=== PATIENT | female | born 1990 | race Caucasian/White ===

== ENCOUNTER 2018-08-05 06:54 | Emergency (ER) | payer OTHER, SELFPAY ==
[2018-08-05 06:54] VITALS: BP 126/95; PULSE 85; RESP 16; TEMP 36.8; O2SAT 100; BMI 25.7
--- NOTE | 2018-08-05 07:12 | ED.VISSUMM ---
- ER Visit Summary Date of Service: 08/05/18 Chief Complaint: [] History of Present Illness: The patient is a 28 F [] Physical Examination: [] Test Results: [] Emergency Department Course and Treatment: [] Treatment Plan: [] Disposition: [] Impression: [] This note was generated with [employer] dictation software. It may contain incorrect words, spelling, and punctuation that were not noted in review of the chart prior to signing ED Disposition - Plan for ED Patient: Disposition: Home or Assisted Living Chief Complaint: Other, Pain/Inj Instructions: ED Carpal Tunnel Referrals: Edgar Reis III, MD [Primary Care Provider] - (call today to schedule follow up)
--- NOTE | 2018-08-05 07:32 | ED.DCSUM_ITS ---
- ER Visit Summary Date of Service: 08/05/18 Chief Complaint: Bilateral hand tingling History of Present Illness: The patient is a 28 F who states that on 07/26 she had control implant removed from the left arm. She states that since that time both of her hands have been tingling in the palmar aspect of the thumb index. No fevers. No weakness. She was seen in outside hospital and had blood work done which she states was normal. 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 No neck pain. No known trauma. Physical Examination: Gen: Well-nourished well-developed Head: Normocephalic atraumatic Eyes: Perrl EOMI ENT: TMs clear no rhinorrhea moist mucous membranes Neck: Supple no lymphadenopathy no JVD nontender CVS: Regular rate rhythm no murmurs normal S1-S2 Respiratory: No distress clear to auscultation bilaterally chest nontender Abdomen: Soft nontender nondistended normal bowel sounds no masses Back: Nontender Extremity: Nontender no edema there is a small area of ecchymosis over the left proximal forearm/antecubital fossa distribution. Negative Phalen's. Negative Tinel's. There is no thenar or hyperthenar wasting. Normal opposition. Negative Ed's test. Less than 2-second capillary refill of all 10 fingers. Skin: Normal color no rash Neuro: alert orientated ?3 CN II-XII intact normal strength sensation reflexes gait cerebellar Psych: Normal affect normal mood Emergency Department Course and Treatment: Patient appears to have a median nerve paresthesia of both hands. Her mom has carpal tunnel splints which she is going to wear. She will follow-up with primary care. Impression: 1. Bilateral median nerve paresthesia This note was generated with [email or web address] dictation software. It may contain incorrect words, spelling, and punctuation that were not noted in review of the chart prior to signing ED Disposition - Plan for ED Patient: Disposition: Home or Assisted Living Chief Complaint: Other, Pain/Inj Instructions: ED Carpal Tunnel Referrals: Edgar Reis III, MD [Primary Care Provider] - (call today to schedule follow up)
--- NOTE | 2018-08-05 07:44 | ED.DCSUM_ITS ---
- ER Visit Summary Date of Service: 08/05/18 Chief Complaint: [] History of Present Illness: The patient is a 28 F [] Physical Examination: [] Test Results: [] Emergency Department Course and Treatment: [] Treatment Plan: [] Disposition: [] Impression: [] This note was generated with [employer] dictation software. It may contain incorrect words, spelling, and punctuation that were not noted in review of the chart prior to signing ED Disposition - Plan for ED Patient: Disposition: Home or Assisted Living Chief Complaint: Other, Pain/Inj Instructions: ED Carpal Tunnel Referrals: Edgar Reis III, MD [Primary Care Provider] - (call today to schedule follow up)
== END 2018-08-05 07:46 | disposition home or self-care (01) ==
LOC: ED 07:21
PROVIDERS: Emergency Provider Emergency Medicine; Family Provider Family Medicine; PCP Family Medicine
DX: G56.03 Carpal tunnel syndrome, bilateral upper limbs (principal)
CPT/HCPCS: 99282

== ENCOUNTER 2018-08-15 05:08 | Day surgery (SDC) | payer OTHER, SELFPAY ==
[2018-08-08 16:39] LABS: Hematocrit 41.1 % (37-47); Hemoglobin 13.7 g/dl (12.0-15.0); Mean Corp Hgb Conc 33.3 g/gl (32-36); Mean Corpuscular Hgb 30.6 pg (27.0-32.0); Mean Corpuscular Volume 91.9 fL (81-99); Mean Platelet Vol. 9.7 fl (6.2-12.0); Platelet Count 289 K/mm3 (150-450); Prothrombin Time (Protime)PT. 12.9 SECONDS (11.7-14.9); RBC Distribution Width CV 13.2 % (11.6-14.6); Red Blood Count 4.47 M/mm3 (4.2-5.4); White Blood Count 7.3 K/mm3 (4.4-11.0)
[2018-08-08 16:40] LABS: Partial Thromboplast Time 26.2 Seconds (24.1-36.2)
[2018-08-08 16:46] LABS: Scan Indicated on CBC? Y/N NO
[2018-08-08 16:55] LABS: Pregnancy, Serum, hCG Quali. NEGATIVE Negative (0-9 Nonpreg)
--- NOTE | 2018-08-15 | FALS_PTH ---
PATIENT: ANASTASIA LIVINGSTON LOC: [facility] [place] U#:[id number] AGE/SX: 28/F ROOM: RE08/15/[address]: Dr. Jeremie Gauthier MD : 1990 BED: DIS: 08/15/2018 SPEC #: [id number] RECD: 08/15/18 11:52 STATUS: COLT JOAN #: [id number] MERLYN: 08/15/18 00:[address]: Jeremie Gauthier DEPT: SURGICAL PATHOLOGY RECD BY: Eugene Woodard ENTERED: 08/15/18 11:52 SP TYPE: FALL TUBES OTHR DR: Dr. Edgar Reis III, MD Tissues: Fallopian tube Procedures: Surgery Specimen Level IV HEADER OPERATION: Lap BTO with Filshie clips, bilateral partial salpingectomy PRE-OP DIAGNOSIS: Desires permanent sterilization TISSUE SUBMITTED: Bilateral portion of fallopian tubes MICROSCOPIC DIAGNOSIS Right and left fallopian tubes, salpingectomies: Complete cross-sections of fallopian tubes. Benign paratubal cysts. AM:angie 08/16/18 MICROSCOPIC DESCRIPTION Slides are reviewed. GROSS DESCRIPTION Received is one container labeled with the patient's name and designated bilateral portion of fallopian tubes. The specimen consists of bilateral fallopian tubes including fimbrial ends. One of the fallopian tubes measures 6 cm in length and up to 0.5 cm in diameter. Sections reveal unremarkable cut surfaces. The second fallopian tube is received in two pieces. The distal end with fimbrial end measures 2 cm in length and 0.5 cm in diameter. A paratubal cyst is also noted measuring 1 cm in greatest dimension. The proximal portion measures 2.5 cm in length and 0.5 cm in diameter. Sections reveal unremarkable cut surfaces. Instructor Technical Training sections are submitted in two cassettes as follows: 1 - intact fallopian tube, 2 - second fallopian tube received in two pieces and paratubal cyst. / SJ:angie 08/15/18 TC:5 CPT: 41216 x2
[2018-08-15 05:34] LABS: Internal QC Validated? YES +Cl - CLEAR BKGD; Pregnancy, Urine Negative Negative
[2018-08-15 05:42] VITALS: BP 110/85; PULSE 72; RESP 16; TEMP 37.1; O2SAT 100; BMI 25.2
--- NOTE | 2018-08-15 07:41 | OP.PCM_ITS ---
Operative Report Date of Procedure: 08/15/18 Surgeon: Jeremie Gauthier MD, FACOG Anesthesia: David Kate CRNA Type of Anesthesia: General Endotracheal Pre-Op Diagnosis: Desires Permanent Sterilization Postoperative Diagnosis: Desires Permanent sterilization Procedure: Bilateral Tubal Occlusion With Filshie Clips and Partial Distal Salp ingectomy; Lysis of Adhesions Findings: 8 cm uterus with normal appearing fallopian tubes and ovaries; adhesions of the omentum to the left pelvic sidewall Indications: This is a 28 year old patient who has the above diagnosis. She has considered sterilization for quite some time. She is aware of the permanent nature of the procedure, the failure rate of 1-2%, and the availability of other nonpermanent control options. All questions were answered and we consider the patient well-informed. Procedure: The patient was taken to the operating room where after induction of general anesthesia, she was placed in the dorsolithotomy position and prepped and draped in the usual sterile fashion. The bladder was drained of approximately 50 cc of clear yellow urine with a catheter. Attention was turned toward the laparoscopic portion of the procedure. Approximately 16 cc of half percent ropivacaine was injected subumbilically, suprapubically and midway between. A 5 mm bladeless trocar was placed subumbilically and intraperitoneal placement confirmed. After CO2 insufflation was complete, a 7/8 mm bladeless trocar was introduced suprapubically. The above findings were noted. A 5 mm blade less port was then placed midway between these 2 ports for tubal manipulation. Adhesions of the omentum to the left pelvic sidewall were taken down using the Enseal device. Each fallopian tube was identified to its fimbriated end and an Enseal device was used to divide the mesosalpinx leaving approximately 1 cm stump of fallopian tube on each side. Filshie clips were placed on the stump of each fallopian tube. The peritoneal cavity and upper abdomen were examined and noted to be normal except for some adhesions in the right mid abdomen to the bowel and omentum. Photographs were taken. Laparoscopic instruments with as much CO2 gas as possible were removed and incisions were closed with interrupted 4-0 Monocryl suture. Steri-Strips were placed across the incision. Patient tolerated procedure well was taken to recovery room in satisfactory condition sponge instrument and needle counts were all reportedly correct. Estimated blood loss for the case was minimal. Cefotan 2 g IV was given prior to beginning the operative procedure. There were no apparent complications of the surgery. Specimens to pathology was bilateral distal tubes
--- NOTE | 2018-08-15 07:42 | DCINST_ITS ---
Discharge Diet: No Restrictions Discharge Activity: Return to Normal Activity, May not drive while taking narcotic pain medications., May Shower, May Take a Tub Bath Additional Activity Instructions:: Ambulate often the next week after surgery. Nothing in the vagina for 5 days. Call your doctor if your incision/area has: Continuous Slow Oozing, Sudden Increased Bleeding, Increased Pain/ Swelling, Increased Redness, Foul Smelling Discharge Call your doctor if you observe: Fever of 101 or Higher, Inability to urinate, Inability to have a bowel movement, Using more than one pad per hour Allergies/Adverse Reactions: Allergies latex Allergy (Verified 08/05/18 06:57) Rash nitrofurantoin [From Macrobid] Allergy (Verified 08/13/18 14:33) Rash phenazopyridine [From Pyridium] Allergy (Verified 08/13/18 14:33) Rash Medications to take at Discharge Diclofenac [Voltaren] 75 mg PO BIDCM 08/05/18 Omeprazole [Prilosec] 20 mg PO BID 08/05/18 Montelukast [Singulair] 10 mg PO QHS 08/13/18 Hydrocodone/Acetaminophen [Rainelle 5-325 Tablet] 1 ea PO Q6H PRN PRN 7 Days #10 tab 08/15/18 The following prescriptions were given: Hydrocodone/Acetaminophen [Rainelle 5-325 Tablet] 1 ea PO Q6H PRN PRN 7 Days #10 tab PRN Reason: Severe Pain (-07/17) Primary Care Physician: Edgar Reis III, MD [Primary Care Provider] - Test Results: Test results from this visit will be discussed in further detail at your follow- up appointment, if applicable. Please Follow Up With: Jeremie Gauthier MD - [phone] When: 2-3 weeks
[2018-08-15] MEDS: Ropivacaine 0.5% 30 ML Vial (08:15)
[2018-08-15 08:47] VITALS: BP 110/85; BP 117/77; PULSE 97; RESP 16; TEMP 36.3; O2SAT 100
[2018-08-15 09:00] VITALS: BP 110/85; BP 98/64; PULSE 72; RESP 16; O2SAT 100
[2018-08-15 09:15] VITALS: BP 110/85; BP 114/79; PULSE 82; RESP 16; O2SAT 100
[2018-08-15 09:31] VITALS: BP 110/85; BP 118/83; PULSE 69; RESP 16; TEMP 36.1; O2SAT 100
[2018-08-15] MEDS: HYDROcodone Bitartrate/Apap 5/325 Tablet PO (10:05)
[2018-08-15 10:36] VITALS: BP 110/85; BP 116/80; PULSE 74; RESP 16; TEMP 36.2; O2SAT 100
== END 2018-08-15 10:42 | disposition home or self-care (01) ==
LOC: SDC 05:09 → AC 05:10
PROVIDERS: Anesthesiology; Family Provider Family Medicine; PCP Family Medicine; Referring Provider Obstetrics & Gynecology; Visit Provider Obstetrics & Gynecology
PROC: (CPT 58671; principal; 2018-08-15 07:15)
DX: Z30.2 Encounter for sterilization (principal); N83.8 Other noninflammatory disorders of ovary, fallopian tube and broad ligament; N73.6 Female pelvic peritoneal adhesions (postinfective); K21.9 Gastro-esophageal reflux disease without esophagitis; J30.2 Other seasonal allergic rhinitis; Z79.899 Other long term (current) drug therapy
CPT/HCPCS: 58661; 58671; 36415; 81025; 84703; 85027; 85610; 85730; 86850; 86900; 88302; 88305; J7120; C1760; J2405

== ENCOUNTER 2018-09-27 19:56 | Emergency (ER) | payer OTHER, SELFPAY ==
[2018-09-27 19:56] VITALS: PULSE 89; RESP 16; TEMP 36.7; O2SAT 99; BMI 24.4
[2018-09-27 20:26] VITALS: BP 126/86
--- NOTE | 2018-09-27 20:43 | ED.DCSUM_ITS ---
- ER Visit Summary Date of Service: 09/27/18 Chief Complaint: Bilateral hand pain History of Present Illness: The patient is a 28 F who had a bilateral carpal tunnel release done today by Dr. Gallegos at [place]. This was done as an outpatient using local anesthetic. He states that since he has been home her pain is increasing. [place] was not helping. She sees some redness at the base of her dressings bilaterally. She has had no issues with any anesthesia locally before. Physical Examination: Vital signs reviewed. Patient afebrile. Bilateral hand exam reveals that the wounds are clean dry and intact. There is no erythema around the wounds. Around the wrists bilaterally on the palm side there is erythema consistent with what looks like an allergic reaction. There is no warmth or drainage. These areas are tender to palpation as is around the wounds. Test Results: None performed Emergency Department Course and Treatment: Patient will be given morphine for pain. She appears to have some sort of allergic reaction. Whether this is from the local anesthetic or the cleanser used for the surgery is unknown. I will give her Benadryl for this. She will continue Benadryl home. She will continue [place] for pain. Will follow up with her hand surgeon Treatment Plan: [] Disposition: Discharge Impression: Postoperative pain, allergic reaction This note was generated with [employer] dictation software. It may contain incorrect words, spelling, and punctuation that were not noted in review of the chart prior to signing ED Disposition - Plan for ED Patient: Chief Complaint: Other, Pain/Inj Referrals: Edgar Reis III, MD [Primary Care Provider] -
--- NOTE | 2018-09-27 20:43 | ED.DEP ---
ED Disposition - Plan for ED Patient: Disposition: Home or Assisted Living Chief Complaint: Other, Pain/Inj Instructions: ED Post Op Pain Referrals: Edgar Reis III, MD [Primary Care Provider] -
[2018-09-27] MEDS: Morphine 4 MG/ML Syringe IM (20:51)
[2018-09-27] MEDS: DiphenhydrAMINE 25 MG Capsule PO (20:51)
[2018-09-27 20:54] VITALS: PULSE 88; RESP 16; O2SAT 100
== END 2018-09-27 21:04 | disposition home or self-care (01) ==
PROVIDERS: Emergency Provider Emergency Medicine; Family Provider Family Medicine; PCP Family Medicine
DX: M79.642 Pain in left hand (principal); M79.641 Pain in right hand; G89.18 Other acute postprocedural pain; T78.40XA Allergy, unspecified, initial encounter; X58.XXXA Exposure to other specified factors, initial encounter; K21.9 Gastro-esophageal reflux disease without esophagitis
CPT/HCPCS: 96372; 99283

== ENCOUNTER 2018-12-16 20:00 | Emergency (ER) | payer OTHER, SELFPAY ==
[2018-12-16 20:02] VITALS: BP 131/81; PULSE 95; RESP 18; TEMP 36.6; O2SAT 99; BMI 23.8
[2018-12-16 20:21] LABS: Mucous, Urine 0 SEEN /hpf (<or=2+); Red Blood Cells-Urine 0 SEEN /hpf (0-5)
[2018-12-16 20:27] LABS: Color, Urine Yellow (Yellow); Glucose, Dipstick Normal (Normal); Ketone-Dipstick Negative (Negative); Leukocyte Esterase-Dipstick 500 /ul (Negative); Nitrite-Dipstick Positive (Negative); Occult Blood-Urine 50 /ul (Negative); Protein-Dipstick 30 mg/dl (Negative); Urine Bilirubin Dipstick Negative (Negative); Urine Clarity Cloudy (Clear); Urine Urobilinogen Normal (Normal)
[2018-12-16 20:35] LABS: White Blood Cells 25-50 SEEN /hpf (0-5)
[2018-12-16 20:36] LABS: Bacteria RARE /hpf (None Seen); Squamous Epithelial Cells - UA 0-5 SEEN /hpf (5-10)
[2018-12-16 21:31] LABS: Absolute Lymphocyte Count 2.27 X10^3/ul (0.83-4.51); Absolute Neutrophil Count 4.9 X10^3/uL (2.0-7.7); Basophil# 0.05 X10^3/uL; Basophil% 0.6 % (0-1); Eosinophil# 0.58 X10^3/uL; Eosinophils% 6.8 % (0-5); Lymphocyte # 2.27 X10^3/ul (4.0); Lymphocyte % 26.6 % (19-41); Mean Corp Hgb Conc 33.3 g/gl (32-36); Mean Corpuscular Hgb 30.3 pg (27.0-32.0); Mean Corpuscular Volume 90.9 fL (81-99); Mean Platelet Vol. 9.5 fl (6.2-12.0); Monocyte# 0.73 X10^3/uL; Monocyte% 8.6 % (0-10); Neutrophil # 4.86 X10^3/uL (2.7-7.7); POSITIVE COUNT NO; POSITIVE DIFFERENTIAL NO; POSITIVE MORPHOLOGY NO; Platelet Count 345 K/mm3 (150-450); RBC Distribution Width CV 13.8 % (11.6-14.6); RBC Distribution Width SD 44.8 fl (35.1-43.9); Red Blood Count 4.29 M/mm3 (4.2-5.4); White Blood Count 8.5 K/mm3 (4.4-11.0)
--- NOTE | 2018-12-17 00:44 | CT_ITS ---
STUDY: CT ABDOMEN AND PELVIS WITHOUT CONTRAST REASON FOR EXAM: Female, 28 years old. Flank pain RADIATION DOSAGE (If Supplied By Facility): CTDIvol = ( 6.08 ) mGy, DLP = ( 297.55 ) mGycm TECHNIQUE: Transaxial images were obtained from the dome of the diaphragm to the symphysis pubis without oral contrast, and without intravenous contrast. Sagittal and coronal images were reconstructed. Individualized dose optimization techniques were used for this CT. COMPARISON: None. FINDINGS: The visualized lung bases are unremarkable. The visualized portions of the heart are within normal limits. Normal liver. Normal gallbladder and extrahepatic biliary system. Normal spleen. Normal pancreas. Normal bilateral adrenal glands. Normal right kidney. There is stones in the lower pole of the LEFT kidney. There are NO ureteral stones. There is NO hydronephrosis. Normal visualized stomach. Normal small intestine. Normal colon. The appendix is visualized and appears normal. Normal abdominal aorta. Normal inferior vena cava. Normal retroperitoneum. Normal urinary bladder. Uterus is retroverted. There are bilateral tubal ligation clips. There is NO ascites or free air, abscess or adenopathy. Normal abdominal wall. Normal osseous structures. CT/Abdomen/Pelvis without Cont IMPRESSION: There is stones in the lower pole of the LEFT kidney. There are NO ureteral stones. There is NO hydronephrosis. Normal visualized stomach. Normal small intestine. Normal colon. The appendix is visualized and appears normal. Uterus is retroverted. There are bilateral tubal ligation clips. There is NO ascites or free air, abscess or adenopathy. Electronically Signed: Berto Ruvalcaba MD at 2:30 EDT , Service support ,
[2018-12-17 00:46] LABS: Anion Gap 9 (5-15); BUN 6 mg/dL (7-18); BUN/Creat Ratio 9.9 RATIO (10-20); Calcium,Total 8.6 mg/dL (8.5-10.1); Chloride 110 mmol/L (98-107); Creatinine, Serum 0.61 mg/dL (0.55-1.02); EST Glomerular Filtration Rate 124 mL/min (>60); Est Glom Filt Rate - Afr Amer 150 mL/min (>60); Estimated Creatinine Clearance 113.58 ml/min; Glucose 121 mg/dL (74-106); Potassium 3.3 mmol/L (3.5-5.1); Sodium Level 141 mmol/L (136-145)
[2018-12-17 00:49] LABS: Color, Urine Yellow (Yellow); Glucose, Dipstick Normal (Normal); Ketone-Dipstick Negative (Negative); Leukocyte Esterase-Dipstick 500 /ul (Negative); Mucous, Urine 0 SEEN /hpf (<or=2+); Nitrite-Dipstick Positive (Negative); Occult Blood-Urine 50 /ul (Negative); Protein-Dipstick 30 mg/dl (Negative); Red Blood Cells-Urine 0 SEEN /hpf (0-5); Urine Bilirubin Dipstick Negative (Negative); Urine Clarity Sl. Cloudy (Clear); Urine Urobilinogen Normal (Normal)
[2018-12-17] MEDS: Ceftriaxone 1 GM/50 ML BAG IV (00:54)
[2018-12-17] MEDS: 0.9% Normal Saline 1,000 ML 1000 ML IV (00:54)
[2018-12-17] MEDS: Ondansetron 4 MG/2 ML Vial IV (00:54)
[2018-12-17] MEDS: Ketorolac 30 MG/ML Syringe IV (00:54)
[2018-12-17 00:55] VITALS: BP 103/73; PULSE 78; RESP 14; TEMP 36.7; O2SAT 98
[2018-12-17 01:21] LABS: Pregnancy, Serum, hCG Quali. NEGATIVE Negative (0-9 Nonpreg)
[2018-12-17 01:21] LABS: Amorphous Sediment 1+ URATE; Bacteria RARE /hpf (None Seen); Calcium Oxalate Crystals Ur RARE /hpf (<or=2+); Squamous Epithelial Cells - UA 0-5 SEEN /hpf (5-10); White Blood Cells 25-50 SEEN /hpf (0-5)
--- NOTE | 2018-12-17 03:04 | ED.DCSUM_ITS ---
- ER Visit Summary Date of Service: 12/17/18 Chief Complaint: Right flank pain, frequency History of Present Illness: The patient is a 28 F reports urinary frequency and burning at the end of her stream. She had hematuria a couple days last week. She reports having pain up the middle of her back. She has not noted fever or chills. Physical Examination: Vital signs are unremarkable. Patient sitting upright in bed no acute distress. Head neck examination normal. Heart is regular rate and rhythm. Lung sounds are clear. Abdomen is soft with mild superpubic tenderness. No guarding or rebound. Back examination reveals mild right CVA tenderness. Test Results: CBC is normal. Chemistry studies significant for potassium 3.3. Renal function is normal. Urinalysis is positive for nitrites with 25-50 white cells and rare bacteria. Urine culture was sent. CT flank shows stones in the lower pole of the kidney. No ureteral stones. No hydronephrosis. Normal appendix noted. Emergency Department Course and Treatment: Patient received Toradol, Rocephin, Zofran, and IV fluids. On repeat evaluation she is sleeping comfortably. Test results are discussed with her and at bedside. She will be treated with a course of Bactrim. Treatment Plan: [] Disposition: Discharge Impression: Cystitis This note was generated with [employer] dictation software. It may contain incorrect words, spelling, and punctuation that were not noted in review of the chart prior to signing ED Disposition - Plan for ED Patient: Disposition: Home or Assisted Living Instructions: ED UTI Cystitis Female Prescriptions: Smz/Tmp Ds [Bactrim Ds] 1 tablet PO BID #6 tablet Referrals: Edgar Reis III, MD [Primary Care Provider] - 1 Week if not improving
[2018-12-17 03:11] VITALS: RESP 14
== END 2018-12-17 03:12 | disposition home or self-care (01) ==
PROVIDERS: Emergency Provider Emergency Medicine; Family Provider Family Medicine; PCP Family Medicine
DX: N30.90 Cystitis, unspecified without hematuria (principal)
CPT/HCPCS: 74176; 80048; 81001; 84703; 85025; 87077; 87086; 87088; 87186; 96365; 96375; 99282; J7030; J2405

== ENCOUNTER 2019-01-23 10:33 | Emergency (ER) | payer OTHER, SELFPAY ==
[2019-01-23 10:34] VITALS: BP 142/83; PULSE 88; RESP 17; TEMP 36.5; O2SAT 100; BMI 23.6
--- NOTE | 2019-01-23 11:18 | ED.DCSUM_ITS ---
- ER Visit Summary Date of Service: 01/23/19 Chief Complaint: Fever and myalgias History of Present Illness: The patient is a 28 F who presents with fever and myalgias that began today. Patient states her was seen here yesterday and diagnosed with influenza. Patient states she has not taken her temperature at home she just has subjective fevers and chills. Patient admits to a cough and some diarrhea. Patient also admits to some nasal congestion and an intermittent headache. Patient denies any sputum production. Physical Examination: Vital signs are stable. Patient is afebrile here. Patient is in no acute distress. Oral mucosa is pink and moist. Neck is supple. Trachea is midline. There is no JVD or lymphadenopathy noted. Oropharynx is clear. Heart was regular rate and rhythm. Lungs are clear and equal bilateral. Abdomen is soft. Bowel sounds are normal. There is no tenderness. Cranial nerves II through XII are intact. There are no focal motor or sensory deficits noted. Test Results: Rapid flu was obtained and was negative. Emergency Department Course and Treatment: Patient was advised that this is most likely a viral upper respiratory infection. Patient was instructed to take Tylenol as needed for any aches or fevers. Patient was instructed to drink plenty of fluids. Patient was instructed to follow-up with her primary care physician in 5-7 days. Patient understood and was agreeable with the plan. All questions were answered. Disposition: Discharge home Impression: Viral upper respiratory infection This note was generated with [employer] dictation software. It may contain incorrect words, spelling, and punctuation that were not noted in review of the chart prior to signing ED Disposition - Plan for ED Patient: Disposition: Home or Assisted Living Diagnosis: Viral upper respiratory infection Instructions: ED Upper Resp Infec No Abx Tx Referrals: Edgar Reis III, MD [Primary Care Provider] - 5-7 Days
== END 2019-01-23 13:33 | disposition home or self-care (01) ==
PROVIDERS: Emergency Provider Emergency Medicine; Family Provider Family Medicine; PCP Family Medicine
DX: J06.9 Acute upper respiratory infection, unspecified (principal); K21.9 Gastro-esophageal reflux disease without esophagitis
CPT/HCPCS: 87804; 99282

== ENCOUNTER 2019-02-10 14:03 | Emergency (ER) | payer OTHER, SELFPAY ==
[2019-02-10 14:04] VITALS: BP 115/61; PULSE 20; TEMP 36.7; O2SAT 97; BMI 26.2
--- NOTE | 2019-02-10 15:33 | ED.DCSUM_ITS ---
History of Present Illness Chief Complaint: Cold Sx Informant: Patient Onset: Weeks - 1 Context: Gradual Onset Timing: Continuous Quality: prod cough Location: chest Current Severity: Moderate Maximum Severity: Moderate Worsened by: at night -- trouble sleeping due to coughing Relieved by: not by dayquil, nyquil Associated Symptoms: ST, fever, earache bilat Narrative: Patient has had a productive cough for a week, making it hard for her to sleep. She saw her registered radiologic technologist just before the weekend, 3 days ago, was prescribed Levaquin after discussing this. She has been on that for 3 days. In the last 1 to 2 days she has had sore throat, bilateral earache and developed a fever. Denies any dyspnea. - Past Medical History (1) Seasonal allergies Status: Chronic (2) Carpal tunnel syndrome Status: Chronic Past Medical History - Allergies and Home Meds Allergies/Adverse Reactions: Allergies latex Allergy (Verified 01/23/19 10:34) Rash nitrofurantoin [From Macrobid] Allergy (Verified 01/23/19 10:34) Rash phenazopyridine [From Pyridium] Allergy (Verified 01/23/19 10:34) Rash epinephrine Adverse Reaction (Verified 01/23/19 10:34) Other lidocaine Adverse Reaction (Verified 01/23/19 10:34) Other Primary Care Physician: Edgar Reis III, MD [Primary Care Provider] - Smoking Status: Never smoker Review of Systems General: Reports: Fever, Malaise Eyes: Denies: Visual changes - bilaterally, Diplopia ENT: Reports: Bilateral ear pain, Rhinorrhea, Sore throat Cardiovascular: Denies: Chest pain Respiratory: Reports: Cough, Sputum. Denies: Dyspnea Gastrointestinal: Denies: Nausea, Vomiting, Diarrhea Skin: Denies: Rash, Abscess Physical Exam Vital Signs/Narrative: Vital Signs Temp Pulse BP Pulse Ox 02/10/19 14:04 98.1 F 20 L 115/61 97 Inital Vital Signs reviewed: Yes General: Well nourished, Well developed, No Acute Distress Head: Normocephalic, Atraumatic Eyes: Perrl, EOMI ENT: Moist mucous membranes, No rhinorrhea, TM's clear, Nasal congestion. Negative for: Sinus tenderness Neck: Supple, Nontender, No lymphadenopathy Cardiovascular: Regular rate, Regular rhythm, No murmurs Respiratory: No distress, CTA bilaterally, Chest nontender Skin: Normal color, No rash Neurological: Alert, Oriented x3, Cranial nerves II-XII grossly intact, Normal Strength, Normal Sensation, Normal Gait Psychological: Normal affect, Normal Mood Diagnostic/Tx/Re-eval - Medical Decision Making Her vital signs are unremarkable, her lungs are clear, her exam is normal. This is all consistent with a viral syndrome which is probably why the antibiotic is not helping. Since she has already taken half of it I recommend that she finish it and she was given a prescription for Robitussin-AC to help with her cough at night. ED Disposition - Plan for ED Patient: Disposition: Home or Assisted Living Diagnosis: Viral URI Instructions: ED Upper Resp Infec No Abx Tx Prescriptions: Guaifenesin/Codeine [Robitussin AC] 10 ml PO Q6H PRN PRN 3 Days #120 oz PRN Reason: Cough Referrals: Edgar Reis III, MD [Primary Care Provider] - 10-14 Days if not better
== END 2019-02-10 16:21 | disposition home or self-care (01) ==
PROVIDERS: Emergency Provider Emergency Medicine; Family Provider Family Medicine; PCP Family Medicine
DX: J06.9 Acute upper respiratory infection, unspecified (principal)
CPT/HCPCS: 99283

== ENCOUNTER 2019-02-17 18:34 | Emergency (ER) | payer OTHER, SELFPAY ==
[2019-02-17 18:35] VITALS: BP 118/83; PULSE 76; RESP 18; TEMP 36.6; O2SAT 99; BMI 25.1
--- NOTE | 2019-02-17 18:50 | RAD_ITS ---
STUDY: X-RAY CHEST REASON FOR EXAM: Female, 28 years old. Cough. TECHNIQUE: Single AP portable view of the chest. COMPARISON: None. FINDINGS: The lungs are clear and expanded. There is no demonstrated pleural abnormality. Normal size heart. Normal mediastinum and milena. Normal visualized pulmonary arteries. Normal visualized aortic arch and descending thoracic aorta. Normal visualized thoracic spine. Normal visualized ribs, clavicles, and shoulders. There is no demonstrated abnormality of the visualized soft tissue structures of the upper abdomen. RAD/Chest 1 View (Portable) IMPRESSION: Normal x-ray examination of the chest. Electronically Signed: Hernan Walker DO at 19:07 EDT Tel [phone], Service support ,
--- NOTE | 2019-02-17 19:39 | ED.VISSUMM ---
- ER Visit Summary Date of Service: 02/17/19 Chief Complaint: Cough History of Present Illness: The patient is a 28 F presenting with cough x2 weeks. Patient states she has had subjective fever, rhinorrhea, cough. She has multiple sick contacts at home with her children. She denies other complaints. She has tried NyQuil and DayQuil at home. Physical Examination: Vitals are stable. Patient is afebrile. Alert no acute distress. HEENT exam pharynx is normal Neck is supple. Lungs are clear and equal bilaterally. Heart is regular rate and rhythm. Abdomen is soft nontender nondistended. Extremities are unremarkable. Skin is warm and dry. Remainder of exam is unremarkable. Emergency Department Course and Treatment: Chest x-ray shows no acute process. She is given a prescription for Tessalon Perles. Advised to follow-up with her primary care physician. Advised return to ED for worsening complaints. Disposition: Discharge home Impression: URI This note was generated with [employer] dictation software. It may contain incorrect words, spelling, and punctuation that were not noted in review of the chart prior to signing ED Disposition - Plan for ED Patient: Instructions: ED Upper Resp Infec No Abx Tx Prescriptions: Benzonatate [Tessalon Perle] 200 mg PO TID PRN PRN #20 capsule PRN Reason: Cough Referrals: Edgar Reis III, MD [Primary Care Provider] -
[2019-02-17 19:57] VITALS: RESP 18
== END 2019-02-17 19:58 | disposition home or self-care (01) ==
LOC: ED 19:47
PROVIDERS: Emergency Provider Emergency Medicine; Family Provider Family Medicine; PCP Family Medicine
DX: J06.9 Acute upper respiratory infection, unspecified (principal); K21.9 Gastro-esophageal reflux disease without esophagitis; J30.2 Other seasonal allergic rhinitis
CPT/HCPCS: 71045; 99282

== ENCOUNTER 2019-06-13 23:47 | Emergency (ER) | payer SELFPAY ==
[2019-06-13 23:49] VITALS: BP 136/85; PULSE 81; RESP 16; TEMP 36.7; O2SAT 100; BMI 26.5
--- NOTE | 2019-06-14 01:38 | ED.RN ---
WENT IN TO APOLOGIZE TO PT FOR DELAY IN CARE, PT AND SPOUSE/SO LAYING IN BED SLEEPING.
--- NOTE | 2019-06-14 01:52 | ED.VIS.GEN ---
History of Present Illness Chief Complaint: Rash Narrative: Patient is a 29-year-old female who presents with a rash. This began about 4 5 days ago. She also complains of sore throat. No cough. She has had some congestion and runny nose. She complains of a fever of 100. No chest pain shortness of breath nausea vomiting. She has a red raised pruritic rash on the trunk and extremities. Past Medical History - Allergies and Home Meds Allergies/Adverse Reactions: Allergies latex Allergy (Verified 06/13/19 23:51) Rash nitrofurantoin [From Macrobid] Allergy (Verified 06/13/19 23:51) Rash phenazopyridine [From Pyridium] Allergy (Verified 06/13/19 23:51) Rash epinephrine Adverse Reaction (Verified 06/13/19 23:51) Other RASH lidocaine Adverse Reaction (Verified 06/13/19 23:51) Other RASH Primary Care Physician: Edgar Reis III, MD [Primary Care Provider] - Prior records reviewed: Yes Smoking Status: Never smoker Review of Systems All systems negative except as indicated General: Reports: Fever ENT: Reports: Sore throat Cardiovascular: Denies: Chest pain Respiratory: Denies: Dyspnea, Cough Gastrointestinal: Denies: Nausea, Vomiting Skin: Reports: Rash Physical Exam Vital Signs/Narrative: Vital Signs Temp Pulse Resp BP Pulse Ox 06/13/19 23:49 98.1 F 81 16 136/85 H 100 Inital Vital Signs reviewed: Yes General: Well nourished Head: Normocephalic Eyes: EOMI ENT: Moist mucous membranes, - - Posterior oropharyngeal erythema no exudate uvula midline clear speech no trismus no sublingual edema Neck: Supple Cardiovascular: Regular rate Respiratory: No distress Skin: - - Scarlatiniform rash over the trunk and arms. Diagnostic/Tx/Re-eval - Medical Decision Making Rapid strep is negative. This will reflex to culture. Given negative rapid strep this is likely a viral exanthem. She was advised on supportive care. Patient was discharged. ED Disposition - Plan for ED Patient: Disposition: Home or Assisted Living Diagnosis: Pharyngitis, Rash Instructions: PHARYNGITIS, Viral Referrals: Edgar Reis III, MD [Primary Care Provider] -
[2019-06-14 03:26] VITALS: RESP 16
== END 2019-06-14 03:27 | disposition home or self-care (01) ==
PROVIDERS: Emergency Provider Emergency Medicine; Family Provider Family Medicine; PCP Family Medicine
DX: R21 Rash and other nonspecific skin eruption (principal); J02.9 Acute pharyngitis, unspecified
CPT/HCPCS: 87077; 87880; 99282

== ENCOUNTER 2019-07-15 08:51 | Emergency (ER) | payer SELFPAY ==
[2019-07-15 08:51] VITALS: BP 130/81; PULSE 97; RESP 18; TEMP 36.2; O2SAT 100; BMI 26.5
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
[2019-07-15 09:43] VITALS: PULSE 110; RESP 16; O2SAT 98
[2019-07-15 10:06] VITALS: BP 127/75; PULSE 97; RESP 16; O2SAT 97
== END 2019-07-15 10:07 | disposition home or self-care (01) ==
PROVIDERS: Emergency Provider Emergency Medicine; Family Provider Family Medicine; PCP Family Medicine
DX: Z04.1 Encounter for examination and observation following transport accident (principal); S40.211A Abrasion of right shoulder, initial encounter; S50.811A Abrasion of right forearm, initial encounter; V43.62XA Car passenger injured in collision with other type car in traffic accident, initial encounter; Y93.I9 Activity, other involving external motion; Y92.410 Unspecified street and highway as the place of occurrence of the external cause; Y99.8 Other external cause status
CPT/HCPCS: 73060; 73090; 73590; 99282

== ENCOUNTER → 2020-05-27 | Outpatient (CLI) | payer BC, SELFPAY ==
[2020-06-01 13:35] LABS: HPV Reflexed? NOT INDICATED
== END | disposition home or self-care (01) ==
PROVIDERS: PCP Family Medicine; Visit Provider Obstetrics & Gynecology
DX: Z12.4 Encounter for screening for malignant neoplasm of cervix (principal)
CPT/HCPCS: 88175; G0145

== ENCOUNTER → 2020-12-16 16:20 | Outpatient (CLI) | payer BC, SELFPAY ==
--- NOTE | 2020-12-16 16:10 | EMB_PTH ---
PATIENT: ANASTASIA LIVINGSTON LOC: [facility] U#:[id number] AGE/SX: 35/F ROOM: RE12/16/[address]: Dr. Jeremie Gauthier MD : 1990 BED: DIS: SPEC #: [id number] RECD: 12/17/20 08:17 STATUS: COLT REGopal #: [id number] MERLYN: 12/16/20 16:[address]: Jeremie Gauthier DEPT: SURGICAL PATHOLOGY RECD BY: Sarah Cason ENTERED: 12/17/20 08:18 SP TYPE: ENDOM BX/C NATALIIA DR: Dr. Edgar Reis III, MD Tissues: Endometrium, NOS Procedures: Surgery Specimen Level IV HEADER OPERATION: Endometrial biopsy PRE-OP DIAGNOSIS: Menorrhagia TISSUE SUBMITTED: Endometrial biopsy MICROSCOPIC DIAGNOSIS Endometrium, biopsy: Secretory endometrium. AM:angie 12/20/2020 MICROSCOPIC DESCRIPTION Slides are reviewed. GROSS DESCRIPTION Received in fixative is one container labeled with the patient's name and designated EM biopsy. The specimen consists of multiple irregular fragments of hudson soft tissue that in aggregate measure 2.5 x 1.5 x 0.2 cm. The specimen is totally submitted in one cassette. / SJ:angie 12/17/20 TC:5 CPT: 14760
== END ==
LOC: WOBLAB 16:21
PROVIDERS: PCP Family Medicine; Visit Provider Obstetrics & Gynecology
DX: N92.0 Excessive and frequent menstruation with regular cycle (principal)
CPT/HCPCS: 88305

== ENCOUNTER 2021-01-10 08:24 | Day surgery (SDC) | payer BC, SELFPAY ==
[2021-01-07 15:48] LABS: Hematocrit 38.2 % (37-47); Hemoglobin 12.2 g/dL (12.0-15.0); Mean Corp Hgb Conc 31.9 g/dL (32-36); Mean Corpuscular Hgb 27.1 pg (27.0-32.0); Mean Corpuscular Volume 84.9 fL (81-99); Mean Platelet Vol. 9.8 fl (6.2-12.0); Platelet Count 332 K/mm3 (150-450); RBC Distribution Width CV 13.6 % (11.6-14.6); RBC Distribution Width SD 42.4 fl (35.1-43.9); White Blood Count 8.1 K/mm3 (4.4-11.0)
[2021-01-07 15:53] LABS: International Normalized Ratio 0.9; Prothrombin Time (Protime)PT. 11.9 SECONDS (11.7-14.9)
[2021-01-07 15:55] LABS: Partial Thromboplast Time 27.1 Seconds (24.1-36.2)
[2021-01-07 16:19] LABS: Thyroid Stim Hormone (TSH) 0.75 uIU/mL (0.358-3.74)
--- NOTE | 2021-01-09 10:52 | PCM.HP.BLA ---
History and Physical Date of Admission: 01/10/21 Surgical History and Physical Hortencia Perez, a 30 year old female 2 0 1 0 2, presents for HTA, Hysteroscopy and D and C on January 10, 2021 at 10:30. -- Menorrhagia and Dysmenorrhea -- heavy menses which began 1 year. Hortencia claims it started gradually and has been present worsened in last several months. It occurs with menses. It is located in the vagina.; It is located in the lower abdomen. Hortencia characterizes it to be to the back. Hortencia characterizes the quality cramping.; Hortencia characterizes the quality stabbing.; Hortencia characterizes the quality heavy. Severity is moderate and not improving. Additional comments are: EMBx benign and u/s ok. MEDICATIONS HISTORY: Patient is also takin. Supplement (s) [No Strength], Allergy Injections once weekly 2. Singulair 10 mg tablet, One pill by mouth once a day 3. Carafate 1 gram tablet, One pill by mouth four times a day 4. Flonase Allergy Relief 50 mcg/actuation nasal spray,suspension, As Directed ALLERGIES: Latex, Hives and/or rash, Macrobid, Paresthesia-facial (sensation of tickling, tingling, burning, pricking, or numbness), Pyridium, Hives and/or rash, Lidocaine and Hives and/or rash Illnesses - Seasonal Allergies, Acid Reflux Accidents - None Hospitalizations - see surgery Review of Systems: GENERAL - Denies fever, or chills SKIN - Denies skin changes EYES - Denies visual changes EARS - Denies difficulty hearing NOSE - Denies nasal congestion or bleeding MOUTH - Denies sore throat or difficulty swallowing NECK - Denies pain or swelling RESPIRATORY - Denies shortness of breath or wheezing CARDIOVASCULAR - Denies palpitations or chest pain GASTROINTESTINAL - Denies nausea, vomiting, diarrhea, constipation GENITOURINARY - Denies dysuria, frequency of urination, incontinence of urine MUSCULOSKELETAL - Denies joint or muscle pain NEUROLOGICAL - Denies localized numbness or weakness PSYCHIATRIC - Denies depression or anxiety ENDOCRINE - Denies heat or cold intolerance, weight loss or gain HEMATO-IMMUNOLOGIC - Denies excesive bleeding with cuts SOCIAL HISTORY: Alcohol Use - drinks occasionally Smoking - Never Diet - no special diet Lifestyle - moderate stress lifestyle and Exercise - active work Seat Belt Use - always Employer - [employer] Illicit Drug Use - None Sexual Activity - Spouse-Sig Other Name - Chevy Perez Spouse-Sig 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 09/27/2018 Bilateral Carpel Tunnel ; - 2. 04/27/2008 ; Dr. Montgomery & Dr. Enriquez - 3. 07/25/2011 ; Dr. Montgomery & Dr. Medina - 4. 09/2016 Nasoplasty ; - 5. 08/15/2018 Lap BTO with filyaneli and BPS ; Jeremie Gauthier M.D. - PHYSICAL EXAM BP- 136/86 Sitting, Right arm, regular cuff Weight- 184.49502 lbs Height- 63 inch BMI:32.66 CONSTITUTIONAL - NAD, well nourished, and well developed SKIN - No rash, lesions, or ulcers HEENT - Normocephalic, PERRLA, EOMI NECK - No nodes, no nuchal rigidity and thyroid normal size and texture LYMPH NODES - Palpation of lymph nodes in neck and groins within normal limits LUNGS - CTA x2 without wheezes, crackles or rales CARDIAC - Regular rate and rhythm without rubs, murmurs, or gallops BREAST - No dominant masses, no tenderness, no axillary adenopathy, no nipple discharge, no skin changes ABDOMEN - Without hepatosplenomegaly, distention, masses, rebound, or guarding; normal bowel sounds; no hernias EXTREMITIES - No edema or calf tenderness NEUROLOGICAL - Cranial nerves II-XII grossly intact PSYCHIATRIC - A and O to time, place, person, mood and affect External Genitial Vagina - non-tender without lesions and erythematous Urethra/Urethral Meatus - non-tender Bladder - non-tender Vagina - vaginal hernandez are pink and moist without loss of rugae and no evidence of atropy Cervix - without cervical motion tenderness and has normal size and features without evident lesions Uterus - multiparous size 6 cm & wt 75-125 g Adnexa - clear without massess or tenderness ASSESSMENT/PLAN: 1. Dysmenorrhea and Premenopausal Menorrhagia EMBx and U/S OK. Tried OCPs but did not help. Discussed options and suggested ablation. Plan to proceed with Dx H/S, D and C, and HTA. Discussed RBAs and all quesitons answered.
--- NOTE | 2021-01-10 | EMB_PTH ---
PATIENT: ANASTASIA LIVINGSTON LOC: [facility] [place] U[place][id number] AGE/SX: 30/F ROOM: RE01/10/[address]: Dr. Jeremie Gauthier MD : 1990 BED: DIS: 01/10/2021 SPEC #: [id number] RECD: 01/10/21 12:47 STATUS: COLT REGopal #: [id number] MERLYN: 01/10/21 00:[address]: Jeremie Gauthier DEPT: SURGICAL PATHOLOGY RECD BY: Eugene Woodard ENTERED: 01/11/21 07:44 SP TYPE: ENDOM BX/C NATALIIA DR: Dr. Edgar Reis III, MD Tissues: Endometrium, NOS Procedures: Surgery Specimen Level IV HEADER OPERATION: Hysteroscopy, D & C hydroablation PRE-OP DIAGNOSIS: Menorrhagia and dysmenorrhea TISSUE SUBMITTED: Endometrial curettings MICROSCOPIC DIAGNOSIS Endometrial curettings: Mildly disordered proliferative endometrium. SJ:angie 01/12/2021 MICROSCOPIC DESCRIPTION Slides are reviewed. GROSS DESCRIPTION Received in fixative is one container labeled with the patient's name and designated endometrial curettings. The specimen consists of multiple fragments of hemorrhagic soft tissue that in aggregate measure 5 x 3 x 0.3 cm. The entire specimen is submitted in two cassettes. / CIRA:angie 01/11/21 TC:5 CPT: 93876
[2021-01-10 08:52] VITALS: BP 119/85; PULSE 70; RESP 16; TEMP 36.9; O2SAT 99; BMI 33.1
[2021-01-10] MEDS: Lactated Ringers 1,000 ML 100 ML IV ×2 (09:13→11:34)
--- NOTE | 2021-01-10 10:34 | OP.PCM_ITS ---
Report of Operation Date of Procedure: 01/10/21 Pre-Operative Diagnosis: Menorrhagia Post-Operative Diagnosis: Menorrhagia Surgery/Procedure Performed:: Diagnostic Hysteroscopy, Dilation and Curettage, Hydrothermal Ablation Description of Surgical Findings:: 8 cm endometrial cavity without polyps or fibroids. Cervix which protrudes to within about 3 cm the introitus which would make laparoscopic-assisted vaginal hysterectomy difficult but robotic assisted vaginal hysterectomy feasible if this were ever needed. Type of Anesthesia:: General - LMA Anesthesiologist: Lowell Lang Estimated Blood Loss (mL): Minimal Fluids Replaced: Crystalloid Description of Procedure: Surgeon: Jeremie Gauthier MD, FACOG Indication: This is a 30 year old patient who has been having problems with extremely heavy menses. Conservative measures have not been helpful. Endometrial sampling was benign and pelvic ultrasound showed that ablation may be helpful. Pt has been counseled regarding the risks, benefits and alternatives of this procedure and all questions answered. She understands that only about half of patients will have amenorrhea after this procedure. Procedure: Patient taken to the operating room where after induction of general anesthesia the patient was prepped and draped in the usual sterile fashion. Mario Alberto dder was drained of urine with a catheter. Anterior cervix grasped and cervix was dilated to about 17 Mosotho size. Hysteroscopic hydrothermal ablation (HTA) unit was place in the cervix and the above findings were noted. HTA unit was removed and the uterus was gently curretted removing all contents. An HTA ablation cycle was then carried out at about 90 degrees Centigrade for 10 minutes with virtually no fluid loss during the procedure. After an appropriate cool down the HTA unit was removed with minimal bleeding noted. The patient tolerated the procedure well and was taken to the recovery room in satisfactory condition. Sponge, instruments and needle counts were all correct. There were no apparent complications of the surgery. Cefotan 2 gms IV was given prior to the procedure. Estimated Blood Loss: Minimal Specimen to Pathology: Endometrial Curettings Grafts/Implants Used: None - Complications None - Admit VTE Documentation VTE Present on Admission: Yes VTE Mechan Device Prophylaxis: SCD's
--- NOTE | 2021-01-10 10:37 | DCINST_ITS ---
Discharge Diet: No Restrictions Discharge Activity: Return to Normal Activity, May Shower, May Take a Tub Bath May resume sexual activity in: 4 weeks Call your doctor if you observe: Fever of 101 or Higher, Inability to urinate, Inability to have a bowel movement, Using more than one pad per hour Allergies/Adverse Reactions: Allergies latex Allergy (Verified 01/10/21 08:51) Rash nitrofurantoin [From Macrobid] Allergy (Verified 01/10/21 08:51) Rash phenazopyridine [From Pyridium] Allergy (Verified 01/10/21 08:51) Rash epinephrine Adverse Reaction (Verified 01/10/21 08:51) Other RASH lidocaine Adverse Reaction (Verified 01/10/21 08:51) Other RASH Medications to take at Discharge Montelukast [Singulair] 10 mg PO QHS 02/10/19 Sucralfate [Carafate] 1 gm PO 4X/DAY 02/10/19 Fluticasone 0.05% [Flonase Nasal [place]] 1 spray NASAL DAILY 01/03/21 Oxycodone [Oxyir] 5 mg PO Q6H PRN PRN 7 Days #5 tab 01/10/21 The following prescriptions were given: Oxycodone [Oxyir] 5 mg PO Q6H PRN PRN 7 Days #5 tab PRN Reason: Pain Score 6-10 Primary Care Physician: Edgar Reis III, MD [Primary Care Provider] - Test Results: Test results from this visit will be discussed in further detail at your follow- up appointment, if applicable. Please Follow Up With: Jeremie Gauthier MD When: 2 to 3 weeks
[2021-01-10] MEDS: Cefotetan 2 GM in 0.9% NS 100 ML IV (10:49)
[2021-01-10 11:25] VITALS: BP 119/85; BP 95/75; PULSE 100; RESP 16; TEMP 37.2; O2SAT 100
[2021-01-10 11:30] VITALS: BP 104/76; BP 119/85; PULSE 89; RESP 16; O2SAT 100
[2021-01-10 11:45] VITALS: BP 109/77; BP 119/85; PULSE 86; RESP 16; O2SAT 97
[2021-01-10 11:50] VITALS: BP 111/73; BP 119/85; PULSE 76; RESP 16; TEMP 36.5; O2SAT 100
[2021-01-10] MEDS: oxyCODONE 5 MG Tablet PO (12:13)
[2021-01-10] MEDS: Acetaminophen 500 MG Tablet 1000 MG PO (12:13)
[2021-01-10 13:00] VITALS: BP 116/85; BP 119/85; PULSE 73; RESP 16; TEMP 36.6; O2SAT 100
== END 2021-01-10 13:05 | disposition home or self-care (01) ==
LOC: SDC 08:24 → AC 08:27
PROVIDERS: PCP Family Medicine; Referring Provider Obstetrics & Gynecology; Visit Provider Obstetrics & Gynecology
PROC: 0U5B8ZZ Destruction of Endometrium, Via Natural or Artificial Opening Endoscopic (ICD-10-PCS; CPT 58563; principal; 2021-01-10 10:05)
DX: N92.0 Excessive and frequent menstruation with regular cycle (principal); K21.9 Gastro-esophageal reflux disease without esophagitis; Z20.822 Contact with and (suspected) exposure to COVID-19
CPT/HCPCS: 00952; 58563; 36415; 84443; 85027; 85610; 85730; 86850; 86900; 86901; 87426; 88305; C9803; J7120; J2405

== ENCOUNTER 2021-01-20 11:37 | Emergency (ER) | payer BC, SELFPAY ==
[2021-01-20 11:38] VITALS: BP 136/82; PULSE 115; RESP 18; TEMP 37.7; O2SAT 98; BMI 32.9
--- NOTE | 2021-01-20 11:44 | RAD_ITS ---
STUDY: X-RAY CHEST REASON FOR EXAM: Female, 30 years old. SOB . Fever, cough and headaches. TECHNIQUE: Single AP portable view of the chest. COMPARISON: Comparison is made with prior study 02/17/2019. FINDINGS: The lungs are clear and expanded. There is no demonstrated pleural abnormality. Normal size heart. Normal mediastinum and milena. Normal visualized pulmonary arteries. Normal visualized aortic arch and descending thoracic aorta. Normal visualized thoracic spine. Normal visualized ribs, clavicles, and shoulders. There is no demonstrated abnormality of the visualized soft tissue structures of the upper abdomen. RAD/Chest 1 View (Portable) IMPRESSION: Normal x-ray examination of the chest. Electronically Signed: Wilfredo Sanchez MD at 12:23 EDT , Service support ,
--- NOTE | 2021-01-20 11:51 | ED.DCSUM_ITS ---
History of Present Illness Chief Complaint: Fever Narrative: This patient is a 30-year-old female who presents with possible Covid symptoms. She has been exposed to multiple family members who have tested positive for Covid. She complains of fever, headache, body aches, congestion. She has a mild cough. She is not short of breath. No vomiting or diarrhea. She has not taken any medications for headache or body pain. She is not immunosuppressed no history of lung disease. Past Medical History - Allergies and Home Meds Allergies/Adverse Reactions: Allergies latex Allergy (Verified 01/20/21 11:41) Rash nitrofurantoin [From Macrobid] Allergy (Verified 01/20/21 11:41) Rash phenazopyridine [From Pyridium] Allergy (Verified 01/20/21 11:41) Rash epinephrine Adverse Reaction (Verified 01/20/21 11:41) Other RASH lidocaine Adverse Reaction (Verified 01/20/21 11:41) Other RASH Primary Care Physician: Edgar Reis III, MD [Primary Care Provider] - Past Medical History: - - GERD Smoking Status: Never smoker Review of Systems All systems negative except as indicated General: Reports: Fever Eyes: Denies: Visual changes - bilaterally ENT: Denies: Bilateral ear pain Cardiovascular: Denies: Chest pain Respiratory: Reports: Cough. Denies: Dyspnea Gastrointestinal: Denies: Nausea, Vomiting, Diarrhea Musculoskeletal: Reports: Myalgias, Arthralgias Skin: Denies: Rash Neurological: Reports: Headache Hematologic: Denies: Easy bruising Allergy: Denies: Uticaria Physical Exam Vital Signs/Narrative: Vital Signs Temp Pulse Resp BP Pulse Ox 01/20/21 11:38 99.9 F H 115 H 18 136/82 H 98 Inital Vital Signs reviewed: Yes General: Well nourished, Well developed Head: Normocephalic Eyes: EOMI ENT: Moist mucous membranes Neck: Supple Cardiovascular: Regular rhythm, Tachycardia Respiratory: No distress, CTA bilaterally. Negative for: Rales, Rhonchi, Wheezing Abdomen: Soft, Nontender Skin: Normal color Neurological: Alert Psychological: Normal affect Diagnostic/Tx/Re-eval - Medical Decision Making Patient was given ibuprofen for symptoms. One-view portable chest x-ray obtained. On my interpretation the shows no acute process. This was also read by radiology as normal. Rapid Covid antigen is positive. Patient advised on s upportive care and quarantine precautions. Patient was discharged. ED Disposition - Plan for ED Patient: Disposition: Home or Assisted Living Diagnosis: COVID-19 Instructions: Coronavirus Disease 2019 (COVID-19): Caring for Yourself or Others Referrals: Edgar Reis III, MD [Primary Care Provider] -
[2021-01-20 11:53] VITALS: BP 136/82; PULSE 115; RESP 18; TEMP 37.7; O2SAT 98
[2021-01-20] MEDS: Ibuprofen 200 MG Tablet 400 MG PO (12:01)
== END 2021-01-20 12:43 | disposition home or self-care (01) ==
PROVIDERS: Emergency Provider Emergency Medicine; PCP Family Medicine
DX: U07.1 COVID-19 (principal); K21.9 Gastro-esophageal reflux disease without esophagitis
CPT/HCPCS: 71045; 87426; 99283

== ENCOUNTER 2021-04-15 07:49 | Emergency (ER) | payer BC, SELFPAY ==
[2021-04-15 07:50] VITALS: BP 142/89; PULSE 70; RESP 16; TEMP 36.3; O2SAT 100; BMI 31.9
--- NOTE | 2021-04-15 07:56 | EDS_ITS ---
HPI HPI - Female History of Present Illness Chief Complaint: Flank Pain Narrative Narrative: Patient presenting with left flank pain. She states it woke her up from sleep this morning. She has nausea as an associated symptom. She has not had any vomiting. Patient states that she is having dysuria and difficulty urinating now. She is not had a fever, chills. Patient is status post tubal ligation. She also expresses no concern for . Patient has had one kidney stone in the past and she states this feels similar. She does not have a urologist. [facility] Medical History (Updated 04/15/21 @ 09:[address] Valente Unger, DO) History of kidney stones Home Medications montelukast 10 mg PO QHS 02/10/19 [History Last Taken Unknown] sucralfate 1 g PO 4X/DAY 02/10/19 [History Last Taken Unknown] fluticasone propionate 1 spray NASAL DAILY 01/03/21 [History Last Taken Unknown] ondansetron HCl [Zofran] 4 mg PO Q8H PRN #14 tab 04/15/21 [Rx Last Taken Unknown] oxycodone-acetaminophen [Percocet] 1 tab PO Q6H PRN 3 Days #12 tab 04/15/21 [Rx Last Taken Unknown] Allergy/AdvReac Type Severity Reaction Status Date / Time latex Allergy Rash Verified 04/15/21 07:50 nitrofurantoin Allergy Rash Verified 04/15/21 07:50 [From Macrobid] phenazopyridine Allergy Rash Verified 04/15/21 07:50 [From Pyridium] epinephrine AdvReac Other Verified 04/15/21 07:50 lidocaine AdvReac Other Verified 04/15/21 07:50 Surgical History History of carpal tunnel repair Social History Smoking Status: Never smoker ROS ROS ED Constitutional Constitutional ED: Denies chills, fever(s) or sweats Eyes Eyes: Denies blurry vision or diplopia ENT ENT ED: Denies rhinorrhea or sore throat Cardiovascular Cardiovascular: Denies chest pain or palpitations Respiratory/Chest Respiratory/Chest: Denies cough or dyspnea Gastrointestinal Gastrointestinal: Reports abdominal pain and nausea; Denies constipation, diarrhea or vomiting Genitourinary Genitourinary ED: Reports dysuria and urinary frequency Musculoskeletal Musculoskeletal: Reports other Details: Left flank pain ; Denies arthralgias or myalgias Integumentary Denies abscess or rash Neurologic Neurologic: Denies headache(s) or paresthesias EXAM Physical Exam Const Vital Signs: 04/15/21 07:50 Temperature 97.3 F L Temperature Source Temporal Pulse Rate 70 Respiratory Rate 16 Blood Pressure 142/89 H Blood Pressure Mean 106 Pulse Ox 100 Oxygen Delivery Method Room Air Positive well nourished General Appearance ED: NAD HEENT Reports moist mucous membranes Negative for trauma Eyes PERRL and EOMs intact bilaterally Resp normal respiratory effort and clear to auscultation bilaterally Cardio regular rate and regular rhythm GI GI Narrative: Mild tenderness to palpation left lower quadrant Back/Spine General Back: CVA tenderness left Extremity normal to inspection General Extremety ED: Negative for edema General Extremity: Negative for edema Neuro oriented x3 Sensorium / Orientation: alert Psych mental status grossly normal Skin no rashes or lesions noted and no wounds MDM MDM MDM Narrative Medical decision making narrative: Patient presenting with left flank pain and concern for kidney stone. She is also having dysuria and frequency. Patient given morphine, Zofran, Toradol because she states she has no concern for . We will do lab work and obtain CT imaging. Blood work shows no leukocytosis, hemoglobin hematocrit are stable, platelets are normal. Renal function electrolytes are normal with exception of potassium of 3.4 which she can replace in her diet. Urinalysis is negative for infection but there is blood. Patient had CT of the abdomen pelvis without contrast which shows a 3 mm left UVJ stone. Patient was given a prescription for Percocet, Zofran for home. She is given follow-up with Dr. Monroe. Patient given return precautions. Impression: 1. 3 mm left UVJ stone 2. Hematuria Lab Data Labs: Laboratory Results - last 24 hr 04/15/21 04/15/21 04/15/21 07:58 08:35 08:35 WBC 10.2 RBC 4.33 Hgb 12.5 Hct 38.6 MCV 89.1 MCH 28.9 MCHC 32.4 RDW Std Deviation 45.5 H RDW Coeff of Julianne 13.9 Plt Count 316 MPV 9.4 Immature Gran % (Auto) 0.600 Neut % (Auto) 69.9 Lymph % (Auto) 21.7 [place] % (Auto) 5.9 Eos % (Auto) 1.6 Baso % (Auto) 0.3 Absolute Neuts (auto) 7.2 Absolute Lymphs (auto) 2.22 Nucleated RBC % 0 Sodium 139 Potassium 3.4 L Chloride 107 Carbon Dioxide 28.0 Anion Gap 4 L BUN 16 Creatinine 0.80 Estim Creat Clear Calc 85.06 Est GFR (MDRD) Af Amer 107 Est GFR (MDRD) Non-Af 89 BUN/Creatinine Ratio 19.9 Glucose 91 Calcium 9.1 Urine Color Yellow Urine Clarity Clear Urine pH 6.5 Ur Specific [place] 1.010 Urine Protein Negative Urine Glucose (UA) Normal Urine Ketones Negative Urine Occult Blood 10 H Urine Nitrite Negative Urine Bilirubin Negative Urine Urobilinogen Normal Ur Leukocyte Esterase Negative Urine RBC 0 SEEN Urine WBC 0 SEEN Ur Squamous Epith Cells 0-5 SEEN Urine Bacteria 0 SEEN Urine Mucus 0 SEEN Radiography Diagnostic Testing: Radiology Impression Abdomen/Pelvis CT 04/15/21 08:00 IMPRESSION: 3 mm calculus at the left ureterovesical junction causing a mild degree of left hydronephrosis and hydroureter. There is a 3.2 mm calculus in the lower pole calyx of the left kidney. Electronically Signed: Wilfredo Sanchez MD at 9:10 EDT , Service support , Discharge Plan Triage Chief Complaint: Flank Pain ED Provider: Valente Unger Dx/Rx/DC Orders Instructions: ED Kidney Stone w/ Colic Prescriptions: New oxycodone-acetaminophen [Percocet] 5-325 mg tablet 1 tab PO Q6H PRN (Reason: pain) 3 Days Qty: 12 RF: 0 ondansetron HCl [Zofran] 4 mg tablet 4 mg PO Q8H PRN (Reason: nausea and vomiting) Qty: 14 RF: 0 No Action sucralfate 1 GM tablet 1 g PO 4X/DAY RF: 0 montelukast 10 MG tablet 10 mg PO QHS RF: 0 fluticasone propionate 1 SPRAY spray,suspension 1 spray NASAL DAILY RF: 0 Primary Care Provider: Bright Taylor Referrals: Bright Taylor MD [Primary Care Provider] - Domingo Monroe MD [STAFF PHYSICIAN] - As soon as possible Disposition Disposition: Home, Self Care
--- NOTE | 2021-04-15 08:00 | CT_ITS ---
STUDY: CT ABDOMEN AND PELVIS WITHOUT CONTRAST REASON FOR EXAM: Female, 30 years old. Left flank pain. Difficulty with urination. History of kidney stones. RADIATION DOSAGE (If Supplied By Facility): CTDIvol = ( 10.34 ) mGy, DLP = ( 506.51 ) mGycm TECHNIQUE: Transaxial images were obtained from the dome of the diaphragm to the symphysis pubis without oral contrast, and without intravenous contrast. Sagittal and coronal images were reconstructed. Individualized dose optimization techniques were used for this CT. COMPARISON: Comparison is made with prior examination dated 12/17/2018. FINDINGS: The visualized lung bases are unremarkable. The visualized portions of the heart are within normal limits. Normal liver. Normal gallbladder and extrahepatic biliary system. Normal spleen. Normal pancreas. Normal bilateral adrenal glands. Normal right kidney. There is engorgement of the left kidney. There is a 3.2 mm calculus in the lower pole calyx of the left kidney. Mild degree of left hydronephrosis due to a 3 mm calculus at the left ureterovesical junction. Normal visualized stomach. Normal small intestine. Normal colon. The appendix is visualized and appears normal. Normal abdominal aorta. Normal inferior vena cava. Normal retroperitoneum. Normal urinary bladder. There is evidence of a bilateral tubal ligation clips. The clip from the left tubal ligation is seen in the lower left midabdomen. Follicles are seen in both ovaries. There is a small umbilical hernia containing fat. Normal osseous structures. CT/Abdomen/Pelvis without Cont IMPRESSION: 3 mm calculus at the left ureterovesical junction causing a mild degree of left hydronephrosis and hydroureter. There is a 3.2 mm calculus in the lower pole calyx of the left kidney. Electronically Signed: Wilfredo Sanchez MD at 9:10 EDT , Service support ,
[2021-04-15 08:10] LABS: Bacteria 0 SEEN /hpf (None Seen); Mucous, Urine 0 SEEN /hpf (<or=2+); Red Blood Cells-Urine 0 SEEN /hpf (0-5); White Blood Cells 0 SEEN /hpf (0-5)
[2021-04-15] MEDS: Ondansetron 4 MG/2 ML Vial IV (08:13)
[2021-04-15] MEDS: Ketorolac 15 MG/ML Vial IV (08:13)
[2021-04-15] MEDS: Morphine 4 MG/ML Syringe IV (08:14)
[2021-04-15 08:26] LABS: Color, Urine Yellow (Yellow); Glucose, Dipstick Normal (Normal); Ketone-Dipstick Negative (Negative); Leukocyte Esterase-Dipstick Negative /ul (Negative); Nitrite-Dipstick Negative (Negative); Occult Blood-Urine 10 /ul (Negative); Protein-Dipstick Negative (Negative); Urine Bilirubin Dipstick Negative (Negative); Urine Clarity Clear (Clear); Urine Urobilinogen Normal (Normal); Urine pH 6.5 (5.0 - 8.0)
[2021-04-15 08:38] LABS: Squamous Epithelial Cells - UA 0-5 SEEN /hpf (5-10)
[2021-04-15 08:57] LABS: Absolute Lymphocyte Count 2.22 X10^3/uL (0.83-4.51); Absolute Neutrophil Count 7.2 X10^3/uL (2.0-7.7); Basophil# 0.03 X10^3/uL; Basophil% 0.3 % (0-1); Eosinophil# 0.16 X10^3/uL; Eosinophils% 1.6 % (0-5); Hematocrit 38.6 % (37-47); Hemoglobin 12.5 g/dL (12.0-15.0); Lymphocyte # 2.22 X10^3/ul (0.83-4.51); Lymphocyte % 21.7 % (19-41); Mean Corp Hgb Conc 32.4 g/dL (32-36); Mean Corpuscular Hgb 28.9 pg (27.0-32.0); Mean Corpuscular Volume 89.1 fL (81-99); Mean Platelet Vol. 9.4 fl (6.2-12.0); Monocyte% 5.9 % (0-10); NRBC Flagged by Analyzer 0 % (0-5); Neutrophil # 7.16 X10^3/uL (2.7-7.7); Neutrophil % 69.9 % (47-70); Platelet Count 316 K/mm3 (150-450); RBC Distribution Width CV 13.9 % (11.6-14.6); RBC Distribution Width SD 45.5 fl (35.1-43.9); Red Blood Count 4.33 M/mm3 (4.2-5.4); White Blood Count 10.2 K/mm3 (4.4-11.0)
[2021-04-15 09:03] LABS: Anion Gap 4 (5-15); BUN 16 mg/dL (7-18); BUN/Creat Ratio 19.9 RATIO (10-20); Calcium,Total 9.1 mg/dL (8.5-10.1); Chloride 107 mmol/L (98-107); EST Glomerular Filtration Rate 89 mL/min (>60); Est Glom Filt Rate - Afr Amer 107 mL/min (>60); Estimated Creatinine Clearance 85.06 ml/min; Glucose 91 mg/dL (74-106); Potassium 3.4 mmol/L (3.5-5.1); Sodium Level 139 mmol/L (136-145)
== END 2021-04-15 09:35 | disposition home or self-care (01) ==
PROVIDERS: Emergency Provider Student in an Organized Health Care Education/Training Program; PCP Family Medicine
DX: N13.2 Hydronephrosis with renal and ureteral calculous obstruction (principal); Z87.442 Personal history of urinary calculi
CPT/HCPCS: 36415; 74176; 80048; 81001; 85025; 96374; 96375; 99283; J7030; J2405

== ENCOUNTER → 2021-05-26 11:59 | Outpatient (CLI) | payer BC, SELFPAY ==
--- NOTE | 2021-05-26 12:05 | RAD_ITS ---
STUDY: X-RAY - ABDOMEN/PELVIS REASON FOR EXAM: Female, 30 years old. ABD PAIN -- . History of left distal ureteral calculus. TECHNIQUE: Single AP view of the abdomen / pelvis. COMPARISON: None. FINDINGS: Normal visualized lung bases. There is a moderate amount of colonic fecal material. The visualized liver, spleen and kidneys are grossly normal in size and morphology. Left-sided tubal ligation clips are seen. Normal visualized osseous structures. RAD/Abdomen Single View IMPRESSION: Normal x-ray examination of the abdomen and pelvis. Electronically Signed: Wilfredo Sanchez MD at 15:38 EDT , Service support ,
== END ==
LOC: RAD 12:00
PROVIDERS: PCP Family Medicine; Referring Provider Nurse Practitioner Adult Health; Visit Provider Nurse Practitioner Adult Health
DX: N20.1 Calculus of ureter (principal); R10.9 Unspecified abdominal pain
CPT/HCPCS: 74018

== ENCOUNTER → 2021-05-31 | Outpatient (CLI) | payer BC, SELFPAY | END | disposition home or self-care (01) | LOC: LABSPEC 15:54 | PROVIDERS: PCP Family Medicine; Visit Provider Nurse Practitioner Adult Health | DX: N20.1 Calculus of ureter (principal) | CPT/HCPCS: 87086; 87088 ==

== ENCOUNTER 2021-08-01 16:54 | Emergency (ER) | payer BC, SELFPAY ==
[2021-08-01 16:55] VITALS: BP 143/95; PULSE 80; RESP 16; TEMP 36.3; O2SAT 100; BMI 29.0
--- NOTE | 2021-08-01 17:20 | RAD_ITS ---
STUDY: X-RAY - LEFT FOOT CLINICAL: Female, 31 years old. Trauma TECHNIQUE: 3 view(s) of the foot. COMPARISON: None. FINDINGS: Normal talus, calcaneus, and tarsal bones. Normal visualized subtalar, talonavicular, calcaneocuboid, tarsal and tarsometatarsal articulations. Normal metatarsi. Normal metatarsophalangeal joint of the great toe. Normal tibial and fibular sesamoid bones. Normal interphalangeal joint of the great toe. Normal phalanges of the great toe. Normal second through fifth metatarsophalangeal joints. Normal interphalangeal joints and phalanges of the lesser toes. The soft tissue structures are unremarkable. RAD/Foot min 3 Views IMPRESSION: Normal x-ray examination of the foot. Electronically Signed: Felix Hobbs DO at 19:25 EDT Tel [phone], Service support ,
--- NOTE | 2021-08-01 17:38 | ED.VIS.LOWEX ---
HPI History of Present Illness Chief Complaint: Lower Extremity Injury Informant: patient Narrative Narrative: 2 days ago patient accidentally kicked a box that was on the floor. She hurt the lateral aspect of her left foot including the third fourth and fifth toe area. No other injury. She is able to bear weight but it makes it worse. Ice elevation and rest makes it better. [facility] Medical History History of kidney stones Home Medications montelukast 10 mg PO QHS 02/10/19 [History Last Taken Unknown] sucralfate 1 g PO 4X/DAY 02/10/19 [History Last Taken Unknown] fluticasone propionate 1 spray NASAL DAILY 01/03/21 [History Last Taken Unknown] ondansetron HCl [Zofran] 4 mg PO Q8H PRN #14 tab 04/15/21 [Rx Last Taken Unknown] oxycodone-acetaminophen [Percocet] 1 tab PO Q6H PRN 3 Days #12 tab 04/15/21 [Rx Last Taken Unknown] naproxen 500 mg PO BID #14 tab 08/01/21 [Rx Last Taken Unknown] Allergy/AdvReac Type Severity Reaction Status Date / Time latex Allergy Rash Verified 08/01/21 16:56 nitrofurantoin Allergy Rash Verified 08/01/21 16:56 [From Macrobid] phenazopyridine Allergy Rash Verified 08/01/21 16:56 [From Pyridium] epinephrine AdvReac Other Verified 08/01/21 16:56 lidocaine AdvReac Other Verified 08/01/21 16:56 Surgical History History of carpal tunnel repair Social History Smoking Status: Never smoker ROS ROS ED Constitutional Constitutional ED: Denies chills or fever(s) Musculoskeletal Musculoskeletal: Reports other Details: History of present illness. ; Denies back pain Integumentary Reports other Details: Contusion to foot. ; Denies abscess or rash Neurologic Neurologic: Denies paresthesias Hematologic/Lymphatic Hematologic/Lymphatic: Denies easy bleeding or easy bruising EXAM Physical Exam Const Vital Signs: 08/01/21 16:55 Temperature 97.4 F L Temperature Source Temporal Pulse Rate 80 Respiratory Rate 16 Blood Pressure 143/95 H Blood Pressure Mean 111 Pulse Ox 100 Positive well nourished and well developed General Appearance ED: well developed and NAD HEENT normocephalic and atraumatic Resp normal respiratory effort Extremity Extremity Narrative: Patient has contusion to the distal lateral aspect of her left foot. No deformity is noted. There is some tenderness over the distal third fourth and fifth metatarsal. No tenderness the proximal fifth metatarsal. No tenderness at the calcaneus. No ankle tenderness. Achilles is intact to palpation and Bennett test. Sensation is intact. Neuro oriented x3 Sensorium / Orientation: alert Skin Skin Narrative: Contusions to foot as above. Rashes: no rashes MDM MDM MDM Narrative Medical decision making narrative: Three-view x-ray of patient's left foot looked at by me shows no sign of acute fracture or dislocation. Patient will use ice rest nonsteroidals for pain. If she still having symptoms in 1 to 2 weeks she can have a repeat x-ray. Radiography Diagnostic Testing: Clinical Impression(s) from Imaging Studies Foot X-Ray 08/01/21 17:20 IMPRESSION: Normal x-ray examination of the foot. Electronically Signed: Felix Hobbs DO at 19:25 EDT Tel [phone], Service support , Discharge Plan Triage Chief Complaint: Lower Extremity Injury ED Provider: Oc Reed Dx/Rx/DC Orders Clinical Impression: Contusion of foot Instructions: ED Foot Contusion Prescriptions: New naproxen 500 MG tablet 500 mg PO BID Qty: 14 RF: 0 No Action sucralfate 1 GM tablet 1 g PO 4X/DAY RF: 0 montelukast 10 MG tablet 10 mg PO QHS RF: 0 fluticasone propionate 1 SPRAY spray,suspension 1 spray NASAL DAILY RF: 0 oxycodone-acetaminophen [Percocet] 5-325 mg tablet 1 tab PO Q6H PRN (Reason: pain) 3 Days Qty: 12 RF: 0 ondansetron HCl [Zofran] 4 mg tablet 4 mg PO Q8H PRN (Reason: nausea and vomiting) Qty: 14 RF: 0 Primary Care Provider: Bright Taylor Referrals: Bright Taylor MD [Primary Care Provider] - 1 Week if not improving Disposition Disposition: Home, Self Care Discharge Date/Time: 08/01/21 18:49
== END 2021-08-01 18:49 | disposition home or self-care (01) ==
PROVIDERS: Emergency Provider Emergency Medicine; PCP Family Medicine
DX: S90.32XA Contusion of left foot, initial encounter (principal); W22.09XA Striking against other stationary object, initial encounter; Y93.01 Activity, walking, marching and hiking; Y92.009 Unspecified place in unspecified non-institutional (private) residence as the place of occurrence of the external cause; Y99.8 Other external cause status
CPT/HCPCS: 73630; 99282

== ENCOUNTER 2022-12-06 18:50 | Emergency (ER) | payer OTHER, SELFPAY ==
[2022-12-06 18:50] VITALS: BP 113/83; PULSE 81; RESP 16; TEMP 36.6; O2SAT 99; BMI 30.2
--- NOTE | 2022-12-06 20:44 | EDS_ITS ---
HPI HPI - Fall History of Present Illness Chief Complaint: Fall Narrative Narrative: 32-year-old female who denies significant past medical history states that earlier this morning, approximately 12 hours ago or more, she was walking down her stairs at home, and slipped and fell down half of him. She fell onto her right side. She denies hitting her head or loss of consciousness, no neck pain. She has pain on her right hip and all the way down her right leg. She has to stand at work, so she left work early. Her pain is worse with standing and movement of her leg. She denies other injury. She took Aleve earlier today which did not help with her pain. She complains mainly of pain mainly in her right lateral thigh and her right proximal fibula. She denies any joint pain. No knee or ankle pain. [facility] Medical History History of kidney stones Home Medications montelukast 10 mg tablet 10 mg PO QHS 02/10/19 [History Last Taken Unknown] sucralfate 1 gram tablet 1 g PO 4X/DAY 02/10/19 [History Last Taken Unknown] fluticasone propionate 50 mcg/actuation nasal spray,suspension 1 spray NASAL DAILY 01/03/21 [History Last Taken Unknown] ondansetron HCl 4 mg tablet (Zofran) 4 mg PO Q8H PRN nausea and vomiting #14 tabs 04/15/21 [Rx Last Taken Unknown] oxycodone-acetaminophen 5 mg-325 mg tablet (Percocet) 1 tab PO Q6H PRN pain 3 days #12 tabs 04/15/21 [Rx Last Taken Unknown] naproxen 500 mg tablet 500 mg PO BID #14 tabs 08/01/21 [Rx Last Taken Unknown] Allergy/AdvReac Type Severity Reaction Status Date / Time latex Allergy Rash Verified 12/06/22 18:54 nitrofurantoin Allergy Rash Verified 12/06/22 18:54 [From Macrobid] phenazopyridine Allergy Rash Verified 12/06/22 18:54 [From Pyridium] epinephrine AdvReac Other Verified 12/06/22 18:54 lidocaine AdvReac Other Verified 12/06/22 18:54 Surgical History History of carpal tunnel repair Social History Smoking Status: Never smoker ROS ROS ED ROS Narrative Constitutional: No fever, no chills. HEENT: No sore throat. No neck pain. No loss of vision. No rhinorrhea. Cardiovascular: No chest pain. No palpitations. No pedal edema. Respiratory: No cough, no shortness of breath. Abdominal: No abdominal pain. No nausea. No vomiting. Genitourinary: No dysuria. No hematuria. Musculoskeletal: Right lateral thigh and right lateral/fibular pain approxi mately, no arthralgias. Neurologic: No headaches. No dizziness. No lightheadedness. Skin: No rash. No change in color. Psychiatric: No depression. No anxiety. EXAM Physical Exam Narrative Exam Narrative: Afebrile. Vital signs noted. ECS 15. ABCs intact. HEENT: Normocephalic. Atraumatic. PERRL, EOMI. Neck soft and supple. No point tenderness or step off. Cardiovascular: Regular rate and rhythm. No murmurs, rubs, or gallops appreciated. Respiratory: No tachypnea. Lungs clear to auscultation bilaterally. Gastrointestinal: Abdomen soft, nontender, with normoactive bowel sounds. No rebound or guarding. Neurological: Awake. Alert. Nonfocal, nonlateralizing. Skin: No rash. Normal color. No pallor. Musculoskeletal: No pedal edema. Full range of motion extremities. Pelvis stable. No pain with logrolling of femur. Mild tenderness to palpation right lateral thigh. Extension and flexion mechanisms of hip and knee intact. Palpable dorsalis pedis pulse. Mild tenderness proximal fibular area. No crepitance. Const Vital Signs: 12/06/22 18:50 12/06/22 21:31 Temperature 97.8 F Temperature Source Temporal Pulse Rate 81 Respiratory Rate 16 Respiratory Effort Normal Non-Labored Respiratory Depth Normal Respiratory Pattern Normal Blood Pressure 113/83 H Blood Pressure Mean 93 Pulse Ox 99 Oxygen Delivery Method Room Air Room Air MDM MDM MDM Narrative Medical decision making narrative: Patient was administered ibuprofen 800 mg for analgesia. Her injury is remote. X-rays were obtained of the hip on the right along with pelvis, right femur, and right tibia and fibula. X-rays were interpreted by myself. My interpretation of her right femur x-ray shows no evidence of acute fracture, my interpretation of her pelvis x-ray shows no evidence of a hip or pelvic fracture. And additionally, my interpretation of her tibia and fibula x-ray in 2 views shows no evidence of an acute fracture. I reviewed the radiology reports for all of these x-rays which confirm my interpretations. At this point in time, I feel she can be discharged safely home to apply ice to the affected areas and take [id number] analgesics. She was given a note to be off work today as she was seen in the emergency department. Return instructions to the emergency department were reviewed. Disposition is discharged home, in stable condition. Radiography Diagnostic Testing: Clinical Impression(s) from Imaging Studies Femur X-Ray 12/06/22 21:25 IMPRESSION: 1. No evidence fracture malalignment or focal bony or joint space abnormality involving the RIGHT femur. Electronically Signed: Souleymane Ng MD at 22:14 EST , Pelvis X-Ray 12/06/22 21:25 IMPRESSION: No evidence of displaced pelvic or hip fracture. Electronically Signed: Souleymane Ng MD at 22:15 EST , Tibia/Fibula X-Ray 12/06/22 21:25 IMPRESSION: 1. No evidence of fracture malalignment focal bony or joint space abnormality involving the RIGHT tibia and fibula. Electronically Signed: Souleymane Ng MD at 22:14 EST , Discharge Plan Triage Chief Complaint: Fall ED Provider: Cesar Calderon Dx/Rx/DC Orders Clinical Impression: Fall down stairs, Contusion of right thigh, Contusion of lower leg, right Instructions: ED Contusion, Lower Extremity, ED Mechanical Fall Prescriptions: No Action sucralfate 1 GM tablet 1 g PO 4X/DAY montelukast 10 MG tablet 10 mg PO QHS fluticasone propionate 1 SPRAY spray,suspension 1 spray NASAL DAILY oxycodone-acetaminophen [Percocet] 5-325 mg tablet 1 tab PO Q6H PRN (Reason: pain) 3 Days Qty: 12 0RF ondansetron HCl [Zofran] 4 mg tablet 4 mg PO Q8H PRN (Reason: nausea and vomiting) Qty: 14 0RF naproxen 500 MG tablet 500 mg PO BID Qty: 14 0RF Stand Alone Forms: ED Work / School Excuse Primary Care Provider: Bright Taylor Referrals: Bright Taylor MD [Primary Care Provider] - 1 Week if not improving Disposition Disposition: Home, Self Care
--- NOTE | 2022-12-06 21:25 | RAD_ITS ---
INDICATION: pain EXAMINATION/TECHNIQUE: X-RAY - RIGHT XR Femur Min 2 Views 4 VIEWS COMPARISON: None. FINDINGS: SOFT TISSUES: No soft tissue swelling or gas. No radiopaque foreign body. BONES/JOINTS: No acute fracture or subluxation.. Normal alignment. Preservation of the joint space.. No sclerotic or destructive changes observed. RAD/Femur Min 2 Views IMPRESSION: 1. No evidence fracture malalignment or focal bony or joint space abnormality involving the RIGHT femur. Electronically Signed: Souleymane Ng MD at 22:14 EST ,
--- NOTE | 2022-12-06 21:25 | RAD_ITS ---
INDICATION: pain EXAMINATION/TECHNIQUE: X-RAY - RIGHT XR Tibia/Fibula 2 Views 2 VIEWS COMPARISON: None. FINDINGS: SOFT TISSUES: No soft tissue swelling or gas. No radiopaque foreign body. BONES/JOINTS: No acute fracture or subluxation.. Normal alignment. Preservation of the joint space.. No sclerotic or destructive changes observed. RAD/Tibia & Fibula 2 Views IMPRESSION: 1. No evidence of fracture malalignment focal bony or joint space abnormality involving the RIGHT tibia and fibula. Electronically Signed: Souleymane Ng MD at 22:14 EST ,
--- NOTE | 2022-12-06 21:25 | RAD_ITS ---
INDICATION: pain EXAMINATION/TECHNIQUE: X-RAY - XR Pelvis 1 or 2 Views COMPARISON: None. FINDINGS: PELVIC BONES: No displaced fracture, destructive or sclerotic lesions. Note that overlapping bowel shadows may however obscure fine detail. Sacroiliac joints are unremarkable. No widening of the pubic symphysis. HIPS: The articular structures are unremarkable. No displaced fracture seen in this frontal view. SOFT TISSUES: No soft tissue swelling or gas. Surgical clips are present in the left-sided pelvis. RAD/Pelvis 1 or 2 Views IMPRESSION: No evidence of displaced pelvic or hip fracture. Electronically Signed: Souleymane Ng MD at 22:15 EST ,
[2022-12-06] MEDS: Ibuprofen 400 MG Tablet 800 MG PO (21:32)
== END 2022-12-06 22:50 | disposition home or self-care (01) ==
PROVIDERS: Emergency Provider Emergency Medicine; PCP Family Medicine; Visit Provider Emergency Medicine
DX: S70.11XA Contusion of right thigh, initial encounter (principal); M25.551 Pain in right hip; S80.11XA Contusion of right lower leg, initial encounter; W10.9XXA Fall (on) (from) unspecified stairs and steps, initial encounter
CPT/HCPCS: 72170; 73552; 73590; 99282

== ENCOUNTER → 2023-03-15 | Outpatient (CLI) | payer OTHER, SELFPAY ==
[2023-03-20 10:08] LABS: HPV APTIMA, High Risk Negative (Negative)
== END | disposition home or self-care (01) ==
PROVIDERS: PCP Family Medicine; Visit Provider Obstetrics & Gynecology
DX: Z12.4 Encounter for screening for malignant neoplasm of cervix (principal)
CPT/HCPCS: 87624; 88175; G0145

== ENCOUNTER → 2023-05-30 | Outpatient (CLI) | payer OTHER, SELFPAY ==
--- NOTE | 2023-05-30 16:38 | US_ITS ---
STUDY: ULTRASOUND TRANSVAGINAL CLINICAL: Female, 32 years old. abnormal uterine bleeding TECHNIQUE: Transvaginal COMPARISON: CT scan 04/15/2021. FINDINGS: Normal uterine size measuring 6.5 x 4.6 x 2.7 cm in maximal craniocaudal dimension. The uterus is retroverted. The uterus is diffusely heterogeneous without focal abnormalities. Findings suggest diffuse leiomyomatous infiltration without focal fibroids. Normal endometrial thickness measuring 4 mm. There are no endometrial masses, and there is no fluid in the endometrial cavity. Nabothian cyst of the uterine cervix. Normal right ovary, measuring 3.2 x 2.2 x 1.7 cm. There are multiple follicles without a dominant cyst. Normal left ovary, measuring 3.5 x 1.3 x 1.6 cm. There are multiple follicles without a dominant cyst. There is no free fluid in the pelvis. US/Transvaginal Non- IMPRESSION: Diffusely heterogeneous uterus suggestive of leiomyomatous changes without focal fibroid. Otherwise negative. Electronically Signed: Dane Guaman MD at 23:01 EDT ,
== END | disposition home or self-care (01) ==
LOC: US 16:37
PROVIDERS: PCP Family Medicine; Referring Provider Obstetrics & Gynecology; Visit Provider Obstetrics & Gynecology
DX: N93.9 Abnormal uterine and vaginal bleeding, unspecified (principal)
CPT/HCPCS: 76830

== ENCOUNTER 2023-06-28 12:30 | Outpatient (RCR) | payer OTHER, SELFPAY ==
--- NOTE | 2023-06-07 14:21 | HP.PTEVAL_ITS ---
Patient's Visit Information Visit Information Visit Information: ANASTASIA SIGALA is a 32 year old F referred to Physical Therapy by Dr. Khushi Novoa MD with a diagnosis of URGE INCONTINENCE. Date of Evaluation: 06/07/23 Physical Therapist: Tierney Puentes, PT, Cert MDT Visit Plan Frequency: 1x/Week Duration: 2-4 Months Plan: PF THERAPY FOR STRENGTHENING, LENGTHENING/RELAXATION AND ENDURANCE TRAINING. URINARY URGE AND FREQUENCY EDUCATION. HEALTHY BLADDER HABIT EDUCATION. TRAINING IN COORDINATION OF PELVIC FLOOR MUSCULATURE WITH HIP AND CORE (TRANSVERSE ABDOMINUS) MUSCULATURE. CORE STRENGTHENING. IRINA LE ROM, STRETCHING AND STRENGTHENING. TRAINING IN ABDOMINAL CAVITY PRESSURE MGMT WITH ADL'S. WILL HOLD PT AFTER PARTIAL HYSTERECTOMY AND RESUME PT WHEN OK'D BY PHYSICIAN NEEDED. 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 Disability: NO Present symptoms: PATIENT REPORTS SHE IS HERE FOR URINARY LEAKING WHEN SHE LAUGHS, COUGH, SNEEZING, AND LIFT THINGS. I CAN'T RIDE IN A CARE VERY LONG BECAUSE I HAVE TO PEE ALL THE TIME. Present since: ABOUT 2 YEARS Pain Scale: NO Is it getting better, worse or staying the same: GETTING WORSE Commenced as a result of: GOING BACK TO WORK Symptoms at onset: LEAKING WITH LIFTING Disturbed sleep: YES - GETTING UP TO URINATE 4 OR MORE TIMES A NIGHT. Previous history/Previous treatment: UNREMARKABLE Treatment this episode: PT CONSULT Coughing/sneezing/straining: POSITIVE FOR URINARY LEAKING. How long can you delay the need to urinate: MAYBE 1-2 MIN. Prolapse (Falling out feeling): NO Frequency of Urination: EVERY HOUR Ability to stop urine flow: PARTIALLY AND SOMETIMES Ability to initiate urine stream: YES Dyspareunia: NO Gait: NORMAL Bowel Incontinence: NO Accidents: NO Unexplained weight loss: NO PMH/Recent major surgery: [facility] CTR. PARTIAL HYSTERECTOMY PENDING JUL 03 2023. OTHER: PATIENT REPORTS DR. NOVOA DISCUSSED THE POSSIBLE BENEFITS OF AN IMPLANT BENEFITS WITH HER BUT RECOMMENDED TRYING PHYSICAL THERPAY FIRST. Objective Objective: Sitting/Standing Posture: POOR. FH. RSH'S. NO RELEVANT LATERAL LUMBAR SHIFT. Active Correction of posture: NE - ABLE TO FULLY CORRECT. Other Observations: INDEP GAIT AND TRANSFERS. Sensory deficit: IRINA LE LIGHT TOUCH SENSATION GROSSLY INTACT AND SYMMETRICAL. ROM deficit: TIGHT IRINA LE HIP ADDUCTORS, HIP ER'S, HS'S AND IRINA GASTROC-SOLEUS COMPLEX'S. Motor deficit: IRINA LE'S GROSSLY 5/5 WITH MMT'ING EXCEPT HIPS 4/5 Dural Signs: NEGATIVE IRINA LE'S Lumbar mvmt loss: flex - NIL ext - MIN R SG - NIL L SG - NIL PATIENT DENIES PAIN WITH LUMBAR ROM TESTING ALL PLANES. Core strength: FAIR Palpation: MANUAL VAGINAL PELVIC FLOOR STRENGTH TESTING REVEALS 3/5 STRENGTH WITH 4 SEC ENDURANCE X 3 WITH NO TENDERNESS REPORTED. FUNCTIONAL SCREEN: Incontinence Impact Questionnaire Score: 20 Urogenital Distress Inventory Score: 15 TREATMENT: THER ACT - EDUCATION IN FUNCTION OF PELVIC FLOOR AND STRATEGIES TO DECREASE URGE INCONTINENCE. ALSO INITIATED HEP WITH QUICK FLICK KEGELS. PATIENT COMMUNICATED A GOOD UNDERSTANDING OF ALL INSTRUCTIONS AFTER GIVEN. Goals Goal 1:: DECREASE URINARY LEAKAGE EPISODES TO ONE OR LESS PER DAY Goal Time Frame: 8-12 Weeks Goal 2:: PATIENT WILL SUCCESSFULLY DELAY VOIDING LONG NEEDED WHEN URGENCY OCCURS TO SUCCESSFULLY MAKE IT TO THE BATHROOM. Goal Time Frame: 6-8 Weeks Goal 3:: PATIENT WILL DEMONSTRATE/COMMUNICATE 10 CONSISTENT AND CONSECUTIVE 10 SECOND PELVIC FLOOR MUSCLE CONTRACTIONS TO DEMONSTRATE IMPROVED PELVIC FLOOR ENDURANCE. Goal Time Frame: 8-12 Weeks Goal 4:: DEVELOP HEALTHY FLUID INTAKE HABITS WITH FLUID INTAKE OF ? BODY WEIGHT IN OUNCES PER DAY AND 2/3 BEING WATER. Goal Time Frame: 4-6 Weeks Goal 5:: NORMALIZE VOIDING FREQUENCEY TO EVERY 3-4 HOURS. Goal Time Frame: 8-12 Weeks Goal 6:: PATIENT WILL BE INDEP WITH A HEP/HOME INSTRUCTIONS FOR CONTINUED IMPROVEMENT ONCE FORMAL PHYSICAL THERAPY CONCLUDES. Goal Time Frame: 8-12 Weeks Anticipated Interventions Patient/Client Instruction: Educate patient on: Condition, Plan of Care and Risk Factors For the Purpose of:: To improve self management Therapeutic Exercise to Include: Strength training, Endurance training, Flexibilty training and Neuromotor development For the Purpose of:: To improve muscle performance and motor function, To improve performance and independence with ADL's and To improve ability of physical actions for home/community/work/leisure Text: Thank you for the opportunity to evaluate your patient. For Medicare and Medicare HMO plans, please review the plan of care and approve it. It will need to be FAXED BACK to us at [phone] for Medicare purposes. For Medicare only, by signing this I certify the plan of care. Please let me know if there are questions or concerns regarding this plan of care. Physician Signature: Date:
--- NOTE | 2023-06-28 13:03 | HP.PTDCSUM ---
Discharge Summary D/C summary: It has been my pleasure to treat ANASTASIA SIGALA referred by Dr. Khushi Marcial MD, with the diagnosis of URGE INCONTINENCE for a total of 4 visit(s). Discharge Date: 06/28/23 Please see the following information for a summary of their discharge status. Subjective Subjective: PATIENT REPORTS SHE IS DOING A LOT BETTER. I SLEPT ALL NIGHT MOST NIGHTS WITHOUT HAVING TO GET UP TO PEE. STATES SHE IS ABLE TO BETTER ABLE TO CONTROL HER URGE INCONTINENCE AND IS NOW VOIDING ABOUT EVERY 3 HOURS INSTEAD OF EVERY 1 TO 1.5 HRS. SHE REPORTS COMPLIANCE WITH THE HOME EX'S FOR THE MOST PART. SHE STATES SHE HASN'T NOTICED ANY LEAKING WITH LIFTING OVER THE LAST WEEK BUT STILL SOME UI WITH SNEEZING. Overall Improvement % Improvement: 90 Objective Objective/Function: PATIENT HAS DONE REALLY WELL WITH PT AND IS INDEP WITH A HEP. FUNCTIONAL SCREEN: Incontinence Impact Questionnaire Score: 3 Urogenital Distress Inventory Score: 1 Goals Goal 1:: DECREASE URINARY LEAKAGE EPISODES TO ONE OR LESS PER DAY Goal Progress: Goal Met Goal 2:: PATIENT WILL SUCCESSFULLY DELAY VOIDING LONG NEEDED WHEN URGENCY OCCURS TO SUCCESSFULLY MAKE IT TO THE BATHROOM. Goal Progress: Goal Met Goal 3:: PATIENT WILL DEMONSTRATE/COMMUNICATE 10 CONSISTENT AND CONSECUTIVE 10 SECOND PELVIC FLOOR MUSCLE CONTRACTIONS TO DEMONSTRATE IMPROVED PELVIC FLOOR ENDURANCE. Goal Progress: Goal Met Goal 4:: DEVELOP HEALTHY FLUID INTAKE HABITS WITH FLUID INTAKE OF ? BODY WEIGHT IN OUNCES PER DAY AND 2/3 BEING WATER. Goal Progress: Goal Met Goal 5:: NORMALIZE VOIDING FREQUENCEY TO EVERY 3-4 HOURS. Goal Progress: Goal Met Goal 6:: PATIENT WILL BE INDEP WITH A HEP/HOME INSTRUCTIONS FOR CONTINUED IMPROVEMENT ONCE FORMAL PHYSICAL THERAPY CONCLUDES. Goal Progress: Goal Met Plan Plan: D/C DUE TO HYSTERECTOMY PENDING NEXT WK. INSTRUCTED PATIENT TO GET OK FROM OBGYN PRIOR TO RESUMING EX'S AFTER SURGERY. D/C Information d/c sentence: If there are questions or concerns regarding this patient's physical therapy, please feel free to call me at [phone]. Thank you for the referral of this patient. Sincerely, Tierney Puentes, PT, Cert MDT Balance/Gait/Functional tests Improvement % Improvement: 90
== END 2023-06-28 14:07 | disposition home or self-care (01) ==
LOC: PT 12:30
PROVIDERS: PCP Family Medicine; Referring Provider Urology; Visit Provider Urology
DX: N39.41 Urge incontinence (principal)
CPT/HCPCS: 97162; 97164; 97530

== ENCOUNTER 2023-07-03 06:45 | Day surgery (SDC) | payer OTHER, SELFPAY ==
[2023-07-02 11:20] LABS: Hematocrit 41.3 % (37-47); Mean Corp Hgb Conc 33.9 g/dL (32-36); Mean Corpuscular Hgb 31.2 pg (27.0-32.0); Mean Platelet Vol. 9.3 fl (6.2-12.0); Platelet Count 287 K/mm3 (150-450); RBC Distribution Width CV 12.7 % (11.6-14.6); RBC Distribution Width SD 42.6 fl (35.1-43.9); Red Blood Count 4.49 M/mm3 (4.2-5.4); White Blood Count 5.2 K/mm3 (4.4-11.0)
[2023-07-02 11:36] LABS: Partial Thromboplast Time 24.1 Seconds (24.1-36.2)
[2023-07-02 11:50] LABS: AST(SGOT) 11 U/L (15-37); Alanine Aminotransfer ALT/SGPT 20 U/L (13-56); Albumin, Serum 4.1 g/dL (3.2-5.0); Alkaline Phosphatase 68 U/L (45-117); Globulin 3.3 g/dL (2.2-4.2); Magnesium 2.4 mg/dL (1.6-2.6); Protein, Total 7.4 g/dL (6.4-8.2)
[2023-07-03] VITALS (8 sets, daily range): BP systolic 114–144; BP diastolic 72–95; PULSE 64–85; RESP 14–18; TEMP 36.1–36.6; O2SAT 99–100; BMI 30.8
[2023-07-03] MEDS: dexAMETHasone 4 MG/ML Vial 8 MG IV (07:15)
[2023-07-03 07:23] LABS: Internal QC Validated? YES +Cl - CLEAR BKGD; Pregnancy, Urine Negative Negative
[2023-07-03] MEDS: Magnesium 1 GM over 15 mins IV (07:48)
[2023-07-03] MEDS: Lactated Ringers 1,000 ML 40 ML IV (07:48)
[2023-07-03] MEDS: Celecoxib 200 MG Capsule 400 MG PO (07:58)
[2023-07-03] MEDS: Acetaminophen 500 MG Tablet 1000 MG PO (07:58)
[2023-07-03] MEDS: Gabapentin 600 MG Tablet PO (07:58)
--- NOTE | 2023-07-03 08:27 | PCM.HP.BLA ---
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 Is patient in pain?: No Allergies latex Allergy (Verified 06/28/23 11:49) Rashnitrofurantoin [From Macrobid] Allergy (Verified 06/28/23 11:49) Rashphenazopyridine [From Pyridium] Allergy (Verified 06/28/23 11:49) Rashepinephrine Adverse Reaction (Verified 06/28/23 11:49) Otherlidocaine Adverse Reaction (Verified 06/28/23 11:49) Other Medications NK 03/15/23 [History Confirmed 06/28/23] Post menopausal: No Patient : No : No PFSH Medical History Abnormal Pap smear of cervix History of kidney stones Surgical History History of carpal tunnel repair S/P S/P endometrial ablation S/P tubal ligation Family History Grandmother Diabetes Colon cancerGrandfather Myocardial infarction Colon cancer Social History Smoking Status: Never smoker alcohol intake: never substance use type: former substance user and marijuana caffeine: Yes what type of physical activity do you participate in: none seatbelt use: always do you feel safe at home: Yes additional social history: -[employer] [facility] TRH,Cysto Details: ANASTASIA SIGALA is a 33 year old who presents for discussion about hysterectomy. She is status post ablation, tubal ligation, and section x 2. her menses are unpredictable, heavy and painful. She also has stress urinary incontinence and was requesting a procedure to help when she coughs, laughs and sneezes to prevent leaking urine, however she started going to a physical therapy and this is improving. She is going to hold off on the procedure with Dr. Marcial. prior to her ablation procedure her endometrial biopsy was benign. Her Pap in March was negative. Normal uterine size measuring 6.5 x 4.6 x 2.7 cm in maximal craniocaudal dimension. The uterus is retroverted. The uterus is diffusely heterogeneous without focal abnormalities. Findings suggest diffuse leiomyomatous infiltration without focal fibroids. Normal endometrial thickness measuring 4 mm. There are no endometrial masses, and there is no fluid in the endometrial cavity. Nabothian cyst of the uterine cervix. Normal right ovary, measuring 3.2 x 2.2 x 1.7 cm. There are multiple follicles without a dominant cyst. Normal left ovary, measuring 3.5 x 1.3 x 1.6 cm. There are multiple follicles without a dominant cyst. There is no free fluid in the pelvis. US/Transvaginal Non- IMPRESSION: Diffusely heterogeneous uterus suggestive of leiomyomatous changes without focal fibroid. Otherwise negative. History 3 Elective abortions Hx Para 2 Spontaneous abortions Hx # Term Pregnancies Ectopic pregnancies Hx # Pregnancies Multiple births # of living children Past Pregnancies Del. Date Name GA/Weeks Outcome Route Bth Weight [facility] Unknown Erica Unknown Nataliia ROS Const ROS Unobtainable: All systems reviewed & are unremarkable except as noted in H Resp Resp: Reports system reviewed and no additional complaints, except as documented; Denies cough GI GI: Reports as per HPI Psych Psych: Reports system reviewed and no additional complaints, except as documented Exam Const General: cooperative, healthy appearing, comfortable and no acute distress Resp Effort & Inspection: normal respiratory effort Skin General: no rashes or lesions noted Psych Appearance: grossly normal Speech and Movement: speech and movement normal Coding Level of Care Code Off vis,est,level 4 Diagnoses Abnormal uterine bleeding N93.9 Assessment and Plan Assessment and Plan (1) Abnormal uterine bleeding: Status: Acute Plan: After discussing the patient's diagnosis and treatment plan options, patient wishes to proceed with surgical management. I have discussed with the patient the risks, benefits, and alternatives of the procedure which include but are not limited to risks of anesthesia, bleeding, infection, possible damage to bowel, bladder, or surrounding vasculature which could lead to additional surgery to evaluate any complications. Patient agrees to procedure and wishes to proceed. ACOG/uptodate references given for additional information regarding procedure. plan for total robotic hysterectomy, bilateral salpingecotmy, cystoscopy.
--- NOTE | 2023-07-03 08:30 | DCINST_ITS ---
Discharge Instructions Diet Discharge Diet: No restrictions Activity May resume sexual activity in: 6 weeks Weight Bearing Status: Full weight bearing Dressing / Incision Call your doctor if your incision/area has: Continuous Slow Oozing, Sudden Increased Bleeding, Increased Pain/ Swelling, Increased Redness and Foul Smelling Discharge Call your doctor if you observe: Fever of 101 or Higher, Using more than 1 pad per hour, Shortness of breath, Chest pain and Uncontrolled pain Suture Line Care: Avoid Pulling/Pushing and Avoid Pinching/Bending Remove Dressing in: 1 week (if present) Cleanse incision/area with: Soap & Water and Keep Dressing Clean & Dry Follow Up Care Please Follow Up With: Anay Leach DO When: Call to make an appointment with your doctor for a postop visit in 2 and 6 weeks Test Results: Test results from this visit will be discussed in further detail at your follow- up appointment, if applicable. Discharge Plan Admission Primary Reason for Your Visit: hysterectomy Attending Provider: Anay Leach Primary Care Provider: Bright Taylor Discharge Orders/Prescriptions Prescriptions: New ibuprofen 800 mg tablet 800 mg PO Q8H PRN (Reason: pain) Qty: 30 0RF oxycodone-acetaminophen [Percocet] 5-325 mg tablet 1 tab PO Q4H PRN (Reason: pain) 7 Days Qty: 30 0RF Rx Instructions: 1-2 tabs q 4 hrs as needed for pain Referrals / Follow Up: Bright Taylor MD [Primary Care Provider] - Disposition Disposition (needs filled in before D/C Order can be placed): Home, Self Care
[2023-07-03 08:36] LABS: Bedside Glucose 112 mg/dL (74-106)
--- NOTE | 2023-07-03 08:45 | HYST_PTH ---
PATIENT: ANASTASIA LIVINGSTON LOC: [facility] U#:[id number] AGE/SX: 33/F ROOM: RE07/03/[address]: Dr. Anay Leach DO : 1990 BED: DIS: 07/03/2023 SPEC #: [id number] RECD: 07/03/23 12:07 STATUS: COLT JOAN #: [id number] MERLYN: 07/03/23 08:[address]: Anay Leach DEPT: SURGICAL PATHOLOGY RECD BY: Sarah Cason ENTERED: 07/03/23 12:45 SP TYPE: HYSTERECT OTHR DR: Dr. Bright Taylor MD Tissues: Uterus, NOS Procedures: Surgery Specimen Level V HEADER OPERATION: ERAS, lap robotic hysterectomy, cysto PRE-OP DIAGNOSIS: Abnormal uterine bleeding TISSUE SUBMITTED: Uterus and cervix MICROSCOPIC DIAGNOSIS Uterus and cervix, hysterectomy: Cervix - mild chronic inflammation and squamous metaplasia. Endometrium - proliferative endometrium. - focal previous biopsy-related changes. Myometrium - focal adenomyosis including focal area of subserosal adenomyosis. CIRA:angie 07/04/2023 MICROSCOPIC DESCRIPTION Slides are reviewed. GROSS DESCRIPTION Received in fixative is one container labeled with the patient's name and designated uterus and cervix. The specimen consists of a hysterectomy specimen consisting of uterus with cervix weighing 75 gm and measuring 8.0 x 5.5 x 4.0 cm. The serosal surface is focally ragged. The ectocervical mucosa is unremarkable. The external os is oval in contour. The endocervical canal measures 3.0 cm in length and the endocervical mucosa is unremarkable. The endometrial cavity is elongated and narrow and measures 3.5 cm in length and up to 1.0 cm in width. The most proximal portion of the endometrial cavity is almost completely obliterated. The endometrium measures 0.1 cm in thickness. Sections of the uterine wall do not reveal any mass lesion. Anterior uterine wall measures 1.5 cm in thickness and posterior uterine wall measures 2.5 cm in thickness. Fruit Stuffer sections are submitted in seven cassettes as follows: 1 - anterior cervix, 2 - posterior cervix, 3 & 4 - anterior uterine wall, 5-7 - posterior uterine wall. / CIRA:angie 07/03/2023 TC:5 [facility]: [id number]
[2023-07-03] MEDS: Cefazolin 2 GM in 0.9% Normal Saline (100mL Bag) 100 ML IV (08:51)
[2023-07-03] MEDS: Ondansetron 4 MG/2 ML Vial IV (10:21)
[2023-07-03] MEDS: Bupivacaine 0.25% 30 ML Vial (10:33)
--- NOTE | 2023-07-03 10:56 | PCM.OPRPT ---
Problems Associated Problem List Diagnoses (1) Abnormal uterine bleeding: (2) S/P : Report of Operation Date of Procedure: 07/03/23 Pre-Operative Diagnosis: 33 y/0 , menorrhagia, failed endometrial ablation, obesity Post-Operative Diagnosis: 33 y/0 , menorrhagia, failed endometrial ablation, obesity, cervical stenosis, endometriosis Surgery/Procedure Performed:: Total robotic hysterectomy, cystoscopy, fulguration of endometriosis Description of Surgical Findings:: cul-de-sac powder burn porras. stenotic cervix, surgical absence of the fallopian tubes Surgeon: Anay Leach stave cutting supervisor: Yamini Cai Type of Anesthesia: General Estimated Blood Loss (mL): 200cc Description of Procedure: Findings: 8 cm size uterus, normal appearing ovaries and surgically absent tubes. On exploration of the abdominal cavity the uterus, adnexa, bowel, and liver were found to be normal. Cystoscopy showed no evidence of leaking at approximately 250 cc of normal saline, positive ureteral orifices and jet flow are seen and no suture material was appreciated in the bladder. Specimens removed: Uterus and cervix Reason for surgery: This is a 33-year-old G2, P2 who presented to my office with history of pain with intercourse, heavy periods and failed endometrial ablation. She is obese and has a history of 2 prior sections. Because of this, the planned procedure is for a robotic hysterectomy the risks benefits and alternatives were discussed with the patient the patient had a clear understanding of the procedure and a consent form was signed. Procedure: The patient was placed in the dorsal low lithotomy position and prepped and draped in the normal sterile fashion both abdominally and in the perineum. Her legs were placed in stirrups a Wilburn catheter was inserted into the urethra without difficulty. A weighted speculum was placed in the vagina and a single-tooth tenaculum was used to grasp the anterior lip of the cervix. An advincula uterine manipulator was inserted through the cervix, however there was noted to be significant scaring of the lower uterine segment and the device was unable to be advance the full length of the uterus. It was then tied into place at the 2 and 10:00 locations on the cervix. Gloves were changed and attention was turned towards the abdomen. Approximately 23 cm above the pubic symphysis in the midline, and after Marcaine injection, a 8 mm incision was made. An 8 mm trocar was inserted through the laparoscope, then inserted into the abdomen under direct visualization using the laparoscope. Good abdominal placement was noted and no complications were appreciated. An air seal device was utilized to create pneumoperitoneum. At 12 cm lateral to the midline on the left and right sides 8 mm accessory ports were placed. Next a left upper quadrant 8 mm child and youth program assistant port site was placed. The patient was placed in steep Trendelenburg position. The robot was docked. The hysterectomy was initiated first by taking down the round ligament on each side using the vessel sealer device. The broad ligament was then and taken down using the vessel sealer device. Next the bladder flap was taken down without complication. This was done using monopolar cautery to the level of the cervical vaginal junction. After the bladder flap was created, uterine vessels were then isolated and cauterized using the vessel sealer device and EndoShears. At this point the uterine vessels were taken down further starting from the ascending branch, dissecting along the edges of the cervix to the level of the cervical vaginal junction with hemostasis appreciated. The cervical vaginal junction was then using monopolar cautery in a circumferential pattern across the superior aspect of the cervix. The specimen was delivered through the vagina and sent to pathology. The remaining vaginal cuff was then closed using a V lock suture. This was performed in a running technique. Excellent hemostasis was obtained and good closure was noted. Irrigation was then performed. All operative sites were noted to be hemostatic. A cystoscopy was performed with a 70 degree cystoscope through the urethra into the bladder without complication. The bladder was instilled with approximately 250 cc of normal saline. Intraoperative images were made. Ureteral orifices and jets were identified. No suture material was appreciated in the bladder. The bladder was then drained and cystoscope was removed. The abdominal cavity was again examined using the laparoscope after the robot was undocked. All operative sites were noted to be hemostatic. The trochars were removed under direct visualization without complication and pneumoperitoneum was reduced. At this point the skin was then closed using 4-0 Monocryl subcuticular stitch and sealed with surgical glue. The patient tolerated the procedure well sponge lap and needle counts were correct x2 the patient was taken to the recovery room in stable condition. Admit VTE Documentation VTE Present on Admission: No VTE Mechan Device Prophylaxis: SCD's VTE Pharm Prophylaxis ordered?: No Multi Select Codes Urinary/Genital Urinary/Genital CPT Codes: 14630 Cystoscopy and 15061 TLH <250gr uterus
[2023-07-03] MEDS: Lactated Ringers @ 70 MLS/HR 70 ML IV (11:02)
[2023-07-03] MEDS: Oxycodone/Apap 5/325 Tablet PO (12:32)
== END 2023-07-03 13:19 | disposition home or self-care (01) ==
LOC: SDC 06:46 → AC 06:49
PROVIDERS: Anesthesiology; PCP Family Medicine; Referring Provider Obstetrics & Gynecology; Visit Provider Obstetrics & Gynecology
PROC: 0UT90ZZ Resection of Uterus, Open Approach (ICD-10-PCS; CPT 58570; principal; 2023-07-03 08:25)
DX: N80.03 Adenomyosis of the uterus (principal); N87.0 Mild cervical dysplasia; N39.3 Stress incontinence (female) (male); K21.9 Gastro-esophageal reflux disease without esophagitis; E66.9 Obesity, unspecified; Z68.30 Body mass index [BMI] 30.0-30.9, adult
CPT/HCPCS: 58570; S2900; 00840; 36415; 80076; 81025; 82962; 83735; 85027; 85610; 85730; 86850; 86900; 86901; 88307; J7120; J2405; J3475

== ENCOUNTER → 2023-08-14 | Outpatient (CLI) | payer OTHER, SELFPAY | END | disposition home or self-care (01) | LOC: LABSPEC 16:28 | PROVIDERS: PCP Family Medicine; Referring Provider Obstetrics & Gynecology; Visit Provider Obstetrics & Gynecology | DX: N76.0 Acute vaginitis (principal) | CPT/HCPCS: 87070; 87205 ==

== ENCOUNTER → 2023-10-03 | Outpatient (CLI) | payer OTHER, SELFPAY ==
[2023-10-05 06:08] LABS: Chlamydia By Nucleic Acid AMP Negative (Negative); Gonococcus By Nucleic Acid AMP Negative (Negative)
== END | disposition home or self-care (01) ==
LOC: LABSPEC 10:29
PROVIDERS: PCP Family Medicine; Referring Provider Nurse Practitioner Women's Health; Visit Provider Nurse Practitioner Women's Health
DX: Z20.2 Contact with and (suspected) exposure to infections with a predominantly sexual mode of transmission (principal); B37.31 Acute candidiasis of vulva and vagina
CPT/HCPCS: 87070; 87077; 87186; 87205; 87491; 87591

== ENCOUNTER 2024-01-31 06:08 | Emergency (ER) | payer OTHER, SELFPAY ==
[2024-01-31 06:09] VITALS: BP 121/95; PULSE 85; RESP 16; TEMP 35.7; O2SAT 95; BMI 31.6
--- NOTE | 2024-01-31 06:39 | CT_ITS ---
STUDY: CT ABDOMEN AND PELVIS WITHOUT CONTRAST REASON FOR EXAM: Female, 33 years old. Left flank pain. History of kidney stones. RADIATION DOSAGE (If Supplied By Facility): CTDIvol = ( 10.05 ) mGy, DLP = ( 489.59 ) mGycm TECHNIQUE: Transaxial images were obtained from the dome of the diaphragm to the symphysis pubis without oral contrast, and without intravenous contrast. Sagittal and coronal images were reconstructed. Individualized dose optimization techniques were used for this CT. COMPARISON: Comparison is made with prior study dated April 15, 2021. FINDINGS: The visualized lung bases are unremarkable. The visualized portions of the heart are within normal limits. Normal liver. Normal gallbladder and extrahepatic biliary system. Normal spleen. Normal pancreas. Normal bilateral adrenal glands. Normal right kidney. Mild degree of left hydronephrosis and left hydroureter due to a 6 mm calculus at the left ureterovesical junction. Normal visualized stomach. Normal small intestine. Normal colon. The appendix is visualized and appears normal. Normal abdominal aorta. Normal inferior vena cava. Normal retroperitoneum. Normal urinary bladder. There is absence of the uterus consistent with a prior hysterectomy. Normal abdominal wall. Normal osseous structures. CT/Abdomen/Pelvis without Cont IMPRESSION: 6 mm calculus at the left ureterovesical junction causing a mild degree of left hydronephrosis and left hydroureter. Electronically Signed: Wilfredo Sanchez MD at 8:30 EDT ,
[2024-01-31] MEDS: 0.9% Normal Saline (1000mL) 1,000 ML 999 ML IV (06:44)
[2024-01-31] MEDS: Ondansetron 4 MG/2 ML Vial IV (06:44)
[2024-01-31] MEDS: Ketorolac 30 MG/ML Syringe IV (06:45)
[2024-01-31 06:46] LABS: Bacteria 0 SEEN /hpf (None Seen)
[2024-01-31 06:54] LABS: Absolute Lymphocyte Count 1.25 X10^3/uL (0.83-4.51); Absolute Neutrophil Count 5.6 X10^3/uL (2.0-7.7); Basophil# 0.04 X10^3/uL; Basophil% 0.5 % (0-1); Eosinophil# 0.21 X10^3/uL; Eosinophils% 2.8 % (0-5); Hematocrit 39.8 % (37-47); Hemoglobin 13.4 g/dL (12.0-15.0); Lymphocyte # 1.25 X10^3/ul (0.83-4.51); Lymphocyte % 16.5 % (19-41); Mean Corp Hgb Conc 33.7 g/dL (32-36); Mean Corpuscular Volume 89.2 fL (81-99); Mean Platelet Vol. 9.2 fl (6.2-12.0); Monocyte# 0.44 X10^3/uL; Monocyte% 5.8 % (0-10); NRBC Flagged by Analyzer 0 % (0-5); Neutrophil # 5.59 X10^3/uL (2.7-7.7); Platelet Count 335 K/mm3 (150-450); RBC Distribution Width CV 12.7 % (11.6-14.6); RBC Distribution Width SD 41.7 fl (35.1-43.9); Red Blood Count 4.46 M/mm3 (4.2-5.4); White Blood Count 7.6 K/mm3 (4.4-11.0)
[2024-01-31 07:06] LABS: Anion Gap 9 (5-15); BUN 11 mg/dL (7-18); BUN/Creat Ratio 11.5 RATIO (10-20); Calcium,Total 9.6 mg/dL (8.5-10.1); Chloride 107 mmol/L (98-107); Creatinine, Serum 0.95 mg/dL (0.55-1.02); EST Glomerular Filtration Rate 72 mL/min (>60); Est Glom Filt Rate - Afr Amer 87 mL/min (>60); Estimated Creatinine Clearance 84.94 ml/min; Glucose 108 mg/dL (74-106); Potassium 3.7 mmol/L (3.5-5.1); Sodium Level 143 mmol/L (136-145)
[2024-01-31 07:15] LABS: Color, Urine Yellow (Yellow); Glucose, Dipstick Normal (Normal); Ketone-Dipstick Negative (Negative); Leukocyte Esterase-Dipstick 25 /ul (Negative); Nitrite-Dipstick Negative (Negative); Occult Blood-Urine 50 /ul (Negative); Protein-Dipstick 15 mg/dl (Negative); Urine Bilirubin Dipstick Negative (Negative); Urine Clarity Clear (Clear); Urine Urobilinogen Normal (Normal)
--- NOTE | 2024-01-31 07:20 | EX.ED.DYSGE1 ---
HPI History of Present Illness Chief Complaint: Flank Pain Informant: patient Narrative Narrative: Patient is a 33-year-old female with a remote history of kidney stone. She states that she went to bed normally and then awoke around 2:30 in the morning with sharp stabbing pain in the left flank/abdomen. She states it caused nausea without vomiting. She denies any recent trauma or excessive activity. She denies any dysuria or vaginal discharge or concern for STD. She states that since onset the pain has been persistent and with concern for potential infection or stone causing her symptoms she comes in for evaluation [facility] Medical History Abnormal Pap smear of cervix Easy bruising Gastric reflux History of kidney stones Low iron Non-smoker Wears contact lenses Wears glasses Home Medications ibuprofen 800 mg tablet 800 mg PO Q8H PRN pain #30 tabs 07/03/23 [Rx Last Taken Unknown] ketorolac 10 mg tablet 10 mg PO 4X/DAY PRN pain 5 days #20 tabs 01/31/24 [Rx Last Taken Unknown] ondansetron 4 mg disintegrating tablet 4 mg PO TID PRN nausea and vomiting #21 tabs 01/31/24 [Rx Last Taken Unknown] oxycodone-acetaminophen 5 mg-325 mg tablet (Percocet) 1 tab PO Q6H PRN pain 3 days #12 tabs 01/31/24 [Rx Last Taken Unknown] tamsulosin 0.4 mg capsule (Flomax) 0.4 mg PO DAILY #14 caps 01/31/24 [Rx Last Taken Unknown] Allergy/AdvReac Type Severity Reaction Status Date / Time latex Allergy Rash Verified 01/31/24 06:38 nitrofurantoin Allergy Rash Verified 01/31/24 06:38 [From Macrobid] phenazopyridine Allergy Rash Verified 01/31/24 06:38 [From Pyridium] epinephrine AdvReac Other Verified 01/31/24 06:38 lidocaine AdvReac Other Verified 01/31/24 06:38 Family History Grandmother Diabetes Colon cancer Grandfather Myocardial infarction Colon cancer Surgical History History of carpal tunnel repair S/P S/P endometrial ablation S/P tubal ligation Status post hysterectomy (~07/03/23) Social History Smoking Status: Never smoker alcohol intake: never substance use type: former substance user and marijuana caffeine: Yes what type of physical activity do you participate in: none seatbelt use: always do you feel safe at home: Yes additional social history: -Chevy PINZON ROS ED Constitutional Constitutional ED: Denies chills or fever(s) ENT ENT ED: Denies sore throat Cardiovascular Cardiovascular: Denies chest pain Respiratory/Chest Respiratory/Chest: Denies cough or dyspnea Gastrointestinal Gastrointestinal: Reports abdominal pain and nausea; Denies diarrhea or vomiting Genitourinary Genitourinary ED: Reports urinary frequency; Denies dysuria Musculoskeletal Musculoskeletal: Reports back pain; Denies myalgias Integumentary Denies rash Neurologic Neurologic: Denies headache(s) Hematologic/Lymphatic Hematologic/Lymphatic: Denies easy bleeding or easy bruising EXAM Physical Exam Const Vital Signs: 01/31/24 06:09 01/31/24 08:09 Temperature 96.3 F L Temperature Source Temporal Pulse Rate 85 84 Respiratory Rate 16 16 Blood Pressure 121/95 H 125/86 H Blood Pressure Mean 103 99 Pulse Ox 95 98 Oxygen Delivery Method Room Air Positive well nourished, well developed and obese General Appearance ED: well developed; Negative for pallor Nutritional Appearance: obese HEENT HEENT Narrative: Normocephalic atraumatic Eyes PERRL and EOMs intact bilaterally General Eye ED: Negative for scleral icterus Neck supple Neck Narrative: No nuchal rigidity or meningeal signs noted Resp normal respiratory effort and clear to auscultation bilaterally Cardio regular rate and regular rhythm Rate: other Other Details: Heart is regular rate and rhythm without murmurs rubs or gallops Radial and carotid pulses are equal and symmetric GI non-distended and no masses GI Narrative: Abdomen is soft and nondistended with normal active bowel sounds. Patient has pain on palpation along the left mid abdomen without voluntary guarding or rigidity. No pulsatile mass or fluid wave Auscultation: normoactive bowel sounds Palpation: soft Back/Spine Back/Spine Narrative: Positive left CVA pain noted Extremity normal to inspection Neuro oriented x3, CN's II-XII intact bilaterally and no sensory deficits noted Sensorium / Orientation: alert Motor Exam: strength 5/5 throughout Psych mental status grossly normal Skin no rashes or lesions noted and no wounds Skin Narrative: No overlying soft tissue changes to suggest trauma or infection General Skin Exam: Negative for jaundice or pallor MDM MDM MDM Narrative Medical decision making narrative: Patient arrived to the ER with stable vitals but reported sudden onset left-sided flank/abdominal pain in the middle of the night that woke her from sleep. Differential diagnosis is for kidney stone versus UTI/pyelonephritis versus potential intestinal disease such as diverticulitis or ovarian pathology such as a cyst. As her exam is most consistent with kidney stone and she does have a remote history of these I like to perform basic laboratory studies and noncontrast CT scan. Labs showed no findings of acute kidney injury or urosepsis. There is no significant electrolyte derangement either. CT scan did show a stone consistent with her exam but at this time as she does not have HUONG or urosepsis and her pain has been well-controlled there is no need for inpatient treatment and she can follow-up on an outpatient basis. History & Record Review Discussion w/independent historian: Patient Lab Data Attestation: I reviewed the patient's lab results. Labs: Laboratory Results - last 24 hr 01/31/24 06:26 WBC 7.6 RBC 4.46 Hgb 13.4 Hct 39.8 MCV 89.2 MCH 30.0 MCHC 33.7 RDW Std Deviation 41.7 RDW Coeff of Julianne 12.7 Plt Count 335 MPV 9.2 Immature Gran % (Auto) 0.400 Neut % (Auto) 74.0 H Lymph % (Auto) 16.5 L [place] % (Auto) 5.8 Eos % (Auto) 2.8 Baso % (Auto) 0.5 Absolute Neuts (auto) 5.6 Absolute Lymphs (auto) 1.25 Nucleated RBC % 0 Sodium 143 Potassium 3.7 Chloride 107 Carbon Dioxide 27.0 Anion Gap 9 BUN 11 Creatinine 0.95 Estim Creat Clear Calc 84.94 Est GFR (MDRD) Af Amer 87 Est GFR (MDRD) Non-Af 72 BUN/Creatinine Ratio 11.5 Glucose 108 H Calcium 9.6 Urine Color Yellow Urine Clarity Clear Urine pH 5.0 Ur Specific [place] 1.020 Urine Protein 15 H Urine Glucose (UA) Normal Urine Ketones Negative Urine Occult Blood 50 H Urine Nitrite Negative Urine Bilirubin Negative Urine Urobilinogen Normal Ur Leukocyte Esterase 25 H Urine RBC 5-10 SEEN Urine WBC 10-25 SEEN Ur Squamous Epith Cells 10-25 SEEN Urine Bacteria 0 SEEN Hyaline Casts 0-5 SEEN Urine Mucus RARE Radiography Diagnostic Testing: Clinical Impression(s) from Imaging Studies Abdomen/Pelvis CT 01/31/24 06:39 IMPRESSION: 6 mm calculus at the left ureterovesical junction causing a mild degree of left hydronephrosis and left hydroureter. Electronically Signed: Wilfredo Sanchez MD at 8:30 EDT , Discharge Plan Triage Chief Complaint: Flank Pain ED Provider: Jon Jaimes Dx/Rx/DC Orders Clinical Impression: Renal colic, Kidney stone Instructions: ED Kidney Stone with Pain Prescriptions: New tamsulosin [Flomax] 0.4 mg capsule 0.4 mg PO DAILY Qty: 14 0RF ondansetron 4 mg tablet,disintegrating 4 mg PO TID PRN (Reason: nausea and vomiting) Qty: 21 0RF ketorolac 10 mg tablet 10 mg PO 4X/DAY PRN (Reason: pain) 5 Days Qty: 20 0RF oxycodone-acetaminophen [Percocet] 5-325 mg tablet 1 tab PO Q6H PRN (Reason: pain) 3 Days Qty: 12 0RF No Action ibuprofen 800 mg tablet 800 mg PO Q8H PRN (Reason: pain) Qty: 30 0RF Stand Alone Forms: ED Work / School Excuse Primary Care Provider: Bright Taylor Referrals: Bright Taylor MD [Primary Care Provider] - Domingo Monroe MD [Med Staff - Active Staff] - Activity Restrictions/Additional Instructions: Please return to the ER for repeat evaluation if your pain is not controlled with the prescribed medication or he develop a fever over 100.4. Otherwise follow-up with urology as directed
[2024-01-31 07:25] LABS: Hyaline Cast 0-5 SEEN /lpf (0-5); Mucous, Urine RARE /hpf (<or=2+); Red Blood Cells-Urine 5-10 SEEN /hpf (0-5); Squamous Epithelial Cells - UA 10-25 SEEN /hpf (5-10); White Blood Cells 10-25 SEEN /hpf (0-5)
[2024-01-31 08:09] VITALS: BP 125/86; PULSE 84; RESP 16; O2SAT 98
[2024-01-31 08:39] VITALS: BP 124/63; PULSE 81; RESP 16; TEMP 36.3; O2SAT 99
== END 2024-01-31 08:42 | disposition home or self-care (01) ==
PROVIDERS: Emergency Provider Emergency Medicine; PCP Family Medicine; Visit Provider Emergency Medicine
DX: N13.2 Hydronephrosis with renal and ureteral calculous obstruction (principal); N23 Unspecified renal colic; K21.9 Gastro-esophageal reflux disease without esophagitis; R35.0 Frequency of micturition; E66.9 Obesity, unspecified
CPT/HCPCS: 74176; 80048; 81001; 85025; 96361; 96374; 96375; 99282; J7030; A4216; J2405

== ENCOUNTER → 2024-05-16 | Outpatient (CLI) | payer BC, SELFPAY ==
[2024-05-16 17:24] LABS: Absolute Lymphocyte Count 2.27 X10^3/uL (0.83-4.51); Absolute Neutrophil Count 5.8 X10^3/uL (2.0-7.7); Basophil# 0.06 X10^3/uL; Basophil% 0.7 % (0-1); Eosinophil# 0.35 X10^3/uL; Eosinophils% 3.9 % (0-5); Hematocrit 40.1 % (37-47); Hemoglobin 13.3 g/dL (12.0-15.0); Lymphocyte # 2.27 X10^3/ul (0.83-4.51); Lymphocyte % 25.1 % (19-41); Mean Corp Hgb Conc 33.2 g/dL (32-36); Mean Corpuscular Hgb 29.4 pg (27.0-32.0); Mean Corpuscular Volume 88.7 fL (81-99); Mean Platelet Vol. 9.4 fl (6.2-12.0); Monocyte# 0.51 X10^3/uL; Monocyte% 5.6 % (0-10); NRBC Flagged by Analyzer 0 % (0-5); Neutrophil % 64.3 % (47-70); Platelet Count 295 K/mm3 (150-450); RBC Distribution Width CV 12.9 % (11.6-14.6); RBC Distribution Width SD 41.8 fl (35.1-43.9); Red Blood Count 4.52 M/mm3 (4.2-5.4)
[2024-05-16 18:00] LABS: T3 Total - Triiodothyronine 1.32 ng/mL (0.6-1.81)
[2024-05-16 18:18] LABS: ALB/GLOB Ratio 1.2 RATIO (0.9-2.4); AST(SGOT) 13 U/L (15-37); Alanine Aminotransfer ALT/SGPT 22 U/L (13-56); Albumin, Serum 4.1 g/dL (3.2-5.0); Alkaline Phosphatase 68 U/L (45-117); Anion Gap 7 (5-15); BUN 9 mg/dL (7-18); BUN/Creat Ratio 12.3 RATIO (10-20); Calcium,Total 9.3 mg/dL (8.5-10.1); Chloride 108 mmol/L (98-107); Creatinine, Serum 0.73 mg/dL (0.55-1.02); EST Glomerular Filtration Rate 97 mL/min (>60); Est Glom Filt Rate - Afr Amer 117 mL/min (>60); Globulin 3.4 g/dL (2.2-4.2); Glucose 89 mg/dL (74-106); Potassium 3.8 mmol/L (3.5-5.1); Protein, Total 7.5 g/dL (6.4-8.2); Sodium Level 140 mmol/L (136-145); T4 Free Direct 1.04 ng/dL (0.76-1.46); T4 Total, Thyroxin 9.9 ug/dL (4.8-13.9); Thyroid Stim Hormone (TSH) 0.68 uIU/mL (0.358-3.74)
[2024-05-20 11:59] LABS: Thyroid Peroxidase AB < 9 IU/mL (0-34)
== END | disposition home or self-care (01) ==
LOC: MTLAB 16:45
PROVIDERS: PCP Family Medicine; Referring Provider Dermatology Pediatric Dermatology; Visit Provider Dermatology Pediatric Dermatology
DX: L20.89 Other atopic dermatitis (principal); L80 Vitiligo; Z79.899 Other long term (current) drug therapy
CPT/HCPCS: 36415; 80053; 84436; 84439; 84443; 84480; 85025; 86376

== ENCOUNTER 2024-06-27 09:32 | Emergency (ER) | payer BC, SELFPAY ==
[2024-06-27 09:33] VITALS: BP 118/103; PULSE 65; RESP 16; TEMP 36.7; O2SAT 100; BMI 31.3
--- NOTE | 2024-06-27 10:20 | CT_ITS ---
STUDY: CT ABDOMEN AND PELVIS WITHOUT CONTRAST REASON FOR EXAM: Female, 34 years old. Left flank pain. RADIATION DOSAGE (If Supplied By Facility): CTDIvol = ( 9.03 ) mGy, DLP = ( 455.73 ) mGycm TECHNIQUE: Transaxial images were obtained from the dome of the diaphragm to the symphysis pubis without oral contrast, and without intravenous contrast. Sagittal and coronal images were reconstructed. Individualized dose optimization techniques were used for this CT. COMPARISON: Comparison is made with prior study dated January 31, 2024. FINDINGS: Minimal degree of right linear atelectasis. The visualized portions of the heart are within normal limits. Normal liver. Normal gallbladder and extrahepatic biliary system. Normal spleen. Normal pancreas. Normal bilateral adrenal glands. Normal right kidney. Normal left kidney. Normal visualized stomach. Normal small intestine. There are scattered colonic diverticula consistent with diverticulosis. The appendix is visualized and appears normal. Normal abdominal aorta. Normal inferior vena cava. Normal retroperitoneum. Normal urinary bladder. A tubal ligation clip is seen in the lower mid pelvis. The patient is status post hysterectomy. Normal abdominal wall. Normal osseous structures. CT/Abdomen/Pelvis without Cont IMPRESSION: No obstructive uropathy is seen at this time. The patient is status post hysterectomy. A tubal ligation clip is seen in the mid pelvis. Electronically Signed: Wilfredo Sanchez MD at 11:02 EDT ,
--- NOTE | 2024-06-27 10:21 | ED.VIS.GI ---
HPI HPI - GI History of Present Illness Chief Complaint: Flank Pain Informant: patient Narrative Narrative: Patient a 34-year-old female with history of kidney stones, bladder issues and prior hysterectomy presenting with 1 week of worsening left flank pain. Patient is worried she is passing of the kidney stone. She states the pain was milder about a week ago when it first started and she thought maybe it was back pain. The pain has worsened and become constant. It is now in her lower back wrapping around her left hip. She states worse with standing just to stand for work. She has some nausea but attributes that secondary to the pain. Denies any vomiting or change in her bowel movements. Denies any fever or chills. Has had some urinary urgency but denies any hematuria or dysuria. Is tried ibuprofen and Tylenol with no relief of her symptoms. Last dose was yesterday. Has previously seen Dr. Marcial for some bladder issues. Has never required any intervention to pass a kidney stone. No other complaints or concerns reported at this time. [facility] Medical History Wears glasses Wears contact lenses Low iron Easy bruising Gastric reflux Non-smoker Abnormal Pap smear of cervix History of kidney stones Home Medications ?Medication ?Instructions ?Recorded ?Last Taken ?Type ibuprofen 800 mg tablet 800 mg PO Q8H PRN pain #30 tabs 07/03/23 Unknown Rx ketorolac 10 mg tablet 10 mg PO 4X/DAY PRN pain 5 days 01/31/24 Unknown Rx #20 tabs ondansetron 4 mg disintegrating 4 mg PO TID PRN nausea and 01/31/24 Unknown Rx tablet vomiting #21 tabs oxycodone-acetaminophen 5 mg-325 1 tab PO Q6H PRN pain 3 days #12 01/31/24 Unknown Rx mg tablet (Percocet) tabs tamsulosin 0.4 mg capsule (Flomax) 0.4 mg PO DAILY #14 caps 01/31/24 Unknown Rx back brace (Back Support S/M) #1 ea 06/27/24 Unknown Rx ibuprofen 600 mg tablet 600 mg PO Q6H PRN pain #20 tabs 06/27/24 Unknown Rx Allergy/AdvReac Type Severity Reaction Status Date / Time latex Allergy Rash Verified 06/27/24 09:33 nitrofurantoin (From Allergy Rash Verified 06/27/24 09:33 Macrobid) phenazopyridine (From Allergy Rash Verified 06/27/24 09:33 Pyridium) epinephrine AdvReac Other Verified 06/27/24 09:33 lidocaine AdvReac Other Verified 06/27/24 09:33 Family History Grandmother Diabetes Colon cancer Grandfather Myocardial infarction Colon cancer Surgical History Status post hysterectomy (~07/03/23) S/P tubal ligation S/P S/P endometrial ablation History of carpal tunnel repair Social History Smoking Status: Never smoker alcohol intake: never substance use type: former substance user and marijuana caffeine: Yes what type of physical activity do you participate in: none seatbelt use: always do you feel safe at home: Yes additional social history: -Chevy PINZON ED Constitutional Constitutional ED: Denies chills or fever(s) Gastrointestinal Gastrointestinal: Reports nausea; Denies abdominal pain or vomiting Genitourinary Genitourinary ED: Reports urinary frequency; Denies dysuria or hematuria Musculoskeletal Musculoskeletal: Reports back pain; Denies arthralgias Integumentary Denies rash Hematologic/Lymphatic Hematologic/Lymphatic: Denies easy bleeding or easy bruising EXAM Physical Exam Const Vital Signs: 06/27/24 09:33 06/27/24 11:26 Temperature 98.0 F 98 F Temperature Source Oral Pulse Rate 65 81 Respiratory Rate 16 19 H Blood Pressure 118/103 H 112/82 H Blood Pressure Mean 108 92 Pulse Ox 100 97 Oxygen Delivery Method Room Air Positive well nourished and well developed General Appearance ED: well developed HEENT Reports moist mucous membranes Neck supple Resp normal respiratory effort and clear to auscultation bilaterally Cardio regular rate and regular rhythm GI non-tender and non-distended Auscultation: normoactive bowel sounds Palpation: soft; Negative for tender or guarding Back/Spine no CVA tenderness Back/Spine Narrative: Patient points to her left SI joint and lower paraspinal area as her area of pain but is not significant reproducible with direct palpation. No overlying skin changes. Thoracic Spine / Upper Back: Negative for thoracic spinal tenderness Lumbar Spine / Lower Back: Negative for lumbar spinal tenderness Extremity full ROM General Extremety ED: Negative for edema General Extremity: Negative for edema Neuro moves all extremities Sensorium / Orientation: alert, oriented to person, oriented to place and oriented to time Motor Exam: Negative for general weakness Psych mental status grossly normal and thought process normal Skin no wounds Rashes: no rashes MDM MDM MDM Narrative Medical decision making narrative: Patient is evaluated for worsening left lower back pain. Is no history of kidney stone is concerned she is passing a kidney stone. Patient overall is well-appearing. Vital signs are normal. Differential includes but is not limited to urinary tract infection, renal colic, pyelonephritis and muscle skeletal pain. Patient drove here and does not want anything sedating at this time. Will be given IV fluids, Toradol and Zofran. Will obtain CT as well as basic labs and urinalysis. Patient reevaluated. She is feeling better. Tiffani hemodynamically stable. Workup is largely normal. She has a normal CBC, BMP and urinalysis. CT of the abdomen pelvis does not see any obstructive kidney stones at this time or hydronephrosis. Discussed with patient her results and that I suspect this might be more muscle skeletal. She states that she does stand at work all day. Discussed getting a back brace to help with this. Will give the patient a work note for today. She is now off for the next 2 days is 1 week and 1/2-day the third day. I discussed outpatient follow-up with a primary care doctor. Given return precautions. I discussed NSAID therapy as well as using heat. Will give a prescription for Motrin 600 mg. Discharged home in stable condition. Lab Data Attestation: I reviewed the patient's lab results. Labs: Laboratory Results - last 24 hr 06/27/24 06/27/24 10:30 10:35 WBC 6.6 RBC 4.63 Hgb 13.8 Hct 41.2 MCV 89.0 MCH 29.8 MCHC 33.5 RDW Std Deviation 42.8 RDW Coeff of Julianne 13.1 Plt Count 306 MPV 9.3 Immature Gran % (Auto) 0.300 Neut % (Auto) 55.7 Lymph % (Auto) 34.0 [place] % (Auto) 6.3 Eos % (Auto) 2.9 Baso % (Auto) 0.8 Absolute Neuts (auto) 3.7 Absolute Lymphs (auto) 2.23 Nucleated RBC % 0 Sodium 140 Potassium 3.7 Chloride 110 H Carbon Dioxide 22.0 Anion Gap 8 BUN 8 Creatinine 0.73 Estim Creat Clear Calc 108.95 Est GFR (MDRD) Af Amer 117 Est GFR (MDRD) Non-Af 97 BUN/Creatinine Ratio 10.9 Glucose 94 Calcium 9.2 Urine Color Straw Urine Clarity Clear Urine pH 6.5 Ur Specific [place] 1.010 Urine Protein Negative Urine Glucose (UA) Normal Urine Ketones Negative Urine Occult Blood Negative Urine Nitrite Negative Urine Bilirubin Negative Urine Urobilinogen Normal Ur Leukocyte Esterase Negative Urine RBC 0 SEEN Urine WBC 0 SEEN Ur Squamous Epith Cells 0 SEEN Urine Bacteria 0 SEEN Urine Mucus 0 SEEN Radiography Diagnostic Testing: Clinical Impression(s) from Imaging Studies Abdomen/Pelvis CT 06/27/24 10:20 IMPRESSION: No obstructive uropathy is seen at this time. The patient is status post hysterectomy. A tubal ligation clip is seen in the mid pelvis. Electronically Signed: Wilfredo Sanchez MD at 11:02 EDT , Discharge Plan Triage Chief Complaint: Flank Pain ED Provider: Zoya Haile Dx/Rx/DC Orders Clinical Impression: Pain in left lumbar region of back Instructions: ED Back Pain (Acute or Chronic), ED Flank Pain, Uncertain Cause Prescriptions: New ibuprofen 600 mg tablet 600 mg PO Q6H PRN (Reason: pain) Qty: 20 0RF (DME) back brace [Back Support S/M] Misc See Rx Instructions .Route Qty: 1 0RF Rx Instructions: As directed No Action ibuprofen 800 mg tablet 800 mg PO Q8H PRN (Reason: pain) Qty: 30 0RF tamsulosin [Flomax] 0.4 mg capsule 0.4 mg PO DAILY Qty: 14 0RF ondansetron 4 mg tablet,disintegrating 4 mg PO TID PRN (Reason: nausea and vomiting) Qty: 21 0RF ketorolac 10 mg tablet 10 mg PO 4X/DAY PRN (Reason: pain) 5 Days Qty: 20 0RF oxycodone-acetaminophen [Percocet] 5-325 mg tablet 1 tab PO Q6H PRN (Reason: pain) 3 Days Qty: 12 0RF Stand Alone Forms: ED Work / School Excuse Primary Care Provider: Bright Taylor Referrals: Bright Taylor MD [Primary Care Provider] - Activity Restrictions/Additional Instructions: You do not have kidney stone or any acute abnormality in your workup today. I suspect her pain is more muscle skeletal. I recommend trying to wear a back brace at work and using heat. Please follow-up with your primary care doctor. Try to perform gentle stretching. Print Language: Gren[place] Disposition Disposition: Home, Self Care
[2024-06-27] MEDS: Ketorolac 15 MG/ML Vial IV (10:26)
[2024-06-27] MEDS: 0.9% Normal Saline (1000mL) 1,000 ML 250 ML IV (10:26)
[2024-06-27] MEDS: Ondansetron 4 MG/2 ML Vial IV (10:26)
[2024-06-27 10:37] LABS: Absolute Lymphocyte Count 2.23 X10^3/uL (0.83-4.51); Absolute Neutrophil Count 3.7 X10^3/uL (2.0-7.7); Basophil# 0.05 X10^3/uL; Basophil% 0.8 % (0-1); Eosinophil# 0.19 X10^3/uL; Eosinophils% 2.9 % (0-5); Hematocrit 41.2 % (37-47); Hemoglobin 13.8 g/dL (12.0-15.0); Lymphocyte # 2.23 X10^3/ul (0.83-4.51); Mean Corp Hgb Conc 33.5 g/dL (32-36); Mean Corpuscular Hgb 29.8 pg (27.0-32.0); Mean Platelet Vol. 9.3 fl (6.2-12.0); Monocyte# 0.41 X10^3/uL; Monocyte% 6.3 % (0-10); NRBC Flagged by Analyzer 0 % (0-5); Neutrophil # 3.66 X10^3/uL (2.7-7.7); Neutrophil % 55.7 % (47-70); Platelet Count 306 K/mm3 (150-450); RBC Distribution Width CV 13.1 % (11.6-14.6); RBC Distribution Width SD 42.8 fl (35.1-43.9); Red Blood Count 4.63 M/mm3 (4.2-5.4); White Blood Count 6.6 K/mm3 (4.4-11.0)
[2024-06-27 10:38] LABS: Bacteria 0 SEEN /hpf (None Seen); Mucous, Urine 0 SEEN /hpf (<or=2+); Red Blood Cells-Urine 0 SEEN /hpf (0-5); Squamous Epithelial Cells - UA 0 SEEN /hpf (5-10); White Blood Cells 0 SEEN /hpf (0-5)
[2024-06-27 10:40] LABS: Color, Urine Straw (Yellow); Glucose, Dipstick Normal (Normal); Ketone-Dipstick Negative (Negative); Leukocyte Esterase-Dipstick Negative /ul (Negative); Nitrite-Dipstick Negative (Negative); Occult Blood-Urine Negative /ul (Negative); Protein-Dipstick Negative (Negative); Urine Bilirubin Dipstick Negative (Negative); Urine Clarity Clear (Clear); Urine Urobilinogen Normal (Normal); Urine pH 6.5 (5.0 - 8.0)
[2024-06-27 10:49] LABS: Anion Gap 8 (5-15); BUN 8 mg/dL (7-18); BUN/Creat Ratio 10.9 RATIO (10-20); Calcium,Total 9.2 mg/dL (8.5-10.1); Chloride 110 mmol/L (98-107); Creatinine, Serum 0.73 mg/dL (0.55-1.02); EST Glomerular Filtration Rate 97 mL/min (>60); Est Glom Filt Rate - Afr Amer 117 mL/min (>60); Estimated Creatinine Clearance 108.95 ml/min; Glucose 94 mg/dL (74-106); Potassium 3.7 mmol/L (3.5-5.1); Sodium Level 140 mmol/L (136-145)
[2024-06-27 11:26] VITALS: BP 112/82; PULSE 81; RESP 19; TEMP 36.6; O2SAT 97
== END 2024-06-27 11:52 | disposition home or self-care (01) ==
PROVIDERS: Emergency Provider Emergency Medicine; PCP Family Medicine; Visit Provider Emergency Medicine
DX: M54.50 Low back pain, unspecified (principal)
CPT/HCPCS: 74176; 80048; 81001; 85025; 96374; 96376; 99284; J7030; J2405

== ENCOUNTER → 2024-10-10 | Outpatient (CLI) | payer BC, SELFPAY ==
[2024-10-10 18:11] LABS: HIV - WCH Non-Reactive (Nonreactive); Hepatitis B Surface Antigen Non-Reactive (Nonreactive); Hepatitis C Antibody Non-Reactive (Nonreactive); Syphilis Antibodies Non-reactive
[2024-10-14 03:06] LABS: Chlamydia By Nucleic Acid AMP Negative (Negative); Gonococcus By Nucleic Acid AMP Negative (Negative)
== END | disposition home or self-care (01) ==
LOC: BWCLAB 16:18
PROVIDERS: PCP Family Medicine; Referring Provider Obstetrics & Gynecology; Visit Provider Obstetrics & Gynecology
DX: Z11.3 Encounter for screening for infections with a predominantly sexual mode of transmission (principal)
CPT/HCPCS: 36415; 86695; 86696; 86703; 86780; 86803; 87070; 87205; 87340; 87491; 87591

== ENCOUNTER → 2025-08-15 | Outpatient (CLI) | payer BC, SELFPAY ==
--- OUTSIDE RECORDS SUMMARY | 2025-08-15 08:10 | XMS RPT_ITS | CCD ---
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 following information about you: ALLISON STOKES 07/13/2025 1:54 PM Signed Patient scheduled for nurse visit 07/20/25 to receive HPV vaccine. Please place order at this time. Allison Stokes LPN Allergies As of Date: 07/13/2025 Noted Allergy Reaction LATEX 11/23/2007 2 - Rash 9 - Itching LIDOCAINE-EPINEPHRINE 10/07/2018 14 - Other: See Comments Comments: Redness and pain MACROBID (NITROFURANTOIN MONOHYD/*02/28/2015 14 - Other: See Comments Comments: headache and feels like face is on fire PYRIDIUM (PHENAZOPYRIDINE) 02/28/2015 5 - Intolerance Comments: HEADACHE FLAVOXATE 02/04/2023 16 - Unknown Date Reviewed: 06/10/2025 Reviewed by: Shea Woodard LPN - Fully Assessed Reason for Visit: Orders [681] Primary Visit Diagnosis:Need for vaccination [Z23] Order(s):HPV VACCINE, 9-VALENT (GARDASIL 9) [[id number]] Order #: [id number] HPV VACCINE, 9-VALENT (GARDASIL 9) [[id number]] Order #: [id number] FUTURE Problem List As Of Date 07/13/2025 Noted Resolved BREECH PRESENT-ANTEPART [O32.1XX0] 04/02/2008 04/27/2008 Irregular Menstrual Cycle [N92.6] 02/08/2010 Surveillance of previously prescribed contracep*02/08/2010 09/05/2011 Poor grth-antepart [O36.5990] 05/02/2010 12/23/2010 PREV DELIVERY [654.23] [O34.219] 05/02/2010 08/08/2011 Supervision of other high-risk [O09.8*12/23/2010 08/08/2011 LGSIL (low grade squamous intraepithelial lesio*05/12/2013 GERD (gastroesophageal reflux disease) [K21.9] 11/23/2014 Chronic cough [R05.3] 11/23/2014 12/06/2019 Chronic fatigue [R53.82] 12/27/2015 12/06/2019 Excessive daytime sleepiness [G47.19] 03/13/2016 Bilateral carpal tunnel syndrome [G56.03] 08/26/2018 12/06/2019 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) [F15.1*12/06/2019 Chronic pain of left knee [M25.562, G89.29] 12/06/2019 Exposure to hepatitis C [Z20.5] 06/28/2020 Encounter Status:Closed by PODLOGWENDY HIRSCH on 07/13/25 Normal [facility] CBC W Auto Differential pane l (Bld)on 06-20-2025 Basophils (Bld) [#/Vol] 0.05 10*3/uL Normal <0.11 [facility] Comment on above: Order Comment: Speci men Type: BLOOD SPECIMENOrdering Facility: [facility] Address: [address] [place] [address] Performed By: #### 5 7021-8 ####[facility] LABCLIA [id number] [facility] [address], [address] [place] Basophils/100 WBC (Bld) 0.8 % Normal [facility] Comment on above: Order Comment: Speci men Type: BLOOD SPECIMENOrdering Facility: [facility] Address: [address] [place] [address] Performed By: #### 5 7021-8 ####[facility] LABCLIA [id number] [address], [place] [address] [place] Differential cell count method Nom (Bld) Auto Normal [facility] Comment on above: Order Comment: Speci men Type: BLOOD SPECIMENOrdering Facility: [facility] Address: [address] [place] [address] Performed By: #### 5 7021-8 ####[facility] LABCLIA [id number] [address], [address] [place] Eosinophils (Bld) [#/Vol] 0.27 10*3/uL Normal <0.46 [facility] Comment on above: Order Comment: Speci men Type: BLOOD SPECIMENOrdering Facility: [facility] Address: [address] [place] [address] Performed By: #### 5 7021-8 ####[facility] LABCLIA [id number] [address] [place] [facility] Eosinophils/100 WBC (Bld) 4.5 % Normal [facility] Comment on above: Order Comment: Speci men Type: BLOOD SPECIMENOrdering Facility: [facility] Address: [address] [place] [address] Performed By: #### 5 7021-8 ####[facility] LABCLIA [id number] [place] [address] [place] Erythrocyte distribution width (RBC) [Ratio] 13.1 % Normal 11.5-15.0 [facility] Comment on above: Order Comment: Speci men Type: BLOOD SPECIMENOrdering Facility: [facility] Address: [address] [place] [address] Performed By: #### 5 7021-8 ####[facility] LABIA [id number] [address] [address] [place] Hematocrit (Bld) [Volume fraction] 40.6 % Normal 36.0-46.0 [facility] Comment on above: Order Comment: Speci men Type: BLOOD SPECIMENOrdering Facility: [facility] Address: [address] [place] [address] Performed By: #### 5 7021-8 ####[facility] LABIA [id number] [place] [address] [place] Hemoglobin (Bld) [Mass/Vol] 13.8 g/dL Normal 11.5-15.5 [facility] Comment on above: Order Comment: Speci men Type: BLOOD SPECIMENOrdering Facility: [facility] Address: [address] [place] [address] Performed By: #### 5 7021-8 ####[facility] LABIA [id number] [place] [address] [place] Immature granulocytes (Bld) [#/Vol] 0.03 10*3/uL Normal <0.10 [facility] Comment on above: Order Comment: Speci men Type: BLOOD SPECIMENOrdering Facility: [facility] Address: [address] [place] [address] Performed By: #### 5 7021-8 ####[facility] LABIA [id number] [place] [address] [place] Immature granulocytes/100 WBC (Bld) 0.5 % Normal [facility] Comment on above: Order Comment: Speci men Type: BLOOD SPECIMENOrdering Facility: [facility] Address: [address] [place] [address] Performed By: #### 5 7021-8 ####[facility] LABCLIA [id number] [place] [address] [place] Lymphocytes (Bld) [#/Vol] 1.88 10*3/uL Normal 1.00-4.00 [facility] Comment on above: Order Comment: Speci men Type: BLOOD SPECIMENOrdering Facility: [facility] Address: [address] [place] [address] Performed By: #### 5 7021-8 ####[facility] LABCLIA [id number] [place] [address] [place] Lymphocytes/100 WBC (Bld) 31.4 % Normal [facility] Comment on above: Order Comment: Speci men Type: BLOOD SPECIMENOrdering Facility: [facility] Address: [address] [place] [address] Performed By: #### 5 7021-8 ####[facility] LABCLIA [id number] [place] [address] [place] MCH (RBC) [Entitic mass] 29.8 pg Normal 26.0-34.0 [facility] Comment on above: Order Comment: Speci men Type: BLOOD SPECIMENOrdering Facility: [facility] Address: [address] [place] [address] Performed By: #### 5 7021-8 ####[facility] LABCLIA [id number] [place] [address] [place] MCHC (RBC) [Mass/Vol] 34.0 g/dL Normal 30.5-36.0 [facility] Comment on above: Order Comment: Speci men Type: BLOOD SPECIMENOrdering Facility: [facility] Address: [address] [place] [address] Performed By: #### 5 7021-8 ####[facility] LABCLIA [id number] [id number] [address] [place] MCV (RBC) [Entitic vol] 87.7 fL Normal 80.0-100.0 [facility] Comment on above: Order Comment: Speci men Type: BLOOD SPECIMENOrdering Facility: [facility] Address: [address] [place] [address] Performed By: #### 5 7021-8 ####[facility] LABCLIA [id number] [facility] [place] [address] [place] Monocytes (Bld) [#/Vol] 0.38 10*3/uL Normal <0.87 [facility] Comment on above: Order Comment: Speci men Type: BLOOD SPECIMENOrdering Facility: [facility] Address: [address] [place] [address] Performed By: #### 5 7021-8 ####[facility] LABCLIA [id number] [place] [address] [place] Monocytes/100 WBC (Bld) 6.4 % Normal [facility] Comment on above: Order Comment: Speci men Type: BLOOD SPECIMENOrdering Facility: [facility] Address: [address] [place] [address] Performed By: #### 5 7021-8 ####[facility] LABCLIA [id number] [place] [address] [place] Neutrophils (Bld) [#/Vol] 3.37 10*3/uL Normal 1.45-7.50 [facility] Comment on above: Order Comment: Speci men Type: BLOOD SPECIMENOrdering Facility: [facility] Address: [address] [place] [address] Performed By: #### 5 7021-8 ####[facility] LABCLIA [id number] [place] [address] [place] Neutrophils/100 WBC (Bld) 56.4 % Normal [facility] Comment on above: Order Comment: Speci men Type: BLOOD SPECIMENOrdering Facility: [facility] Address: [address] [place] [address], [place] [address] Performed By: #### 5 7021-8 ####[facility] LABCLIA [id number] [address] [place] [address] [place] Nucleated RBC (Bld) [#/Vol] 10*3/uL Normal <0.01 [facility] Comment on above: Order Comment: Speci men Type: BLOOD SPECIMENOrdering Facility: [facility] Address: [address] [place] [address] Performed By: #### 5 7021-8 ####[facility] LABCLIA [id number] [address] [place] [address] [place] Nucleated RBC/100 WBC (Bld) [Ratio] 0.0 /100 WBC Normal [facility] Comment on above: Order Comment: Speci men Type: BLOOD SPECIMENOrdering Facility: [facility] Address: [address] [place] [address] Performed By: #### 5 7021-8 ####[facility] LABIA [id number] [address] [place] [address] [place] Platelet mean volume (Bld) [Entitic vol] 9.5 fL Normal 9.0-12.7 [facility] Comment on above: Order Comment: Speci men Type: BLOOD SPECIMENOrdering Facility: [facility] Address: [address] [place] [address] Performed By: #### 5 7021-8 ####[facility] LABCLIA [id number] [address] [place] [address] [place] Platelets (Bld) [#/Vol] 297 10*3/uL Normal 150-400 [facility] Comment on above: Order Comment: Speci men Type: BLOOD SPECIMENOrdering Facility: [facility] Address: [address] [place], [place] [address] Performed By: #### 5 7021-8 ####[facility] LABCLIA [id number] [place] [address] [place] RBC (Bld) [#/Vol] 4.63 10*6/uL Normal 3.90-5.20 [facility] Comment on above: Order Comment: Speci men Type: BLOOD SPECIMENOrdering Facility: [facility] Address: [address] [place] [address] Performed By: #### 5 7021-8 ####[facility] LABIA [id number] [place] [address] [place] WBC (Bld) [#/Vol] 5.98 10*3/uL Normal 3.70-11.00 [facility] Comment on above: Order Comment: Speci men Type: BLOOD SPECIMENOrdering Facility: [facility] Address: [address] [place] [address] Performed By: #### 5 7021-8 ####[facility] LABIA [id number] [place] [address] [place] [facility] Comprehensive metabolic 2000 panelon 06-20-2025 Albumin [Mass/Vol] 4.4 g/dL Normal 3.9-4.9 [facility] Comment on above: Order Comment: Speci men Type: BLOOD SPECIMENOrdering Facility: [facility] Address: [address] [place] [address] Performed By: #### 3 016-3, 80974-6, 09066-9 ####[facility] LABIA [id number] [place] [address] [place] ALP [Catalytic activity/Vol] 76 U/L Normal 34-123 [facility] Comment on above: Order Comment: Speci men Type: BLOOD SPECIMENOrdering Facility: [facility] Address: [address] [place] [address] Performed By: #### 3 016-3, 64355-6, 04094-1 ####[facility] LABCLIA [id number] [place] [id number] [place] ALT [Catalytic activity/Vol] 18 U/L Normal 7-38 [facility] Comment on above: Order Comment: Speci men Type: BLOOD SPECIMENOrdering Facility: [facility] Address: [address] [place] [address] Performed By: #### 3 016-3, 53555-0, ####[facility] LABCLIA [id number] [facility] [address] [address] [place] Anion gap [Moles/Vol] 13 mmol/L Normal 8-15 [facility] Comment on above: Order Comment: Speci men Type: BLOOD SPECIMENOrdering Facility: [facility] Address: [address] [place] [address] Performed By: #### 3 016-3, 82896-4, ####[facility] LABCLIA [id number] [place] [address] [place] AST [Catalytic activity/Vol] 23 U/L Normal 13-35 [facility] Comment on above: Order Comment: Speci men Type: BLOOD SPECIMENOrdering Facility: [facility] Address: [address] [place] [address] Performed By: #### 3 016-3, 71913-6, ####[facility] LABCLIA [id number] [address] [address] [place] Bilirubin [Mass/Vol] 0.6 mg/dL Normal 0.2-1.3 [facility] Comment on above: Order Comment: Speci men Type: BLOOD SPECIMENOrdering Facility: [facility] Address: [address] [place], [place] [address] Performed By: #### 3 016-3, 13976-9, 06565-8 ####[facility] LABCLIA [id number] [facility] [address] [address] [place] Calcium [Mass/Vol] 9.7 mg/dL Normal 8.5-10.2 [facility] Comment on above: Order Comment: Speci men Type: BLOOD SPECIMENOrdering Facility: [facility] Address: [address] [place] [address] Performed By: #### 3 016-3, 29783-6, ####[facility] LABCLIA [id number] [place] [id number] [place] Chloride [Moles/Vol] 105 mmol/L Normal 98-107 [facility] Comment on above: Order Comment: Speci men Type: BLOOD SPECIMENOrdering Facility: [facility] Address: [address] [place] [address] Performed By: #### 3 016-3, 14196-2, ####[facility] LABCLIA [id number] [place] [address] [place] CO2 [Moles/Vol] 21 mmol/L Low 22-30 [facility] Comment on above: Order Comment: Speci men Type: BLOOD SPECIMENOrdering Facility: [facility] Address: [address] [place] [address] Performed By: #### 3 016-3, 56272-9, ####[facility] LABCLIA [id number] [place] [address] [place] Creatinine [Mass/Vol] 0.75 mg/dL Normal 0.58-0.96 [facility] Comment on above: Order Comment: Speci men Type: BLOOD SPECIMENOrdering Facility: [facility] Address: [address] [place] [address] Performed By: #### 3 016-3, 95759-9, 31371-1 ####[facility] LABIA [id number] [place] [address] [place] eGFRcr SerPlBld CKD-EPI 2020 107 mL/min/1.73m??? Normal >=60 [facility] Comment on above: Order Comment: Speci men Type: BLOOD SPECIMENOrdering Facility: [facility] Address: [address] [place] [address] Result Comment: Gayatri mated Glomerular Filtration Rate (eGFR) is calculated using the 2020 CKD-EPI creatinine equation. This equation utilizes serum creatinine, sex, and age as parameters. The creatinine assay has traceable calibration to isotope dilution-mass spectrometry. Refer to KDIGO guidelines for clinical interpretation. In patients with unstable renal function, e.g. those with acute kidney injury, the eGFR may not accurately reflect actual GFR. Performed By: #### 3 016-3, 22568-8, ####[facility] LABCLIA [id number] [place] [id number] [place] Glucose [Mass/Vol] 87 mg/dL Normal 74-99 [facility] Comment on above: Order Comment: Specbreonna men Type: BLOOD SPECIMENOrdering Facility: [facility] Address: [address] [place] [address] Result Comment: The [place] Diabetes Association (ADA) provides guidance for cutoff values for fasting glucose and random glucose. The ADA defines fasting as no caloric intake for at least 8 hours. Fasting plasma glucose results between 100 to 125 mg/dL indicate increased risk for diabetes (prediabetes). Fasting plasma glucose results greater than or equal to 126 mg/dL meet the criteria for diagnosis of diabetes. In the absence of unequivocal hyperglycemia, results should be confirmed by repeat testing. In a patient with classic symptoms of hyperglycemia or hyperglycemic crisis, random plasma glucose results greater than or equal to 200 mg/dL meet the criteria for diagnosis of diabetes. Reference: Standards of Medical Care in Diabetes 2016, [place] [employer] Association. Diabetes Care. 2016.39(Suppl 1). Performed By: #### 3 016-3, 32076-9, ####[facility] LABIA [id number] [address] [address] [place] Potassium [Moles/Vol] 4.6 mmol/L Normal 3.7-5.1 [facility] Comment on above: Order Comment: Speci men Type: BLOOD SPECIMENOrdering Facility: [facility] Address: [address] [place] [address] Performed By: #### 3 016-3, 67542-0, 28094-2 ####[facility] LABCLIA [id number] [address] [address] [place] Protein [Mass/Vol] 7.3 g/dL Normal 6.3-8.0 [facility] Comment on above: Order Comment: Speci men Type: BLOOD SPECIMENOrdering Facility: [facility] Address: [address] [place] [address] Performed By: #### 3 016-3, 07160-7, 67254-9 ####[facility] LABIA [id number] [place] [address] [place] Sodium [Moles/Vol] 139 mmol/L Normal 136-144 [facility] Comment on above: Order Comment: Speci men Type: BLOOD SPECIMENOrdering Facility: [facility] Address: [address] [place] [address] Performed By: #### 3 016-3, 66005-1, 76456-8 ####[facility] [id number] [place] [address] [place] Urea nitrogen [Mass/Vol] 14 mg/dL Normal 7-21 [facility] Comment on above: Order Comment: Speci men Type: BLOOD SPECIMENOrdering Facility: [facility] Address: [address] [place] [address] Performed By: #### 3 016-3, 64993-2, 01815-2 ####[facility] LABIA [id number] [address] [address] [place] Lipid 1996 panelon 5 Cholesterol [Mass/Vol] 218 mg/dL High <200 [facility] Comment on above: Order Comment: Speci men Type: BLOOD SPECIMENOrdering Facility: [facility] Address: [address] [place] [address] Result Comment: <200 mg/dL, Desirable 200-239 mg/dL, Borderline high >239 mg/dL, High Performed By: #### 3 016-3, 97572-5, ####[facility] LABCLIA [id number] [address] [address] [place] Cholesterol in HDL [Mass/Vol] 55 mg/dL Normal >39 [facility] Comment on above: Order Comment: Speci men Type: BLOOD SPECIMENOrdering Facility: [facility] Address: [address] [place] [address] Result Comment: 40-5 9 mg/dL, Acceptable >59 mg/dL, High: Negative risk factor for coronary heart disease <40 mg/dL, Low: Positive risk factor for coronary heart disease Performed By: #### 3 016-3, 31367-2, ####[facility] LABCLIA [id number] [address] [address] [place] Cholesterol in LDL [Mass/Vol] 146 mg/dL High <100 [facility] Comment on above: Order Comment: Speci men Type: BLOOD SPECIMENOrdering Facility: [facility] Address: [address] [place] [address] Result Comment: <100 mg/dL, Optimal 100-129 mg/dL, Near optimal/above optimal 130-159 mg/dL, Borderline high 160-189 mg/dL, High >189 mg/dL, Very high Secondary prevention optimal LDL Cholesterol levels are recommended to be <70 mg/dL LDL cholesterol is calculated using the Sebastian-NIH equation. Performed By: #### 3 016-3, 48468-8, ####[facility] LABCLIA [id number] [address] [address] [place] Cholesterol in LDL/Cholesterol in HDL [Mass ratio] 2.65 {ratio} High <2.54 [facility] Comment on above: Order Comment: Speci men Type: BLOOD SPECIMENOrdering Facility: [facility] Address: [address] [place] [address] Result Comment: Tee dumas: 1. National Cholesterol Education Program ATP III Guideline At-A-Glance Quick Desk Reference: National Heart, Lung, and Blood [place]. National Institutes of Health. 2001: NIH Publication No. 01-3305. 2. An International Atherosclerosis Society position paper: global recommendations for the management of dyslipidemia: executive summary, Atherosclerosis. 2014: 232(2):410-413. Performed By: #### 3 016-3, 47257-4, ####[facility] LABCLIA [id number] [address] [address] [place] Cholesterol in VLDL [Mass/Vol] 18 mg/dL Normal <30 [facility] Comment on above: Order Comment: Speci men Type: BLOOD SPECIMENOrdering Facility: [facility] Address: [address] [place] [address] Performed By: #### 3 016-3, 04677-0, ####[facility] LABCLIA [id number] [place] [id number] [place] Cholesterol non HDL [Mass/Vol] 163 mg/dL High <130 [facility] Comment on above: Order Comment: Speci men Type: BLOOD SPECIMENOrdering Facility: [facility] Address: [address] [place] [address] Result Comment: <130 mg/dL, Optimal 130-159 mg/dL, Near optimal/above optimal 160-189 mg/dL, Borderline high 190-219 mg/dL, High >219 mg/dL, Very high Secondary prevention optimal non HDL Cholesterol levels are recommended to be <100 mg/dL Performed By: #### 3 016-3, 32969-8, ####[facility] LABCLIA [id number] [address] [address] [place] Cholesterol.total/Marsha sterol in HDL [Mass ratio] 3.96 {ratio} Normal <5.10 [facility] Comment on above: Order Comment: Speci men Type: BLOOD SPECIMENOrdering Facility: [facility] Address: [address] [place] [id number] Performed By: #### 3 016-3, 12112-6, ####[facility] LABCLIA [id number] [address] [place] [address] [place] FASTING TIME 13 hrs Normal [facility] Comment on above: Order Comment: Delta waite Type: BLOOD SPECIMENOrdering Facility: [facility] Address: [address] [place] [address] Performed By: #### 3 016-3, 78856-4, 11041-8 ####[facility] LABCLIA [id number] [address] [address] [place] Triglyceride [Mass/Vol] 97 mg/dL Normal <150 C [facility] Comment on above: Order Comment: Delta waite Type: BLOOD SPECIMENOrdering Facility: [facility] Address: [address] [place] [address] Result Comment: <150 mg/dL, Normal 150-199 mg/dL, Borderline high 200-499 mg/dL, High >499 mg/dL, Very high Performed By: #### 3 016-3, 65751-9, ####[facility] LABCLIA [id number] [place] [id number] [place] TSH SerPl-aCncon 06-20-2025 TSH Qn 0.843 m[IU]/L Normal 0.270-4.200 [facility] Comment on above: Order Comment: Delta waite Type: BLOOD SPECIMENOrdering Facility: [facility] Address: [address] [place] [address] Result Comment: If t he patient is , TSH reference range varies by gestational period: First Trimester (weeks 9-12): 0.180-2.990 mIU/L Second Trimester: 0.110-3.980 mIU/L Third Trimester: 0.480-4.710 mIU/L Shayne Alarcon et al. A Practical Approach for the Verifications and Determination of Site- and Trimester-Specific Reference Intervals for Thyroid Function tests in . Thyroid, 2019:29:3:412-420. Reji Bennett, et al. 2017 Guidelines of the [place] [employer] for the Diagnosis and Management of Thyroid Disease during and the . Thyroid, 2017:27:3:315-389. Performed By: #### 3 016-3, 83151-7, 11802-7 ####[facility] LABCLSIVA [id number] CHANDA [place]UR [place] [id number] [place] CNOVon 06-10-2025 CNOV Office Visit (FAMPWS ) -------- HORTENCIA MCADAMS ([id number]) 1990 F CHT Date Time Provider Department 06/10/25 5:00 PM WENDY PAUL During your visit today, we recorded the following information about you: Pulse Respiration Blood pressure Weight 87/minute 18/minute 118/76 87 kg Height 1.59 m Wendy Paul APRN.GRE INSTRUCTOR 06/10/2025 5:38 PM Signed 06/10/2025 Patient presents with: Physical Recording using [employer] software for draft documentation of the visit was discussed with the patient/authorized retail wireless sales representative; all questions welcomed and answered. Patient/authorized retail wireless sales representative agreed to proceed SUBJECTIVE: This is a 35 year old that is here today for Above Complaints. - Occasionally takes Advil PM for sleep disturbances, with reported efficacy. - Has not received the HPV vaccine; received two doses of the Hepatitis B vaccine, with the last dose in 2006. Weight Gain: - Current weight: 191 lbs; previous weight in September: 177 lbs. - Hortencia denies significant dietary changes; reduced soda consumption and avoids sugary foods. - Engages in regular walking at work; Hortencia denies understanding the cause of weight gain. - Hortencia denies frequent fast food consumption. Plantar Fasciitis: - Left foot plantar fasciitis; under treatment by a residential monitor. - Received two injections with reported improvement. PAST MEDICAL HISTORY Diagnosis Date Abnormal glandular Papanicolaou smear of cervix 04/2013 Abn. 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 No current facility-administered medications for this visit. Medications and allergies reviewed by this provider. SOCIAL HISTORY SOCIAL HISTORY[1] REVIEW OF SYSTEMS GENERAL: No weight loss, malaise or fevers HEENT: Negative for frequent or significant headaches, No changes in hearing or vision, no nose bleeds or other nasal problems NECK: Negative for lumps, goiter, pain and significant neck swelling RESPIRATORY: Negative for cough, hemoptysis, wheezing, COPD, dyspnea or shortness of breath CARDIOVASCULAR: Negative for chest pain, leg swelling, hypertension, CHF or palpitations GI: No nausea, vomiting, or diarrhea : No history of dysuria, frequency or incontinence CRIME SCENE INVESTIGATOR: Negative for abnormal vaginal bleeding, abnormal vaginal discharge MUSCULOSKELETAL: Negative for joint pain or swelling, back pain or muscle pain and left plantar fasciitis SKIN: Negative for lesions, rash, and itching PSYCH: Negative for sleep disturbance, mood disorder and recent psychosocial stressors HEMATOLOGY/LYMPHOLOGY: Negative for prolonged bleeding, bruising easily or swollen nodes ENDOCRINE: Negative for cold or heat intolerance, polyuria, polydipsia and goiter NEURO: No history of headaches, syncope, paralysis, seizures or tremors All other reviewed and negative other than HPI. OBJECTIVE: BP 118/76 Pulse 87 Resp 18 Ht 159 cm (5' 2.6) Wt 87 kg (191 lb 12.8 oz) LMP 02/01/2023 SpO2 97% BMI 34.41 kg/m? . Vital signs reviewed by this provider. APPEARANCE Well appearing, alert, in no acute distress, well-hydrated, well nourished. EYES conjunctiva and sclera normal. EARS External ears normal, canals clear NECK Supple, no adenopathy; thyroid symmetric, normal size, no bruits HEART RRR with normal S1 and S2, no murmurs, no gallops, no JVD appreciated LUNG clear to auscultation. No wheezes, rhonchi or rales ABDOMEN bowel sounds normoactive, no bruits, soft, non-tender, non-distended EXTREMITIES Extremities normal, No deformities, No skin discoloration, and No edema SKIN Skin color, texture, turgor normal, no suspicious rashes or lesions Hepatitis B Vaccine(3 of 3 - 3-dose series) due on 05/09/2007 HPV Vaccine(1 - 3-dose SCDM series) Never done Depression Screening due on 06/04/2025 Anxiety Screening due on 06/04/2025 Influenza Vaccine(1) due on 04/06/2026 Cervical Cancer Screening due on 03/15/2026 DTaP,Tdap,Td Vaccine(3 - Td or Tdap) due on 11/05/2026 Hepatitis C Screening Completed HIV Screening Completed 1. Annual physical exam (Z00.00) - No acute complaints or abnormal findings on review of systems. - Order routine labs; instructed patient to fast for 10 hours prior to blood draw. - Follow-up in 1 year unless new concerns arise. 2. Encounter for immunization (Z23) - Administer HPV vaccine (first dose of 3-dose series); reviewed schedule (now, 2 months, 6 months). - Administer third dos (more content not included)... Normal [facility] CNOVon 03-05-2025 CNOV Office Visit (UCTR ) -------- HORTENCIA MCADAMS ([id number]) 1990 F T Date Time Provider Department 03/05/25 3:00 PM BENEDICT SUMMERS [facility] During your visit today, we recorded the following information about you: Temperature Pulse Respiration Blood pressure 97.8 degrees 82/minute 18/minute 124/94 Weight 86.2 kg Benedict Summers APRN.GRE INSTRUCTOR 03/05/2025 3:14 PM Signed Subjective HPI Nontoxic-appearing 34-year-old female presents urgent care chief complaint insect sting to right forearm. States this happened a little over a week ago. Still has mild swelling. Presents today for evaluation. No pain. His area is itchy. Denies any OTC medication use for today. Has tried Benadryl and hydrocortisone cream this has helped minimally. No pain. No numbness or tingling. No decrease sensation. 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 Past medical history prescription medications allergies reviewed. .Patient presents with: Insect Bite: R forearm bee sting x9 days, arm still red and swollen PAST MEDICAL HISTORY Diagnosis Date Abnormal glandular Papanicolaou smear of cervix 04/2013 Abn. 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 Gauthier-partial. also-bilateral tubal occlusion with Filshie Clips; Lysis of adhesions ALLERGIES Latex, Lidocaine-Epinephrine, Macrobid [Nitrofurantoin Monohyd/M-Cryst], Pyridium [Phenazopyridine], and Flavoxate MEDICATIONS triamcinolone acetonide (KENALOG) 0.1 % cream Apply 1 application to affected area three times a day for 7 days. Apply sparingly to area for rash/itching. LYSINE ORAL Take by mouth. docosanol (ABREVA) 10 % crea Apply to affected area five times a day. albuterol HFA (PROVENTIL HFA, VENTOLIN HFA) 90 mcg/actuation inhaler Inhale 2 Puffs as instructed every 4 hours as needed for wheezing/shortness of breath. tacrolimus (PROTOPIC) 0.1 % ointment APPLY A THIN LAYER, NO MORE THAN 1.7 GRAMS PER APPLICATION TO FACE, ARMS, AND HANDS TWICE DAILY. upadacitinib tablet ER 24 hr 15 mg (RINVOQ) Take 15 mg by mouth every other day. Swallow whole; DO NOT crush, chew, or open. sucralfate (CARAFATE) 1 gram tablet Take 1 tablet by mouth before meals and at bedtime. FAMILY HISTORY Problem Relation Age of Onset other (Other) Mother Narcolepsy, JOSUE Alcohol/Drug Brother Diabetes Maternal Grandmother Hypertension Maternal Grandmother Breast Cancer Maternal Grandmother Coronary Artery Disease Maternal Grandfather Colon Cancer Maternal Grandfather Heart Maternal Grandfather [place] Thyroid Paternal Grandmother other (ADHD) Daughter other (ODD) Daughter other (Hip Dysplasia) Daughter other (Kidney Reflex) Daughter other (ADHD) Daughter Social History Tobacco Use Smoking status: Never Smokeless tobacco: Never Vaping Use Vaping status: Never Used Substance Use Topics Alcohol use: Not Currently Drug use: Not Currently Types: Amphetamines BP 124/94 Pulse 82 Temp 36.6 ?C (97.8 ?F) Resp 18 Wt 86.2 kg (190 lb 0.6 oz) LMP 02/01/2023 SpO2 100% BMI 33.66 kg/m? Review of Systems Constitutional: Negative for chills, fever and malaise/fatigue. HENT: Negative for congestion, ear discharge, ear pain, sinus pain and sore throat. Eyes: Negative for blurred vision, pain, discharge and redness. Respiratory: Negative for cough, hemoptysis, sputum production, shortness of breath, wheezing and stridor. Cardiovascular: Negative for chest pain. Gastrointestinal: Negative for abdominal pain, diarrhea, nausea and vomiting. Musculoskeletal: Negative for myalgias. Skin: Positive for itching. Negative for rash. Neurological: Negative for dizziness and headaches. Objective Physical Exam Constitutional: General: She is not in acute distress. Appearance: She is not toxic-appearing. HENT: Head: Normocephalic. Nose: Nose normal. Eyes: Pupils: Pupils are equal, round, and reactive to light. Cardiovascular: Rate and Rhythm: Normal rate. Pulmonary: Effort: Pulmonary effort is normal. No respiratory distress. Musculoskeletal: Cervical back: Normal range of motion. Skin: General: Skin is warm and dry. Comments: Approximately a (more content not included)... Normal [facility] CNOVon 01-23-2025 CNOV Office Visit (FAMPWS ) -------- HORTENCIA MCADAMS ([id number]) 1990 F CHT Date Time Provider Department 01/23/25 11:00 AM WENDY PAUL During your visit today, we recorded the following information about you: Pulse Respiration Blood pressure Weight 94/minute 18/minute 116/80 83.9 kg JajalogWendy hirsch APRN.GRE INSTRUCTOR 01/23/2025 11:15 AM Signed 01/23/2025 Patient presents with: Follow Up: [facility] on right ear SUBJECTIVE: This is a 34 year old that is here today for Above Complaints. [facility] on 12/29/2024 for right ear swelling after piercing. Treated for cellulitis ad concern for perichondritis. Treated with Ciprofloxacin. Competed entire course. Using antibacterial awash as instructed. Reports improved but still with some discomfort. Denies fevers, chills, redness, warmth, swelling or purulent drainage PAST MEDICAL HISTORY Diagnosis Date Abnormal glandular Papanicolaou smear of cervix 04/2013 Abn. Pap smear (cervix) Chronic fatigue 12/27/2015 Chronic pain of left knee Excessive daytime sleepiness 03/13/2016 Gastroesophageal reflux disease without esophagitis Irregular menstrual cycle s/p endometrial ablation Kidney stones Methamphetamine abuse in remission ([facility]) last use 12/20/2018 ALLERGIES Latex, Lidocaine-Epinephrine, Macrobid [Nitrofurantoin Monohyd/M-Cryst], Pyridium [Phenazopyridine], and Flavoxate MEDICATIONS Current Outpatient Medications Medication Sig LYSINE ORAL Take by mouth. docosanol (ABREVA) 10 % crea Apply to affected area five times a day. albuterol HFA (PROVENTIL HFA, VENTOLIN HFA) 90 mcg/actuation inhaler Inhale 2 Puffs as instructed every 4 hours as needed for wheezing/shortness of breath. tacrolimus (PROTOPIC) 0.1 % ointment APPLY A THIN LAYER, NO MORE THAN 1.7 GRAMS PER APPLICATION TO FACE, ARMS, AND HANDS TWICE DAILY. upadacitinib tablet ER 24 hr 15 mg (RINVOQ) Take 15 mg by mouth every other day. Swallow whole; DO NOT crush, chew, or open. sucralfate (CARAFATE) 1 gram tablet Take 1 tablet by mouth before meals and at bedtime. No current facility-administered medications for this visit. Medications and allergies reviewed by this provider. SOCIAL HISTORY Social History Tobacco Use Smoking status: Never Smokeless tobacco: Never Vaping Use Vaping status: Never Used Substance Use Topics Alcohol use: Not Currently Drug use: Not Currently Types: Amphetamines REVIEW OF SYSTEMS All other reviewed and negative other than HPI. OBJECTIVE: BP 116/80 Pulse 94 Resp 18 Wt 83.9 kg (185 lb) LMP 02/01/2023 SpO2 95% BMI 32.77 kg/m? . Vital signs reviewed by this provider. APPEARANCE Well appearing, alert, in no acute distress, well-hydrated, well nourished. RIGHT EAR: industrial piercing intact without erythema, swelling, excessive warmth or drainage. Mid TTP to lower part Covid-19 Vaccine(1) Never done Hepatitis B Vaccine(3 of 3 - 3-dose series) due on 05/09/2007 Shingrix Vaccine(1 of 2) Never done Pneumococcal Vaccine(1 of 2 - PCV) Never done Cervical Cancer Screening due on 05/27/2021 Influenza Vaccine(1) due on 2024 Depression Screening due on 06/04/2025 Anxiety Screening due on 06/04/2025 DTaP,Tdap,Td Vaccine(3 - Td or Tdap) due on 11/05/2026 Hepatitis C Screening Completed HIV Screening Completed ASSESSMENT/PLAN: 1. Piercing in right external ear - ICD9: 872.00, ICD10: S01.331A - no red flag symptoms or exam findings - red flag symptoms discussed, verbalizes understanding - continue to keep ear clean and would avoid laying on that side when sleeping - may use neosporin to area as well - if persists may want to remove piercing, follow-up as needed to ER with red flag symptoms Wendy PodlogBARON hirsch.GRE INSTRUCTOR Prescription instructions reviewed with patient as applicable. Patient advised if symptoms do not improve or if symptoms worsen sooner, to contact their primary care physician. Potential red flag symptoms discussed with the patient. Reviewed appropriate action plan to take if red flag symptoms occur. Patient agreeable to treatment plan. I spent a total of 20 minutes on the date of the service which included preparing to see the patient, [id number] patient care, completing clinical documentation, obtaining and/or reviewing separately obtained history, performing a medically appropriate examination, and counseling and educating the patient/family/caregiver . Allergies As of Date: 01/23/2025 Noted Allergy Reaction LATEX 11/23/2007 2 - Rash 9 - Itching LIDOCAINE-EPINEPHRINE 10/07/2018 14 - Other: See Comments Comments: Redness and pain MACROBID (NITROFURANTOIN MONOHYD/*02/28/2015 14 - Other: See Comments Comments: headache and feels like face is on fire PYRIDIUM (PHENAZOPYRIDINE) 02/28/2015 5 - Intolerance Comments: HEADACHE FLAVOXATE 02/04/2023 16 - Unknown Date Reviewed: (more content not included)... Normal [facility] CNOVon 12-29-2024 CNOV Office Visit (UCTR ) -------- HORTENCIA MCADAMS ([id number]) 1990 F CHT Date Time Provider Department 12/29/24 11:30 AM BENEDICT SUMMERS [facility] During your visit today, we recorded the following information about you: Temperature Pulse Respiration Blood pressure 97.8 degrees 74/minute 16/minute 128/82 Weight 83.7 kg Benedict Summers APRN.GRE INSTRUCTOR 12/29/2024 11:52 AM Signed Subjective HPI Nontoxic-appearing female presents urgent care chief complaint right ear pain and swelling. Duration of symptoms 2 weeks. Associated symptoms listed above. States initially symptoms were mild to have worsened. States felt on the way well yesterday. Had bodyaches chills. Went had a low-grade fever. States 2 weeks ago she had her cartilage of her ear pierced. Presents today for evaluation. OTC medications none. Denies chance of . Is not breast-feeding. Past medical history prescription medications allergies reviewed. .Patient presents with: Ear Problem: Right ear piercing pain and swelling x 2 weeks PAST MEDICAL HISTORY Diagnosis Date Abnormal glandular Papanicolaou smear of cervix 04/2013 Abn. 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 Gauthier-partial. also-bilateral tubal occlusion with Filshie Clips; Lysis of adhesions ALLERGIES Latex, Lidocaine-Epinephrine, Macrobid [Nitrofurantoin Monohyd/M-Cryst], Pyridium [Phenazopyridine], and Flavoxate MEDICATIONS LYSINE ORAL Take by mouth. docosanol (ABREVA) 10 % crea Apply to affected area five times a day. albuterol HFA (PROVENTIL HFA, VENTOLIN HFA) 90 mcg/actuation inhaler Inhale 2 Puffs as instructed every 4 hours as needed for wheezing/shortness of breath. tacrolimus (PROTOPIC) 0.1 % ointment APPLY A THIN LAYER, NO MORE THAN 1.7 GRAMS PER APPLICATION TO FACE, ARMS, AND HANDS TWICE DAILY. upadacitinib tablet ER 24 hr 15 mg (RINVOQ) Take 15 mg by mouth every other day. Swallow whole; DO NOT crush, chew, or open. sucralfate (CARAFATE) 1 gram tablet Take 1 tablet by mouth before meals and at bedtime. FAMILY HISTORY Problem Relation Age of Onset other (Other) Mother Narcolepsy, JOSUE Alcohol/Drug Brother Diabetes Maternal Grandmother Hypertension Maternal Grandmother Breast Cancer Maternal Grandmother Coronary Artery Disease Maternal Grandfather Colon Cancer Maternal Grandfather Heart Maternal Grandfather [place] Thyroid Paternal Grandmother other (ADHD) Daughter other (ODD) Daughter other (Hip Dysplasia) Daughter other (Kidney Reflex) Daughter other (ADHD) Daughter Social History Tobacco Use Smoking status: Never Smokeless tobacco: Never Vaping Use Vaping status: Never Used Substance Use Topics Alcohol use: Not Currently Drug use: Not Currently Types: Amphetamines BP 128/82 Pulse 74 Temp 36.6 ?C (97.8 ?F) (Tympanic) Resp 16 Wt 83.7 kg (184 lb 8.4 oz) LMP 02/01/2023 SpO2 97% BMI 32.69 kg/m? Review of Systems Constitutional: Negative for chills, fever and malaise/fatigue. HENT: Positive for ear pain. Negative for congestion, ear discharge, sinus pain and sore throat. Eyes: Negative for blurred vision, pain, discharge and redness. Respiratory: Negative for cough, hemoptysis, sputum production, shortness of breath, wheezing and stridor. Cardiovascular: Negative for chest pain. Gastrointestinal: Negative for abdominal pain, diarrhea, nausea and vomiting. Musculoskeletal: Negative for myalgias. Skin: Negative for itching and rash. Neurological: Negative for dizziness and headaches. Objective Physical Exam Constitutional: General: She is not in acute distress. Appearance: She is not diaphoretic. HENT: Head: Normocephalic. Jaw: No trismus, tenderness, swelling or pain on movement. Ears: Comments: Piercing noted highlighted area. Surrounding wound drainage and erythema noted. Mild edema noted. No adenopathy noted Mouth/Throat: Mouth: Mucous membranes are moist. Pharynx: Oropharynx is clear. Uvula midline. No pharyngeal swelling, oropharyngeal exudate, posterior oropharyngeal erythema or uvula swelling. Eyes: Conjunctiva/sclera: Conjunctivae normal. Pupils: Pupils are equal, round, and reactive (more content not included)... Normal [facility] Chlamydia/GC DAYRON aptimaon CHLAMY,NUC ACID Negative Normal Negative [facility] Comment on above: Performed By: #### L 7000.1800, M100.2000, M100.3200 #### [facility] [address] [place], [address] GC BY NUC ACID Negative Normal Negative [facility] Comment on above: Result Comment: Perf ormed at: =G - [facility] [address] [id number] Linen Room Supervisor: Dee Levi MD, Phone: [phone] Performed By: #### L 7000.1800, M100.1999, M100.3200 #### [facility] [address] [place], [address] Genital Culture Comprehensiv tashi 10-13-2024 VAC Reason for Exam: vag inal itching No Neisseria or beta-hemolytic Streptococcus isolated. Presumptive C albicans Amount Growth 2+ G. vaginalis (Presumptive) G. vaginalis (Presumptive) Normal [facility] Comment on above: Performed By: #### L 7000.1800, M100.2000, M100.3200 #### [facility] [address] [place], [address] HSV 1 AND 2 IgGon 10-12-2024 HSV 1 IgG Normal [facility] Comment on above: Result Comment: RESU LT: REACTIVE Please note reference interval change HSV-1 IgG testing performed using the [employer] HSV-1 IgG assay. Performed By: #### L 3890.6005, L3890.6300, L3890.6100, L509.8000, L3400.1610 #### [facility] [address] [place], [address] HSV 2 IgG Normal [facility] Comment on above: Result Comment: RESU LT: NON REACTIVE Please note reference interval change Current guidelines and recommendations do not recommend routine screening for HSV-2 in asymptomatic individuals, including those that are . The detection of HSV-2 IgG antibodies in a single sample indicates previous exposure to HSV-2 but does not give information as to the site of HSV infection or the timing of exposure. The predictive value of positive and negative results depends on the population's prevalence and the pretest likelihood of HSV-2. HSV-2 IgG testing performed using the [employer] HSV-2 IgG assay. Performed at: [address] [id number] Linen Room Supervisor: Spencer Yeh PhD, Phone: [phone] Performed By: #### L 3890.6005, L3890.6300, L3890.6100, L509.8000, L3400.1610 #### [facility] [address] [place], [place], [id number] Gram Stainon 10-10-2024 GS Reason for Exam: vag inal itching Gram Stain 4+ Gram variable beatriz 1+ Gram positive rods 1+ White Blood Cells No Gram negative diplococci Score = 7 Interpretation: 0-3 Normal, 4-6 Intermediate, 7-10 Positive BV Normal [facility] Comment on above: Performed By: #### L 7000.1800, M100.2000, M100.3200 #### [facility] [address] [place], [place], [id number] HIV - WCHon 10-10-2024 HIV Non-Reactive Normal Nonreactive [facility] Comment on above: Order Comment: Reaso n for Exam: screen for STD Performed By: #### L 3890.6005, L3890.6300, L3890.6100, L509.8000, L3400.1610 #### [facility] [address] [place], [address] Hepatitis B Surface Antigeno n 10-10-2024 HEP B Surf Ag Non-Reactive Normal Nonreactive [facility] Comment on above: Order Comment: Reaso n for Exam: screen for STD Performed By: #### L 3890.6005, L3890.6300, L3890.6100, L509.8000, L3400.1610 #### [facility] [address] [place], [address] Hepatitis C Antibodyon 10-10 Hepatitis C AB Non-Reactive Normal Nonreactive [facility] Comment on above: Order Comment: Reaso n for Exam: screen for STD Result Comment: Non Reactive: < 0.8 Equivocal: >/= 0.8 to < 1.0 Reactive: >/= 1.0 The CDC requires that a reactive/equivocal HCV antibody result be sent out for confirmation. HCV Quant by PCR testing. Performed By: #### L 3890.6005, L3890.6300, L3890.6100, L509.8000, L3400.1610 #### [facility] [address] [place], [address] [id number] 10-10-2024 Syphilis Abs Non-Reactive Normal [facility] Comment on above: Order Comment: Reaso n for Exam: screen for STD Performed By: #### L 3890.6005, L3890.6300, L3890.6100, L509.8000, L3400.1610 #### [facility] [address] [place], [address] Special Loan Officer Office Visit Reporton 10-10-2024 Special Loan Officer Office Visit Report [facility] [address], [address] [place] [address] OFFICE VISIT Date of Service: 10/10/24 MR#: [id number] Acct: [id number] Name: HORTENCIA MCADAMS Rep #: [id number] : 1990 Provider: Dr. Patricia akhtar MD Age/Sex: 34/F [place] [facility] [place]: [place] Intake Vital Signs 06/27/24 09:33 10/10/24 15:33 Height 5 ft 3 in 5 ft 3 in Weight: 175 lb 6 oz BMI 31.0 BP 127/89 H Intake Visit Reasons: Vaginal itching and burning Marble Mechanic Helper Required: No Is patient in pain?: Yes (itching/burning x 2 days) Allergies latex Allergy (Verified 10/10/24 15:36) Rash nitrofurantoin (From Macrobid) Allergy (Verified 10/10/24 15:36) Rash phenazopyridine (From Pyridium) Allergy (Verified 10/10/24 15:36) Rash epinephrine Adverse Reaction (Verified 10/10/24 15:36) Other lidocaine Adverse Reaction (Verified 10/10/24 15:36) Other Medications ???Medication ???Instructions ???Recorded ???Confirmed ???Type ibuprofen 800 mg tablet 800 mg PO Q8H PRN pain #30 tabs 07/03/23 10/10/24 Rx ibuprofen 600 mg tablet 600 mg PO Q6H PRN pain #20 tabs 06/27/24 10/10/24 Rx sucralfate 1 gram tablet (Carafate) 1 g PO BID 10/10/24 10/10/24 History Is last menstrual period known: No Post menopausal: No Patient : No : No PFSH Medical History Wears glasses Wears contact lenses Low iron Easy bruising Gastric reflux Non-smoker Abnormal Pap smear of cervix History of kidney stones Surgical History Status post hysterectomy ( 07/03/23) S/P tubal ligation S/P S/P endometrial ablation History of carpal tunnel repair Family History Grandmother Diabetes Colon cancer Grandfather Myocardial infarction Colon cancer Social History (Updated 10/10/24 @ 15:38 by Coby Hutton) Smoking Status: Never smoker alcohol intake: never substance use type: former substance user and marijuana caffeine: Yes what type of physical activity do you participate in: none seatbelt use: always do you feel safe at home: Yes HPI Vaginal itching and burning Details: HORTENCIA MCADAMS is a 34 year old who presents for vaginal ithcing and burnign fro a few days, co odor fishy and exteranl itching posisble std exposure unsure what, wants teasting. recent antibiotic use. History 3 Elective abortions Hx Para 2 Spontaneous abortions Hx # Term Pregnancies Ectopic pregnancies Hx # Pregnancies Multiple births # of living children Past Pregnancies Del. Date Name GA/Weeks Outcome Route Bth Weight Infant Gen Labor Lgth Anesthesia Del Locatn Provider FOB Unknown Erica Unknown Nataliia ROS Const Constitutional: Reports as per HPI; Denies fatigue, increased appetite, poor appetite, weight gain or weight loss Cardio Card: Denies chest pain Resp Resp: Denies cough or dyspnea GI GI: Reports as per HPI; Denies abdominal pain, bloating, constipation, nausea or vomiting : Reports as per HPI Skin Skin/Breast: Denies changing lesions, breast mass, breast pain or breast skin changes Psych Psych: Denies anxiety or depression Exam Const General: cooperative, healthy appearing, comfortable, no acute distress, well developed and well groomed [facility] Head: normal to inspection and normocephalic Ears: hearing grossly normal bilaterally and external ears normal Nose: external nose normal Face and sinus: normal facial exam Neck Neck: normal visual inspection, full ROM and no lymphadenopathy Thyroid: thyroid normal Resp Effort Inspection: normal respiratory effort GI Inspection: normal to inspection and non-distended Palpation: soft, no hepatosplenomegaly and no guarding General: bladder normal to palpation External Female Exam: normal external appearance, normal appearance of the urethra and no lesions Urethra: normal appearance of the urethra and normal palpation Speculum Exam - Vagina: normal appearance of the vagina and normal vaginal discharge Bimanual Exam- Vagina Uterus: bladder normal to palpation Bimanual Exam- Adnexa, other: normal adnexae, no masses and non-tender Skin General: no rashes or lesions noted Neuro General: patient alert, moves all extremities and no focal motor deficits Extrem General: normal to inspection and no pedal edema Psych Appearance: grossly normal Mental Status: mental status grossly normal Affect: normal affect Speech and Movement: speech and movement normal Attitude: cooperative Coding Level of Care Code Off vis,est,level 3 Diagnoses Acute vaginitis N76.0 Chronicity: acute Assessment and Plan Assessment and Plan (more content not included)... Normal [facility] 09-30-2024 [facility] Office Visit (UCWSTR ) -------- HORTENCIA MCADAMS ([id number]) 1990 F T Date Time Provider Department 09/30/24 2:00 PM DEANDRA RIDER [facility] During your visit today, we recorded the following information about you: Temperature Pulse Respiration Blood pressure 98.5 degrees 96/minute 16/minute 120/74 Weight 80.7 kg Deandra Rider APRN.GRE INSTRUCTOR 09/30/2024 12:32 PM Signed Subjective Nasal Congestion Associated symptoms include congestion, coughing, headaches, shortness of breath and a sore throat. Pertinent negatives include no chills or ear pain. Hortencia Mcadams is a 34 year old female who presents with 2 weeks of sinus congestion, drainage, cough, shortness of breath, sinus pressure, headache. Cough is productive. She feels short of breath going up stairs. Symptoms seemed to be improving slightly until 3 days ago when they suddenly worsened. She has been taking sinus pain reliever, allergy medication, and dayquil and nyquil at home. She also notes a sore on the corner of her mouth that has been present for a month. She has been taking OTC medication for this without improvement. Review of Systems Constitutional: Positive for malaise/fatigue. Negative for chills and fever. HENT: Positive for congestion, sinus pain and sore throat. Negative for ear pain. Respiratory: Positive for cough, sputum production and shortness of breath. Cardiovascular: Negative for chest pain. Gastrointestinal: Negative for diarrhea, nausea and vomiting. Musculoskeletal: Negative for myalgias. Neurological: Positive for headaches. BP 120/74 Pulse 96 Temp 36.9 ?C (98.5 ?F) Resp 16 Wt 80.7 kg (177 lb 14.6 oz) LMP 02/01/2023 SpO2 97% BMI 31.52 kg/m? PAST MEDICAL HISTORY Diagnosis Date - Abnormal glandular Papanicolaou smear of cervix 04/2013 Abn. Pap smear (cervix) - Chronic fatigue 12/27/2015 - Chronic pain of left knee - Excessive daytime sleepiness 03/13/2016 - Gastroesophageal reflux disease without esophagitis - Irregular menstrual cycle s/p endometrial ablation - Kidney stones - Methamphetamine abuse in remission ([facility]) last use 12/20/2018 PAST SURGICAL HISTORY Procedure Laterality Date - CARPAL TUNNEL Bilateral 09/2018 - DELIVERY ONLY 04/27/2008 , low cervical - DELIVERY ONLY 07/25/2011 , low transverse - HYSTEROSCOPY, DIAGNOSTIC (SEPARATE 01/10/2021 [facility], hydrothermal ablation - INCISION DRAINAGE LACRIMAL SAC I AND d lacrimal sac, as - INSERTION OF IUD 07/03/2012 - NEXPLANON INSERTION 07/2015 - SALPINGECTOMY COMPL/PART 08/15/2018 [facility]-Dr. Gauthier-partial. also-bilateral tubal occlusion with Filshie Clips; Lysis of adhesions ALLERGIES Latex, Lidocaine-Epinephrine, Macrobid [Nitrofurantoin Monohyd/M-Cryst], Pyridium [Phenazopyridine], and Flavoxate MEDICATIONS - tacrolimus (PROTOPIC) 0.1 % ointment APPLY A THIN LAYER, NO MORE THAN 1.7 GRAMS PER APPLICATION TO FACE, ARMS, AND HANDS TWICE DAILY. - upadacitinib tablet ER 24 hr 15 mg (RINVOQ) Take 15 mg by mouth every other day. Swallow whole; DO NOT crush, chew, or open. - sucralfate (CARAFATE) 1 gram tablet Take 1 tablet by mouth before meals and at bedtime. - LYSINE ORAL Take by mouth. - amoxicillin-clavulanate potassium (AUGMENTIN) 875-125 mg per tablet Take 1 tablet by mouth two times a day for 7 days. - docosanol (ABREVA) 10 % crea Apply to affected area five times a day. - albuterol HFA (PROVENTIL HFA, VENTOLIN HFA) 90 mcg/actuation inhaler Inhale 2 Puffs as instructed every 4 hours as needed for wheezing/shortness of breath. - Inhalational Spacing Device 1 Device one time only for 1 dose. - predniSONE (DELTASONE) 20 mg tablet Take 1 tablet by mouth once daily for 4 days. FAMILY HISTORY Problem Relation Age of Onset - other (Other) Mother Narcolepsy, JOSUE - Alcohol/Drug Brother - Diabetes Maternal Grandmother - Hypertension Maternal Grandmother - Breast Cancer Maternal Grandmother - Coronary Artery Disease Maternal Grandfather - Colon Cancer Maternal Grandfather - Heart Maternal Grandfather [place] - Thyroid Paternal Grandmother - other (ADHD) Daughter - other (ODD) Daughter - other (Hip Dysplasia) Daughter - other (Kidney Reflex) Daughter - other (ADHD) Daughter Social History Tobacco Use - Smoking status: Never - Smokeless tobacco: Never Vaping Use - Vaping status: Never Used Substance Use Topics - Alcohol use: Not Currently - Drug use: Not Currently Types: Amphetamines Objective Physical Exam Vitals and nursing note reviewed. Constitutional: General: She is not in acute distress. Appearance: Normal appearance. She is not ill-appearing. HENT: Right Ear: Tympanic membrane, ear canal and external ear normal. Left Ear: Tympanic membrane, ear canal and external ear normal. Nose: Nasal tenderness, mucosal edema, congestion (more content not included)... Normal [facility] Absolute lymphocyte countOrd ered By: Jon Jaimes on 01-31-2024 Lymphocytes Auto (Unsp spec) [#/Vol] 1.25 10*3/uL 0.83-4.51 [facility] Automated lymphocyte count a s percentage of total leukocytesOrdered By: Jon Jaimes on 01-31-2024 Lymphocytes/100 WBC Auto (Unsp spec) 16.5 % 19-41 [facility] Basophil percentageOrdered B y: Jon Jaimes on 01-31-2024 Basophil percentage 10-25 SEEN /hpf 0-5 [facility] Basophils/100 WBC (Bld) 0.5 % 0-1 [facility] Chloride [Moles/Vol] 107 mmol/L 98-107 [facility] Eosinophils/100 WBC (Bld) 2.8 % 0-5 [facility] Glucose [Mass/Vol] 108 mg/dL 74-106 [facility] Comment on above: Fasting Glucose resu lt from 100 to 125 mg/dL suggests IMPAIRED HOMEOSTASIS per A.D.A. criteria. Hemoglobin (Bld) [Mass/Vol] 13.4 g/dL 12.0-15.0 [facility] Monocytes/100 WBC (Bld) 5.8 % 0-10 [facility] Neutrophils (Bld) [#/Vol] 5.6 10*3/uL 2.0-7.7 [facility] Neutrophils/100 WBC (Bld) 74.0 % 47-70 [facility] Potassium [Moles/Vol] 3.7 mmol/L 3.5-5.1 [facility] Sodium [Moles/Vol] 143 mmol/L 136-145 [facility] WBC (Bld) [#/Vol] 7.6 10*3/uL 4.4-11.0 [facility] Bilirubin Test strip Ql (U)O rdered By: Jon Jaimes on 01-31-2024 Bilirubin Ql (U) Negative Negative [facility] Determination of erythrocyte mean corpuscular volume (MCV)Ordered By: Jon Jaimes on 01-31-2024 MCV (RBC) [Entitic vol] 89.2 fL 81-99 [facility] Erythrocyte distribution wid th ratioOrdered By: Jon Jaimes on 01-31-2024 Erythrocyte distribution width (RBC) [Ratio] 12.7 % 11.6-14.6 [facility] Erythrocyte distribution wid th standard deviationOrdered By: Jon Jaimes on 01-31-2024 Erythrocyte distribution width (RBC) [Entitic vol] 41.7 fL 35.1-43.9 [facility] Hematocrit Auto (Bld) [Volum e fraction]Ordered By: Jon Jaimes on 01-31-2024 Hematocrit (Bld) [Volume fraction] 39.8 % 37-47 [facility] Hyaline casts LM.LPF (Urine sed) [#/Area]Ordered By: Jon Jaimes on 01-31-2024 Hyaline casts (Urine sed) [#/Area] 0 /[LPF] 0-5 [facility] Immature granulocytes/100 WB C Auto (Bld)Ordered By: Jon Jaimes on 01-31-2024 Immature granulocytes/100 WBC (Bld) 0.400 % 0.0-0.9 [facility] Comment on above: IG% - Immature Granu locytes (promyelocytes, myelocytes and metamyelocytes) > 1% indicates that a LEFT SHIFT is Present. Ketones Test strip Ql (U)Ord ered By: Jon Jaimes on 01-31-2024 Ketones Ql (U) Negative Negative [facility] - Chemistry and C hemistry - challengeOrdered By: Jon Jaimes on 01-31-2024 CO2 [Moles/Vol] 27.0 mmol/L 21.0-32.0 [facility] Urea nitrogen/Creatinine [Mass ratio] 11.5 mg/mg 10-20 [facility] - Hematology and Cell countsOrdered By: Jon Jaimes on 01-31-2024 MCH (RBC) [Entitic mass] 30.0 pg 27.0-32.0 [facility] MCHC (RBC) [Mass/Vol] 33.7 g/dL 32-36 [facility] Nucleated RBC/100 WBC (Bld) [Ratio] 0 % 0-5 [facility] Platelet mean volume (Bld) [Entitic vol] 9.2 fL 6.2-12.0 [facility] Platelets (Bld) [#/Vol] 335 10*3/uL 150-450 [facility] Mucus LM Ql (Urine sed)Order ed By: Jon Jaimes on 01-31-2024 Mucus Ql (Urine sed) RARE /hpf [facility] Nitrite Test strip Ql (U)Ord ered By: Jon Jaimes on 01-31-2024 Nitrite Ql (U) Negative Negative [facility] No Panel InformationOrdered By: Jon Jaimes on 01-31-2024 Estimated Creatinine Clearance Calc 84.94 ml/min [facility] Estimated GFR (MDRD) Amer 87 mL/min >60 [facility] Comment on above: GFR Calc Estimated GFR (MDRD) Non-Af Amer 72 mL/min >60 [facility] Comment on above: Non- GFR Calc Urine RBC 5-10 SEEN /hpf 0-5 [facility] Protein Test strip Ql (U)Ord ered By: Jon Jaimes on 01-31-2024 Protein Ql (U) 15 mg/dl Negative [facility] RBC Auto (Bld) [#/Vol]Ordere d By: Jon Jaimes on 01-31-2024 RBC (Bld) [#/Vol] 4.46 10*6/uL 4.2-5.4 [facility] Serum or plasma calcium zack urement (mass/volume)Ordered By: Jon Jaimes on 01-31-2024 Calcium [Mass/Vol] 9.6 mg/dL 8.5-10.1 [facility] Serum or plasma creatinine m easurement (mass/volume)Ordered By: Jon Jaimes on 01-31-2024 Creatinine [Mass/Vol] 0.95 mg/dL 0.55-1.02 [facility] Comment on above: The validity of the calculated GFR & GFRAA in patients over 70 years has not been determined. Clinical correlation is essential. Serum or plasma urea nitroge n measurement (mass/volume)Ordered By: Jon Jaimes on 01-31-2024 Urea nitrogen [Mass/Vol] 11 mg/dL 7-18 [facility] Squamous epithelial cells de tection in urine sediment by light microscopyOrdered By: Jon Jaimes on 01-31-2024 Epithelial cells.squamous LM Ql (Urine sed) 10-25 SEEN /hpf 5-10 [facility] Thin prep Papanicolaou smear with manual screeningOrdered By: Jon Jaimes on 01-31-2024 Thin prep Papanicolaou smear with manual screening 9 5-15 [facility] Urine blood detectionOrdered By: Jon Jaimes on 01-31-2024 RBC Ql (U) 50 /ul Negative [facility] Urine clarityOrdered By: Jasper Jaimes on 01-31-2024 Clarity (U) Clear Clear [facility] Urine color determinationOrd ered By: Jon Jaimes on 01-31-2024 Color (U) Yellow Yellow [facility] Urine glucose detectionOrder ed By: Jon Jaimes on 01-31-2024 Glucose Ql (U) Normal mg/dl Normal [facility] Urine leukocyte esterase det ection by dipstickOrdered By: Jon Jaimes on 01-31-2024 Leukocyte esterase Test strip Ql (U) 25 /ul Negative [facility] Urine pHOrdered By: Jon gutierrez on 01-31-2024 pH (U) 5.0 [pH] 5.0 - 8.0 [facility] Urine sediment bacteria coun t by microscopy (number/high power field)Ordered By: Jon Jaimes on 01-31-2024 Bacteria LM.HPF (Urine sed) [#/Area] 0 /[HPF] None Seen [facility] Urine specific gravity measu rementOrdered By: Jon Jaimes on 01-31-2024 Specific gravity (U) [Rel density] 1.020 1.002-1.030 [facility] Urine urobilinogen measureme ntOrdered By: Jon Jaimes on 01-31-2024 Urobilinogen Ql (U) Normal mg/dl Normal [facility] Chlamydia trachomatis rRNA d etection by probe and target amplification methodOrdered By: Coby Batista on 10-03-2023 C. trachomatis rRNA DAYRON+probe Ql (Unsp spec) Negative Negative [facility] Gram stain for investigation of transfusion reactionOrdered By: Coby Batista on 10-03-2023 Microscopic observation Gram stain Nom (Unsp spec) [facility] - Microbiology an d Antimicrobial susceptibilityOrdered By: Coby Batista on 10-03-2023 N. gonorrhoeae DNA DAYRON+probe Ql (Unsp spec) Negative Negative [facility] Comment on above: Performed at: =G - L [address], [place] [id number] Director: Dee Levi MD, Phone: [phone] No Panel Informationon 10-03 POC Bacterial Vaginitis (Rapid) Negative [facility] POC Trichomonas (Rapid) Negative [facility] Thin prep Papanicolaou smear with manual screeningOrdered By: Coby aBtista on 10-03-2023 Genital Culture Escherichia coli [facility] Genital Culture Streptococcus agalac tiae (B) [facility] Gram stain for investigation of transfusion reactionOrdered By: Anay Don on 08-14-2023 Microscopic observation Gram stain Nom (Unsp spec) [facility] Thin prep Papanicolaou smear with manual screeningOrdered By: Anay Don on 08-14-2023 Genital Culture Streptococcus group B [facility] Glucose Glucometer (BldC) [M ass/Vol]Ordered By: Anay Don on 07-03-2023 Glucose [Mass/Vol] 112 mg/dL 74-106 [facility] Comment on above: MANAGEMENT OF PATIEN T CARE PER NURSING PROTOCOL Laboratory - Chemistry and C hemistry - challengeOrdered By: Anay Don on 07-03-2023 HCG ( test) Ql (U) Negative [facility] Comment on above: Very dilute urine sp ecimens, as indicated by a low specificgravity, may not contain retail wireless sales representative levels of hCG. If is still suspected, a first morning urinespecimen should be collected 48 hours later and tested. Basophil percentageOrdered B y: Anay Don on 07-02-2023 WBC (Bld) [#/Vol] 5.2 10*3/uL 4.4-11.0 [facility] Basophil percentageOrdered B y: Javed Morales on 07-02-2023 Bilirubin [Mass/Vol] 0.30 mg/dL 0.20-1.00 [facility] Comment on above: For patients on eltr ombopag therapy, use of Dimension [place] TBIL is not recommended. Protein [Mass/Vol] 7.4 g/dL 6.4-8.2 [facility] Blood erythrocytes count (nu mber/volume)Ordered By: Anay Don on 07-02-2023 RBC (Bld) [#/Vol] 4.49 10*6/uL 4.2-5.4 [facility] Blood hemoglobin measurement (mass/volume)Ordered By: Anay Don on 07-02-2023 Hemoglobin (Bld) [Mass/Vol] 14.0 g/dL 12.0-15.0 [facility] Blood platelet mean volumeOr dered By: Anay Don on 07-02-2023 Platelet mean volume (Bld) [Entitic vol] 9.3 fL 6.2-12.0 [facility] Determination of erythrocyte mean corpuscular volume (MCV)Ordered By: Anay Don on 07-02-2023 MCV (RBC) [Entitic vol] 92.0 fL 81-99 [facility] Direct bilirubinOrdered By: Javed Morales on 07-02-2023 Bilirubin.direct [Mass/Vol] 0.10 mg/dL 0.00-0.30 [facility] Hematocrit Auto (Bld) [Volum e fraction]Ordered By: Anay Don on 07-02-2023 Hematocrit (Bld) [Volume fraction] 41.3 % 37-47 [facility] INR in Blood by Coagulation assayOrdered By: Javed Morales on 07-02-2023 INR Coag (Bld) [Relative time] 1.0 {INR} [facility] - Chemistry and C hemistry - challengeOrdered By: Javed Morales on 07-02-2023 ALP [Catalytic activity/Vol] 68 U/L 45-117 [facility] ALT [Catalytic activity/Vol] 20 U/L 13-56 [facility] Globulin (S) [Mass/Vol] 3.3 g/dL 2.2-4.2 [facility] Magnesium [Mass/Vol] 2.4 mg/dL 1.6-2.6 [facility] - CoagulationOrde red By: Javed Morales on 07-02-2023 aPTT Coag (Bld) [Time] 24.1 s 24.1-36.2 [facility] PT Coag (PPP) [Time] 13.0 s 11.7-14.9 [facility] - Hematology and Cell countsOrdered By: Anay Don on 07-02-2023 Erythrocyte distribution width (RBC) [Entitic vol] 42.6 fL 35.1-43.9 [facility] Erythrocyte distribution width (RBC) [Ratio] 12.7 % 11.6-14.6 [facility] MCH (RBC) [Entitic mass] 31.2 pg 27.0-32.0 [facility] MCHC Auto (RBC) [Mass/Vol]Or dered By: Anay Don on 07-02-2023 MCHC (RBC) [Mass/Vol] 33.9 g/dL 32-36 [facility] Platelets bldOrdered By: Concepcion Don on 07-02-2023 Platelets (Bld) [#/Vol] 287 10*3/uL 150-450 [facility] Serum or plasma albumin zack urement (mass/volume)Ordered By: Javed Morales on 07-02-2023 Albumin [Mass/Vol] 4.1 g/dL 3.2-5.0 [facility] Thin prep Papanicolaou smear with manual screeningOrdered By: Javed Morales on 07-02-2023 Thin prep Papanicolaou smear with manual screening 11 U/L 15-37 [facility] Cervical or vagninal specime n microscopic examination by cytology stain (reported asOrdered By: Anay Don on 03-15-2023 Cytology report Cyto stain Doc (Cvx/Vag) Comment . [facility] Comment on above: The Pap smear is a s creening test designed to aid in thedetection of premalignant and malignant conditions of theuterine cervix. It is not a diagnostic procedure andshould not be used as the sole means of detecting cervicalcancer. Both false-positive and false-negative reports dooccur. Detection in cervical specim en of any of human papilloma virus (HPV) 16, 18, 31, 33,Ordered By: Anay Don on 03-15-2023 HPV 16+18+31+33+35+39+45+51 +52+56+58+59+66+68 DNA Probe+sig amp Ql (Cvx) Negative Negative [facility] Comment on above: This nucleic acid am plification test detects fourteen high-risk HPV types (16,18,31,33,35,39,45,51,52,56,58,59,66,68)without differentiation. Laboratory - CytologyOrdered By: Anay Don on 03-15-2023 Junior Media Buyer Cyto stain Nom (Cvx/Vag) [ID] Comment . [facility] Comment on above: Olimpia Smith, Cytot echnologist (ASCP) Laboratory - Miscellaneous t estsOrdered By: Anay Don on 03-15-2023 Service comment (Unsp spec) [Interp] Comment . [facility] Comment on above: This liquid based Th inPrep(R) pap test was screened withthe use of an image guided system. Service comment (Unsp spec) [Interp] . . [facility] Liquid-based cerv Pap + CT/G C by DAYRON w reflex to high-risk HPV for ASCUSOrdered By: Anay Don on 03-15-2023 Cytology report Cyto stain.thin prep Doc (Cvx/Vag) Comment . [facility] Comment on above: Criteria not met, HP V Genotype not performed.Performed at: - [address] [id number] Director: Dee Levi MD, Phone: [phone] at: =[facility] [id number] Director: Dee Levi MD, Phone: [phone] No Panel InformationOrdered By: Anay Don on 03-15-2023 Pathology report final diagnosis Narrative Comment . [facility] Comment on above: NEGATIVE FOR INTRAEP ITHELIAL LESION OR MALIGNANCY. UA DIP, URINE (POC)on 2021 BILIRUBIN UA (POCT) Negative Negative [facility] CLARITY UA (POCT) Clear [facility] COLOR UA (POCT) Yellow [facility] GLUCOSE UA (POCT) Negative Negative mg/dL [facility] HEMOGLOBIN/BLOOD UA (POCT) Trace-intact Abnormal Negative [facility] KETONE UA (POCT) Negative Negative mg/dL [facility] LEUKOCYTES UA (POCT) Small Abnormal Negative [facility] NITRITE UA (POCT) Negative Negative [facility] PH UA (POCT) 5.5 4.5 - 8.0 [facility] Protein Ql (U) Negative Negative mg/dL [facility] SPECIFIC GRAVITY UA (POCT) 1.025 1.005 - 1.030 [facility] UROBILINOGEN UA (POCT) 0.2 E.U./dL Sydnee l E.U./dL [facility] XR Foot - left AP and Latera l and obliqueon 08-10-2021 IMPRESSION: Questionable nondisplaced subtle fracture of the fifth middle phalanx. Correlation with physical examination for possible point tenderness in this region is requested. Relations Coordinator: PSCB Transcribe Date/Time: Aug 10 2021 11:24A Dictated by : FRANKY SHIELDS MD This examination was interpreted and the report reviewed and electronically signed by: FRANKY SHIELDS MD on Aug 10 2021 11:26AM [facility] DIVISION OF RADIOLOGY * * *Final Report* * * DATE OF EXAM: Aug 10 2021 11:22AM WOX 5336 - XR FOOT 3V AP/LAT/OBL LT / PROCEDURE REASON: Toe pain, left * * * * Physician Interpretation * * * * CLINICAL INDICATION: Small toe pain after jamming injury TECHNIQUE: 3 view radiographic study of the left foot COMPARISON: None FINDINGS: Soft tissue swelling surrounding the left fifth toe. Questionable subtle nondisplaced fracture of the fifth middle phalanx along its medial aspect with questionable cortical irregularity in this region on the oblique view only. DIVISION OF RADIOLOGY Provider, [facility] - 08/10/2021 * * *Final Report* * * DATE OF EXAM: Aug 10 2021 11:22AM WOX 5336 - XR FOOT 3V AP/LAT/OBL LT / PROCEDURE REASON: Toe pain, left * * * * Physician Interpretation * * * * CLINICAL INDICATION: Small toe pain after jamming injury TECHNIQUE: 3 view radiographic study of the left foot COMPARISON: None FINDINGS: Soft tissue swelling surrounding the left fifth toe. Questionable subtle nondisplaced fracture of the fifth middle phalanx along its medial aspect with questionable cortical irregularity in this region on the oblique view only. IMPRESSION IMPRESSION: Questionable nondisplaced subtle fracture of the fifth middle phalanx. Correlation with physical examination for possible point tenderness in this region is requested. Relations Coordinator: PSCDe Transcribe Date/Time: Aug 10 2021 11:24A Dictated by : FRANKY SHIELDS MD This examination was interpreted and the report reviewed and electronically signed by: FRANKY SHIELDS MD on Aug 10 2021 11:26AM EST [facility] Radiology Study observation (narrative) [facility] XR Foot - left AP and Latera l and obliqueOrdered By: Ccf Provider on 08-10-2021 [facility] HISTORY PHYSICALon 8 HISTORY PHYSICAL HNO ID: [id number]: Surjit Russelle: Orthopaedic SurgeryAuthor Type: PhysicianType: HANDPFiled: 09/27/2018 7:19 AMNote Text:YURI Aparicio-WINSOMEepartment of OrthopaedicsOrthopaedics [address] [place] [address]Cohy: [phone] ??August 26, 2018??CHIEF COMPLAINT: New Patient (Bilateral CTS REF: Virgilio Reis EMG 08/07/2018@ [facility])?HPI: Ms. Hortencia Mcadams is a 28 year old female. She presents with numbnessand tingling in bilateral hands for the past month. The numbness andtingling that is constant in the radial 3 digits bilaterally. She notesweakness in the hands and is often dropping items at work. 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 The patient triedsleeping in extension splints for about 1 month. She did not find thesplints to be helpful. Ironically she states the onset of the numbnessand tingling was when she had her forearm control implant removed.?ASSESSMENT:G56. 03 Bilateral carpal tunnel syndrome (primary encounter diagnosis)?PLAN: We discussed surgical intervention, the patients questions wereaddressed. The risks, benefits, alternatives and were discussed, patinetunderstands and wishes to pursue surgical intervention.??Ms. Hortencia Mcadams was advised as to contrast therapies and/or to takeanalgesics/anti-infl ammatories as needed and all contraindications werereviewed.?OBJECTIVE: Ms. Hortencia Mcadams is a pleasant 28 year old in no apparent distress.Gen:BP 125/87 Pulse 93 Ht 5' 3 (1.60m) Wt 141 lb (64.0kg) BMI24.98 kg/(m2). nl development, non obese, no deformitiesENT: Normocephalic, normal hearing, moist mucosaCV: Pulses:Radial= 2+ and symmetric, capillary refill < 2 secs, noperipheral edema/varicositiesHeart: RRR, Nml S1, A2Kqjpu: CTA BLSkin: no rash, bruising or lesions. Good turgor.Psych: cooperative and appropriate, alert and oriented x 3, good mood andaffect.Musculoskeleta l:Cervical spine has supple range of motion and is without tenderness topalpation, Spurling's sign negative. Shoulders and elbows have full andactive range of motion. Negative Tinel's over the cubital tunnelbilaterally, no subluxation of ulnar nerve at the elbow with flexionbilaterally. Negative Tinel's over Guyon's canal bilaterally. Inspectionreveals mild thenar atrophy bilaterally. Decreased sensation to lighttouch in the radial 3 digits both hands. Sensation intact in the ulnar 2digits with no intrinsic atrophy/weakness bilaterally. Positive Tinel'sat the wrist bilaterally, positive carpal tunnel compression testingbilaterally. No locking or catching of the digits. No tenderness topalpation or masses noted in the forearm or hand.?IMAGING:Nerve conduction study August 07, 2018Interpretation:bilat eral median neuropathies at or distal to the wrist, consistent withclinical diagnosis of carpal tunnel syndrome, mild to moderate in degreeelectricity on both sides. No evidence of right cervical motorradiculopathy.??Sup porting Subjective Information Below:?Past Medical History:PAST?MEDICAL?HIS TORYPAST MEDICAL HISTORYDiagnosis Date- Abnormal glandular Papanicolaou smear of cervix 04/2013? Abn. Pap smear (cervix)- Chronic fatigue 12/27/2015- Excessive daytime sleepiness 03/13/2016?Past Surgical History:PAST?SURGICAL?HI STORYPAST SURGICAL HISTORYProcedure Laterality Date- DELIVERY ONLY ? 04/27/2008? , low cervical- DELIVERY ONLY ? 07/25/11? , low transverse- INCISE/DRAIN TEAR SAC ? ?? I AND d lacrimal sac, as infant- INSERTION OF IUD ? 07/03/2012- NEXPLANON INSERTION ? 07/2015- SALPINGECTOMY COMPL/PART ? 08/15/2018? [facility]-Dr. Gauthier-partial. also-bilateral tubal occlusion with FilshieClips; Lysis of adhesions?Family History:FAMILY?HISTORYFA AIDE HISTORYProblem Relation Age of Onset- other (Other) Mother ?? Narcolepsy, JOSUE- Alcohol/Drug Brother ?- Diabetes Maternal Grandmother ?- Hypertension Maternal Grandmother ?- Breast Cancer Maternal Grandmother ?- Coronary Artery Disease Maternal Grandfather ?- Colon Cancer Maternal Grandfather ?- Heart Maternal Grandfather ?? 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 Smokeless tobacco: Never Used Alcohol use: Yes Comment: Occasionally Drug use: No Sexual activity: Not Currently Partners with: Male control/protection: , Implant Comment: nexplanon?Medications:CU RRENT?MEDICATIONSCurrent Outpatient Prescriptions:diclofenac , EC, (VOLTAREN) 75 mg EC tablet Take 1 tablet by mouth twicedaily.montelukast (SINGULAIR) 10 mg tablet Take 1 tablet by mouth daily atbedtime.omeprazole (PRILOSEC) 20 mg capsule Take 1 capsule by mouth twice daily.1/2 hr before meal.fluticasone (FLONASE) 50 mcg/actuation nasal spray Use 2 Sprays in eachnostril once daily.?No current facility-administered medications for this visit.Allergies: Latex; Macrobid [Nitrofurantoin Monohyd/M-Cryst]; Pyridium[Phenazopyridine ]; Seasonal [Other]??ROS:General (negative for fatigue, malaise, weight loss/gain)HEENT (negative for headache, earache, recent vision changes, sinus pain,sore throat) Respiratory (no recent shortness of breath, hemoptysis)CV (negative for chest tightness, palpitations)Musculoskel etal (see HPI)Psych (no depression, anxiety)??REFERRING PHYSICIAN: Ms. Hortencia Mcadams was referred to me for consultationby the following physician. This consultation note will be sent to thefollowing physician by either mail or electronic medical record.?Miriam Reis III MD[address] [facility] [address]?Miriam Reis III MD[address] [facility] [address]?This note was partially generated using [employer] voice recognition system,and there may be some incorrect words, spellings, and punctuation thatwere not noted in checking the note before saving.??Tracy Thomas PA-C? [facility] NURSING PROGon 09-27-2018 Protein mass conc HNO ID: [id number]: Jessica (Rn) Lucille Beckfordice: (none)Author Type: Registered NurseType: Nursing Progress NoteFiled: 09/27/2018 12:18 PMNote Text:@ 0840 Pt received to ASCU, via cart, from OR. Pt awake, alert ANDoriented - received no sedation. Bilateral hand dressings clean AND dry -elevated AND ice bags to bilateral posterior hand/wrist area. Fingers warmAND mobile to both hands - blunted sensation to touch - pink with briskcapillary refill. Side rails up. Pt denies any discomfort.@ 0845 Taking orals - boyfriend @ bedside.@ 0910 Resting comfortably.@ 0930 Dressed AND ambulated to BR to void - steady when up AND toleratesOOB activity well.@ 1030 Awaiting script from pharmacy.@ 1120 Stable AND pain free - no change in physical assess. Discharged tobangor with family - ambulatory. [facility] Protein mass conc HNO ID: [id number]: Olimpia (Rn) Lucille De La Torreice: NursingAuthor Type: Registered NurseType: Nursing Progress NoteFiled: 09/27/2018 7:57 AMNote Text: Nursing Progress NotePatient Name: Hortencia McadamsMRN: [id number] Location: [facility] Surgery/ME Surgery ___0728 at bedside for Sign In and Timeout for JORGE LOCAL blocks [id number] start Lido injection to R hand. MD injected 20 ml local to R wrist.VSS tolerating well.0735 Start Lido injection to L Hand, MD injected 20 ml Local to L Wrist.VSS tolerating well.0739 Sign out, injections completed, Pt tolerated well.0748 VSS. Report to Chandana KENNY. Pt to OR.This note was completed by: Olimpia De La Torre RN [facility] Protein mass conc HNO ID: [id number]: Olimpia (Rn) Wil, RNService: NursingAuthor Type: Registered NurseType: Nursing Progress NoteFiled: 09/27/2018 6:39 AMNote Text: Nursing Progress NotePatient Name: Hortencia McadamsMRN: [id number] Location: [facility] Surgery/[facility] Surgery ___ pt ready for OR, needs HANDP and consent signed, call light in reach, no IVstart as pt is local jorge carpal tunnels, family called to bedsideThis note was completed by: Olimpia De La Torre RN [facility] OPERATIVE NOon 09-27-2018 OPERATIVE NO HNO ID: [id number]: Surjit Ramos: Orthopaedic SurgeryAuthor Type: PhysicianType: Operative ReportFiled: 09/27/2018 10:00 AMNote Text:[place] [address] [place]OPERATIVE REPORTNAME:Hortencia Mcadams [id number]: September 27, 2018 AGE: 28 year oldSURGEON 1: Surjit Diaz M.D.OPERATION: Bilateral carpal tunnel release, open.ANESTHESIA:local.VT EOPERATIVE DIAGNOSIS: Bilateral carpal tunnel syndrome.POSTOPERATIVE DIAGNOSIS: Bilateral carpal tunnel syndrome.OPERATIVE INDICATIONS: This is a pleasant 28 year old female who hadworsening, numbness, and tingling. Her electrodiagnostic showed Moderatecarpal tunnel syndrome. She exhausted conservative management and in theoffice, we discussed the risks, benefits, alternatives, and potentialcomplications involving carpal tunnel release and she wished to pursuesurgical intervention.OPERATIVE FINDINGS: Consistent with postoperative diagnosis.?Procedure Details:OPERATIVE PROCEDURE: On 09/27/2018, the patient was clearly identified inthe preoperative area and marked accordingly on the right and left palmsby myself. She was given bilateral carpal tunnel blocks to each side [id number] 1% lidocaine with 1:100, 000 epi, each. Once these were in effect.Patient was taken to the operative suite and placed in the supine positionwith an armboard on the right and left. All other bony landmarks wereappropriately padded in standard fashion. The left arm was then, firststerilely prepped and draped in standard fashion. An appropriate time-outwas conducted and all in the room were in agreement, signed consent formwas on the chart. A longitudinal incision was made with in line with thethird web space from 1 cm distal of the wrist crease to Cook's cardinalline. I used Sandi Rakes to retract the soft tissues. Bipolarelectrocautery was used for hemostasis. I bluntly dissected down withLittler scissors to distal edge of the transverse carpal ligament until aflash of fat was noted. I directly divided distal edge of the transversecarpal ligament with a #15 blade. Attention was then focused on theproximal portion and I used Littler scissors to bluntly dissect off thevolar surface of the transverse carpal ligament. A carpal tunnel andmedian nerve protection guide was slid directly under the ligament fordilation and a second time for appropriate positioning, this was passedfreely without any resistance. Subsequently, I selected a mini meniscotomeBeaver blade and slid this in the protective guide, completely dividingthe transverse carpal ligament. Sandi rakes were used to view up the woundto visualize for complete release and a [place] elevator was used to palpatefor complete release. Hemostasis was observed. The wound was copiouslyirrigated with normal saline and I closed with 3-0 nylons in horizontalmattress fashion for a total of 3. Xeroform gauze, sterile 4 x 4 gauze,sterile, Webril padding was applied.?I then turned my focused to the right upper extremity. The exact samesteps in sequential fashion were carried out on the right side, withoutthe need for a tourniquet, as was outlined previously on the left above.At the completion of the procedure, the median nerve was noted to becompletely released both visually and with palpation of the transectedTransverse carpal ligament. The wound was copiously irrigated. Closurewith again completed with 3-0 nylons in horizontal mattress fashion.Xeroform gauze, sterile 4 x 4 gauze, webril padding and a Bias roll wasused for final bandage for each hand. There were no complications duringthe procedures. The patient was safely awoken and transferred to thePostanesthetic Care Unit in stable condition.??Pre-Op/Pre-P rocedure Diagnosis: Bilateral carpal tunnel syndrome.?Post-Op/Post-P rocedure Diagnosis: Same? Normal [facility] PLAN OF CAREon 09-27-2018 PLAN OF CARE HNO ID: [id number]: Xochilt Lazo (Air Hammer Operator)Service: (none)Author Type: (none)Type: Plan of CareFiled: 09/27/2018 10:58 AMNote Text:TRIMMER MACHINE BEDSIDE DELIVERY SURVEY1. Patient to use [facility] Bedside Delivery - YES2. If fax, patient would like us to fax prescriptions to Pharmacy ofchoice a. Pharmacy: b. Location: c. Phone:3. Insurance card on file - YES4. Credit card for payment - YESPHARMACY BEDSIDE DELIVERY SERVICEPatient Name: Hortencia McadamsN: [id number] marked outpatient medications were Filled at: [place] and delivered tothe patient's bedside to pharm p/uMedication ListSTART taking these medicationsHYDROcodone-a cetaminophen 5-325 mg per tabletCommonly known as: NORCOTake 1 tablet by mouth every 6 hours as needed for up to 7 days.XCONTINUE taking these medicationsdiclofenac (EC) 75 mg EC tabletCommonly known as: VOLTARENTake 1 tablet by mouth twice daily.fluticasone 50 mcg/actuation nasal sprayCommonly known as: FLONASEUse 2 Sprays in each nostril once daily.montelukast 10 mg tabletCommonly known as: SINGULAIRTake 1 tablet by mouth daily at bedtime.sucralfate 1 gram tabletCommonly known as: CARAFATETake 1 tablet by mouth before meals and at bedtime.You might also be taking other medications not listed above. If you havequestions about any of your other medications, talk to the person whoprescribed them or your Primary Care Provider.Xochilt Clifton (Air Hammer Operator)PAGER: [phone] 2017 10:57 AM [facility] PT EDon 09-27-2018 PT ED HNO ID: [id number]: Olimpia (Rn) Wil RNService: NursingAuthor Type: Registered NurseType: Patient EducationFiled: 09/27/2018 6:39 AMNote Text:PRE OP LEARNING ASSESSMENTPROCEDURE/SURG ED: SURGERY: Jorge Carpal Tunnel releaseREADINESS TO LEARNCOGNITIVE ABILITY: Alert and orientedMOTIVATION TO LEARN: InterestedFAMILY SUPPORT: High - Very involved in pt carePATIENT LEARNS BEST BY: Written Instruction - Hand-outsVerbal InstructionFACTORS AFFECTING LEARNING: NonePHYSICAL LIMITATIONS AFFECTING LEARNING: NoneElectronically Signed By: Olimpia De La Torre RN In [facility]: [facility] HOSPon 08-26-2018 HOSP Patient:Hortencia Mcadams MRN: Height:5' 3(1.6 m)Weight:No patient weight recorded within the last 30 days.Outpatient Medications as of 09/27/18:diclofenac, EC, (VOLTAREN) 75 mg EC tabletfluticasone (FLONASE) 50 mcg/actuation nasal spraymontelukast (SINGULAIR) 10 mg tabletsucralfate (CARAFATE) 1 gram tabletAdmission/Clinic Administered Medications as of 09/27/18:lidocaine-EPINE PHrine 2 %-1:100,000 10 mL injectionlidocaine-EPINE PHrine 2 %-1:100,000 20 mL injectionProblem List:Irregular menstrual cycle [N92.6]LGSIL (low grade squamous intraepithelial lesion) on Pap smear [[id number]]GERD (gastroesophageal reflux disease) [K21.9]Chronic cough [R05]Chronic fatigue [R53.82]Excessive daytime sleepiness [G47.19]Bilateral carpal tunnel syndrome [G56.03]Allergies:LatexM acrobid [Nitrofurantoin Monohyd/M-Cryst]Pyridium [Phenazopyridine]SEASONA L [Other]Date Verified: 09/27/18Lab ValuesNo results within the last 30 days for the following basenames: K,HCTProgress Notes ([facility]):Donna Butts RN 09/18/2018 3:44 PM SignedPt. called and asked if paperwork is done? Explained that yes it is and all 3parts were faxed earlier today. She states she wanted to waste picker. Explainedthat we found paperwork on our desk without any instructions, so we faxed tonumbers on sheets. She would like to waste picker copies tomorrow. Instructed topick up at motel front desk attendant. Ready in envelope in tickler for motel front desk attendant waste picker.Progress Notes ([facility]):Mary Ann Dooley Ma 09/04/2018 4:53 PM SignedPatient dropped off FLMA paperwork at check-in desk to be completed. Paperworkin Nursing cubby to be completed.Tasneem Simmons Ma 09/17/2018 8:36 AM SignedPaperwork completed. Waiting for physician signature.Tasneem Simmons Ma 09/18/2018 1:56 PM SignedAll paperwork has been completed and faxed to respective companies. Copy sentfor scanning. Normal [facility] EMERGENCY REPORTon 8 EMERGENCY REPORT EMERGENCY ROOM REPORT NAME ACCOUNT SEX AGE ADMIT DISCHARGE PT MED. RECORD# NUMBER DATE DATE TYPE HORTENCIA MCADAMS [id number] F 28 08/04/18 08/04/18 3 M [id number] ROOM: ER DATE OF : 1990 DICTATING PHYSICIAN: Jaquan George CHIEF COMPLAINT: Numbness to hands. HISTORY OF PRESENT ILLNESS: The patient states that she had an implantable control device to her left arm. This was removed July 26. She states that she is in the process of getting setup to get her tubes tied. However, ever since the control was removed she states that she has had numbness to both hands. It is constant. She describes some constant tingling and discomfort. It does not seem to matter whether she is active, awake, asleep, etc. She has ongoing symptoms. She does not notice it her feet or legs, really no involvement to any other areas other than her hands. She does complain of it hurting more when she grasps things or makes a fist. PAST MEDICAL HISTORY: Negative for other medical problems. PAST SURGICAL HISTORY: She has had previous C-sections. MEDICATIONS: She takes no medications. ALLERGIES: She does have allergies, as noted on the allergy list. SOCIAL HISTORY: She lives at home. She does not smoke or drink alcohol. REVIEW OF SYSTEMS: No injury or trauma. PHYSICAL EXAMINATION: This is a 28-year-old female alert, appropriate, does not appear toxic or in acute distress. Her skin is pink, warm, and dry. Vital signs: Essentially all normal as noted on the chart. ENT: Negative. Neck is supple without adenopathy. Lungs: Clear. No crackles or wheezes. Cardiac: Regular rhythm without any ectopy, murmurs, gallops, or rubs. Abdomen: Soft and nontender. She moves all extremities appropriately. She has good peripheral pulses. Good capillary refill. She seems to have good sensation to her hands and fingers. She describes some sensory paresthesias, but examination is really unremarkable. She does not have any tenderness to the wrist, negative Tinel's bilaterally. Normal sensation to her forearm and upper arms. Normal examination to her lower extremities. DIAGNOSTIC DATA: I did proceed to check some laboratory studies on her involving a CBC, magnesium, CPK, CRP, and CMP and essentially everything was completely Page 1 of 2 HORTENCIA MCADAMS Emergency Room Report normal. No electrolyte abnormalities. EMERGENCY DEPARTMENT COURSE AND TREATMENT: The patient presents with bilateral hand paresthesias that have been going on for about 10 days. The cause of this is quite unclear. It would seem unusual that this would be directly related to the removal of her subcutaneous control medication. PLAN/DISPOSITION: I did give her a prescription for diclofenac to take 75 mg b.i.d. She is to follow up with her family doctor in 2 to 4 days if symptoms persist, returning if symptoms worsen or other symptoms develop. Dictated By: Jaquan George MD 08/04/18 11:16 JOB #: [id number] Transcribed By: am 08/04/18 12:12 Electronically signed by: ELVA George M.D. 08/10/18 07:25 Page 2 of 2 HORTENCIA MCADAMS Emergency Room Report Normal [facility] C-REACTIVE PROTEINon 018 CRP mass conc mg/L Normal 0.00 - 1.00 [facility] Comment on above: Performed By: #### 2 [id number] ####[facility],[address] [place] [address] CBCon 08-04-2018 Basophils Auto #/vol (Bld) 0.10 x10EE3/UL Normal 0.00 - 0.10 [facility] Comment on above: Performed By: #### 2 86097 ####[facility],[address] [place] [address] Basophils/100 WBC Auto (Bld) 0.8 % Normal 0.0 - 2.0 [facility] Comment on above: Performed By: #### 2 48815 ####[facility],[address] [place] [address] CBC Normal [facility] Comment on above: Result Comment: CBC- COMPLETE BLOOD COUNT Performed By: #### 2 [id number] ####[facility],[address] [place] [address] Eosinophils Auto #/vol (Bld) 0.30 x10EE3/UL Normal 0.00 - 0.50 [facility] Comment on above: Performed By: #### 2 13468 ####[facility],[address] [place] [address] Eosinophils/100 WBC Auto (Bld) 4.4 % Normal 0.0 - 7.0 [facility] Comment on above: Performed By: #### 2 26384 ####[facility],[address] [place] [address] Erythrocyte distribution width Auto Ratio (RBC) 13.4 % Normal 12.0 - 15.6 [facility] Comment on above: Performed By: #### 2 [id number] ####[facility],[address] [place] [address] Hematocrit Auto Volume Fraction (Bld) 42.3 % Normal 34.0 - 46.0 [facility] Comment on above: Performed By: #### 2 [id number] ####[facility],[address] [place] [address] Hemoglobin mass conc (Bld) 14.5 g/dL Normal 12.0 - 16.0 [facility] Comment on above: Performed By: #### 2 56064 ####[facility],[address] [place] [address] Lymphocytes Auto #/vol (Bld) 1.60 x10EE3/UL Normal 0.80 - 2.80 [facility] Comment on above: Performed By: #### 2 25628 ####[facility],[address] [place] [address] Lymphocytes/100 WBC Auto (Bld) 21.0 % Normal 20.0 - 45.0 [facility] Comment on above: Performed By: #### 2 84723 ####[facility],[address] [place], [place] [id number] MANUAL DIFF N/A Normal [facility] Comment on above: Performed By: #### 2 [id number] ####[facility],[address] [place] [address] MCH Auto Entitic mass (RBC) 31 pg Normal 27 - 33 [facility] Comment on above: Performed By: #### 2 16035 ####[facility],[address] [place], [place] [id number] MCHC Auto mass conc (RBC) 34 X10 3 Normal 32 - 36 [facility] Comment on above: Performed By: #### 2 96665 ####[facility],[address],[place] [address] MCV Auto Entitic volume (RBC) 89 fL Normal 80 - 99 [facility] Comment on above: Performed By: #### 2 68547 ####[facility],[address] [place] [address] 21257 Monocytes Auto #/vol (Bld) 0.50 x10EE3/UL Normal 0.20 - 1.00 [facility] Comment on above: Performed By: #### 2 06408 ####[facility],[address] [place] [address] MONOS % 6.5 % Normal 0.0 - 10.0 [facility] Comment on above: Performed By: #### 2 66599 ####[facility],[address] [place] [address] 37727 Morphology Interp Amaury (Bld) N/A Normal [facility] Comment on above: Result Comment: {CD] Performed By: #### 2 56103 ####[facility],[address] [place], [place] [id number] Neutrophils Auto #/vol (Bld) 5.10 x10EE3/UL Normal 1.50 - 7.10 [facility] Comment on above: Performed By: #### 2 45964 ####[facility],[address] [place] [address] Neutrophils/100 WBC Auto (Bld) 67.3 % Normal 46.0 - 76.0 [facility] Comment on above: Performed By: #### 2 73361 ####[facility],[address] [place] [address]87 Platelet mean volume Auto Entitic volume (Bld) 7.6 fL Normal 6.6 - 10.5 [facility] Comment on above: Result Comment: AUTO MATED DIFFERENTIAL Performed By: #### 2 11634 ####[facility],[address] [place] [address] 76691 Platelets Auto #/vol (Bld) 296 x10EE3/UL Normal 150 - 450 [facility] Comment on above: Performed By: #### 2 80196 ####[facility],[address] [place] [address] 567[address] RBC Auto #/vol (Bld) 4.75 x 10EE6/UL Normal 4.10 - 5.3 0 [facility] Comment on above: Performed By: #### 2 27193 ####[facility],[address] [place] [address] 67[address] WBC Auto #/vol (Bld) 7.6 x 10EE3/UL Normal 4.5 - 10.8 [facility] Comment on above: Performed By: #### 2 42850 ####[facility],[address] [place] [address] CMP with eGFRon 08-04-2018 Age Reported 28 years Normal [facility] Comment on above: Performed By: #### 2 93874 ####[facility],[address] [place] [address] Albumin mass conc 4.5 g/dL Normal 3.4 - 4.8 [facility] Comment on above: Performed By: #### 2 44884 ####[facility],[address] [place], [place] [id number] Albumin/Globulin mass ratio 1.8 {ratio} High 0.9 - 1.6 [facility] Comment on above: Performed By: #### 2 28180 ####[facility],[address] [place], [place] [id number] ALK PHOS 49 U/L Normal 38 - 126 [facility] Comment on above: Performed By: #### 2 95814 ####[facility],[address] [place] [address] ALT/SGPT 12 U/L Normal 8 - 35 [facility] Comment on above: Performed By: #### 2 49348 ####[facility],[address] [place], [place] [id number] Anion gap 3 molar conc 11 mmol/L Normal 10 - 20 [facility] Comment on above: Performed By: #### 2 90110 ####[facility],[address] [place] [address]114 AST/SGOT 13 U/L Normal 13 - 39 [facility] Comment on above: Performed By: #### 2 47413 ####[facility],[address] [place] [address]891 B/C RATIO 10 ratio Normal 0 - 30 [facility] Comment on above: Performed By: #### 2 09535 ####[facility],[address] [place] [address] 75695 Bilirubin mass conc 0.7 mg/dL Normal 0.0 - 1.5 [facility] Comment on above: Performed By: #### 2 38392 ####[facility],[address] [place] [address] 19873 Calcium mass conc 9.8 mg/dL Normal 8.6 - 10.2 [facility] Comment on above: Performed By: #### 2 64742 ####[facility],[address] [place] [address] 16932 Chloride molar conc 105 mmol/L Normal 98 - 107 [facility] Comment on above: Performed By: #### 2 44371 ####[facility],[address] [place] [address] 52533 CO2 molar conc 25.4 mmol/L Normal 21.0 - 31.0 [facility] Comment on above: Performed By: #### 2 17355 ####[facility],[address] [place] [address]11 Creatinine mass conc 0.7 mg/dL Normal 0.6 - 1.2 [facility] Comment on above: Performed By: #### 2 20825 ####[facility],[address] [place] [address] GFR/1.73 sq M predicted among non-blacks MDRD vol rate/area (S/P/Bld) mL/min/{1.73_m2} Normal 60 - 999 [facility] Comment on above: Performed By: #### 2 72128 ####[facility],[address] [place] [address] Result Comment: ACCO RDING TO THE NATIONAL KIDNEY DISEASE EDUCATION PROGRAM(NKDE), A NORMAL eGFRIS A VALUE GREATER THAN OR EQUAL TO 60 ML/MIN/1.73 SQ METERS.CHRONIC KIDNEY DISEASE: <60mL/MIN/1.73 SQ METERSKIDNEY FAILURE: <15mL/MIN/1.73 SQ METERSTHIS TEST SHOULD ONLY BE USED FOR PATIENTS 18 YEARS OF AGE AND OLDER. GFR/1.73 sq M predicted among non-blacks MDRD vol rate/area (S/P/Bld) Normal [facility] Comment on above: Result Comment: COMP REHENSIVE METABOLIC PANEL Performed By: #### 2 10487 ####[facility],[address] [place] [address] Globulin Calculated mass conc (S) 2.5 g/dL Normal 1.5 - 3.8 [facility] Comment on above: Performed By: #### 2 24674 ####[place] [address] Glucose mass conc 96 mg/dL Normal 74 - 106 [facility] Comment on above: Performed By: #### 2 42809 ####[facility],[address] [place], [place] [id number] Potassium molar conc 3.7 mmol/L Normal 3.5 - 5.1 [facility] Comment on above: Performed By: #### 2 37278 ####[address] [address] Protein mass conc 7.0 g/dL Normal 6.4 - 8.3 [facility] Comment on above: Performed By: #### 2 57656 ####[place] [id number] Sodium molar conc 138 mmol/L Normal 136 - 145 [facility] Comment on above: Performed By: #### 2 34753 ####[facility],[address] [place] [address] 76178 Urea nitrogen mass conc 7 mg/dL Normal 6 - 20 [facility] Comment on above: Performed By: #### 2 67286 ####[facility],[address] [place] [address] 42558 CPKon 08-04-2018 CPK 44 U/L Normal 26 - 140 [facility] Comment on above: Performed By: #### 2 27388 ####[facility],[address] [place] [address]138 MAGNESIUMon 08-04-2018 Magnesium mass conc 2.1 mg/dL Normal 1.6 - 2.6 [facility] Comment on above: Performed By: #### 2 66014 ####[facility],[address] [place] [address]181 Vital Signs Date Time Vital Sign Value Performing Clinician Facility 06-10-2025 16:48-0400 Body height 159 cm Wendy Podlogar INVENTORY TRANSCRIBER.GRE INSTRUCTOR Work Phone: [facility] 06-10-2025 16:48-0400 Body mass index (BMI) [Ratio] 34.41 kg/m2 Wendy Podlogar INVENTORY TRANSCRIBER.GRE INSTRUCTOR Work Phone: [facility] 06-10-2025 16:48-0400 Body weight 87 kg Wendy Podlogar INVENTORY TRANSCRIBER.GRE INSTRUCTOR Work Phone: [facility] 06-10-2025 16:48-0400 Diastolic blood pressure 76 mm[Hg] Wendy Podlogar INVENTORY TRANSCRIBER.GRE INSTRUCTOR Work Phone: [facility] 06-10-2025 16:48-0400 Heart rate 87 /min Wendy Podlogar INVENTORY TRANSCRIBER.GRE INSTRUCTOR Work Phone: [facility] 06-10-2025 16:48-0400 Respiratory rate 18 /min Wendy Podlogar INVENTORY TRANSCRIBER.GRE INSTRUCTOR Work Phone: [facility] 06-10-2025 16:48-0400 SaO2% (BldA) [Mass fraction] 97 % Wendy Podlogtorrey INVENTORY TRANSCRIBER.GRE INSTRUCTOR Work Phone: [facility] 06-10-2025 16:48-0400 Systolic blood pressure 118 mm[Hg] Wendy Podlogar INVENTORY TRANSCRIBER.GRE INSTRUCTOR Work Phone: [facility] 03-05-2025 15:03-0400 Body mass index (BMI) [Ratio] 33.66 kg/m2 Benedict Figueroakarissa INVENTORY TRANSCRIBER.GRE INSTRUCTOR Work Phone: [facility] 03-05-2025 15:03-0400 Body temperature 97.81 [degF] [facility] INVENTORY TRANSCRIBER.GRE INSTRUCTOR Work Phone: [facility] 03-05-2025 15:03-0400 Body weight 86.2 kg [facility] INVENTORY TRANSCRIBER.GRE INSTRUCTOR Work Phone: [facility] 03-05-2025 15:03-0400 Diastolic blood pressure 94 mm[Hg] Benedict Figueroakarissa INVENTORY TRANSCRIBER.GRE INSTRUCTOR Work Phone: [facility] 03-05-2025 15:03-0400 Heart rate 82 /min Benedictmely Figueroakarissa INVENTORY TRANSCRIBER.GRE INSTRUCTOR Work Phone: [facility] 03-05-2025 15:03-0400 Respiratory rate 18 /min [facility] INVENTORY TRANSCRIBER.GRE INSTRUCTOR Work Phone: [facility] 03-05-2025 15:03-0400 SaO2% (BldA) [Mass fraction] 100 % Benedict Figueroakarissa INVENTORY TRANSCRIBER.GRE INSTRUCTOR Work Phone: [facility] 03-05-2025 15:03-0400 Systolic blood pressure 124 mm[Hg] [facility] INVENTORY TRANSCRIBER.GRE INSTRUCTOR Work Phone: [facility] 01-23-2025 10:49-0400 Body mass index (BMI) [Ratio] 32.77 kg/m2 Wendy Podlogar INVENTORY TRANSCRIBER.GRE INSTRUCTOR Work Phone: [facility] 01-23-2025 10:49-0400 Body weight 83.92 kg Wendy Podlogar INVENTORY TRANSCRIBER.GRE INSTRUCTOR Work Phone: [facility] 01-23-2025 10:49-0400 Diastolic blood pressure 80 mm[Hg] Wendy Podlogar INVENTORY TRANSCRIBER.GRE INSTRUCTOR Work Phone: [facility] 01-23-2025 10:49-0400 Heart rate 94 /min Wendy Podlogar INVENTORY TRANSCRIBER.GRE INSTRUCTOR Work Phone: [facility] 01-23-2025 10:49-0400 Respiratory rate 18 /min Wendy Podlogar INVENTORY TRANSCRIBER.GRE INSTRUCTOR Work Phone: [facility] 01-23-2025 10:49-0400 SaO2% (BldA) [Mass fraction] 95 % Wendy Podlogar INVENTORY TRANSCRIBER.GRE INSTRUCTOR Work Phone: [facility] 01-23-2025 10:49-0400 Systolic blood pressure 116 mm[Hg] Wendy Podlogar INVENTORY TRANSCRIBER.GRE INSTRUCTOR Work Phone: [facility] 12-29-2024 11:30-0400 Body mass index (BMI) [Ratio] 32.69 kg/m2 Benedict Summers INVENTORY TRANSCRIBER.GRE INSTRUCTOR Work Phone: [facility] 12-29-2024 11:30-0400 Body temperature 97.81 [degF] Benedict Summers INVENTORY TRANSCRIBER.GRE INSTRUCTOR Work Phone: [facility] 12-29-2024 11:30-0400 Body weight 83.7 kg Benedict Summers INVENTORY TRANSCRIBER.GRE INSTRUCTOR Work Phone: [facility] 12-29-2024 11:30-0400 Diastolic blood pressure 82 mm[Hg] Benedict Summers INVENTORY TRANSCRIBER.GRE INSTRUCTOR Work Phone: [facility] 12-29-2024 11:30-0400 Heart rate 74 /min Benedict Summers INVENTORY TRANSCRIBER.GRE INSTRUCTOR Work Phone: [facility] 12-29-2024 11:30-0400 Respiratory rate 16 /min Benedict Summers INVENTORY TRANSCRIBER.GRE INSTRUCTOR Work Phone: [facility] 12-29-2024 11:30-0400 SaO2% (BldA) [Mass fraction] 97 % Benedict Summers INVENTORY TRANSCRIBER.GRE INSTRUCTOR Work Phone: [facility] 12-29-2024 11:30-0400 Systolic blood pressure 128 mm[Hg] Benedict Summers INVENTORY TRANSCRIBER.GRE INSTRUCTOR Work Phone: [facility] 09-30-2024 11:46-0500 Body mass index (BMI) [Ratio] 31.52 kg/m2 Deandra Praisler-Wood INVENTORY TRANSCRIBER.GRE INSTRUCTOR Work Phone: [facility] 09-30-2024 11:46-0500 Body temperature 98.49 [degF] Deandra Praisler-Wood INVENTORY TRANSCRIBER.GRE INSTRUCTOR Work Phone: [facility] 09-30-2024 11:46-0500 Body weight 80.7 kg Deandra Praisler-Wood INVENTORY TRANSCRIBER.GRE INSTRUCTOR Work Phone: [facility] 09-30-2024 11:46-0500 Diastolic blood pressure 74 mm[Hg] Deandra Praisler-Wood INVENTORY TRANSCRIBER.GRE INSTRUCTOR Work Phone: [facility] 09-30-2024 11:46-0500 Heart rate 96 /min Deandra Praisler-Wood INVENTORY TRANSCRIBER.GRE INSTRUCTOR Work Phone: [facility] 09-30-2024 11:46-0500 Respiratory rate 16 /min Deandra Praisler-Wood INVENTORY TRANSCRIBER.GRE INSTRUCTOR Work Phone: [facility] 09-30-2024 11:46-0500 SaO2% (BldA) [Mass fraction] 97 % Deandra Praisler-Wood INVENTORY TRANSCRIBER.GRE INSTRUCTOR Work Phone: [facility] 09-30-2024 11:46-0500 Systolic blood pressure 120 mm[Hg] Deandra Praisler-Wood INVENTORY TRANSCRIBER.GRE INSTRUCTOR Work Phone: [facility] 06-04-2024 17:00-0400 Body mass index (BMI) [Ratio] 31.48 kg/m2 Wendy Paul INVENTORY TRANSCRIBER.GRE INSTRUCTOR Work Phone: [facility] 06-04-2024 17:00-0400 Body weight 80.6 kg Wendy Podlogar INVENTORY TRANSCRIBER.GRE INSTRUCTOR Work Phone: [facility] 06-04-2024 17:00-0400 Diastolic blood pressure 88 mm[Hg] Wendy Podlogar INVENTORY TRANSCRIBER.GRE INSTRUCTOR Work Phone: [facility] 06-04-2024 17:00-0400 Heart rate 79 /min Wendy Podlogar INVENTORY TRANSCRIBER.GRE INSTRUCTOR Work Phone: [facility] 06-04-2024 17:00-0400 Respiratory rate 18 /min Wendy Podlogar INVENTORY TRANSCRIBER.GRE INSTRUCTOR Work Phone: [facility] 06-04-2024 17:00-0400 SaO2% (BldA) [Mass fraction] 98 % Wendy Podlogar INVENTORY TRANSCRIBER.GRE INSTRUCTOR Work Phone: [facility] 06-04-2024 17:00-0400 Systolic blood pressure 126 mm[Hg] Wendy Podlogar INVENTORY TRANSCRIBER.GRE INSTRUCTOR Work Phone: [facility] 04-09-2024 15:05-0400 Body mass index (BMI) [Ratio] 30.93 kg/m2 Wendy Podlogar INVENTORY TRANSCRIBER.GRE INSTRUCTOR Work Phone: [facility] 04-09-2024 15:05-0400 Body weight 79.2 kg Wendy Podlogar INVENTORY TRANSCRIBER.GRE INSTRUCTOR Work Phone: [facility] 04-09-2024 15:05-0400 Diastolic blood pressure 82 mm[Hg] Wendy Podlogar INVENTORY TRANSCRIBER.GRE INSTRUCTOR Work Phone: [facility] 04-09-2024 15:05-0400 Heart rate 86 /min Wendy Podlogar INVENTORY TRANSCRIBER.GRE INSTRUCTOR Work Phone: [facility] 04-09-2024 15:05-0400 Respiratory rate 18 /min Wendy Podlogar INVENTORY TRANSCRIBER.GRE INSTRUCTOR Work Phone: [facility] 04-09-2024 15:05-0400 SaO2% (BldA) [Mass fraction] 98 % Wendy Paul INVENTORY TRANSCRIBER.GRE INSTRUCTOR Work Phone: [facility] 04-09-2024 15:05-0400 Systolic blood pressure 124 mm[Hg] Wendy Wilkinsonlogtorrey INVENTORY TRANSCRIBER.GRE INSTRUCTOR Work Phone: [facility] 01-31-2024 08:39-0400 Body temperature 97.4 [degF] Dr. Bright Taylor Work Phone: [facility] 01-31-2024 08:39-0400 Diastolic blood pressure 63 mm[Hg] Dr. Bright Taylor Work Phone: [facility] 01-31-2024 08:39-0400 Heart rate 81 /min Dr. Bright Taylor Work Phone: [facility] 01-31-2024 08:39-0400 Respiratory rate 16 /min Dr. Bright Taylor Work Phone: [facility] 01-31-2024 08:39-0400 SaO2% (BldA) [Mass fraction] 99 % Dr. Bright Taylor Work Phone: [facility] 01-31-2024 08:39-0400 Systolic blood pressure 124 mm[Hg] Dr. Bright Taylor Work Phone: [facility] 01-31-2024 06:09-0400 Body height 160.[address] Bright Taylor Work Phone: [facility] 01-31-2024 06:09-0400 Body mass index (BMI) [Ratio] 31.6 kg/m2 Dr. Bright Taylor Work Phone: 1(860)517-001718 [place] [address] 01-31-2024 06:09-0400 Body weight 81.[address] Bright Taylor Work Phone: [facility] 10-03-2023 09:34-0500 Body mass index (BMI) [Ratio] 30.8 kg/m2 Dr. Bright Taylor Work Phone: 8(530)694-100718 [place] [address] 10-03-2023 09:34-0500 Body weight 78.[address] Bright Taylor Work Phone: [facility] 10-03-2023 09:34-0500 Diastolic blood pressure 82 mm[Hg] Dr. Bright Taylor Work Phone: [facility] 10-03-2023 09:34-0500 Systolic blood pressure 138 mm[Hg] Dr. Bright Taylor Work Phone: 2(899)689-869018 [place] [address] 09-12-2023 17:16-0500 Body temperature 97.81 [degF] Krislyn Aberegg PA Work Phone: [facility] 09-12-2023 17:16-0500 Body weight 79.29 kg Krislyn Aberegg PA Work Phone: [facility] 09-12-2023 17:16-0500 Diastolic blood pressure 74 mm[Hg] Krislyn Aberegg PA Work Phone: [facility] 09-12-2023 17:16-0500 Heart rate 100 /min Krislyn Aberegg PA Work Phone: [facility] 09-12-2023 17:16-0500 Respiratory rate 21 /min Krislyn Aberegg PA Work Phone: [facility] 09-12-2023 17:16-0500 SaO2% (BldA) [Mass fraction] 97 % Krislyn Aberegg PA Work Phone: [facility] 09-12-2023 17:16-0500 Systolic blood pressure 122 mm[Hg] Krislyn Aberegg PA Work Phone: [facility] 08-14-2023 09:35-0500 Body height 160.[address] Bright Taylor Work Phone: [facility] 08-14-2023 09:31-0500 Body mass index (BMI) [Ratio] 31 kg/m2 Dr. Bright Taylor Work Phone: 6(666)720-998399 [place] [address] 08-14-2023 09:31-0500 Body weight 79.[address] Bright Taylor Work Phone: 6(130)380-057899 [place] [address] 08-14-2023 09:31-0500 Diastolic blood pressure 78 mm[Hg] Dr. Bright Taylor Work Phone: 4(285)382-477999 [place] [address] 08-14-2023 09:31-0500 Systolic blood pressure 125 mm[Hg] Dr. Bright Taylor Work Phone: 6(671)496-835199 [place] [address] 07-18-2023 11:11-0400 Body mass index (BMI) [Ratio] 30.7 kg/m2 Dr. Bright Taylor Work Phone: 7(399)518-915099 [place] [address] 07-18-2023 11:11-0400 Body weight 78.[address] Bright Taylor Work Phone: 8(523)200-526599 [place] [address] 07-18-2023 11:11-0400 Diastolic blood pressure 82 mm[Hg] Dr. Bright Taylor Work Phone: 2(344)121-721699 [place] [address] 07-18-2023 11:11-0400 Systolic blood pressure 120 mm[Hg] Dr. Bright Taylor Work Phone: 9(937)586-131299 [place] [address] 07-03-2023 13:08-0400 Body temperature 96.9 [degF] Dr. Bright Taylor Work Phone: 4(977)566-573499 [place] [address] 07-03-2023 13:08-0400 Diastolic blood pressure 72 mm[Hg] Dr. Bright Taylor Work Phone: 9(930)668-261399 [place] [address] 07-03-2023 13:08-0400 Heart rate 70 /min Dr. Bright Taylor Work Phone: 7(759)228-817799 [place] [address] 07-03-2023 13:08-0400 Respiratory rate 16 /min Dr. Bright Taylor Work Phone: 6(959)156-408499 [place] [address] 07-03-2023 13:08-0400 SaO2% (BldA) [Mass fraction] 100 % Dr. Bright Taylor Work Phone: 7(746)449-436418 [place] [address] 07-03-2023 13:08-0400 Systolic blood pressure 122 mm[Hg] Dr. Bright Taylor Work Phone: 3(226)522-559899 [place] [address] 07-03-2023 12:00-0400 Inhaled oxygen flow rate 4 L/min Dr. Bright Taylor Work Phone: 0(169)211-146760 [address] 07-03-2023 07:25-0400 Body height 160.[address] Bright Taylor Work Phone: 8(177)895-936560 [address] 07-03-2023 07:25-0400 Body mass index (BMI) [Ratio] 30.8 kg/m2 Dr. Bright Taylor Work Phone: 6(011)635-961960 [address] 07-03-2023 07:25-0400 Body weight [address] Bright Taylor Work Phone: 6(347)051-697099 [place] [address] 06-28-2023 11:48-0400 Body height 160.[address] Bright Taylor Work Phone: 6(300)132-683118 [place] [address] 06-28-2023 11:48-0400 Body mass index (BMI) [Ratio] 30.9 kg/m2 Dr. Bright Taylor Work Phone: 5(780)041-350518 [place] [address] 06-28-2023 11:48-0400 Body weight 79.[address] Bright Taylor Work Phone: 0(143)127-570318 [place] [address] 06-28-2023 11:48-0400 Diastolic blood pressure 95 mm[Hg] Dr. Bright Taylor Work Phone: [facility] 06-28-2023 11:48-0400 Systolic blood pressure 132 mm[Hg] Dr. Bright Taylor Work Phone: [facility] 05-04-2023 15:13-0400 Body temperature 98.4 [degF] Benedict Summers APRN.CNP Work Phone: [facility] 05-04-2023 15:13-0400 Body weight 78.93 kg Benedict Summers APRN.GRE INSTRUCTOR Work Phone: [facility] 05-04-2023 15:13-0400 Diastolic blood pressure 68 mm[Hg] Benedict Summers INVENTORY TRANSCRIBER.GRE INSTRUCTOR Work Phone: [facility] 05-04-2023 15:13-0400 Heart rate 88 /min Benedict Summers INVENTORY TRANSCRIBER.GRE INSTRUCTOR Work Phone: [facility] 05-04-2023 15:13-0400 Respiratory rate 16 /min Benedict Summers INVENTORY TRANSCRIBER.GRE INSTRUCTOR Work Phone: [facility] 05-04-2023 15:13-0400 SaO2% (BldA) [Mass fraction] 97 % Benedict Summers INVENTORY TRANSCRIBER.GRE INSTRUCTOR Work Phone: [facility] 05-04-2023 15:13-0400 Systolic blood pressure 110 mm[Hg] Benedict Summers INVENTORY TRANSCRIBER.GRE INSTRUCTOR Work Phone: [facility] 03-15-2023 13:03-0400 Body height 160.[address] Bright Taylor Work Phone: [facility] 03-15-2023 13:02-0400 Body mass index (BMI) [Ratio] 31.2 kg/m2 Dr. Bright Taylor Work Phone: [facility] 03-15-2023 13:02-0400 Body weight 79.[address] Bright Taylor Work Phone: [facility] 03-15-2023 13:02-0400 Diastolic blood pressure 79 mm[Hg] Dr. Bright Taylor Work Phone: [facility] 03-15-2023 13:02-0400 Systolic blood pressure 122 mm[Hg] Dr. Bright Taylor Work Phone: [facility] 02-04-2023 13:43-0400 Body temperature 98.2 [degF] Vianey Otoniel INVENTORY TRANSCRIBER.GRE INSTRUCTOR Work Phone: [facility] 02-04-2023 13:43-0400 Body weight 79.47 kg Vianey Vargask INVENTORY TRANSCRIBER.GRE INSTRUCTOR Work Phone: [facility] 02-04-2023 13:43-0400 Diastolic blood pressure 70 mm[Hg] Vianey Otoniel INVENTORY TRANSCRIBER.GRE INSTRUCTOR Work Phone: [facility] 02-04-2023 13:43-0400 Heart rate 75 /min Vianey Otoniel INVENTORY TRANSCRIBER.GRE INSTRUCTOR Work Phone: [facility] 02-04-2023 13:43-0400 Respiratory rate 16 /min Vianey Otoniel INVENTORY TRANSCRIBER.GRE INSTRUCTOR Work Phone: [facility] 02-04-2023 13:43-0400 SaO2% (BldA) [Mass fraction] 99 % Vianey Otoniel INVENTORY TRANSCRIBER.GRE INSTRUCTOR Work Phone: [facility] 02-04-2023 13:43-0400 Systolic blood pressure 122 mm[Hg] Vianey Otoniel INVENTORY TRANSCRIBER.GRE INSTRUCTOR Work Phone: [facility] 08-16-2022 09:29-0500 Body temperature 97.5 [degF] Benedict Pendlebury INVENTORY TRANSCRIBER.GRE INSTRUCTOR Work Phone: [facility] 08-16-2022 09:29-0500 Body weight 73.94 kg Benedict Summers INVENTORY TRANSCRIBER.GRE INSTRUCTOR Work Phone: [facility] 08-16-2022 09:29-0500 Diastolic blood pressure 70 mm[Hg] Benedict Pendlebury INVENTORY TRANSCRIBER.GRE INSTRUCTOR Work Phone: [facility] 08-16-2022 09:29-0500 Heart rate 80 /min Benedict Pendlebury INVENTORY TRANSCRIBER.GRE INSTRUCTOR Work Phone: [facility] 08-16-2022 09:29-0500 Respiratory rate 16 /min Benedict Pendlebury INVENTORY TRANSCRIBER.GRE INSTRUCTOR Work Phone: [facility] 08-16-2022 09:29-0500 SaO2% (BldA) [Mass fraction] 99 % Benedict Pendlebury INVENTORY TRANSCRIBER.GRE INSTRUCTOR Work Phone: [facility] 08-16-2022 09:29-0500 Systolic blood pressure 126 mm[Hg] Benedict Summers APRN.GRE INSTRUCTOR Work Phone: [facility] Encounters Encounter Date Encounter Type Care Provider Facility Start: 08-15-2025 ambulatory Bright Souza lity:[facility] Start: 07-29-2025 End: 07-29-2025 ambulatory Boo Yan Facility:[facility] Start: 07-20-2025 End: 07-20-2025 ambulatory JENNIFER TAYLOR Facility:[facility] Start: 06-22-2025 End: 06-22-2025 Follow-up encounter Jennifer Taylor MD Work Phone: [facility] Start: 06-20-2025 End: 06-20-2025 ambulatory WENDY PODLOGTORREY Facility:[facility] Start: 06-20-2025 Patient encounter procedure WENDY PODLOGAR [facility] Start: 06-10-2025 End: 06-10-2025 Patient encounter procedure Wendy Wilkinsonlogtorrey INVENTORY TRANSCRIBER.GRE INSTRUCTOR Work Phone: [facility] Comment on above: Annual physical exam (Primary Dx); Encounter for immunization; Screening for depression; Encounter for screening examination for other mental health and behavioral disorders; Screening for cervical cancer; Weight gain; Overweight Start: 06-10-2025 End: 06-10-2025 ambulatory WENDY PODLOGTORREY Facility:[facility] Start: 03-05-2025 End: 03-05-2025 Office outpatient visit 15 minutes Benedict Summers APRN.CNP Work Phone: [facility] Comment on above: Bee sting, accidenta l or unintentional, initial encounter (Primary Dx) Start: 03-05-2025 End: 03-05-2025 ambulatory JENNIFER TAYLOR Facility:[facility] Start: 01-23-2025 End: 01-23-2025 Patient encounter procedure Wendy Podlogtorrey INVENTORY TRANSCRIBER.GRE INSTRUCTOR Work Phone: [facility] Comment on above: Piercing in right ex ternal ear (Primary Dx) Start: 01-23-2025 End: 04-18-2025 ambulatory WENDY PODLOGAR Facility:[facility] Start: 12-29-2024 End: 12-29-2024 ambulatory JENNIFER TAYLOR Facility:[facility] Start: 12-29-2024 End: 12-29-2024 Office outpatient visit 25 minutes Benedict Summers APRN.GRE INSTRUCTOR Work Phone: [facility] Comment on above: Cellulitis of antihe lix of right ear (Primary Dx) Start: 10-10-2024 End: 10-10-2024 ambulatory Bright Taylor Facility:[facility] Start: 10-10-2024 End: 10-10-2024 ambulatory Bright [facility] Facility:[facility] Start: 09-30-2024 End: 09-30-2024 Patient encounter procedure Deandra Rider APRN.GRE INSTRUCTOR Work Phone: [facility] Comment on above: Sinobronchitis (Prim carmita Dx); Canker sore Start: 09-30-2024 End: 09-30-2024 ambulatory JENNIFER TAYLOR Facility:[facility] Start: 06-04-2024 End: 06-04-2024 Patient encounter procedure Wendy Paul APRN.GRE INSTRUCTOR Work Phone: [facility] Comment on above: Annual physical exam (Primary Dx); Snoring; Daytime somnolence; Screening for depression; Encounter for screening examination for other mental health and behavioral disorders; Vitiligo Start: 04-09-2024 End: 04-09-2024 Patient encounter procedure Wendy Paul APRN.GRE INSTRUCTOR Work Phone: [facility] Comment on above: Vitiligo (Primary Dx ); Screening for hyperlipidemia; Gastroesophageal reflux disease, unspecified whether esophagitis present Start: 02-01-2024 Telephone encounter Bright Taylor MD Work Phone: [facility] Start: 01-31-2024 End: 01-31-2024 Emergency department patient visit Dr. Bright Taylor Work Phone: [facility] Work Phone: Start: 10-03-2023 End: 10-03-[address] Bright Tayolr Work Phone: [facility] Work Phone: Start: 09-12-2023 End: 09-12-2023 Patient encounter procedure Jennyfer WELCH Work Phone: [facility] Comment on above: Viral illness (Prima ry Dx) Start: 08-14-2023 End: 08-14-[address] Bright Taylor Work Phone: [facility] Work Phone: Start: 08-14-2023 End: 08-14-[address] Bright Taylor Work Phone: [facility]Laboratory, Specimen Work Phone: Start: 08-14-2023 End: 08-14-[address] Bright Taylor Work Phone: [facility] Work Phone: Start: 07-18-2023 End: 07-18-[address] Bright Taylor Work Phone: [facility] Work Phone: Start: 07-03-2023 Non-patient / Non-visit Dr. Lee Taylor Work Phone: [facility] Start: 07-03-2023 End: 07-03-2023 Admission to same day surgery center Dr. Bright Taylor Work Phone: [facility] Start: 07-03-2023 End: 07-03-[address] Bright aTylor Work Phone: [facility] Work Phone: Start: 06-28-2023 End: 06-28-[address] Bright Taylor Work Phone: [facility] Work Phone: Start: 06-28-2023 End: 06-28-[address] Bright Taylor Work Phone: [facility]Physical Therapy Work Phone: Start: 06-28-2023 End: 06-28-[address] Bright Taylor Work Phone: [facility] Work Phone: Start: 05-30-2023 End: 05-30-[address] Bright Taylor Work Phone: [facility] Work Phone: Start: 05-30-2023 End: 05-30-[address] Bright Taylor Work Phone: [facility]Ultrasound, H Work Phone: Start: 05-11-2023 ambulatory Jennifer Taylor MD Work Phone: [facility] Comment on above: Ringworm Start: 05-04-2023 End: 05-04-2023 Office outpatient visit 15 minutes Benedict Summers APRN.CNP Work Phone: [facility] Comment on above: Rash (Primary Dx) Start: 03-15-2023 End: 03-15-[address] Bright Taylor Work Phone: [facility]Labor[facility] Specimen Work Phone: Start: 03-15-2023 End: 03-15-[address] Bright Taylor Work Phone: [facility] Work Phone: Start: 02-05-2023 Telephone encounter Mendel Vizcaino PA-C Work Phone: [facility] Comment on above: Results Start: 02-04-2023 End: 02-04-2023 Patient encounter procedure Vianey Frederick INVENTORY TRANSCRIBER.GRE INSTRUCTOR Work Phone: [facility] Comment on above: Acute vaginitis (Mariela danya Dx) Start: 08-16-2022 End: 08-16-2022 Patient encounter procedure Benedict Summers INVENTORY TRANSCRIBER.GRE INSTRUCTOR Work Phone: [facility] Comment on above: Pain with urination (Primary Dx); Burning with urination Start: 08-10-2021 End: 08-10-2021 Subsequent hospital visit by physician Xr [facility] Work Phone: Radiology Comment on above: Toe pain, left [M79. 675] Start: 09-27-2018 End: 09-27-2018 Patient encounter procedure [facility] Start: 08-04-2018 End: 08-04-2018 Emergency department patient visit JAQUAN Maureen GEORGE [facility] Procedures Date Procedure Procedure Detail Performing Clinician Start: 06-10-2025 Adult depression screening assessment Wendy Wilkinsonlogtorrey INVENTORY TRANSCRIBER.GRE INSTRUCTOR Work Phone: Start: 06-04-2024 Adult depression screening assessment Wendy Podlogtorrey INVENTORY TRANSCRIBER.GRE INSTRUCTOR Work Phone: Start: 01-31-2024 CT of abdomen and pelvis without contrast Dr. Bright Taylor Work Phone: Start: 10-03-2023 Cytopathology procedure, preparation of smear, genital source Dr. Bright Taylor Work Phone: Start: 10-03-2023 Investigation of transfusion reaction Dr. Bright Taylor Work Phone: Start: 08-14-2023 Cytopathology procedure, preparation of smear, genital source Dr. Bright Taylor Work Phone: Start: 08-14-2023 Investigation of transfusion reaction Dr. Bright Taylor Work Phone: Start: 07-03-2023 Abdominal hysterectomy with conservation of ovaries Dr. Bright Taylor Work Phone: Start: 2023 H/O: hysterectomy Status post hysterectomy Dr. Bright Taylor Work Phone: Start: 05-30-[address] Bright land Work Phone: Start: 08-16-2022 Urnls dip stick/tablet rgnt auto w/o microscopy Benedict Summers INVENTORY TRANSCRIBER.JOE Work Phone: Start: 08-10-2021 Radex foot complete minimum 3 views Wendy Wilkinsonlogtorrey INVENTORY TRANSCRIBER.GRE INSTRUCTOR Work Phone: Start: 05-02-2010 End: 08-08-2011 H/O: section PREV DELIVERY [654.23] Jennifer Taylor MD Work Phone: H/O: section S/P Dr. Maureen Taylor Work Phone: H/O: hysterectomy Status post hysterectomy Dr. Bright Taylor Work Phone: Plan of Treatment Date Care Activity Detail Author Start: 11-05-2026 Urine microalbumin profile [facility] Start: 06-16-2026 End: 06-16-2026 Patient encounter procedure 06/16/2026 5:00 PM EDT Office Visit Family [facility] [address], [place] [id number] PodWendy scott APRN.GRE INSTRUCTOR [address] [facility] [place], [place] [id number] Physical Family [facility] Comment on above: Physical Start: 06-10-2026 Anxiety Screening Anxiety Screening [facility] Start: 06-10-2026 Depression Screening Depression Scre ening [facility] Start: 04-06-2026 Influenza vaccination Influenza Vacc ine (#1) [facility] Comment on above: Postponed from 06/08 (Declined at this time) Start: 03-15-2026 Screening for malign ant neoplasm of cervix Cervical Cancer Screening [facility] Start: 07-20-2025 End: 07-20-2025 Nursing evaluation of patient and report 07/20/2025 3:30 PM EDT Nurse Visit Family [facility] [address], [place] [id number] Nurse, Ne [address] [place] [address] HPV shot 2nd [facility] Comment on above: HPV shot 2nd Start: 07-08-2025 HPV Vaccine (2 - 3-d ose SCDM series) HPV Vaccine (2 - 3-dose SCDM series) [facility] Start: 06-10-2025 End: 06-10-2025 Patient encounter procedure 06/10/2025 5:00 PM EDT Office Visit [facility] [address] [place] [address] PodlogarWendy APRN.GRE INSTRUCTOR [address] [place] [address] Physical [facility] Comment on above: Physical Start: 06-10-2025 End: 09-09-2025 CBC W Auto Differential panel - Blood COMPLETE BLOOD COUNT AND DIFFERENTIAL Lab Routine Annual physical exam Expected: 06/10/2025, Expires: 09/09/2025 [facility] Comment on above: Expected: 06/10/2025 , Expires: 09/09/2025 Start: 06-10-2025 End: 09-09-2025 Comprehensive metabolic 2000 panel - Serum or Plasma COMPREHENSIVE METABOLIC PANEL Lab Routine Annual physical exam Expected: 06/10/2025, Expires: 09/09/2025 [facility] Comment on above: Expected: 06/10/2025 , Expires: 09/09/2025 Start: 06-10-2025 End: 09-09-2025 Lipid 1996 panel - Serum or Plasma LIPID PANEL, FASTING Lab Routine Annual physical exam Expected: 06/10/2025, Expires: 09/09/2025 [facility] Work Phone: Comment on above: Expected: 06/10/2025 , Expires: 09/09/2025 Start: 06-10-2025 End: 09-09-2025 Thyrotropin [Units/volume] in Serum or Plasma THYROID STIMULATING HORMONE Lab Routine Weight gain Expected: 06/10/2025, Expires: 09/09/2025 [facility] Comment on above: Expected: 06/10/2025 , Expires: 09/09/2025 Start: 2025 Influenza vaccination Influenz a Vaccine (Season Ended) [facility] Start: 06-04-2025 Anxiety Screening Anxiety Screening [facility] Start: 06-04-2025 Depression Screening Depression Scre ening [facility] Start: 05-27-2025 HPV TESTING HPV TESTING [facility] Start: 05-27-2025 PAP TESTING PAP TESTING [facility] Start: 05-27-2025 Screening for malign ant neoplasm of cervix [facility] Start: 07-27-2024 End: 07-27-2024 Patient encounter procedure 07/27/2024 9:15 PM EDT Office Visit Neurology [address] [place] [address] [facility] Comment on above: [facility] Start: 2024 Influenza vaccination C [facility] Start: 06-04-2024 End: 06-04-2024 Patient encounter procedure 06/04/2024 5:20 PM EDT Office Visit [facility] [address], [place] [id number] PodlogarWendy APRN.GRE INSTRUCTOR [address] [place] [address] physical [facility] Comment on above: physical Start: 04-09-2024 End: 07-09-2024 CBC W Auto Differential panel - Blood COMPLETE BLOOD COUNT AND DIFFERENTIAL Lab Routine Vitiligo Expected: 04/09/2024, Expires: 07/09/2024 [facility] Work Phone: Comment on above: Expected: 04/09/2024 , Expires: 07/09/2024 Start: 04-09-2024 End: 07-09-2024 Comprehensive metabolic 2000 panel - Serum or Plasma COMPREHENSIVE METABOLIC PANEL Lab Routine Vitiligo Expected: 04/09/2024, Expires: 07/09/2024 [facility] Comment on above: Expected: 04/09/2024 , Expires: 07/09/2024 Start: 04-09-2024 End: 07-09-2024 Lipid 1996 panel - Serum or Plasma LIPID PANEL BASIC Lab Routine Screening for hyperlipidemia Expected: 04/09/2024, Expires: 07/09/2024 [facility] Comment on above: Expected: 04/09/2024 , Expires: 07/09/2024 Start: 01-31-2024 [facility] Start: 10-08-2023 Behavioral Health Screening Behavioral Health Screening [facility] Start: 07-03-2023 Anesthesia intraperitoneal lower abd w/laps nos ANESTH SURG LOWER ABDOMEN [facility] Start: 07-03-2023 Laparoscopy w total hysterectomy uterus 250 gm/< TLH UTERUS 250 G OR LESS [facility] Start: 07-03-2023 Ambulation without limitation [facility] Start: 07-03-2023 Medication education [facility] Start: 07-03-2023 Patient discharge [facility] Start: 07-03-2023 Planned voiding [facility] Start: 07-03-2023 Procedure discontinued [facility] Start: 07-03-2023 Taking patient vital signs [facility] Start: 07-03-2023 Vital signs measurements [facility] Start: 07-03-2023 [facility] Start: 07-03-2023 Admission procedure [facility] Start: 2023 Covid-19 Vaccine ( season) Covid-19 Vaccine ( season) [facility] Start: 2023 Influenza vaccination C [facility] Start: 05-27-2023 Screening for malign ant neoplasm of cervix Cervical Cancer Screening [facility] Start: 10-08-2022 [facility] Start: 2022 Influenza vaccination INFLUENZA (#1) [facility] Start: 10-08-2021 DEPRESSION ASSESSMENT [facility] Start: 05-27-2021 Screening for malign ant neoplasm of cervix Cervical Cancer Screening [facility] Start: 2009 Pneumococcal vaccination Pneum ococcal Vaccine (1 of 2 - PCV) [facility] Start: 2009 Shingrix Vaccine (1 of 2) Ochoa grix Vaccine (1 of 2) [facility] Start: 05-09-2007 HEPATITIS B (3 of 3 - 3-dose series) HEPATITIS B (3 of 3 - 3-dose series) [facility] Start: 05-09-2007 Hepatitis B Vaccine (3 of 3 - 3-dose series) Hepatitis B Vaccine (3 of 3 - 3-dose series) [facility] Start: 1996 Pneumococcal vaccination Pneum ococcal Vaccine (1 of 2 - PCV) [facility] Start: 1995 Covid-19 Vaccine (#1) Covid-19 Vacci ne (#1) [facility] Start: 1990 COVID-19 VACCINE (#1) COVID-19 VACCI NE (#1) [facility] Bacteria identified in Urine by Culture URINE CULTURE Microbiology Routine Pain with urination Burning with urination Ordered: 08/16/2022 [facility] Work Phone: Comment on above: Ordered: 08/16/2022 BACTERIAL VAGINOSIS AMPLIFICATION BACTERIAL VAGINOSIS AMPLIFICATION Lab Routine Acute vaginitis Ordered: 02/04/2023 [facility] Work Phone: Comment on above: Ordered: 02/04/2023 WILIAN / TRICHOMONA S AMPLIFICATION WILIAN / TRICHOMONAS AMPLIFICATION Microbiology Routine Acute vaginitis Ordered: 02/04/2023 [facility] Work Phone: Comment on above: Ordered: 02/04/2023 COVID & INFLUENZA A/ B & RSV NAAT, ROUTINE COVID & INFLUENZA A/B & RSV NAAT, ROUTINE Microbiology Routine Viral illness 09/12/2023 7:35 PM EST [facility] Work Phone: Patient Education ED Kidney Ston e with Pain [facility] Work Phone: Patient referral [facility] Work Phone: End: 06-04-2025 Polysomnogram POLYSOMNOGRAM (PSG) Procedures Routine Snoring Daytime somnolence 1 Occurrences starting 06/04/2024 until 06/04/2025 [facility] Work Phone: Comment on above: 1 Occurrences starti ng 06/04/2024 until 06/04/2025 [facility] Immunization Date Immunization Notes Care Provider Bren mcclellan 06-10-2025 hepatitis B vaccine, adult dosage Wendy Paul APRN.CNP Work Phone: [facility] 06-10-2025 Human Papillomavirus 9-valent vaccine Wendy Paul APRN.CNP Work Phone: [facility] 08-06-2018 influenza virus vacc ine, unspecified formulation Jennyfer WELCH Work Phone: [facility] 11-05-2016 tetanus toxoid, redu ruth diphtheria toxoid, and acellular pertussis vaccine, adsorbed Benedict Pendlebury INVENTORY TRANSCRIBER.[facility] Work Phone: [facility] 02-26-2007 hepatitis B vaccine, pediatric or pediatric/adolescent dosage Benedict Pendlebury INVENTORY TRANSCRIBER.[facility] Work Phone: [facility] Work Phone: 02-26-2007 varicella virus vaccine Adolfo mely Pendlebury INVENTORY TRANSCRIBER.[facility] Work Phone: [facility] Work Phone: 02-26-2007 hepatitis B vaccine, unspecified formulation Benedictmely Gibbsbury INVENTORY TRANSCRIBER.[facility] Work Phone: [facility] 01-17-2007 hepatitis B vaccine, pediatric or pediatric/adolescent dosage Benedict Pendlebury INVENTORY TRANSCRIBER.[facility] Work Phone: [facility] Work Phone: 01-17-2007 tetanus toxoid, redu ruth diphtheria toxoid, and acellular pertussis vaccine, adsorbed Benedict Pendlebury INVENTORY TRANSCRIBER.[facility] Work Phone: [facility] Work Phone: 01-17-2007 varicella virus vaccine Adolfo melywayne Summers INVENTORY TRANSCRIBER.[facility] Work Phone: [facility] Work Phone: 02-24-2003 measles, mumps and rubella virus vaccine Benedict Pendlebury INVENTORY TRANSCRIBER.[facility] Work Phone: [facility] Payers Date Payer Category Payer Self-pay [id number] 2024 Blue Eleanor Blue [facility] BLUE CARD PPO OOS [id number] 2024 Unknown [id number] 2022 Private Health Insurance [facility] [employer] [id number] 2022-Present [phone] [address] [address] [place] [address] HMO [id number] 2021 Unknown [id number] 2011 Unknown [employer] [id number] 1990 Unknown [id number] Unknown [id number] Unknown ANTHEM [id number] Unknown [employer]ED [employer]MIN[employer]RAT[employer] [facility] [id number] Unknown [facility] [id number] [place] [id number] Unknown [id number] Unknown [id number] Unknown [id number] Unknown [id number] Social History Date Type Detail Facility Start: 02-04-2023 Tobacco smoking stat us IDIS Never smoked tobacco [facility] Work Phone: Start: 08-16-2022 End: 06-22-2025 Alcohol intake Ex-drinker (finding) [facility] Start: 08-10-2021 History SDOH Alcohol Frequency 1 [facility] Start: 08-10-2021 History SDOH Alcohol Std Drinks 98 [facility] Start: 08-10-2021 History SDOH Social Connections Phone 5 [facility] Start: 08-10-2021 History SDOH Social Connections Get Together 4 [facility] Start: 08-10-2021 History SDOH Social Connections Membership 2 [facility] Start: 08-10-2021 History SDOH Social Connections Living 3 [facility] Start: 12-05-2019 Education 12 [facility] Start: 1990 Sex Assigned At Not on file [facility] Start: 07-11-2021 End: 08-16-2022 Exposure to SARS-CoV-2 (event) Not sure [facility] Work Phone: Start: 02-04-2023 Tobacco use and exposure Smokeless tobacco non-user [facility] Start: 05-04-2023 End: 04-07-2024 History of Social function [facility] Start: 05-04-2023 End: 04-07-2024 Tobacco use panel [facility] Do you belong to any clubs or organizations such as baptist groups, unions, fraternal or athletic groups, or school groups? No [facility] Are you now , , , , never or living with a partner? [facility] How often to you hav e a drink containing alcohol? Never [facility] Start: 09-08-2012 How many standard drinks containing alcohol do you have on a typical day? Patient refused [facility] How hard is it for y ou to pay for the very basics like food, housing, medical care, and heating Somewhat hard [facility] Do you feel stress - tense, restless, nervous, or anxious, or unable to sleep at night because your mind is troubled all the time - these days [OSQ] To some extent [facility] (I/We) worried wheth er (my/our) food would run out before (I/we) got money to buy more. Sometimes true [facility] In the past 12 month s, was there a time when you were not able to pay the mortgage or rent on time? Yes [facility] Start: 03-15-2023 End: 01-31-2024 Tobacco smoking status NHIS Unknown if ever smoked [facility] Start: 07-15-2019 Spouse/ Signif icant Other [facility] Start: 01-03-2021 Non-smoker [facility] Start: 1990 Sex Assigned At Female W [facility] Are you now , , , , never or living with a partner? [facility] How often to you hav e a drink containing alcohol? Monthly or less [facility] How many standard drinks containing alcohol do you have on a typical day? 1 or 2 [facility] Do you feel stress - tense, restless, nervous, or anxious, or unable to sleep at night because your mind is troubled all the time - these days [OSQ] Only a little [facility] Are you now , , , , never or living with a partner? Living with partner [facility] (I/We) worried wheth er (my/our) food would run out before (I/we) got money to buy more. Never true [facility] Start: 03-26-2025 Gender identity Identifies as female gender (finding) [facility] Start: 03-26-2025 Sexual orientation Heterosexual (carlos mckeon) [facility] NEGATED: Highlighted row [facility] Medical Equipment Procedure Code Equipment Code Equipment Origin al Text Equipment Identifier Dates Laparoscopic occlusion of both fallopian tubes CLIP,FILSHIE SYSTEM FDA Start: 08-15-2018 Laparoscopic occlusion of both fallopian tubes CLIP,FILSHIE SYSTEM FDA Start: 08-15-2018 Laparoscopic occlusion of both fallopian tubes CLIP,FILSHIE SYSTEM FDA Start: 08-15-2018 Laparoscopic occlusion of both fallopian tubes CLIP,FILSHIE SYSTEM FDA Start: 08-15-2018 Laparoscopic occlusion of both fallopian tubes CLIP,FILSHIE SYSTEM FDA Start: 08-15-2018 Goals Date Patient Goal Desired Activity /State Functional Status Date Assessment Result Facility 04-19-2015 Are you deaf, or do you have serious difficulty hearing No 04/19/2015 2:58 PM EDT [facility] 04-19-2015 Are you blind, or do you have serious difficulty seeing, even when wearing glasses No 04/19/2015 2:58 PM EDT [facility] 04-19-2015 Do you have serious difficulty walking or climbing stairs No 04/19/2015 2:58 PM EDT [facility] 04-19-2015 Do you have difficul ty dressing or bathing No 04/19/2015 2:58 PM EDT [facility] 04-19-2015 Because of a physica l, mental, or emotional condition, do you have difficulty doing errands alone such as visiting a physician's office or shopping No 04/19/2015 2:58 PM EDT [facility] Mental Status Date Assessment Result Facility 07-03-2023 Cognitive function Voice/Name [facility] Work Phone: 04-19-2015 Because of a physica l, mental, or emotional condition, do you have serious difficulty concentrating, remembering, or making decisions No 04/19/2015 2:58 PM EDT Amber [facility] Clinical Notes 08-26-2018 to 07-20-2025 Telephone Encounter - Joanie Perry MA - 06/22/2025 2:05 PM EDTTelephone Encounter - Joanie Perry MA - 06/22/2025 2:05 PM EDTPWendy darling APRN.[facility] - 06/10/2025 4:34 PM EDT Note Date & Type Note Facility 07-20-2025 Note HNO ID: [id number] Author: ?, ?, ? Service: ? Author Type: Licensed Nurse Type: Progress Notes Filed: 07/20/2025 15:12 Note Text: Patient presents for HPV vaccine. Denies any problems at this time. Tolerated injection well. Allison Stokes LPN [facility] 06-22-2025 Telephone encounter Note Patient viewed message via my chart. Joanie Perry MA [facility] 06-22-2025 Miscellaneous Notes Patient viewed message via my chart. Joanie Perry MA ----- Message from Jennifer Taylor MD sent at 06/22/2025 9:16 AM EDT ----- Normal labs aside from high cholesterol. Recommend low cholesterol diet and regular exercise. Recheck labs in 1 year. ----- Message ----- From: Lab, Background User Sent: 06/20/2025 5:25 PM EDT To: Wendy Paul APRN.[employer] documented in this encounter [facility] 06-22-2025 Telephone encounter Note ----- Message from Jennifer Taylor MD sent at 06/22/2025 9:16 AM EDT ----- Normal labs aside from high cholesterol. Recommend low cholesterol diet and regular exercise. Recheck labs in 1 year. ----- Message ----- From: Lab, Background User Sent: 06/20/2025 5:25 PM EDT To: Wendy Paul APRN.[employer] IN[employer] [facility] 06-10-2025 Note HNO ID: [id number] Author: WENDY PAUL APRN.[employer] IN[employer] Service: ? Author Type: Nurse Practitioner Type: Progress Notes Filed: 06/10/2025 17:38 Note Text: 06/10/2025 Patient presents with: Physical Recording using [employer] software for draft documentation of the visit was discussed with the patient/authorized retail wireless sales representative; all questions welcomed and answered. Patient/authorized retail wireless sales representative agreed to proceed SUBJECTIVE: This is a 35 year old that is here today for Above Complaints. - Occasionally takes Advil PM for sleep disturbances, with reported efficacy. - Has not received the HPV vaccine; received two doses of the Hepatitis B vaccine, with the last dose in 2006. Weight Gain: - Current weight: 191 lbs; previous weight in September: 177 lbs. - Hortencia denies significant dietary changes; reduced soda consumption and avoids sugary foods. - Engages in regular walking at work; Hortencia denies understanding the cause of weight gain. - Hortencia denies frequent fast food consumption. Plantar Fasciitis: - Left foot plantar fasciitis; under treatment by a residential monitor. - Received two injections with reported improvement. PAST MEDICAL HISTORY Diagnosis Date Abnormal glandular Papanicolaou smear of cervix 04/2013 Abn. 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 No current facility-administered medications for this visit. Medications and allergies reviewed by this provider. SOCIAL HISTORY SOCIAL HISTORY[1] REVIEW OF SYSTEMS GENERAL: No weight loss, malaise or fevers HEENT: Negative for frequent or significant headaches, No changes in hearing or vision, no nose bleeds or other nasal problems NECK: Negative for lumps, goiter, pain and significant neck swelling RESPIRATORY: Negative for cough, hemoptysis, wheezing, COPD, dyspnea or shortness of breath CARDIOVASCULAR: Negative for chest pain, leg swelling, hypertension, CHF or palpitations GI: No nausea, vomiting, or diarrhea : No history of dysuria, frequency or incontinence CRIME SCENE INVESTIGATOR: Negative for abnormal vaginal bleeding, abnormal vaginal discharge MUSCULOSKELETAL: Negative for joint pain or swelling, back pain or muscle pain and left plantar fasciitis SKIN: Negative for lesions, rash, and itching PSYCH: Negative for sleep disturbance, mood disorder and recent psychosocial stressors HEMATOLOGY/LYMPHOLOGY: Negative for prolonged bleeding, bruising easily or swollen nodes ENDOCRINE: Negative for cold or heat intolerance, polyuria, polydipsia and goiter NEURO: No history of headaches, syncope, paralysis, seizures or tremors All other reviewed and negative other than HPI. OBJECTIVE: BP 118/76 Pulse 87 Resp 18 Ht 159 cm (5' 2.6) Wt 87 kg (191 lb 12.8 oz) LMP 02/01/2023 SpO2 97% BMI 34.41 kg/m? . Vital signs reviewed by this provider. APPEARANCE Well appearing, alert, in no acute distress, well-hydrated, well nourished. EYES conjunctiva and sclera normal. EARS External ears normal, canals clear NECK Supple, no adenopathy; thyroid symmetric, normal size, no bruits HEART RRR with normal S1 and S2, no murmurs, no gallops, no JVD appreciated LUNG clear to auscultation. No wheezes, rhonchi or rales ABDOMEN bowel sounds normoactive, no bruits, soft, non-tender, non-distended EXTREMITIES Extremities normal, No deformities, No skin discoloration, and No edema SKIN Skin color, texture, turgor normal, no suspicious rashes or lesions Hepatitis B Vaccine(3 of 3 - 3-dose series) due on 05/09/2007 HPV Vaccine(1 - 3-dose SCDM series) Never done Depression Screening due on 06/04/2025 Anxiety Screening due on 06/04/2025 Influenza Vaccine(1) due on 04/06/2026 Cervical Cancer Screening due on 03/15/2026 DTaP,Tdap,Td Vaccine(3 - Td or Tdap) due on 11/05/2026 Hepatitis C Screening Completed HIV Screening Completed 1. Annual physical exam (Z00.00) - No acute complaints or abnormal findings on review of systems. - Order routine labs; instructed patient to fast for 10 hours prior to blood draw. - Follow-up in 1 year unless new concerns arise. 2. Encounter for immunization (Z23) - Administer HPV vaccine (first dose of 3-dose series); reviewed schedule (now, 2 months, 6 months). - Administer third dose of hepatitis B vaccine; reviewed that series does not need to be restarted despite delay. 3. Screening for depression (Z13.31) 4. Encounter for screening examination for other mental health and behavioral disorders (Z13.39) - Reports difficulty staying asleep; occas (more content not included)... [facility] 06-10-2025 History of Presen t illness Narrative 06/10/2025 Patient presents with: Physical Recording using [employer] software for draft documentation of the visit was discussed with the patient/authorized retail wireless sales representative; all questions welcomed and answered. Patient/authorized retail wireless sales representative agreed to proceed SUBJECTIVE: This is a 35 year old that is here today for Above Complaints. - Occasionally takes Advil PM for sleep disturbances, with reported efficacy. - Has not received the HPV vaccine; received two doses of the Hepatitis B vaccine, with the last dose in 2006. Weight Gain: - Current weight: 191 lbs; previous weight in September: 177 lbs. - Hortencia denies significant dietary changes; reduced soda consumption and avoids sugary foods. - Engages in regular walking at work; Hortencia denies understanding the cause of weight gain. - Hortencia denies frequent fast food consumption. Plantar Fasciitis: - Left foot plantar fasciitis; under treatment by a residential monitor. - Received two injections with reported improvement. PAST MEDICAL HISTORY Diagnosis Date Abnormal glandular Papanicolaou smear of cervix 04/2013 Abn. Pap smear (cervix) Chronic fatigue 12/27/2015 Chronic pain of left knee Excessive daytime sleepiness 03/13/2016 Gastroesophageal reflux disease without esophagitis Irregular menstrual cycle s/p endometrial ablation Kidney stones Methamphetamine abuse in remission ([facility]) last use 12/20/2018 ALLERGIES Latex, Lidocaine-Epinephrine, Macrobid [Nitrofurantoin Monohyd/M-Cryst], Pyridium [Phenazopyridine], and Flavoxate MEDICATIONS No current outpatient medications on file. No current facility-administered medications for this visit. Medications and allergies reviewed by this provider. SOCIAL HISTORY SOCIAL HISTORY[1] REVIEW OF SYSTEMS GENERAL: No weight loss, malaise or fevers HEENT: Negative for frequent or significant headaches, No changes in hearing or vision, no nose bleeds or other nasal problems NECK: Negative for lumps, goiter, pain and significant neck swelling RESPIRATORY: Negative for cough, hemoptysis, wheezing, COPD, dyspnea or shortness of breath CARDIOVASCULAR: Negative for chest pain, leg swelling, hypertension, CHF or palpitations GI: No nausea, vomiting, or diarrhea : No history of dysuria, frequency or incontinence CRIME SCENE INVESTIGATOR: Negative for abnormal vaginal bleeding, abnormal vaginal discharge MUSCULOSKELETAL: Negative for joint pain or swelling, back pain or muscle pain and left plantar fasciitis SKIN: Negative for lesions, rash, and itching PSYCH: Negative for sleep disturbance, mood disorder and recent psychosocial stressors HEMATOLOGY/LYMPHOLOGY: Negative for prolonged bleeding, bruising easily or swollen nodes ENDOCRINE: Negative for cold or heat intolerance, polyuria, polydipsia and goiter NEURO: No history of headaches, syncope, paralysis, seizures or tremors All other reviewed and negative other than HPI. OBJECTIVE: BP 118/76 Pulse 87 Resp 18 Ht 159 cm (5' 2.6) Wt 87 kg (191 lb 12.8 oz) LMP 02/01/2023 SpO2 97% BMI 34.41 kg/m . Vital signs reviewed by this provider. APPEARANCE Well appearing, alert, in no acute distress, well-hydrated, well nourished. EYES conjunctiva and sclera normal. EARS External ears normal, canals clear NECK Supple, no adenopathy; thyroid symmetric, normal size, no bruits HEART RRR with normal S1 and S2, no murmurs, no gallops, no JVD appreciated LUNG clear to auscultation. No wheezes, rhonchi or rales ABDOMEN bowel sounds normoactive, no bruits, soft, non-tender, non-distended EXTREMITIES Extremities normal, No deformities, No skin discoloration, and No edema SKIN Skin color, texture, turgor normal, no suspicious rashes or lesions Hepatitis B Vaccine(3 of 3 - 3-dose series) due on 05/09/2007 HPV Vaccine(1 - 3-dose SCDM series) Never done Depression Screening due on 06/04/2025 Anxiety Screening due on 06/04/2025 Influenza Vaccine(1) due on 04/06/2026 Cervical Cancer Screening due on 03/15/2026 DTaP,Tdap,Td Vaccine(3 - Td or Tdap) due on 11/05/2026 Hepatitis C Screening Completed HIV Screening Completed 1. Annual physical exam (Z00.00) - No acute complaints or abnormal findings on review of systems. - Order routine labs; instructed patient to fast for 10 hours prior to blood draw. - Follow-up in 1 year unless new concerns arise. 2. Encounter for immunization (Z23) - Administer HPV vaccine (first dose of 3-dose series); reviewed schedule (now, 2 months, 6 months). - Administer third dose of hepatitis B vaccine; reviewed that series does not need to be restarted despite delay. 3. Screening for depression (Z13.31) 4. Encounter for screening examination for other mental health and behavioral disorders (Z13.39) - Reports difficulty staying asleep; occasionally uses Advil PM with relief. 5. Screening for cervical cancer (Z12.4) - Reviewed external records from Dr. Ugarte dated 03/15/23 regarding cervical screening. 6. Weight gain (R63.5) 7. Overweight (E66.3) - Weight increased from 177 lbs in September to 191 lbs currently. - Discussed importance of 30 minutes of uninterrupted, heart rate-elevating exercise daily (150 minutes/week). - Advised low-carbohydrate, balanced diet focusing on whole foods; avoid packaged/processed foods. - Order thyroid labs to rule out metabolic causes. - Discussed weight loss medications; advised patient to check insurance coverage. Wendy Paul APRN.JOE Prescription instructions reviewed with patient as applicable. Patient advised if symptoms do not improve or if symptoms worsen sooner, to contact their primary care physician. Potential red flag symptoms discussed with the patient. Reviewed appropriate action plan to take if red flag symptoms occur. Patient agreeable to treatment plan. [1] Social History Tobacco Use Smoking status: Never Smokeless tobacco: Never Vaping Use Vaping status: Never Used Substance Use Topics Alcohol use: Not Currently Drug use: Not Currently Types: Amphetamines documented in this encounter [facility] 03-05-2025 Note HNO ID: [id number] Author: BENEDICT SUMMERS APRN.CNP Service: ? Author Type: Nurse Practitioner Type: Progress Notes Filed: 03/05/2025 15:14 Note Text: Subjective HPI Nontoxic-appearing 34-year-old female presents urgent care chief complaint insect sting to right forearm. States this happened a little over a week ago. Still has mild swelling. Presents today for evaluation. No pain. His area is itchy. Denies any OTC medication use for today. Has tried Benadryl and hydrocortisone cream this has helped minimally. No pain. No numbness or tingling. No decrease sensation. 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 Past medical history prescription medications allergies reviewed. .Patient presents with: Insect Bite: R forearm bee sting x9 days, arm still red and swollen PAST MEDICAL HISTORY Diagnosis Date Abnormal glandular Papanicolaou smear of cervix 04/2013 Abn. 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 Gauthier-partial. also-bilateral tubal occlusion with Filshie Clips; Lysis of adhesions ALLERGIES Latex, Lidocaine-Epinephrine, Macrobid [Nitrofurantoin Monohyd/M-Cryst], Pyridium [Phenazopyridine], and Flavoxate MEDICATIONS triamcinolone acetonide (KENALOG) 0.1 % cream Apply 1 application to affected area three times a day for 7 days. Apply sparingly to area for rash/itching. LYSINE ORAL Take by mouth. docosanol (ABREVA) 10 % crea Apply to affected area five times a day. albuterol HFA (PROVENTIL HFA, VENTOLIN HFA) 90 mcg/actuation inhaler Inhale 2 Puffs as instructed every 4 hours as needed for wheezing/shortness of breath. tacrolimus (PROTOPIC) 0.1 % ointment APPLY A THIN LAYER, NO MORE THAN 1.7 GRAMS PER APPLICATION TO FACE, ARMS, AND HANDS TWICE DAILY. upadacitinib tablet ER 24 hr 15 mg (RINVOQ) Take 15 mg by mouth every other day. Swallow whole; DO NOT crush, chew, or open. sucralfate (CARAFATE) 1 gram tablet Take 1 tablet by mouth before meals and at bedtime. FAMILY HISTORY Problem Relation Age of Onset other (Other) Mother Narcolepsy, JOSUE Alcohol/Drug Brother Diabetes Maternal Grandmother Hypertension Maternal Grandmother Breast Cancer Maternal Grandmother Coronary Artery Disease Maternal Grandfather Colon Cancer Maternal Grandfather Heart Maternal Grandfather [place] Thyroid Paternal Grandmother other (ADHD) Daughter other (ODD) Daughter other (Hip Dysplasia) Daughter other (Kidney Reflex) Daughter other (ADHD) Daughter Social History Tobacco Use Smoking status: Never Smokeless tobacco: Never Vaping Use Vaping status: Never Used Substance Use Topics Alcohol use: Not Currently Drug use: Not Currently Types: Amphetamines BP 124/94 Pulse 82 Temp 36.6 ?C (97.8 ?F) Resp 18 Wt 86.2 kg (190 lb 0.6 oz) LMP 02/01/2023 SpO2 100% BMI 33.66 kg/m? Review of Systems Constitutional: Negative for chills, fever and malaise/fatigue. HENT: Negative for congestion, ear discharge, ear pain, sinus pain and sore throat. Eyes: Negative for blurred vision, pain, discharge and redness. Respiratory: Negative for cough, hemoptysis, sputum production, shortness of breath, wheezing and stridor. Cardiovascular: Negative for chest pain. Gastrointestinal: Negative for abdominal pain, diarrhea, nausea and vomiting. Musculoskeletal: Negative for myalgias. Skin: Positive for itching. Negative for rash. Neurological: Negative for dizziness and headaches. Objective Physical Exam Constitutional: General: She is not in acute distress. Appearance: She is not toxic-appearing. HENT: Head: Normocephalic. Nose: Nose normal. Eyes: Pupils: Pupils are equal, round, and reactive to light. Cardiovascular: Rate and Rhythm: Normal rate. Pulmonary: Effort: Pulmonary effort is normal. No respiratory distress. Musculoskeletal: Cervical back: Normal range of motion. Skin: General: Skin is warm and dry. Comments: Approximately a 4 cm x 4 cm area of edema noted. No erythema. Center of edema small ronnie representing insect sting noted. No foreign bodies. No fluctuance. No evidence of infection. Neurological: General: No focal deficit present. Mental Status: She is alert. ASSESSMENT/PLAN: 1. Bee sting, accident (more content not included)... [facility] 03-05-2025 History of Presen t illness Narrative Images from the original note were not included. Subjective HPI Nontoxic-appearing 34-year-old female presents urgent care chief complaint insect sting to right forearm. States this happened a little over a week ago. Still has mild swelling. Presents today for evaluation. No pain. His area is itchy. Denies any OTC medication use for today. Has tried Benadryl and hydrocortisone cream this has helped minimally. No pain. No numbness or tingling. No decrease sensation. 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 Past medical history prescription medications allergies reviewed. .Patient presents with: Insect Bite: R forearm bee sting x9 days, arm still red and swollen PAST MEDICAL HISTORY Diagnosis Date Abnormal glandular Papanicolaou smear of cervix 04/2013 Abn. 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 Gauthier-partial. also-bilateral tubal occlusion with Filshie Clips; Lysis of adhesions ALLERGIES Latex, Lidocaine-Epinephrine, Macrobid [Nitrofurantoin Monohyd/M-Cryst], Pyridium [Phenazopyridine], and Flavoxate MEDICATIONS triamcinolone acetonide (KENALOG) 0.1 % cream Apply 1 application to affected area three times a day for 7 days. Apply sparingly to area for rash/itching. LYSINE ORAL Take by mouth. docosanol (ABREVA) 10 % crea Apply to affected area five times a day. albuterol HFA (PROVENTIL HFA, VENTOLIN HFA) 90 mcg/actuation inhaler Inhale 2 Puffs as instructed every 4 hours as needed for wheezing/shortness of breath. tacrolimus (PROTOPIC) 0.1 % ointment APPLY A THIN LAYER, NO MORE THAN 1.7 GRAMS PER APPLICATION TO FACE, ARMS, AND HANDS TWICE DAILY. upadacitinib tablet ER 24 hr 15 mg (RINVOQ) Take 15 mg by mouth every other day. Swallow whole; DO NOT crush, chew, or open. sucralfate (CARAFATE) 1 gram tablet Take 1 tablet by mouth before meals and at bedtime. FAMILY HISTORY Problem Relation Age of Onset other (Other) Mother Narcolepsy, JOSUE Alcohol/Drug Brother Diabetes Maternal Grandmother Hypertension Maternal Grandmother Breast Cancer Maternal Grandmother Coronary Artery Disease Maternal Grandfather Colon Cancer Maternal Grandfather Heart Maternal Grandfather [place] Thyroid Paternal Grandmother other (ADHD) Daughter other (ODD) Daughter other (Hip Dysplasia) Daughter other (Kidney Reflex) Daughter other (ADHD) Daughter Social History Tobacco Use Smoking status: Never Smokeless tobacco: Never Vaping Use Vaping status: Never Used Substance Use Topics Alcohol use: Not Currently Drug use: Not Currently Types: Amphetamines BP 124/94 Pulse 82 Temp 36.6 C (97.8 F) Resp 18 Wt 86.2 kg (190 lb 0.6 oz) LMP 02/01/2023 SpO2 100% BMI 33.66 kg/m Review of Systems Constitutional: Negative for chills, fever and malaise/fatigue. HENT: Negative for congestion, ear discharge, ear pain, sinus pain and sore throat. Eyes: Negative for blurred vision, pain, discharge and redness. Respiratory: Negative for cough, hemoptysis, sputum production, shortness of breath, wheezing and stridor. Cardiovascular: Negative for chest pain. Gastrointestinal: Negative for abdominal pain, diarrhea, nausea and vomiting. Musculoskeletal: Negative for myalgias. Skin: Positive for itching. Negative for rash. Neurological: Negative for dizziness and headaches. Objective Physical Exam Constitutional: General: She is not in acute distress. Appearance: She is not toxic-appearing. HENT: Head: Normocephalic. Nose: Nose normal. Eyes: Pupils: Pupils are equal, round, and reactive to light. Cardiovascular: Rate and Rhythm: Normal rate. Pulmonary: Effort: Pulmonary effort is normal. No respiratory distress. Musculoskeletal: Cervical back: Normal range of motion. Skin: General: Skin is warm and dry. Comments: Approximately a 4 cm x 4 cm area of edema noted. No erythema. Center of edema small ronnie representing insect sting noted. No foreign bodies. No fluctuance. No evidence of infection. Neurological: General: No focal deficit present. Mental Status: She is alert. ASSESSMENT/PLAN: 1. Bee sting, accidental or unintentional, initial encounter - ICD9: 989.5, E905.3, ICD10: T63.441A Diagnosis bee sting. No evidence of secondary bacterial infection noted. Use steroid cream as instructed. Use second-generation antihistamines as instructed. Patient was educated on supportive therapies. Patient will follow up with primary care provider as needed. Patient was instructed to immediately proceed to emergency room for any new, worsening, or symptoms lasting longer than anticipated. The patient's clinical presentation is otherwise unremarkable at this time. Based on exam and clinical finding, the patient is stable for discharge. Plan of care was discussed with patient. Patient verbalizes understanding and agrees to plan of care. This note was generated using [employer] software. It may contain errors in wording, punctuation, or spelling. Benedict Summers APRN.JOE documented in this encounter [facility] 01-23-2025 Note HNO ID: [id number] Author: WENDY PAUL APRN.GRE INSTRUCTOR Service: ? Author Type: Nurse Practitioner Type: Progress Notes Filed: 01/23/2025 11:15 Note Text: 01/23/2025 Patient presents with: Follow Up: [facility] on right ear SUBJECTIVE: This is a 34 year old that is here today for Above Complaints. [facility] 12/[facility]24 for right ear swelling after piercing. Treated for cellulitis ad concern for perichondritis. Treated with Ciprofloxacin. Competed entire course. Using antibacterial awash as instructed. Reports improved but still with some discomfort. Denies fevers, chills, redness, warmth, swelling or purulent drainage PAST MEDICAL HISTORY Diagnosis Date Abnormal glandular Papanicolaou smear of cervix 04/2013 Abn. 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 docosanol (ABREVA) 10 % crea Apply to affected area five times a day. albuterol HFA (PROVENTIL HFA, VENTOLIN HFA) 90 mcg/actuation inhaler Inhale 2 Puffs as instructed every 4 hours as needed for wheezing/shortness of breath. tacrolimus (PROTOPIC) 0.1 % ointment APPLY A THIN LAYER, NO MORE THAN 1.7 GRAMS PER APPLICATION TO FACE, ARMS, AND HANDS TWICE DAILY. upadacitinib tablet ER 24 hr 15 mg (RINVOQ) Take 15 mg by mouth every other day. Swallow whole; DO NOT crush, chew, or open. sucralfate (CARAFATE) 1 gram tablet Take 1 tablet by mouth before meals and at bedtime. No current facility-administered medications for this visit. Medications and allergies reviewed by this provider. SOCIAL HISTORY Social History Tobacco Use Smoking status: Never Smokeless tobacco: Never Vaping Use Vaping status: Never Used Substance Use Topics Alcohol use: Not Currently Drug use: Not Currently Types: Amphetamines REVIEW OF SYSTEMS All other reviewed and negative other than HPI. OBJECTIVE: BP 116/80 Pulse 94 Resp 18 Wt 83.9 kg (185 lb) LMP 02/01/2023 SpO2 95% BMI 32.77 kg/m? . Vital signs reviewed by this provider. APPEARANCE Well appearing, alert, in no acute distress, well-hydrated, well nourished. RIGHT EAR: industrial piercing intact without erythema, swelling, excessive warmth or drainage. Mid TTP to lower part Covid-19 Vaccine(1) Never done Hepatitis B Vaccine(3 of 3 - 3-dose series) due on 05/09/2007 Shingrix Vaccine(1 of 2) Never done Pneumococcal Vaccine(1 of 2 - PCV) Never done Cervical Cancer Screening due on 05/27/2021 Influenza Vaccine(1) due on 2024 Depression Screening due on 06/04/2025 Anxiety Screening due on 06/04/2025 DTaP,Tdap,Td Vaccine(3 - Td or Tdap) due on 11/05/2026 Hepatitis C Screening Completed HIV Screening Completed ASSESSMENT/PLAN: 1. Piercing in right external ear - ICD9: 872.00, ICD10: S01.331A - no red flag symptoms or exam findings - red flag symptoms discussed, verbalizes understanding - continue to keep ear clean and would avoid laying on that side when sleeping - may use neosporin to area as well - if persists may want to remove piercing, follow-up as needed to ER with red flag symptoms Wendy Paul, BARON.GRE INSTRUCTOR Prescription instructions reviewed with patient as applicable. Patient advised if symptoms do not improve or if symptoms worsen sooner, to contact their primary care physician. Potential red flag symptoms discussed with the patient. Reviewed appropriate action plan to take if red flag symptoms occur. Patient agreeable to treatment plan. I spent a total of 20 minutes on the date of the service which included preparing to see the patient, [id number] patient care, completing clinical documentation, obtaining and/or reviewing separately obtained history, performing a medically appropriate examination, and counseling and educating the patient/family/caregiver. [facility] 01-23-2025 History of Presen t illness Narrative 01/23/2025 Patient presents with: Follow Up: [facility] for [facility] on right ear SUBJECTIVE: This is a 34 year old that is here today for Above Complaints. [facility]en [facility] 12/[facility]24 for right ear swelling after piercing. Treated for cellulitis ad concern for perichondritis. Treated with Ciprofloxacin. Competed entire course. Using antibacterial awash as instructed. Reports improved but still with some discomfort. Denies fevers, chills, redness, warmth, swelling or purulent drainage PAST MEDICAL HISTORY Diagnosis Date Abnormal glandular Papanicolaou smear of cervix 04/2013 Abn. Pap smear (cervix) Chronic fatigue 12/27/2015 Chronic pain of left knee Excessive daytime sleepiness 03/13/2016 Gastroesophageal reflux disease without esophagitis Irregular menstrual cycle s/p endometrial ablation Kidney stones Methamphetamine abuse in remission ([facility]) last use 12/20/2018 ALLERGIES Latex, Lidocaine-Epinephrine, Macrobid [Nitrofurantoin Monohyd/M-Cryst], Pyridium [Phenazopyridine], and Flavoxate MEDICATIONS Current Outpatient Medications Medication Sig LYSINE ORAL Take by mouth. docosanol (ABREVA) 10 % crea Apply to affected area five times a day. albuterol HFA (PROVENTIL HFA, VENTOLIN HFA) 90 mcg/actuation inhaler Inhale 2 Puffs as instructed every 4 hours as needed for wheezing/shortness of breath. tacrolimus (PROTOPIC) 0.1 % ointment APPLY A THIN LAYER, NO MORE THAN 1.7 GRAMS PER APPLICATION TO FACE, ARMS, AND HANDS TWICE DAILY. upadacitinib tablet ER 24 hr 15 mg (RINVOQ) Take 15 mg by mouth every other day. Swallow whole; DO NOT crush, chew, or open. sucralfate (CARAFATE) 1 gram tablet Take 1 tablet by mouth before meals and at bedtime. No current facility-administered medications for this visit. Medications and allergies reviewed by this provider. SOCIAL HISTORY Social History Tobacco Use Smoking status: Never Smokeless tobacco: Never Vaping Use Vaping status: Never Used Substance Use Topics Alcohol use: Not Currently Drug use: Not Currently Types: Amphetamines REVIEW OF SYSTEMS All other reviewed and negative other than HPI. OBJECTIVE: BP 116/80 Pulse 94 Resp 18 Wt 83.9 kg (185 lb) LMP 02/01/2023 SpO2 95% BMI 32.77 kg/m . Vital signs reviewed by this provider. APPEARANCE Well appearing, alert, in no acute distress, well-hydrated, well nourished. RIGHT EAR: industrial piercing intact without erythema, swelling, excessive warmth or drainage. Mid TTP to lower part Covid-19 Vaccine(1) Never done Hepatitis B Vaccine(3 of 3 - 3-dose series) due on 05/09/2007 Shingrix Vaccine(1 of 2) Never done Pneumococcal Vaccine(1 of 2 - PCV) Never done Cervical Cancer Screening due on 05/27/2021 Influenza Vaccine(1) due on 2024 Depression Screening due on 06/04/2025 Anxiety Screening due on 06/04/2025 DTaP,Tdap,Td Vaccine(3 - Td or Tdap) due on 11/05/2026 Hepatitis C Screening Completed HIV Screening Completed ASSESSMENT/PLAN: 1. Piercing in right external ear - ICD9: 872.00, ICD10: S01.331A - no red flag symptoms or exam findings - red flag symptoms discussed, verbalizes understanding - continue to keep ear clean and would avoid laying on that side when sleeping - may use neosporin to area as well - if persists may want to remove piercing, follow-up as needed to ER with red flag symptoms Wendy Paul APRN.CNP Prescription instructions reviewed with patient as applicable. Patient advised if symptoms do not improve or if symptoms worsen sooner, to contact their primary care physician. Potential red flag symptoms discussed with the patient. Reviewed appropriate action plan to take if red flag symptoms occur. Patient agreeable to treatment plan. I spent a total of 20 minutes on the date of the service which included preparing to see the patient, [id number] patient care, completing clinical documentation, obtaining and/or reviewing separately obtained history, performing a medically appropriate examination, and counseling and educating the patient/family/caregiver. documented in this encounter [facility] 12-29-2024 Note HNO ID: [id number] Author: BENEDICT SUMMERS APRN.CNP Service: ? Author Type: Nurse Practitioner Type: Progress Notes Filed: 12/29/2024 11:52 Note Text: Subjective HPI Nontoxic-appearing female presents urgent care chief complaint right ear pain and swelling. Duration of symptoms 2 weeks. Associated symptoms listed above. States initially symptoms were mild to have worsened. States felt on the way well yesterday. Had bodyaches chills. Went had a low-grade fever. States 2 weeks ago she had her cartilage of her ear pierced. Presents today for evaluation. OTC medications none. Denies chance of . Is not breast-feeding. Past medical history prescription medications allergies reviewed. .Patient presents with: Ear Problem: Right ear piercing pain and swelling x 2 weeks PAST MEDICAL HISTORY Diagnosis Date Abnormal glandular Papanicolaou smear of cervix 04/2013 Abn. 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 Gauthier-partial. also-bilateral tubal occlusion with Filshie Clips; Lysis of adhesions ALLERGIES Latex, Lidocaine-Epinephrine, Macrobid [Nitrofurantoin Monohyd/M-Cryst], Pyridium [Phenazopyridine], and Flavoxate MEDICATIONS LYSINE ORAL Take by mouth. docosanol (ABREVA) 10 % crea Apply to affected area five times a day. albuterol HFA (PROVENTIL HFA, VENTOLIN HFA) 90 mcg/actuation inhaler Inhale 2 Puffs as instructed every 4 hours as needed for wheezing/shortness of breath. tacrolimus (PROTOPIC) 0.1 % ointment APPLY A THIN LAYER, NO MORE THAN 1.7 GRAMS PER APPLICATION TO FACE, ARMS, AND HANDS TWICE DAILY. upadacitinib tablet ER 24 hr 15 mg (RINVOQ) Take 15 mg by mouth every other day. Swallow whole; DO NOT crush, chew, or open. sucralfate (CARAFATE) 1 gram tablet Take 1 tablet by mouth before meals and at bedtime. FAMILY HISTORY Problem Relation Age of Onset other (Other) Mother Narcolepsy, JOSUE Alcohol/Drug Brother Diabetes Maternal Grandmother Hypertension Maternal Grandmother Breast Cancer Maternal Grandmother Coronary Artery Disease Maternal Grandfather Colon Cancer Maternal Grandfather Heart Maternal Grandfather [place] Thyroid Paternal Grandmother other (ADHD) Daughter other (ODD) Daughter other (Hip Dysplasia) Daughter other (Kidney Reflex) Daughter other (ADHD) Daughter Social History Tobacco Use Smoking status: Never Smokeless tobacco: Never Vaping Use Vaping status: Never Used Substance Use Topics Alcohol use: Not Currently Drug use: Not Currently Types: Amphetamines BP 128/82 Pulse 74 Temp 36.6 ?C (97.8 ?F) (Tympanic) Resp 16 Wt 83.7 kg (184 lb 8.4 oz) LMP 02/01/2023 SpO2 97% BMI 32.69 kg/m? Review of Systems Constitutional: Negative for chills, fever and malaise/fatigue. HENT: Positive for ear pain. Negative for congestion, ear discharge, sinus pain and sore throat. Eyes: Negative for blurred vision, pain, discharge and redness. Respiratory: Negative for cough, hemoptysis, sputum production, shortness of breath, wheezing and stridor. Cardiovascular: Negative for chest pain. Gastrointestinal: Negative for abdominal pain, diarrhea, nausea and vomiting. Musculoskeletal: Negative for myalgias. Skin: Negative for itching and rash. Neurological: Negative for dizziness and headaches. Objective Physical Exam Constitutional: General: She is not in acute distress. Appearance: She is not diaphoretic. HENT: Head: Normocephalic. Jaw: No trismus, tenderness, swelling or pain on movement. Ears: Comments: Piercing noted highlighted area. Surrounding wound drainage and erythema noted. Mild edema noted. No adenopathy noted Mouth/Throat: Mouth: Mucous membranes are moist. Pharynx: Oropharynx is clear. Uvula midline. No pharyngeal swelling, oropharyngeal exudate, posterior oropharyngeal erythema or uvula swelling. Eyes: Conjunctiva/sclera: Conjunctivae normal. Pupils: Pupils are equal, round, and reactive to light. Cardiovascular: Rate and Rhythm: Normal rate and regular rhythm. Heart sounds: Normal heart sounds. Pulmonary: Effort: Pulmonary effort is normal. No tachypnea, accessory muscle usage or respiratory distress. Breath sounds: Normal breath sounds. No stridor. No wheezing, rho (more content not included)... [facility] 12-29-2024 History of Presen t illness Narrative Images from the original note were not included. Subjective HPI Nontoxic-appearing female presents urgent care chief complaint right ear pain and swelling. Duration of symptoms 2 weeks. Associated symptoms listed above. States initially symptoms were mild to have worsened. States felt on the way well yesterday. Had bodyaches chills. Went had a low-grade fever. States 2 weeks ago she had her cartilage of her ear pierced. Presents today for evaluation. OTC medications none. Denies chance of . Is not breast-feeding. Past medical history prescription medications allergies reviewed. .Patient presents with: Ear Problem: Right ear piercing pain and swelling x 2 weeks PAST MEDICAL HISTORY Diagnosis Date Abnormal glandular Papanicolaou smear of cervix 04/2013 Abn. 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 Gauthier-partial. also-bilateral tubal occlusion with Filshie Clips; Lysis of adhesions ALLERGIES Latex, Lidocaine-Epinephrine, Macrobid [Nitrofurantoin Monohyd/M-Cryst], Pyridium [Phenazopyridine], and Flavoxate MEDICATIONS LYSINE ORAL Take by mouth. docosanol (ABREVA) 10 % crea Apply to affected area five times a day. albuterol HFA (PROVENTIL HFA, VENTOLIN HFA) 90 mcg/actuation inhaler Inhale 2 Puffs as instructed every 4 hours as needed for wheezing/shortness of breath. tacrolimus (PROTOPIC) 0.1 % ointment APPLY A THIN LAYER, NO MORE THAN 1.7 GRAMS PER APPLICATION TO FACE, ARMS, AND HANDS TWICE DAILY. upadacitinib tablet ER 24 hr 15 mg (RINVOQ) Take 15 mg by mouth every other day. Swallow whole; DO NOT crush, chew, or open. sucralfate (CARAFATE) 1 gram tablet Take 1 tablet by mouth before meals and at bedtime. FAMILY HISTORY Problem Relation Age of Onset other (Other) Mother Narcolepsy, JOSUE Alcohol/Drug Brother Diabetes Maternal Grandmother Hypertension Maternal Grandmother Breast Cancer Maternal Grandmother Coronary Artery Disease Maternal Grandfather Colon Cancer Maternal Grandfather Heart Maternal Grandfather [place] Thyroid Paternal Grandmother other (ADHD) Daughter other (ODD) Daughter other (Hip Dysplasia) Daughter other (Kidney Reflex) Daughter other (ADHD) Daughter Social History Tobacco Use Smoking status: Never Smokeless tobacco: Never Vaping Use Vaping status: Never Used Substance Use Topics Alcohol use: Not Currently Drug use: Not Currently Types: Amphetamines BP 128/82 Pulse 74 Temp 36.6 C (97.8 F) (Tympanic) Resp 16 Wt 83.7 kg (184 lb 8.4 oz) LMP 02/01/2023 SpO2 97% BMI 32.69 kg/m Review of Systems Constitutional: Negative for chills, fever and malaise/fatigue. HENT: Positive for ear pain. Negative for congestion, ear discharge, sinus pain and sore throat. Eyes: Negative for blurred vision, pain, discharge and redness. Respiratory: Negative for cough, hemoptysis, sputum production, shortness of breath, wheezing and stridor. Cardiovascular: Negative for chest pain. Gastrointestinal: Negative for abdominal pain, diarrhea, nausea and vomiting. Musculoskeletal: Negative for myalgias. Skin: Negative for itching and rash. Neurological: Negative for dizziness and headaches. Objective Physical Exam Constitutional: General: She is not in acute distress. Appearance: She is not diaphoretic. HENT: Head: Normocephalic. Jaw: No trismus, tenderness, swelling or pain on movement. Ears: Comments: Piercing noted highlighted area. Surrounding wound drainage and erythema noted. Mild edema noted. No adenopathy noted Mouth/Throat: Mouth: Mucous membranes are moist. Pharynx: Oropharynx is clear. Uvula midline. No pharyngeal swelling, oropharyngeal exudate, posterior oropharyngeal erythema or uvula swelling. Eyes: Conjunctiva/sclera: Conjunctivae normal. Pupils: Pupils are equal, round, and reactive to light. Cardiovascular: Rate and Rhythm: Normal rate and regular rhythm. Heart sounds: Normal heart sounds. Pulmonary: Effort: Pulmonary effort is normal. No tachypnea, accessory muscle usage or respiratory distress. Breath sounds: Normal breath sounds. No stridor. No wheezing, rhonchi or rales. Abdominal: General: There is no distension. Palpations: Abdomen is soft. Tenderness: There is no abdominal tenderness. There is no guarding or rebound. Musculoskeletal: Cervical back: Normal range of motion and neck supple. No edema, erythema, rigidity or tenderness. No pain with movement. Normal range of motion. Lymphadenopathy: Cervical: No cervical adenopathy. Skin: General: Skin is warm and dry. Neurological: Mental Status: She is alert and oriented to person, place, and time. ASSESSMENT/PLAN: 1. Cellulitis of antihelix of right ear - ICD9: 380.10, ICD10: H60.11 Diagnosed cellulitis of ear. Concerned about early perichondritis. Cover Pseudomonas with fluoroquinolones. Discussed risk and benefit of antibiotic. Patient was educated on supportive therapies. Patient will follow up with primary care provider as needed. Patient was instructed to immediately proceed to emergency room for any new, worsening, or symptoms lasting longer than anticipated. The patient's clinical presentation is otherwise unremarkable at this time. Based on exam and clinical finding, the patient is stable for discharge. Plan of care was discussed with patient. Patient verbalizes understanding and agrees to plan of care. This note was generated using [employer] software. It may contain errors in wording, punctuation, or spelling. Benedict Summers APRN.CNP documented in this encounter [facility] 09-30-2024 Instructions Deandra Rider APRN.CNP - 09/30/2024 12:31 PM EST Images from the original note were not included. ASSESSMENT/PLAN: 1. Sinobronchitis - ICD9: 473.9, 490, ICD10: J32.9, J40 (primary diagnosis) - Will begin treatment with as per antibiotic as written, see orders - Supportive care with plenty of fluids, rest, and analgesia prn. - AMOXICILLIN 875 MG-POTASSIUM CLAVULANATE 125 MG TABLET - ALBUTEROL SULFATE HFA 90 MCG/ACTUATION AEROSOL INHALER - INHALATIONAL SPACING DEVICE - PREDNISONE 20 MG TABLET 2. Canker sore - ICD9: 528.2, ICD10: K12.0 - DOCOSANOL 10 % TOPICAL CREAM - Follow-up with your PCP in 3-5 days if symptoms have not improved or sooner if symptoms worsen - Discussed red flags and need for immediate medical evaluation if any occur. - Discussed supportive care treatment with fluids, rest and analgesia. - Discussed expected course of illness Deandra Rider APRN.CNP Adult Sinusitis Patient Education What is Sinusitis? Sinusitis [tsui-ltk-izxi-tis] is inflammation of the sinuses or swelling of the lining of the sinus cavity or nose. During an infection the sinuses become blocked with fluid causing swelling of the lining of the sinuses. Symptoms: (viral and bacterial infections) Stuffy nose Runny nose Postnasal drip Fever Toothache Headache Tiredness Cough Sore throat Face and head pressure and or pain Common causes: 98% of sinus infections are viral caused by viruses. Risk Factors of Sinusitis Include: Allergies, air pollution, indoor humidity and outdoor temperature changes, andstructural changes in the nose may contribute to sinus pain, pressure and congestion. When to get help? Temperature greater than 100.4 F Symptoms lasting more than 10 days or worsening symptoms greater than 7-10 days. If you do not improve or worsen after a course of antibiotics, you should be re-examined. Diagnosis and Treatment: Your healthcare provider will ask a number of questions about your symptoms and how long they have occurred. If symptoms of sinusitis persist greater than 10 days, it is possible you have a bacterial sinus infection and an antibiotic is prescribed. If it is viral, antibiotics will not help. You may be instructed to take [id number] medications for symptoms. including fever reducers acetaminophen or ibuprofen, nasal saline spray, cough and cold preparations and decongestants as prescribed by the physician, nurse practitioner or physician gift shop assistant. Self-Care and Prevention: Rest Fluids for hydration Good hand washing Humidifier Avoid smoking and exposure to second hand smoke Avoid sick contacts documented in this encounter [facility] 09-30-2024 Note HNO ID: [id number] Author: DEANDRA RIDER APRN.GRE INSTRUCTOR Service: ? Author Type: Nurse Practitioner Type: Progress Notes Filed: 09/30/2024 12:32 Note Text: Subjective Nasal Congestion Associated symptoms include congestion, coughing, headaches, shortness of breath and a sore throat. Pertinent negatives include no chills or ear pain. Hortencia Mcadams is a 34 year old female who presents with 2 weeks of sinus congestion, drainage, cough, shortness of breath, sinus pressure, headache. Cough is productive. She feels short of breath going up stairs. Symptoms seemed to be improving slightly until 3 days ago when they suddenly worsened. She has been taking sinus pain reliever, allergy medication, and dayquil and nyquil at home. She also notes a sore on the corner of her mouth that has been present for a month. She has been taking OTC medication for this without improvement. Review of Systems Constitutional: Positive for malaise/fatigue. Negative for chills and fever. HENT: Positive for congestion, sinus pain and sore throat. Negative for ear pain. Respiratory: Positive for cough, sputum production and shortness of breath. Cardiovascular: Negative for chest pain. Gastrointestinal: Negative for diarrhea, nausea and vomiting. Musculoskeletal: Negative for myalgias. Neurological: Positive for headaches. BP 120/74 Pulse 96 Temp 36.9 ?C (98.5 ?F) Resp 16 Wt 80.7 kg (177 lb 14.6 oz) LMP 02/01/2023 SpO2 97% BMI 31.52 kg/m? PAST MEDICAL HISTORY Diagnosis Date - Abnormal glandular Papanicolaou smear of cervix 04/2013 Abn. Pap smear (cervix) - Chronic fatigue 12/27/2015 - Chronic pain of left knee - Excessive daytime sleepiness 03/13/2016 - Gastroesophageal reflux disease without esophagitis - Irregular menstrual cycle s/p endometrial ablation - Kidney stones - Methamphetamine abuse in remission ([facility]) last use 12/20/2018 PAST SURGICAL HISTORY Procedure Laterality Date - CARPAL TUNNEL Bilateral 09/2018 - DELIVERY ONLY 04/27/2008 , low cervical - DELIVERY ONLY 07/25/2011 , low transverse - HYSTEROSCOPY, DIAGNOSTIC (SEPARATE 01/10/2021 DANDC, hydrothermal ablation - INCISION DRAINAGE LACRIMAL SAC I AND d lacrimal sac, as infant - INSERTION OF IUD 07/03/2012 - NEXPLANON INSERTION 07/2015 - SALPINGECTOMY COMPL/PART 08/15/2018 [facility]-Dr. Gauthier-partial. also-bilateral tubal occlusion with Filshie Clips; Lysis of adhesions ALLERGIES Latex, Lidocaine-Epinephrine, Macrobid [Nitrofurantoin Monohyd/M-Cryst], Pyridium [Phenazopyridine], and Flavoxate MEDICATIONS - tacrolimus (PROTOPIC) 0.1 % ointment APPLY A THIN LAYER, NO MORE THAN 1.7 GRAMS PER APPLICATION TO FACE, ARMS, AND HANDS TWICE DAILY. - upadacitinib tablet ER 24 hr 15 mg (RINVOQ) Take 15 mg by mouth every other day. Swallow whole; DO NOT crush, chew, or open. - sucralfate (CARAFATE) 1 gram tablet Take 1 tablet by mouth before meals and at bedtime. - LYSINE ORAL Take by mouth. - amoxicillin-clavulanate potassium (AUGMENTIN) 875-125 mg per tablet Take 1 tablet by mouth two times a day for 7 days. - docosanol (ABREVA) 10 % crea Apply to affected area five times a day. - albuterol HFA (PROVENTIL HFA, VENTOLIN HFA) 90 mcg/actuation inhaler Inhale 2 Puffs as instructed every 4 hours as needed for wheezing/shortness of breath. - Inhalational Spacing Device 1 Device one time only for 1 dose. - predniSONE (DELTASONE) 20 mg tablet Take 1 tablet by mouth once daily for 4 days. FAMILY HISTORY Problem Relation Age of Onset - other (Other) Mother Narcolepsy, JOSUE - Alcohol/Drug Brother - Diabetes Maternal Grandmother - Hypertension Maternal Grandmother - Breast Cancer Maternal Grandmother - Coronary Artery Disease Maternal Grandfather - Colon Cancer Maternal Grandfather - Heart Maternal Grandfather [place] - Thyroid Paternal Grandmother - other (ADHD) Daughter - other (ODD) Daughter - other (Hip Dysplasia) Daughter - other (Kidney Reflex) Daughter - other (ADHD) Daughter Social History Tobacco Use - Smoking status: Never - Smokeless tobacco: Never Vaping Use - Vaping status: Never Used Substance Use Topics - Alcohol use: Not Currently - Drug use: Not Currently Types: Amphetamines Objective Physical Exam Vitals and nursing note reviewed. Constitutional: General: She is not in acute distress. Appearance: Normal appearance. She is not ill-appearing. HENT: Right Ear: Tympanic membrane, ear canal and external ear normal. Left Ear: Tympanic membrane, ear canal and external ear normal. Nose: Nasal tenderness, mucosal edema, congestion and rhinorrhea present. Mouth/Throat: Mouth: Mucous membranes are moist. Pharynx: Uvula midline. Posterior oropharyngeal erythema present. No oropharyngeal exudate. Cardiovascular: Rate and Rhythm: Normal rate and regular rhythm. Heart sounds: Normal heart sounds. Pulmonary: Effort (more content not included)... [facility] 09-30-2024 History of Presen t illness Narrative Images from the original note were not included. Subjective Nasal Congestion Associated symptoms include congestion, coughing, headaches, shortness of breath and a sore throat. Pertinent negatives include no chills or ear pain. Hortencia Mcadams is a 34 year old female who presents with 2 weeks of sinus congestion, drainage, cough, shortness of breath, sinus pressure, headache. Cough is productive. She feels short of breath going up stairs. Symptoms seemed to be improving slightly until 3 days ago when they suddenly worsened. She has been taking sinus pain reliever, allergy medication, and dayquil and nyquil at home. She also notes a sore on the corner of her mouth that has been present for a month. She has been taking OTC medication for this without improvement. Review of Systems Constitutional: Positive for malaise/fatigue. Negative for chills and fever. HENT: Positive for congestion, sinus pain and sore throat. Negative for ear pain. Respiratory: Positive for cough, sputum production and shortness of breath. Cardiovascular: Negative for chest pain. Gastrointestinal: Negative for diarrhea, nausea and vomiting. Musculoskeletal: Negative for myalgias. Neurological: Positive for headaches. BP 120/74 Pulse 96 Temp 36.9 C (98.5 F) Resp 16 Wt 80.7 kg (177 lb 14.6 oz) LMP 02/01/2023 SpO2 97% BMI 31.52 kg/m PAST MEDICAL HISTORY Diagnosis Date Abnormal glandular Papanicolaou smear of cervix 04/2013 Abn. Pap smear (cervix) Chronic fatigue 12/27/2015 Chronic pain of left knee Excessive daytime sleepiness 03/13/2016 Gastroesophageal reflux disease without esophagitis Irregular menstrual cycle s/p endometrial ablation Kidney stones Methamphetamine abuse in remission ([facility]) last use 12/20/2018 PAST SURGICAL HISTORY Procedure Laterality Date CARPAL TUNNEL Bilateral 09/2018 DELIVERY ONLY 04/27/2008 , low cervical DELIVERY ONLY 07/25/2011 , low transverse HYSTEROSCOPY, DIAGNOSTIC (SEPARATE 01/10/2021 D&C, hydrothermal ablation INCISION DRAINAGE LACRIMAL SAC I & d lacrimal sac, as INSERTION OF IUD 07/03/2012 NEXPLANON INSERTION 07/2015 SALPINGECTOMY COMPL/PART 08/15/2018 [facility]-Dr. Gauthier-partial. also-bilateral tubal occlusion with Filshie Clips; Lysis of adhesions ALLERGIES Latex, Lidocaine-Epinephrine, Macrobid [Nitrofurantoin Monohyd/M-Cryst], Pyridium [Phenazopyridine], and Flavoxate MEDICATIONS tacrolimus (PROTOPIC) 0.1 % ointment APPLY A THIN LAYER, NO MORE THAN 1.7 GRAMS PER APPLICATION TO FACE, ARMS, AND HANDS TWICE DAILY. upadacitinib tablet ER 24 hr 15 mg (RINVOQ) Take 15 mg by mouth every other day. Swallow whole; DO NOT crush, chew, or open. sucralfate (CARAFATE) 1 gram tablet Take 1 tablet by mouth before meals and at bedtime. LYSINE ORAL Take by mouth. amoxicillin-clavulanate potassium (AUGMENTIN) 875-125 mg per tablet Take 1 tablet by mouth two times a day for 7 days. docosanol (ABREVA) 10 % crea Apply to affected area five times a day. albuterol HFA (PROVENTIL HFA, VENTOLIN HFA) 90 mcg/actuation inhaler Inhale 2 Puffs as instructed every 4 hours as needed for wheezing/shortness of breath. Inhalational Spacing Device 1 Device one time only for 1 dose. predniSONE (DELTASONE) 20 mg tablet Take 1 tablet by mouth once daily for 4 days. FAMILY HISTORY Problem Relation Age of Onset other (Other) Mother Narcolepsy, JOSUE Alcohol/Drug Brother Diabetes Maternal Grandmother Hypertension Maternal Grandmother Breast Cancer Maternal Grandmother Coronary Artery Disease Maternal Grandfather Colon Cancer Maternal Grandfather Heart Maternal Grandfather [place] Thyroid Paternal Grandmother other (ADHD) Daughter other (ODD) Daughter other (Hip Dysplasia) Daughter other (Kidney Reflex) Daughter other (ADHD) Daughter Social History Tobacco Use Smoking status: Never Smokeless tobacco: Never Vaping Use Vaping status: Never Used Substance Use Topics Alcohol use: Not Currently Drug use: Not Currently Types: Amphetamines Objective Physical Exam Vitals and nursing note reviewed. Constitutional: General: She is not in acute distress. Appearance: Normal appearance. She is not ill-appearing. HENT: Right Ear: Tympanic membrane, ear canal and external ear normal. Left Ear: Tympanic membrane, ear canal and external ear normal. Nose: Nasal tenderness, mucosal edema, congestion and rhinorrhea present. Mouth/Throat: Mouth: Mucous membranes are moist. Pharynx: Uvula midline. Posterior oropharyngeal erythema present. No oropharyngeal exudate. Cardiovascular: Rate and Rhythm: Normal rate and regular rhythm. Heart sounds: Normal heart sounds. Pulmonary: Effort: Pulmonary effort is normal. No respiratory distress. Breath sounds: Wheezing present. No rales. Comments: Frequent cough during exam Musculoskeletal: Cervical back: Neck supple. Lymphadenopathy: Cervical: No cervical adenopathy. Skin: General: Skin is warm and dry. Findings: No erythema or rash. Neurological: Mental Status: She is alert. ASSESSMENT/PLAN: 1. Sinobronchitis - ICD9: 473.9, 490, ICD10: J32.9, J40 (primary diagnosis) - Will begin treatment with as per antibiotic as written, see orders - Supportive care with plenty of fluids, rest, and analgesia prn. - AMOXICILLIN 875 MG-POTASSIUM CLAVULANATE 125 MG TABLET - ALBUTEROL SULFATE HFA 90 MCG/ACTUATION AEROSOL INHALER - INHALATIONAL SPACING DEVICE - PREDNISONE 20 MG TABLET 2. Canker sore - ICD9: 528.2, ICD10: K12.0 - DOCOSANOL 10 % TOPICAL CREAM - Follow-up with your PCP in 3-5 days if symptoms have not improved or sooner if symptoms worsen - Discussed red flags and need for immediate medical evaluation if any occur. - Discussed supportive care treatment with fluids, rest and analgesia. - Discussed expected course of illness Deandra Rider APRN.GRE INSTRUCTOR documented in this encounter [facility] 06-04-2024 History of Presen t illness Narrative 06/04/2024 Patient presents with: Physical SUBJECTIVE: This is a 33 year old that is here today for Above Complaints. Since last office visit hsa been in good health without ER visits or hospitalizations. Concerned she has sleep apnea. Feels fatigued during the day and tells her she snores loudly. She reports several people in her family have sleep apnea Followed up with Marianne Diehl for vitiligo and was placed on Rinvoq and topical tacrolimus PAST MEDICAL HISTORY 04/2013: Abnormal glandular Papanicolaou smear of cervix Comment: Abn. Pap smear (cervix) 12/27/2015: Chronic fatigue No date: Chronic pain of left knee 03/13/2016: Excessive daytime sleepiness No date: Gastroesophageal reflux disease without esophagitis No date: Irregular menstrual cycle Comment: s/p endometrial ablation No date: Kidney stones No date: Methamphetamine abuse in remission ([facility]) Comment: last use 12/20/2018 ALLERGIES Latex, Lidocaine-Epinephrine, Macrobid [Nitrofurantoin Monohyd/M-Cryst], Pyridium [Phenazopyridine], and Flavoxate MEDICATIONS Current Outpatient Medications Medication Sig tacrolimus (PROTOPIC) 0.1 % ointment APPLY A THIN LAYER, NO MORE THAN 1.7 GRAMS PER APPLICATION TO FACE, ARMS, AND HANDS TWICE DAILY. upadacitinib tablet ER 24 hr 15 mg (RINVOQ) Take 15 mg by mouth every other day. Swallow whole; DO NOT crush, chew, or open. sucralfate (CARAFATE) 1 gram tablet Take 1 tablet by mouth before meals and at bedtime. No current facility-administered medications for this visit. Medications and allergies reviewed by this provider. SOCIAL HISTORY Social History Tobacco Use Smoking status: Never Smokeless tobacco: Never Vaping Use Vaping status: Never Used Substance Use Topics Alcohol use: Not Currently Drug use: Not Currently Types: Amphetamines REVIEW OF SYSTEMS GENERAL: No weight loss, malaise or fevers HEENT: Negative for frequent or significant headaches, No changes in hearing or vision, no nose bleeds or other nasal problems NECK: Negative for lumps, goiter and significant neck swelling, RESPIRATORY: Negative for cough, hemoptysis, wheezing, COPD, dyspnea or shortness of breath CARDIOVASCULAR: Negative for chest pain, leg swelling, hypertension, CHF or palpitations GI: No nausea, vomiting, or diarrhea : No history of dysuria, frequency or incontinence CRIME SCENE INVESTIGATOR: Negative for abnormal vaginal bleeding, abnormal vaginal discharge MUSCULOSKELETAL: Negative for joint pain or swelling, back pain or muscle pain and reports chronic low back pain SKIN: see HPI PSYCH: Negative for mood disorder and recent psychosocial stressors HEMATOLOGY/LYMPHOLOGY: Negative for prolonged bleeding or swollen nodes ENDOCRINE: Negative for cold or heat intolerance, polyuria, polydipsia and goiter NEURO: No history of headaches, syncope, paralysis, seizures or tremors All other reviewed and negative other than HPI. OBJECTIVE: BP 126/88 Pulse 79 Resp 18 Wt 80.6 kg (177 lb 11.1 oz) LMP 02/01/2023 SpO2 98% BMI 31.48 kg/m . Vital signs reviewed by this provider. APPEARANCE Well appearing, alert, in no acute distress, well-hydrated, well nourished. EYES conjunctiva and sclera normal. EARS External ears normal, canals clear NECK Supple, no adenopathy; thyroid symmetric, normal size, no bruits HEART RRR with normal S1 and S2, no murmurs, no gallops, no JVD appreciated LUNG clear to auscultation. No wheezes rhonchi or rales ABDOMEN bowel sounds normoactive, no bruits, soft, non-tender, non-distended EXTREMITIES Extremities normal, No deformities, No skin discoloration, and No edema SKIN Skin color, texture, turgor normal, no suspicious rashes or lesions to exposed skin Latest Ref [facility] 04/19/2024 WBC 3.70 - 11.00 k/uL 6.14 RBC 3.90 - 5.20 m/uL 4.50 Hemoglobin 11.5 - 15.5 g/dL 13.6 Hematocrit 36.0 - 46.0 % 40.6 MCV 80.0 - 100.0 fL 90.2 MCH 26.0 - 34.0 pg 30.2 MCHC 30.5 - 36.0 g/dL 33.5 RDW-CV 11.5 - 15.0 % 12.9 Platelet Count 150 - 400 k/uL 302 MPV 9.0 - 12.7 fL 10.0 Neut% % 58.4 Abs Neut (ANC) 1.45 - 7.50 k/uL 3.59 Lymph% % 28.2 Abs Lymph 1.00 - 4.00 k/uL 1.73 [place]% % 7.2 Abs [place] <0.87 k/uL 0.44 Eosin% % 5.0 Abs Eosin <0.46 k/uL 0.31 Baso% % 0.7 Abs Baso <0.11 k/uL 0.04 Immature Gran % % 0.5 IMMATURE GRANS (ABS) <0.10 k/uL 0.03 NRBC /100 WBC 0.0 Absolute nRBC <0.01 k/uL <0.01 DTYPE Auto Protein, Total 6.3 - 8.0 g/dL 7.0 Albumin 3.9 - 4.9 g/dL 4.3 Calcium 8.5 - 10.2 mg/dL 9.9 Bilirubin, Total 0.2 - 1.3 mg/dL 0.6 Alkaline Phosphatase 34 - 123 U/L 63 AST 13 - 35 U/L 22 ALT 7 - 38 U/L 12 Glucose 74 - 99 mg/dL 87 BUN 7 - 21 mg/dL 11 Creatinine 0.58 - 0.96 mg/dL 0.75 Sodium 136 - 144 mmol/L 139 Potassium 3.7 - 5.1 mmol/L 4.2 Chloride 98 - 107 mmol/L 106 CO2 22 - 30 mmol/L 23 Anion Gap 8 - 15 mmol/L 10 eGFR >=60 mL/min/1.73m 108 Cholesterol, Total <200 mg/dL 201 (H) Triglyceride <150 mg/dL 90 HDL Cholesterol >39 mg/dL 52 Non HDL Cholesterol <130 mg/dL 149 (H) Fasting Time hrs 12 VLDL Cholesterol <30 mg/dL 18 TC:HDL Ratio <5.10 3.87 LDL Cholesterol <100 mg/dL 131 (H) LDL:HDL Ratio <2.54 2.52 Legend: (H) High ASSESSMENT/PLAN: 1. Annual physical exam - ICD9: V70.0, ICD10: Z00.00 (primary diagnosis) - Counseled on healthy diet and regular exercise - Discussed need and benefit for weight loss. BMI 31.48 kg/(m^2) - Follow up for annual exam in one year 2. Snoring - ICD9: 786.09, ICD10: R06.83 - consider sleep apnea - POLYSOMNOGRAM (PSG) 3. Daytime somnolence - ICD9: 780.54, ICD10: R40.0 - consider sleep apnea - POLYSOMNOGRAM (PSG) 4. Screening for depression - ICD9: V79.0, ICD10: Z13.31 - DEPRESSION SCREENING 5. Encounter for screening examination for other mental health and behavioral disorders - ICD9: V79.8, ICD10: Z13.39 - ANXIETY SCREENING 6. Vitiligo - ICD9: 709.01, ICD10: L80 - continue current medications - follow-up with dermatology as recommended Wendy Paul APRN.JOE Prescription instructions reviewed with patient as applicable. Patient advised if symptoms do not improve or if symptoms worsen sooner, to contact their primary care physician. Potential red flag symptoms discussed with the patient. Reviewed appropriate action plan to take if red flag symptoms occur. Patient agreeable to treatment plan. documented in this encounter [facility] 04-09-2024 History of Presen t illness Narrative 04/08/2024 Patient presents with: Refill Request: Antiacid medication request Derm Problem: Losing pigment for the last few years SUBJECTIVE: This is a 33 year old that is here today for Above Complaints. Patient has not been seen in office sine 08/10/2021. Needs refill for Carafate. Has not taken for about four years. Certain things she eats will cause her to have heartburn. Some better since she stopped drinking pop. Has tried Prilosec in the past and it didn't work as well as OTC TUMS. Losing pigment to skin over the last few years. Becoming more widespread PAST MEDICAL HISTORY Diagnosis Date Abnormal glandular Papanicolaou smear of cervix 04/2013 Abn. Pap smear (cervix) Chronic fatigue 12/27/2015 Chronic pain of left knee Excessive daytime sleepiness 03/13/2016 Gastroesophageal reflux disease without esophagitis Irregular menstrual cycle s/p endometrial ablation Kidney stones Methamphetamine abuse in remission ([facility]) last use 12/20/2018 ALLERGIES Latex, Lidocaine-Epinephrine, Macrobid [Nitrofurantoin Monohyd/M-Cryst], Pyridium [Phenazopyridine], Seasonal [Other], and Flavoxate MEDICATIONS Current Outpatient Medications Medication Sig predniSONE (DELTASONE) 10 mg tablet Take 6 tablets PO daily x 3 days, then Take 5 tablets PO daily x 3 days, then Take 4 tablets PO daily x 3 days, then Take 3 tablets PO daily x 3 days, then Take 2 tablets PO daily x 3 days, then Take 1 tablets PO daily x 1 days, then stop. (Patient not taking: Reported on 08/10/2021 ) sucralfate (CARAFATE) 1 gram tablet Take 1 tablet by mouth before meals and at bedtime. montelukast (SINGULAIR) 10 mg tablet Take 1 tablet by mouth daily at bedtime. fluticasone (FLONASE) 50 mcg/actuation nasal spray Use 2 Sprays in each nostril once daily. No current facility-administered medications for this visit. Medications and allergies reviewed by this provider. SOCIAL HISTORY Social History Tobacco Use Smoking status: Never Smokeless tobacco: Never Vaping Use Vaping Use: Never used Substance Use Topics Alcohol use: Not Currently Drug use: Not Currently Types: Amphetamines REVIEW OF SYSTEMS All other reviewed and negative other than HPI. OBJECTIVE: BP 124/82 Pulse 86 Resp 18 Wt 79.2 kg (174 lb 9.6 oz) LMP 02/01/2023 SpO2 98% BMI 30.93 kg/m . Vital signs reviewed by this provider. APPEARANCE Well appearing, alert, in no acute distress, well-hydrated, well nourished. EYES PERRLA, conjunctiva and sclera normal. HEART RRR with normal S1 and S2, no murmurs, no gallops, no JVD appreciated LUNG clear to auscultation SKIN Areas of extensive hypopigmentation to arms, chest and legs Hepatitis B Vaccine(3 of 3 - 3-dose series) due on 05/09/2007 Cervical Cancer Screening due on 05/27/2023 Covid-19 Vaccine( - season) Never done Influenza Vaccine(1) due on 2024 DTaP,Tdap,Td Vaccine(3 - Td or Tdap) due on 11/05/2026 Behavioral Health Screening Completed Hepatitis C Screening Completed HIV Screening Completed HPV Vaccine Aged Out ASSESSMENT/PLAN: 1. Vitiligo - ICD9: 709.01, ICD10: L80 (primary diagnosis) - wide spread will have her see derm - CONSULT TO DERMATOLOGY - COMPLETE BLOOD COUNT AND DIFFERENTIAL - COMPREHENSIVE METABOLIC PANEL 2. Screening for hyperlipidemia - ICD9: V77.91, ICD10: Z13.220 - LIPID PANEL BASIC - follow-up for physical 3. Gastroesophageal reflux disease, unspecified whether esophagitis present - ICD9: 530.81, ICD10: K21.9 - Discussed lifestyle modifications including losing weight, limiting caffeine, no meals three hours before sleep, and head of bed elevation - SUCRALFATE 1 GRAM TABLET - follow-up if symptoms fail to improve Wendy Paul APRN.JOE Prescription instructions reviewed with patient as applicable. Patient advised if symptoms do not improve or if symptoms worsen sooner, to contact their primary care physician. Potential red flag symptoms discussed with the patient. Reviewed appropriate action plan to take if red flag symptoms occur. Patient agreeable to treatment plan. Medical Decision Making: Problems: Moderate: 1+ chronic illnesses with change Data: Unique test(s) ordered: 3+ Risk: Moderate: Moderate risk from testing/treatment Medical Decision Making Level: 4 - Moderate documented in this encounter [facility] 02-06-2024 Telephone encounter Note She has been informed. And has been referred. By CCN has been denied. [facility] 02-06-2024 Miscellaneous Notes She has been informed. And has been referred. By CCN has been denied. Pt's insurance is OON, placing a referral. If patient wants to been seen she may have to be self pay. Patient seen at [facility] 01/30 for flank pain. Called to schedule patient but kept getting denied. Can scheduling please call her to get her scheduled for an ER follow up with Dr. Taylor or Wendy Paul. Patient would like something after [phone]. Shea Woodard LPN documented in this encounter [facility] 02-02-2024 Telephone encounter Note Pt's insurance is OON, placing a referral. If patient wants to been seen she may have to be self pay. [facility] 02-01-2024 Telephone encounter Note Patient seen at [facility] 01/30 for flank pain. Called to schedule patient but kept getting denied. Can scheduling please call her to get her scheduled for an ER follow up with Dr. Taylor or Wendy Paul. Patient would like something after [phone]. Shea Woodard LPN [facility] 09-12-2023 History of Presen t illness Narrative This note was created using Chromater. Aj Perez is a 33 year old female. HPI 33-year-old female presents for dry mouth, fever, diarrhea, nausea x 1 week. Patient states that she started feeling ill about a week ago with some nausea. She has not had any vomiting. She has had diarrhea for the past 2 days. She states that she had multiple episodes on Sunday, but yesterday diarrhea improved. She has taken antidiarrheal medication [id number] which help with symptoms. States she had a fever of 100.2 on Sunday, otherwise no fever since. No sore throat. No cough, congestion. Daughter is sick with URI symptoms. Patient denies any abdominal pain. She did not eat anything out of the ordinary. No recent antibiotic use. States her mouth feels a little bit dry, but she has been able to eat and drink. No other complaints. No concern for . PAST MEDICAL HISTORY Diagnosis Date Abnormal glandular Papanicolaou smear of cervix 04/2013 Abn. Pap smear (cervix) Chronic fatigue 12/27/2015 Chronic pain of left knee Excessive daytime sleepiness 03/13/2016 Gastroesophageal reflux disease without esophagitis Irregular menstrual cycle s/p endometrial ablation Kidney stones Methamphetamine abuse in remission ([facility]) last use 12/20/2018 PAST SURGICAL HISTORY Procedure Laterality Date CARPAL TUNNEL Bilateral 09/2018 DELIVERY ONLY 04/27/2008 , low cervical DELIVERY ONLY 07/25/2011 , low transverse HYSTEROSCOPY, DIAGNOSTIC (SEPARATE 01/10/2021 D&C, hydrothermal ablation INCISION DRAINAGE LACRIMAL SAC I & d lacrimal sac, as INSERTION OF IUD 07/03/2012 NEXPLANON INSERTION 07/2015 SALPINGECTOMY COMPL/PART 08/15/2018 [facility]-Dr. Gauthier-partial. also-bilateral tubal occlusion with Filshie Clips; Lysis of adhesions ALLERGIES Latex, Lidocaine-Epinephrine, Macrobid [Nitrofurantoin Monohyd/M-Cryst], Pyridium [Phenazopyridine], Seasonal [Other], and Flavoxate MEDICATIONS sucralfate (CARAFATE) 1 gram tablet Take 1 tablet by mouth before meals and at bedtime. montelukast (SINGULAIR) 10 mg tablet Take 1 tablet by mouth daily at bedtime. fluticasone (FLONASE) 50 mcg/actuation nasal spray Use 2 Sprays in each nostril once daily. predniSONE (DELTASONE) 10 mg tablet Take 6 tablets PO daily x 3 days, then Take 5 tablets PO daily x 3 days, then Take 4 tablets PO daily x 3 days, then Take 3 tablets PO daily x 3 days, then Take 2 tablets PO daily x 3 days, then Take 1 tablets PO daily x 1 days, then stop. (Patient not taking: Reported on 08/10/2021 ) FAMILY HISTORY Problem Relation Age of Onset other (Other) Mother Narcolepsy, JOSUE Alcohol/Drug Brother Diabetes Maternal Grandmother Hypertension Maternal Grandmother Breast Cancer Maternal Grandmother Coronary Artery Disease Maternal Grandfather Colon Cancer Maternal Grandfather Heart Maternal Grandfather [place] Thyroid Paternal Grandmother other (ADHD) Daughter other (ODD) Daughter other (Hip Dysplasia) Daughter other (Kidney Reflex) Daughter other (ADHD) Daughter Social History Tobacco Use Smoking status: Never Smokeless tobacco: Never Vaping Use Vaping Use: Never used Substance Use Topics Alcohol use: Not Currently Drug use: Not Currently Types: Amphetamines Review of Systems Constitutional: Positive for fever. Negative for chills. HENT: Negative for congestion, ear pain and sore throat. Respiratory: Negative for cough and shortness of breath. Cardiovascular: Negative for chest pain. Gastrointestinal: Positive for diarrhea and nausea. Negative for abdominal pain and vomiting. Objective BP 122/74 Pulse 100 Temp 36.6 C (97.8 F) Resp 21 Wt 79.3 kg (174 lb 12.8 oz) LMP 02/01/2023 SpO2 97% BMI 30.96 kg/m Physical Exam Vitals and nursing note reviewed. Constitutional: General: She is not in acute distress. Appearance: Normal appearance. She is not toxic-appearing. HENT: Right Ear: Tympanic membrane and ear canal normal. Left Ear: Tympanic membrane and ear canal normal. Nose: Nose normal. Mouth/Throat: Mouth: Mucous membranes are moist. Pharynx: No oropharyngeal exudate or posterior oropharyngeal erythema. Eyes: Conjunctiva/sclera: Conjunctivae normal. Cardiovascular: Rate and Rhythm: Normal rate and regular rhythm. Pulmonary: Effort: Pulmonary effort is normal. Breath sounds: Normal breath sounds. Abdominal: General: Abdomen is flat. Palpations: Abdomen is soft. Tenderness: There is no abdominal tenderness. Neurological: Mental Status: She is alert. Assessment and Plan ASSESSMENT/PLAN: 1. Viral illness - ICD9: 079.99, ICD10: B34.9 -Suspect viral illness. No abdominal pain on exam. No tenderness. No fever here. Suspect viral gastroenteritis. May continue OTC medications for diarrhea. - Discussed viral etiology and rationale for treatment. - Symptomatic treatment with prn analgesia - Supportive care with fluids and rest - Brat diet for diarrhea. Plenty of fluids, rest. - COVID & INFLUENZA A/B & RSV NAAT, ROUTINE -Out of treatment window for antiviral and Tamiflu. Diagnosis and treatment plan were discussed and questions were answered to the patient's satisfaction. Pt acknowledged understanding of concepts and follow up plan. Specific signs and symptoms that would indicate the need for higher level of care were discussed in detail warranting prompt ER evaluation. YURI Ma This note was created using SwapDrive. Aj Preez is a 33 year old female. Review of Systems Objective BP 122/74 Pulse 100 Temp 36.6 C (97.8 F) Resp 21 Wt 79.3 kg (174 lb 12.8 oz) LMP 02/01/2023 SpO2 97% BMI 30.96 kg/m Physical Exam Assessment and Plan documented in this encounter [facility] 07-03-2023 Procedure note [facility] 07-03-2023 Discharge summary Note Date/Time July 03, 2023 8:31am [facility] Medical Records Department [address] [place] [address] Instructions for Home/Discharge Instructions 07/03/23 0830 MR#: [id number] Acct: [id number] Name: HORTENCIA PEREZ Rep #:[id number] : 1990 33 From: Anay Leach DO PCP: Dr. Bright Taylor MD Status :REG [facility] [place] Discharge Instructions Diet Discharge Diet: No restrictions Activity May resume sexual activity in: 6 weeks Weight Bearing Status: Full weight bearing Dressing / Incision Call your doctor if your incision/area has: Continuous Slow Oozing, Sudden Increased Bleeding, Increased Pain/ Swelling, Increased Redness and Foul Smelling Discharge Call your doctor if you observe: Fever of 101 or Higher, Using more than 1 pad per hour, Shortness of breath, Chest pain and Uncontrolled pain Suture Line Care: Avoid Pulling/Pushing and Avoid Pinching/Bending Remove Dressing in: 1 week (if present) Cleanse incision/area with: Soap & Water and Keep Dressing Clean & Dry Follow Up Care Please Follow Up With: Anay Leach DO When: Call to make an appointment with your doctor for a postop visit in 2 and 6weeks Test Results: Test results from this visit will be discussed in further detail at your follow-up appointment, if applicable. Discharge Plan Admission Primary Reason for Your Visit: hysterectomy Attending Provider: Anay Leach Primary Care Provider: Bright Taylor Discharge Orders/Prescriptions Prescriptions: New ibuprofen 800 mg tablet 800 mg PO Q8H PRN (Reason: pain) Qty: 30 0RF oxycodone-acetaminophen [Percocet] 5-325 mg tablet 1 tab PO Q4H PRN (Reason: pain) 7 Days Qty: 30 0RF Rx Instructions: 1-2 tabs q 4 hrs as needed for pain Referrals / Follow Up: Bright Taylor MD [Primary Care Provider] - Disposition Disposition (needs filled in before D/C Order can be placed): Home, Self Care 07/03/23 0834<Electronically signed by Anay Leach DO>Anay Leach DO CC: Dr. Bright Taylor MD ~ Signed [facility] Work Phone: 1(450) 530-625509-26-2023 History and physical note Author Anay Don [facility] July 03, 2023 8:30am Note Date/Time July 03, 2023 8:29am [facility] System Medical Records Department [address] [place] [address] History & Physical Exam 07/03/23 0827 MR#: [id number] Acct: [id number] Name: WEBBERCHRIS Early Rep #:[id number] : 1990 33 From: Anay Leach DO PCP: Dr. 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 Is patient in pain?: No Allergies latex Allergy (Verified 06/28/23 11:49) Rashnitrofurantoin [From Macrobid] Allergy (Verified 06/28/23 11:49) Rashphenazopyridine [From Pyridium] Allergy (Verified 06/28/23 11:49) Rashepinephrine Adverse Reaction (Verified 06/28/23 11:49) Otherlidocaine Adverse Reaction (Verified 06/28/23 11:49) Other Medications NK 03/15/23 [History Confirmed 06/28/23] Post menopausal: No Patient : No : No PFSH Medical History Abnormal Pap smear of cervix History of kidney stones Surgical History History of carpal tunnel repair S/P S/P endometrial ablation S/P tubal ligation Family History Grandmother Diabetes Colon cancerGrandfather Myocardial infarction Colon cancer Social History Smoking Status: Never smoker alcohol intake: never substance use type: former substance user and marijuana caffeine: Yes what type of physical activity do you participate in: none seatbelt use: always do you feel safe at home: Yes 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 She is status post ablation, tubal ligation, and section x 2. her menses are unpredictable, heavy and painful. She also has stress urinary incontinence and was requesting a procedure to help when she coughs, laughs and sneezes to prevent leaking urine, however she started going to a physical therapy and this is improving. She is going to hold off on the procedure with Dr. Marcial. prior to her ablation procedure her endometrial biopsy was benign.Her Pap in March was negative. Normal uterine size measuring 6.5 x 4.6 x 2.7 cm in maximal craniocaudal dimension. The uterus is retroverted. The uterus is diffusely heterogeneous without focal abnormalities. Findings suggest diffuse leiomyomatous infiltration without focal fibroids. Normal endometrial thickness measuring 4 mm. There are no endometrial masses, and there is no fluid in the endometrial cavity. Nabothian cyst of the uterine cervix. Normal right ovary, measuring 3.2 x 2.2 x 1.7 cm. There are multiple follicles without a dominant cyst. Normal left ovary, measuring 3.5 x 1.3 x 1.6 cm. There are multiple follicles without a dominant cyst. There is no free fluid in the pelvis. US/Transvaginal Non- IMPRESSION: Diffusely heterogeneous uterus suggestive of leiomyomatous changes without focal fibroid. Otherwise negative. History 3 Elective abortions Hx Para 2 Spontaneous abortions Hx # Term Pregnancies Ectopic pregnancies Hx # Pregnancies Multiple births # of living children Past Pregnancies Del. Date Name GA/Weeks Outcome Route Bth Weight Infant Gen Labor Lgth Anesthesia Del Locatn Provider FOB Unknown Erica Unknown Nataliia ROS Const ROS Unobtainable: All systems reviewed & are unremarkable except as noted in H Resp Resp: Reports system reviewed and no additional complaints, except as documented; Denies cough GI GI: Reports as per HPI Psych Psych: Reports system reviewed and no additional complaints, except as documented Exam Const General: cooperative, healthy appearing, comfortable and no acute distress Resp Effort & Inspection: normal respiratory effort Skin General: no rashes or lesions noted Psych Appearance: grossly normal Speech and Movement: speech and movement normal Coding Level of Care Code Off vis,est,level 4 Diagnoses Abnormal uterine bleeding N93.9 Assessment and Plan Assessment and Plan (1) Abnormal uterine bleeding: Status: Acute Plan: After discussing the patient's diagnosis and treatment plan options, patient wishes to proceed with surgical management. I have discussed with the patient the risks, benefits, and alternatives of the procedure which include but are notlimited to risks of anesthesia, bleeding, infection, possible damage to bowel, bladder, or surrounding vasculature which could lead to additional surgery to evaluate any complications. Patient agrees to procedure and wishes to proceed. ACOG/uptodate references given for additional information regarding procedure. plan for total robotic hysterectomy, bilateral salpingecotmy, cystoscopy. 07/03/23 0830 <Electronically signed by Anay Leach DO> Cosigner Signature (if applicable): CC: Dr. Bright Taylor MD; Dr. Anay Leach DO~ Signed [facility] Work Phone: 1(371) 714-336609-21-2023 Discharge summary Author Tierney Puentes [facility] June 28, 2023 1:03pm Note Date/Time June 28, 2023 1:03pm [facility] Physical Therapy [facility] [address] [place] [address] / REHABILITATION SERVICES DISCHARGE SUMMARY MR#: [id number] Acct: [id number] Name: HORTENCIA PEREZ Rep #: [id number] : 1990 33 From: Tierney Puentes PT, Cert. MDT Referring Dr.: Dr. Khushi Marcial MD Status: REG [facility] Insurance: [facility] [id number] SELF PAY INSURANCE Discharge Summary D/C summary: It has been my pleasure to treat HORTENCIA PEREZ referred by Dr. Khushi Marcial MD, with the diagnosis of URGE INCONTINENCE for a total of 4 visit(s). Discharge Date: 06/28/23 Please see the following information for a summary of their discharge status. Subjective Subjective: PATIENT REPORTS SHE IS DOING A LOT BETTER. I SLEPT ALL NIGHT MOST NIGHTS WITHOUT HAVING TO GET UP TO PEE. STATES SHE IS ABLE TO BETTER ABLE TO CONTROL HER URGE INCONTINENCE AND IS NOW VOIDING ABOUT EVERY 3 HOURS INSTEAD OF EVERY 1 TO 1.5 HRS. SHE REPORTS COMPLIANCE WITH THE HOME EX'S FOR THE MOST PART.SHE STATES SHE HASN'T NOTICED ANY LEAKING WITH LIFTING OVER THE LAST WEEK BUT STILL SOME UI WITH SNEEZING. Overall Improvement % Improvement: 90 Objective Objective/Function: PATIENT HAS DONE REALLY WELL WITH PT AND IS INDEP WITH A HEP. FUNCTIONAL SCREEN: Incontinence Impact Questionnaire Score: 3 Urogenital Distress Inventory Score: 1 Goals Goal 1:: DECREASE URINARY LEAKAGE EPISODES TO ONE OR LESS PER DAY Goal Progress: Goal Met Goal 2:: PATIENT WILL SUCCESSFULLY DELAY VOIDING LONG NEEDED WHEN URGENCY OCCURS TO SUCCESSFULLY MAKE IT TO THE BATHROOM. Goal Progress: Goal Met Goal 3:: PATIENT WILL DEMONSTRATE/COMMUNICATE 10 CONSISTENT AND CONSECUTIVE 10 SECOND PELVIC FLOOR MUSCLE CONTRACTIONS TO DEMONSTRATE IMPROVED PELVIC FLOOR ENDURANCE. Goal Progress: Goal Met Goal 4:: DEVELOP HEALTHY FLUID INTAKE HABITS WITH FLUID INTAKE OF ? BODY WEIGHT IN OUNCES PER DAY AND 2/3 BEING WATER. Goal Progress: Goal Met Goal 5:: NORMALIZE VOIDING FREQUENCEY TO EVERY 3-4 HOURS. Goal Progress: Goal Met Goal 6:: PATIENT WILL BE INDEP WITH A HEP/HOME INSTRUCTIONS FOR CONTINUED IMPROVEMENT ONCE FORMAL PHYSICAL THERAPY CONCLUDES. Goal Progress: Goal Met Plan Plan: D/C DUE TO HYSTERECTOMY PENDING NEXT WK. INSTRUCTED PATIENT TO GET OK FROMOBGYN PRIOR TO RESUMING EX'S AFTER SURGERY. D/C Information d/c sentence: If there are questions or concerns regarding this patient's physical therapy, please feel free to call me at [phone]. Thank you for the referral of thispatient. Sincerely, Tierney Puentes, PT, Cert MDT Balance/Gait/Functional tests Improvement % Improvement: 90 <Electronically signed by Tierney Puentes PT Cert. MDT> 06/28/23 1303 CC: Dr. Bright Taylor MD; Dr. Khushi Marcial MD ~ NUNU Signed [facility] Work Phone: 1(568) 327-104509-01-2023 Evaluation note* Diagnosis Onset Date Resolution Status Abnormal uterine bleeding re solved S/P acute Abnormal uterine bleeding re solved Status post hysterectomy June, acute Status post hysterectomy June, acute Vaginitis acute [facility] Work Phone: [phone]) 269-132508-07-2023 Miscellaneous Notes* Telephone Encounter - Yovana Culver Ma - 05/14/2023 9:24 AM EDT Offered pt appt on 05/16/23 at 4:00 pm w/PCP. Scheduled appt but pt is to confirm. Yovana Culver Ma * Telephone Encounter - Yovana Culver Ma - 05/14/2023 8:41 AM EDT Notified pt to setup an OV with PCP Team. Asked what good day/time to help assist in scheduling visit. Wait pt response. Yovana Culver Ma documented in this encounter[facility] History of Present illness Narrative* Benedict Summers APRN.GRE INSTRUCTOR - 05/04/2023 3:12 PM EDT Images from the original note were not included. Subjective HPI Nontoxic-appearing female presents urgent care chief complaint possible ringworm. Duration of symptoms 1 week. Associated symptoms erythematous pruritic rash. Has used edms-gbn-ludvnej antifungal medication for the last few days. States feels like medication is not working. Presents today for evaluation. Denies any pain. No recent medication changes antibiotic use. Does have a dog. No other sick contacts. Denies any fever body aches chills productive cough chest pain shortness of breath pleuritic pain hemoptysis nausea vomiting abdominal pain change in bowel or bladder habits. Past medical history prescription medication use and allergies reviewed. .Patient presents with: Derm Problem: circular, red area on left side x 1 week PAST MEDICAL HISTORY Diagnosis Date Abnormal glandular Papanicolaou smear of cervix 04/2013 Abn. Pap smear (cervix) Chronic fatigue 12/27/2015 Chronic pain of left knee Excessive daytime sleepiness 03/13/2016 Gastroesophageal reflux disease without esophagitis Irregular menstrual cycle s/p endometrial ablation Kidney stones Methamphetamine abuse in remission ([facility]) last use 12/20/2018 PAST SURGICAL HISTORY Procedure Laterality Date CARPAL TUNNEL Bilateral 09/2018 DELIVERY ONLY 04/27/2008 , low cervical DELIVERY ONLY 07/25/2011 , low transverse HYSTEROSCOPY, DIAGNOSTIC (SEPARATE 01/10/2021 D&C, hydrothermal ablation INCISION DRAINAGE LACRIMAL SAC I & d lacrimal sac, as INSERTION OF IUD 07/03/2012 NEXPLANON INSERTION 07/2015 SALPINGECTOMY COMPL/PART 08/15/2018 [facility]-Dr. Gauthier-partial. also-bilateral tubal occlusion with Filshie Clips; Lysis of adhesions ALLERGIES Latex, Lidocaine-Epinephrine, Macrobid [Nitrofurantoin Monohyd/M- Cryst], Pyridium [Phenazopyridine], Seasonal [Other], and Flavoxate MEDICATIONS sucralfate (CARAFATE) 1 gram tablet Take 1 tablet by mouth before meals and at bedtime. montelukast (SINGULAIR) 10 mg tablet Take 1 tablet by mouth daily at bedtime. fluticasone (FLONASE) 50 mcg/actuation nasal spray Use 2 Sprays in each nostril once daily. predniSONE (DELTASONE) 10 mg tablet Take 6 tablets PO daily x 3 days, then Take 5 tablets PO daily x 3 days, then Take 4 tablets PO daily x 3 days, then Take 3 tablets PO daily x 3 days, then Take 2 tablets PO daily x 3 days, then Take 1 tablets PO daily x 1 days, then stop. (Patient not taking: Reported on 08/10/2021 ) FAMILY HISTORY Problem Relation Age of Onset other (Other) Mother Narcolepsy, JOSUE Alcohol/Drug Brother Diabetes Maternal Grandmother Hypertension Maternal Grandmother Breast Cancer Maternal Grandmother Coronary Artery Disease Maternal Grandfather Colon Cancer Maternal Grandfather Heart Maternal Grandfather [place] Thyroid Paternal Grandmother other (ADHD) Daughter other (ODD) Daughter other (Hip Dysplasia) Daughter other (Kidney Reflex) Daughter other (ADHD) Daughter Social History Tobacco Use Smoking status: Never Smokeless tobacco: Never Vaping Use Vaping Use: Never used Substance Use Topics Alcohol use: Not Currently Drug use: Not Currently Types: Amphetamines BP 110/68 Pulse 88 Temp 36.9 C (98.4 F) Resp 16 Wt 78.9 kg (174 lb) LMP 02/01/2023 BtX860% BMI 30.82 kg/m Review of Systems Constitutional: Negative for chills, fever and malaise/fatigue. HENT: Negative for congestion, ear discharge, ear pain, sinus pain and sore throat. Eyes: Negative for blurred vision, pain, discharge and redness. Respiratory: Negative for cough, hemoptysis, sputum production, shortness of breath, wheezing and stridor. Cardiovascular: Negative for chest pain. Gastrointestinal: Negative for abdominal pain, diarrhea, nausea and vomiting. Musculoskeletal: Negative for myalgias. Skin: Positive for itching and rash. Neurological: Negative for dizziness and headaches. Objective Physical Exam Constitutional: General: She is not in acute distress. Appearance: She is not toxic-appearing. HENT: Head: Normocephalic. Nose: Nose normal. Eyes: Pupils: Pupils are equal, round, and reactive to light. Cardiovascular: Rate and Rhythm: Normal rate. Pulmonary: Effort: Pulmonary effort is normal. No respiratory distress. Musculoskeletal: Cervical back: Normal range of motion. Skin: General: Skin is warm and dry. Comments: Circular lesion with erythematous base and raised borders noted highlighted area. No remote redness. Rash is blanching. No mucosal membrane involvement or breaks in skin. Spares palms of hands. Neurological: General: No focal deficit present. Mental Status: She is alert. ASSESSMENT/PLAN: 1. Rash - ICD9: 782.1, ICD10: R21 Diagnosed with rash. We will treat as ringworm. Clotrimazole sent to pharmacy. Patient was educatedon supportive therapies. Patient will follow up with primary care provider as needed. Patient was instructed to immediately proceed to emergency room for any new, worsening, or symptoms lasting longer than anticipated. The patient's clinical presentation is otherwise unremarkable at this time. Based on exam and clinical finding, the patient is stable for discharge. Plan of care was discussed withpatient. Patient verbalizes understanding and agrees to plan of care. This note was generated usingTransMedics software. It may contain errors in wording, punctuation, or spelling. Benedict Summers APRN.GRE INSTRUCTOR documented in this encounterMet[facility]2023 NotePap Smear Specimen AdequacyJune 2022 11:59pmComment.Satisfactory for evaluation. No endocervical component is identified.[facility] A#[id number] Health SystemComment on above:Satisfactory for evaluation. No endocervical component is identified.03-15-2023 NotePap Smear Specimen AdequacyJune 2022 11:59pmComment.Satisfactory for evaluation. No endocervical component is identified.[facility] INTER[facility]ACED A#[id number] Health SystemComment on above:Satisfactory for evaluation. No endocervical component is identified. 03-15-2023 NotePap Smear Specimen AdequacyJune 2022 11:59pmComment. Satisfactory for evaluation. No endocervical component is identified.[facility] INTER[facility]ACED A#[id number] Clinic Marymount HospitalComment on above:Satisfactory for evaluation. No endocervical component is identified.02-05-2023 Miscellaneous Notes* Telephone Encounter - Lucy Apodaca - 02/05/2023 11:05 AM EDT Patient given results and verbalized understanding of instructions given. Lucy Apodaca * Telephone Encounter - Mendel Vizcaino PA-C - 02/05/2023 7:13 AM EDT Please let patient know that she was positive for BV. Continue treatment with metronidazole prescribed at office visit. She was also positive for yeast (wilian glabrata). Will cover with a 1 time dose of diflucan. Thisyeast often does not cause symptoms and I suspect her symptoms are from the BV. If her symptoms do not resolve after she complete the metronidazole and diflucan-recommend close f/u with CRIME SCENE INVESTIGATOR to discuss other treatment options. The following approved medication requests have been transmitted electronically. Requested Prescriptions Signed Prescriptions Disp Refills fluconazole (DIFLUCAN) 150 mg tablet 1 tablet 0 Sig: Take 1 tablet by mouth once daily for 1 day. Authorizing Provider: MENDEL VIZCAINO PA-C documented in this encounterMetrohealth [facility]04-30-2023 Instructions* Patient Instructions* Vianey Frederick APRN.CNP - 02/04/2023 2:05 PM EDT Will start treatment for BV, if any additional treatment or changes needed will call Follow up with CRIME SCENE INVESTIGATOR documented in this encounterMetrohealth [facility]04-30-2023 History of Present illness Narrative* Vianey Frederick APRN.CNP - 02/04/2023 1:59 PM EDT Subjective The history is provided by the patient. No language assistant was used. TONIE Perez is a 32 year old female who presents today for CC of vaginal burning, swollen for 5 days. She also noted an odor. No pain with urination but has tried AZO without relief. She tried OTC monitstat without relief. BP 122/70 Pulse 75 Temp 36.8 C (98.2 F) (Tympanic) Resp 16 Wt 79.5 kg (175 lb 3.2 oz) LMP02/01/2023 SpO2 99% BMI 31.04 kg/m Social History Tobacco Use Smoking status: Never Smokeless tobacco: Never Vaping Use Vaping Use: Never used Substance Use Topics Alcohol use: Not Currently Drug use: Not Currently Types: Amphetamines PAST MEDICAL HISTORY Diagnosis Date Abnormal glandular Papanicolaou smear of cervix 04/2013 Abn. Pap smear (cervix) Chronic fatigue 12/27/2015 Chronic pain of left knee Excessive daytime sleepiness 03/13/2016 Gastroesophageal reflux disease without esophagitis Irregular menstrual cycle s/p endometrial ablation Kidney stones Methamphetamine abuse in remission ([facility]) last use 12/20/2018 I have confirmed and edited as necessary, the [facility] Review of Systems Constitutional: Negative for chills and fever. Gastrointestinal: Negative for abdominal pain. Genitourinary: Negative for dysuria, flank pain, frequency, hematuria and urgency. Vaginal discharge, burning/itching and odor Objective Physical Exam Vitals and nursing note reviewed. Exam conducted with a air traffic control supervisor present. Constitutional: Appearance: Normal appearance. Abdominal: General: Bowel sounds are normal. There is no abdominal bruit. Palpations: Abdomen is not rigid. There is no mass or pulsatile mass. Tenderness: There is no abdominal tenderness. There is no guarding or rebound. Negative signs include Gillette's sign and McBurney's sign. Genitourinary: Labia: Right: No rash, tenderness or lesion. Left: No rash, tenderness or lesion. Cervix: Discharge (white thin) present. Comments: Declines STD testing Neurological: Mental Status: She is alert and oriented to person, place, and time. Psychiatric: Mood and Affect: Affect normal. ASSESSMENT/PLAN: 1. Acute vaginitis - ICD9: 616.10, ICD10: N76.0 Appears to be BV - metronidazole started Cultures sent Will call if additional treatment needed Declines GC/Chlamydia - BACTERIAL VAGINOSIS AMPLIFICATION - WILIAN / TRICHOMONAS AMPLIFICATION Diagnosis and treatment plan were discussed and questions were answered to the patient's satisfaction. Pt acknowledged understanding of concepts and follow up plan. Specific signs and symptoms that would indicate the need for higher level of care were discussed indetail warranting prompt ER evaluation. Vianey Frederick APRN.CNP documented in this [facility] Instructions* Patient Instructions* Benedict Summers APRN.CNP - 08/16/2022 9:50 AM EST URINARY TRACT INFECTION GENERAL INFORMATION: A urinary tract infection (UTI) is an infection of the bladder or kidneys. A bladder infection, called cystitis, is the more common type. If the infection travels up to the kidneys, it is called pyelonephritis. This can be more serious. UTIs are a common problem in women. Having sexual relations can leave a woman more susceptible to developing a UTI, but it is not sexually transmitted like gonorrhea. Some women have a problem with recurrent UTIs. INSTRUCTIONS: 1. Your doctor prescribed an antibiotic to treat the UTI. Take exactly as directed. Be sure to takeall the medication prescribed, even if your symptoms disappear. If you stop treatment early, the infection may not be fully treated and the symptoms could come back again. 2. Get plenty of rest. You may take acetaminophen for fever and aches. 3. Drink 6 to 8 glasses of fluids, especially water, every day. This helps wash out germs from yoururinary tract. Cranberry juice or other sources of vitamin C are also good for you. 4. Urinate often, as soon as you feel the urge. Empty your bladder completely. Urinate before and after you have sex. 5. Always wipe from front to back after going to the bathroom. This pushes germs away from your bladder, rather than towards it. 6. Showers are better than baths, and you should wash the genital area daily. Avoid bubble bath or bath oils if you do take a bath. 7. Wear underwear and pantyhose with a cotton crotch. CONTACT YOUR DOCTOR: 1. You have a temperature over 102F (38.8C) after 48 hours on medication. 2. You notice blood in your urine. 3. Your symptoms don't improve in 2 days. 4. You develop nausea, vomiting, diarrhea, or a rash. 5. You develop new or unexplained symptoms. These may be related to the medication you are taking. 6. Your symptoms return after you finish treatment. RETURN TO THE EMERGENCY DEPARTMENT IF: You develop vomiting and can't keep your medication or fluids down. documented in this encounter[facility] History of Present illness Narrative* Benedict Summers APRN.JOE - 08/16/2022 9:45 AM EST Subjective HPI A nontoxic appearing female presents to urgent care with chief complaint of possible UTI. Duration of symptoms 3 days. Associated symptoms dysuria, frequency, and urgency. Patient has history of UTIsin past with similar signs and symptoms. Patient denies the use of any [id number] medicationsor home remedies for symptom management. Patient states pain is a 2/10. Patient denies any fevers, flank pain, abdominal pain, nausea, vomiting, vaginal discharge, chance of STDs, chance of , or urological abnormalities. Past medical history prescription medication use allergies reviewed. .Patient presents with: Urinary Problem: burning and pain with urination x 3 days PAST MEDICAL HISTORY Diagnosis Date Abnormal glandular Papanicolaou smear of cervix 04/2013 Abn. Pap smear (cervix) Chronic fatigue 12/27/2015 Chronic pain of left knee Excessive daytime sleepiness 03/13/2016 Gastroesophageal reflux disease without esophagitis Irregular menstrual cycle s/p endometrial ablation Kidney stones Methamphetamine abuse in remission ([facility]) last use 12/20/2018 PAST SURGICAL HISTORY Procedure Laterality Date CARPAL TUNNEL Bilateral 09/2018 DELIVERY ONLY 04/27/2008 , low cervical DELIVERY ONLY 07/25/2011 , low transverse HYSTEROSCOPY, DIAGNOSTIC (SEPARATE 01/10/2021 D&C, hydrothermal ablation INCISION DRAINAGE LACRIMAL SAC I & d lacrimal sac, as infant INSERTION OF IUD 07/03/2012 NEXPLANON INSERTION 07/2015 SALPINGECTOMY COMPL/PART 08/15/2018 [facility]-Dr. Gauthier-partial. also-bilateral tubal occlusion with Filshie Clips; Lysis of adhesions ALLERGIES Latex, Lidocaine-Epinephrine, Macrobid [Nitrofurantoin Monohyd/M- Cryst], Pyridium [Phenazopyridine], and Seasonal [Other] MEDICATIONS sucralfate (CARAFATE) 1 gram tablet Take 1 tablet by mouth before meals and at bedtime. montelukast (SINGULAIR) 10 mg tablet Take 1 tablet by mouth daily at bedtime. fluticasone (FLONASE) 50 mcg/actuation nasal spray Use 2 Sprays in each nostril once daily. predniSONE (DELTASONE) 10 mg tablet Take 6 tablets PO daily x 3 days, then Take 5 tablets PO daily x 3 days, then Take 4 tablets PO daily x 3 days, then Take 3 tablets PO daily x 3 days, then Take 2 tablets PO daily x 3 days, then Take 1 tablets PO daily x 1 days, then stop. (Patient not taking: Reported on 08/10/2021 ) FAMILY HISTORY Problem Relation Age of Onset other (Other) Mother Narcolepsy, JOSUE Alcohol/Drug Brother Diabetes Maternal Grandmother Hypertension Maternal Grandmother Breast Cancer Maternal Grandmother Coronary Artery Disease Maternal Grandfather Colon Cancer Maternal Grandfather Heart Maternal Grandfather [place] Thyroid Paternal Grandmother other (ADHD) Daughter other (ODD) Daughter other (Hip Dysplasia) Daughter other (Kidney Reflex) Daughter other (ADHD) Daughter Social History Tobacco Use Smoking status: Never Smokeless tobacco: Never Vaping Use Vaping Use: Never used Substance Use Topics Alcohol use: Not Currently Drug use: Not Currently Types: Amphetamines BP 126/70 Pulse 80 Temp 36.4 C (97.5 F) Resp 16 Wt 73.9 kg (163 lb) LMP 07/03/2020 (ExactDate) SpO2 99% BMI 28.87 kg/m Review of Systems Constitutional: Negative for chills, fever and malaise/fatigue. HENT: Negative for congestion, ear discharge, ear pain, sinus pain and sore throat. Eyes: Negative for blurred vision, pain, discharge and redness. Respiratory: Negative for cough, hemoptysis, sputum production, shortness of breath, wheezing and stridor. Cardiovascular: Negative for chest pain. Gastrointestinal: Negative for abdominal pain, diarrhea, nausea and vomiting. Genitourinary: Positive for dysuria, frequency and urgency. Negative for flank pain and hematuria. Musculoskeletal: Negative for myalgias. Skin: Negative for itching and rash. Neurological: Negative for dizziness and headaches. Objective Physical Exam Constitutional: General: She is not in acute distress. Appearance: She is not diaphoretic. HENT: Head: Normocephalic. Nose: Nose normal. Mouth/Throat: Mouth: Mucous membranes are moist. Pharynx: Oropharynx is clear. No oropharyngeal exudate or posterior oropharyngeal erythema. Eyes: Conjunctiva/sclera: Conjunctivae normal. Pupils: Pupils are equal, round, and reactive to light. Cardiovascular: Rate and Rhythm: Normal rate and regular rhythm. Heart sounds: Normal heart sounds. Pulmonary: Effort: Pulmonary effort is normal. No tachypnea, accessory muscle usage or respiratory distress. Breath sounds: Normal breath sounds. No stridor. Abdominal: General: There is no distension. Palpations: Abdomen is soft. Tenderness: There is no abdominal tenderness. There is no right CVA tenderness, left CVA tendernessor guarding. Musculoskeletal: Cervical back: Normal range of motion and neck supple. No rigidity or tenderness. Lymphadenopathy: Cervical: No cervical adenopathy. Skin: General: Skin is warm and dry. Neurological: Mental Status: She is alert and oriented to person, place, and time. ASSESSMENT/PLAN: 1. Pain with urination - ICD9: 788.1, ICD10: R30.9 (primary diagnosis) - UA DIP, URINE (POC) - URINE CULTURE 2. Burning with urination - ICD9: 788.1, ICD10: R30.0 - UA DIP, URINE (POC) - URINE CULTURE Positive for blood and leukocytes. History of UTIs this feels similar. Will be placed on Keflex. Patient was educated on supportive therapies. Patient will follow up with primary care provider as needed. Patient was instructed to immediately proceed to emergency room for any new, worsening, or symptoms lasting longer than anticipated. The patient's clinical presentation is otherwise unremarkable at this time. Based on exam and clinical finding, the patient is stable for discharge. Plan of care was discussed with patient. Patient verbalizes understanding and agrees to plan of care. This note was generated using [employer] software. It may contain errors in wording, punctuation, or spelling. Benedict Summers APRN.JOE documented in this encounterMet[facility]11-03-[facility]21 History of Present illness Narrative* Jordyn Bennett RT(R) - 08/10/2021 11:10 AM EDT Radiology Service Progress Note PATIENT NAME: Hortencia Perez DATE OF SERVICE: August 10, 2021 TIME: 11:12 AM PATIENT IDENTITY VERIFICATION COMPLETED USING TWO (2) IDENTIFIERS: Name and Date of confirmedby patient verbally. FALL SCREENING: Has the patient had 2 falls in the last year or 1 fall with injury or currently using an Ambulatory Assistive Device (Walker, Cane, Wheelchair, Crutches, etc.)? No PATIENT GENDER DATA: Female. status: : No status: NO. PATIENT RELEVANT IMPLANT DATA REVIEWED: Yes RADIOLOGY DEPARTMENT: General X-ray: Exam(s) Completed: Lower Extremity X- Ray(s): Foot, Left and Wt. Bearing PERIPHERAL IV DATA: Not applicable SIGNED BY: RT Reina(R) August 10, 2021 11:12 AM documented in this encounterMet[facility]11-19-[facility] History of Past illness Narrative* Problem Noted Date Resolved Date Bilateral carpal tunnel syndrome 08/26/2018 12/06/2019 Overview: Added automatically from request for surgery [id number] Chronic fatigue 12/27/2015 12/06/2019 Chronic cough 11/23/2014 12/06/2019 Supervision of other high-risk (V23.89) 12/23/2010 08/08/2011 Poor growth, affecting management of mother, antepartum condition or complication 05/02/2010 12/23/2010 PREV DELIVERY [654.23] 05/02/2010 08/08/2011 Surveillance of previously prescribed contracept nasreen pill 02/08/2010 09/05/2011 Breech presentation without mention of version, antepartum 04/02/2008 04/27/2008 documented as of this encounter (statuses as of 08/16/2022) [facility] History of Past illness Narrative* Problem Noted Date Resolved Date Bilateral carpal tunnel syndrome 08/26/2018 12/06/2019 Overview: Added automatically from request for surgery [id number] Chronic fatigue 12/27/2015 12/06/2019 Chronic cough 11/23/2014 12/06/2019 Supervision of other high-risk (V23.89) 12/23/2010 08/08/2011 Poor growth, affecting management of mother, antepartum condition or complication 05/02/2010 12/23/2010 PREV DELIVERY [654.23] 05/02/2010 08/08/2011 Surveillance of previously prescribed contracept nasreen pill 02/08/2010 09/05/2011 Breech presentation without mention of version, antepartum 04/02/2008 04/27/2008 documented as of this encounter (statuses as of 02/04/2023) [facility] History of Past illness Narrative* Problem Noted Date Resolved Date Bilateral carpal tunnel syndrome 08/26/2018 12/06/2019 Overview: Added automatically from request for surgery [id number] Chronic fatigue 12/27/2015 12/06/2019 Chronic cough 11/23/2014 12/06/2019 Supervision of other high-risk (V23.89) 12/23/2010 08/08/2011 Poor growth, affecting management of mother, antepartum condition or complication 05/02/2010 12/23/2010 PREV DELIVERY [654.23] 05/02/2010 08/08/2011 Surveillance of previously prescribed contracept nasreen pill 02/08/2010 09/05/2011 Breech presentation without mention of version, antepartum 04/02/2008 04/27/2008 documented as of this encounter (statuses as of 02/05/2023) [facility] History of Past illness Narrative* Problem Noted Date Diagnosed Date Resolved Date Bilateral carpal tunnel syndrome 08/26/2018 12/06/2019 Overview: Added automatically from request for surgery [id number] Chronic fatigue 12/27/2015 12/06/2019 Chronic cough 11/23/2014 12/06/2019 Supervision of other high-ri sk (V23.89) 12/23/2010 08/08/2011 Poor growth, affecting management of mother, antepartum condition or complication 05/02/2010 12/23/2010 PREV DELIVERY [654.23] 05/02/2010 08/08/2011 Surveillance of previously p rescribed contraceptive pill 02/08/2010 09/05/2011 Breech presentation without mention of version, antepartum 04/02/2008 04/27/2008 documented as of this encounter (statuses as of 05/05/2023) [facility] History of Past illness Narrative* Problem Noted Date Diagnosed Date Resolved Date Bilateral carpal tunnel syndrome 08/26/2018 12/06/2019 Overview: Added automatically from request for surgery [id number] Chronic fatigue 12/27/2015 12/06/2019 Chronic cough 11/23/2014 12/06/2019 Supervision of other high-ri sk (V23.89) 12/23/2010 08/08/2011 Poor growth, affecting management of mother, antepartum condition or complication 05/02/2010 12/23/2010 PREV DELIVERY [654.23] 05/02/2010 08/08/2011 Surveillance of previously p rescribed contraceptive pill 02/08/2010 09/05/2011 Breech presentation without mention of version, antepartum 04/02/2008 04/27/2008 documented as of this encounter (statuses as of 05/14/2023) [facility] History of Past illness Narrative* Problem Noted Date Diagnosed Date Resolved Date Bilateral carpal tunnel syndrome 08/26/2018 12/06/2019 Overview: Added automatically from request for surgery [id number] Chronic fatigue 12/27/2015 12/06/2019 Chronic cough 11/23/2014 12/06/2019 Supervision of other high-ri sk (V23.89) 12/23/2010 08/08/2011 Poor growth, affecting management of mother, antepartum condition or complication 05/02/2010 12/23/2010 PREV DELIVERY [654.23] 05/02/2010 08/08/2011 Surveillance of previously p rescribed contraceptive pill 02/08/2010 09/05/2011 Breech presentation without mention of version, antepartum 04/02/2008 04/27/2008 documented as of this encounter (statuses as of 09/13/2023) [facility] CenterDis[facility] summary Author Jon Jaimes [facility] January 31, 2024 8:35am Note Date/Time January 31, 2024 7:[address] [facility] Medical Records Department [address] [place] [address] Emergency Department Summary 01/31/24 MR#: [id number] Acct: [id number] Name: HORTENCIA PEREZ Rep #:[id number] : 1990 33 From: Jon Jaimes DO PCP: Dr. Bright Taylor MD Status :REG ER Location: ED HPI History of Present Illness Chief Complaint: Flank Pain Informant: patient Narrative Narrative: Patient is a 33-year-old female with a remote history of kidney stone. She states that she went to bed normally and then awoke around 2:30 in the morning with sharp stabbing pain in the left flank/abdomen. She states it caused nauseawithout vomiting. She denies any recent trauma or excessive activity. She denies any dysuria or vaginal discharge or concern for STD. She states that since onset the pain has been persistent and with concern for potential infection or stone causing her symptoms she comes in for evaluation [facility] Medical History Abnormal Pap smear of cervix Easy bruising Gastric reflux History of kidney stones Low iron Non-smoker Wears contact lenses Wears glasses Home Medications ibuprofen 800 mg tablet 800 mg PO Q8H PRN pain #30 tabs 07/03/23 [Rx Last Taken Unknown] ketorolac 10 mg tablet 10 mg PO 4X/DAY PRN pain 5 days #20 tabs 01/31/24 [Rx Last Taken Unknown] ondansetron 4 mg disintegrating tablet 4 mg PO TID PRN nausea and vomiting #21 tabs 01/31/24 [Rx Last Taken Unknown] oxycodone-acetaminophen 5 mg-325 mg tablet (Percocet) 1 tab PO Q6H PRN pain 3 days #12 tabs 01/31/24 [Rx Last Taken Unknown] tamsulosin 0.4 mg capsule (Flomax) 0.4 mg PO DAILY #14 caps 01/31/24 [Rx Last Taken Unknown] Allergy/AdvReac Type Severity Reaction Status Date / Time latex Allergy Rash Verified 01/31/24 06:38 nitrofurantoin Allergy Rash Verified 01/31/24 06:38 [From Macrobid] phenazopyridine Allergy Rash Verified 01/31/24 06:38 [From Pyridium] epinephrine AdvReac Other Verified 01/31/24 06:38 lidocaine AdvReac Other Verified 01/31/24 06:38 Family History Grandmother Diabetes Colon cancer Grandfather Myocardial infarction Colon cancer Surgical History History of carpal tunnel repair S/P S/P endometrial ablation S/P tubal ligation Status post hysterectomy (~07/03/23) Social History Smoking Status: Never smoker alcohol intake: never substance use type: former substance user and marijuana caffeine: Yes what type of physical activity do you participate in: none seatbelt use: always do you feel safe at home: Yes additional social history: -Chevy PINZON ED Constitutional Constitutional ED: Denies chills or fever(s) ENT ENT ED: Denies sore throat Cardiovascular Cardiovascular: Denies chest pain Respiratory/Chest Respiratory/Chest: Denies cough or dyspnea Gastrointestinal Gastrointestinal: Reports abdominal pain and nausea; Denies diarrhea or vomiting Genitourinary Genitourinary ED: Reports urinary frequency; Denies dysuria Musculoskeletal Musculoskeletal: Reports back pain; Denies myalgias Integumentary Denies rash Neurologic Neurologic: Denies headache(s) Hematologic/Lymphatic Hematologic/Lymphatic: Denies easy bleeding or easy bruising EXAM Physical Exam Const Vital Signs: 01/31/24 06:09 01/31/24 08:09 Temperature 96.3 F L Temperature Source Temporal Pulse Rate 85 84 Respiratory Rate 16 16 Blood Pressure 121/95 H 125/86 H Blood Pressure Mean 103 99 Pulse Ox 95 98 Oxygen Delivery Method Room Air Positive well nourished, well developed and obese General Appearance ED: well developed; Negative for pallor Nutritional Appearance: obese HEENT HEENT Narrative: Normocephalic atraumatic Eyes PERRL and EOMs intact bilaterally General Eye ED: Negative for scleral icterus Neck supple Neck Narrative: No nuchal rigidity or meningeal signs noted Resp normal respiratory effort and clear to auscultation bilaterally Cardio regular rate and regular rhythm Rate: other Other Details: Heart is regular rate and rhythm without murmurs rubsor gallops Radial and carotid pulses are equal and symmetric GI non-distended and no masses GI Narrative: Abdomen is soft and nondistended with normal active bowel sounds. Patient has pain on palpation along the left mid abdomen without voluntary guarding or rigidity. No pulsatile mass or fluid wave Auscultation: normoactive bowel sounds Palpation: soft Back/Spine Back/Spine Narrative: Positive left CVA pain noted Extremity normal to inspection Neuro oriented x3, CN's II-XII intact bilaterally and no sensory deficits noted Sensorium / Orientation: alert Motor Exam: strength 5/5 throughout Psych mental status grossly normal Skin no rashes or lesions noted and no wounds Skin Narrative: No overlying soft tissue changes to suggest trauma or infection General Skin Exam: Negative for jaundice or pallor MDM MDM MDM Narrative Medical decision making narrative: Patient arrived to the ER with stable vitals but reported sudden onset left- sided flank/abdominal pain in the middle of the night that woke her from sleep. Differential diagnosis is for kidney stone versus UTI/pyelonephritis versus potential intestinal disease such as diverticulitis or ovarian pathology such as a cyst. As her exam is most consistent with kidney stone and she does have a remote history of these I like to perform basic laboratory studies and noncontrast CT scan. Labs showed no findings of acute kidney injury or urosepsis. There is no significant electrolyte derangement either. CT scan didshow a stone consistent with her exam but at this time as she does not have HUONG or urosepsis and her pain has been well-controlled there is no need for inpatient treatment and she can follow-up on an outpatient basis. History & Record Review Discussion w/independent historian: Patient Lab Data Attestation: I reviewed the patient's lab results. Labs: Laboratory Results - last 24 hr 01/31/24 06:26 WBC 7.6 RBC 4.46 Hgb 13.4 Hct 39.8 MCV 89.2 MCH 30.0 MCHC 33.7 RDW Std Deviation 41.7 RDW Coeff of Julianne 12.7 Plt Count 335 MPV 9.2 Immature Gran % (Auto) 0.400 Neut % (Auto) 74.0 H Lymph % (Auto) 16.5 L [place] % (Auto) 5.8 Eos % (Auto) 2.8 Baso % (Auto) 0.5 Absolute Neuts (auto) 5.6 Absolute Lymphs (auto) 1.25 Nucleated RBC % 0 Sodium 143 Potassium 3.7 Chloride 107 Carbon Dioxide 27.0 Anion Gap 9 BUN 11 Creatinine 0.95 Estim Creat Clear Calc 84.94 Est GFR (MDRD) Af Amer 87 Est GFR (MDRD) Non-Af 72 BUN/Creatinine Ratio 11.5 Glucose 108 H Calcium 9.6 Urine Color Yellow Urine Clarity Clear Urine pH 5.0 Ur Specific [place] 1.020 Urine Protein 15 H Urine Glucose (UA) Normal Urine Ketones Negative Urine Occult Blood 50 H Urine Nitrite Negative Urine Bilirubin Negative Urine Urobilinogen Normal Ur Leukocyte Esterase 25 H Urine RBC 5-10 SEEN Urine WBC 10-25 SEEN Ur Squamous Epith Cells 10-25 SEEN Urine Bacteria 0 SEEN Hyaline Casts 0-5 SEEN Urine Mucus RARE Radiography Diagnostic Testing: Clinical Impression(s) from Imaging Studies Abdomen/Pelvis CT 01/31/24 06:39 IMPRESSION: 6 mm calculus at the left ureterovesical junction causing a mild degree of left hydronephrosis and left hydroureter. Electronically Signed: Wilfredo Sanchez MD at 8:30 EDT , Discharge Plan Triage Chief Complaint: Flank Pain ED Provider: Jon Jaimes Dx/Rx/DC Orders Clinical Impression: Renal colic, Kidney stone Instructions: ED Kidney Stone with Pain Prescriptions: New tamsulosin [Flomax] 0.4 mg capsule 0.4 mg PO DAILY Qty: 14 0RF ondansetron 4 mg tablet,disintegrating 4 mg PO TID PRN (Reason: nausea and vomiting) Qty: 21 0RF ketorolac 10 mg tablet 10 mg PO 4X/DAY PRN (Reason: pain) 5 Days Qty: 20 0RF oxycodone-acetaminophen [Percocet] 5-325 mg tablet 1 tab PO Q6H PRN (Reason: pain) 3 Days Qty: 12 0RF No Action ibuprofen 800 mg tablet 800 mg PO Q8H PRN (Reason: pain) Qty: 30 0RF Stand Alone Forms: ED Work / School Excuse Primary Care Provider: Bright Taylor Referrals: Bright Taylor MD [Primary Care Provider] - Domingo Monroe MD [Med Staff - Active Staff] - Activity Restrictions/Additional Instructions: Please return to the ER for repeat evaluation if your pain is not controlled with the prescribed medication or he develop a fever over 100.4. Otherwise follow-up with urology as directed What to do if you have Problems For any increased pain, shortness of breath, bleeding, nausea or vomiting, chestpain, or any unexpected problems, contact your Primary Care Provider. Call [facility] ([phone]) or report to the closest Emergency Room. Call 911 if necessary. 01/31/24 0835 <Electronically signed by Jon Jaimes DO> Cosigner Signature (if applicable): CC: Dr. Bright Taylor MD ~ Signed [facility] Work Phone: Evaluation note* Diagnosis Pain with urination- Primary Renal colic Burning with urination Dysuria [facility] this encounter [facility]* Diagnosis Acute vaginitis- Primary Vaginitis and vulvovaginitis, unspecified documented in this encounter [facility] note* Diagnosis Rash- Primary Rash and other nonspecific skin eruption documented in this encounter [facility] note* Diagnosis Onset Date Resolution Status Abnormal uterine bleeding ac [facility] Work Phone: Evaluation note* Diagnosis Onset Date Resolution Status Abnormal uterine bleeding ac [place] Abnormal uterine bleeding ac [facility] Work Phone: Evaluation note* Diagnosis Onset Date Resolution Status Abnormal uterine bleeding ac [place] Abnormal uterine bleeding ac [place] Abnormal uterine bleeding [place] S/P acute [facility] Work Phone: Evaluation note* Diagnosis Viral illness- Primary Unspecified viral infection, in conditions classified elsewhere and of unspecified site [facility] Diagnosis Onset Date Resolution Status STD exposure noneactive Monilial vaginitis noneactiv e [facility] Work Phone: Evaluation note* Diagnosis Vitiligo- Primary Screening for hyperlipidemia Screening for lipoid disorders Gastroesophageal reflux disease, unspecified whether esophagitis present documented in this encounter [facility] note* Diagnosis Annual physical exam- Primary Routine general medical examination at a health care facility Snoring Other dyspnea and respiratory abnormality Daytime somnolence Hypersomnia, unspecified Screening for depression Encounter for screening examination for other mental health and behavioral disorders Vitiligo documented in this encounter [facility] note* Diagnosis Toe pain, left Pain in limb documented in this encounter [facility] note* Diagnosis Sinobronchitis- Primary Unspecified sinusitis (chronic) Canker sore Oral aphthae documented in this encounter [facility] note* Diagnosis Cellulitis of antihelix of right ear- Primary documented in this encounter [facility] note* Diagnosis Piercing in right external ear- Primary documented in this encounter [facility] note* Diagnosis Bee sting, accidental or unintentional, initial encounter- Primary documented in this encounter [facility] note* Diagnosis Annual physical exam- Primary Routine general medical examination at a health care facility Encounter for immunization Need for other specified prophylactic vaccination against single bacterial disease Screening for depression Encounter for screening examination for other mental health and behavioral disorders Screening for cervical cancer Screening for malignant neoplasm of the cervix Weight gain Abnormal weight gain Overweight documented in this encounter [facility] Discharge instructions Additional Instructions Please return to the ER for repeat evaluation if your pain is not controlled with the prescribed medication or he develop a fever over 100.4. Otherwise [facility]: Reason for referral (narrative)* Diagnostic Procedure Only (Routine) - Closed Specialty Diagnoses / Procedures Referred By Johanna marion Referred To Contact XR IMAGING Diagnoses Toe pain, left Procedures XR FOOT GENERAL 3V AP/LAT/OBL LT X-RAY FOOT MINIMUM 3 VIEWS Wendy Paul APRN.CNP [address] [place] [address] [place] [address] Referral ID Status Reason Start Date Expiration Date V isits Requested Visits Authorized [id number] Closed Auto-Generate d Referral 08/10/2021 09/09/2022 1 1 [facility] for visit Narrative* Diagnostic Procedure Only (Routine) - Closed Specialty Diagnoses / Procedures Referred By Contac t Referred To Contact XR IMAGING Diagnoses Toe pain, left Procedures XR FOOT GENERAL 3V AP/LAT/OBL LT X-RAY FOOT MINIMUM 3 VIEWS Podlogar, BARON Nguyen.GRE INSTRUCTOR [address] [facility] [place] [address] [place] [address] Referral ID Status Reason Start Date Expiration Date V isits Requested Visits Authorized [id number] Closed Auto-Generate d Referral 08/10/2021 09/09/2022 1 1 [facility] Summary Purpose Family History No Family History Records Found Relationship Condition Age at Onset Recorded Date/T charlene grandmother Diabetes mellitus Unknown Malignant neoplasm of colon Unknown grandfather Myocardial infarction Unknown Advance Directives No Advanced Directives Records Found Advance Directive Response Recorded Date/ Time Living Will No December 06, 2022 10:31pm Power of Garment Examiner No December 06 10:31pm Advance Directive Response Recorded Date/ Time Living Will No June 29, 2023 1:54pm Power of Garment Examiner No June 1:54pm Advance Directive Response Recorded Date/ Time Living Will No June 29, 2023 12:54pm Power of Garment Examiner No June 12:54pm Advance Directive Response Recorded Date/ Time Living Will No January 31, 2024 6:37am Power of Garment Examiner No January 30 6:37am Chief Complaint and Reason for Visit Chief Complaint SURGICAL CONSULT *ok per JV abnormal vaginal bleeding Reason for Visit Abnormal uterine ble eding Chief Complaint SURGICAL CONSULT *ok per JV abnormal vaginal bleeding TRH,Cysto URINARY INCONTINENCE / PT HAS RX Reason for Visit Abnormal uterine ble eding Abnormal uterine bleeding Chief Complaint SURGICAL CONSULT *ok per JV abnormal vaginal bleeding TRH,Cysto URINARY INCONTINENCE / PT HAS RX Lap Robotic Hysterectomy Jorge Salpin Lap Robotic Hysterectomy Jorge Salpin Reason for Visit Abnormal uterine ble eding Abnormal uterine bleeding Abnormal uterine bleeding S/P urologist physician Complaint abnormal vaginal ble eding TRH,Cysto URINARY INCONTINENCE / PT HAS RX Lap Robotic Hysterectomy Jorge Salpin Lap Robotic Hysterectomy Jorge Salpin 2 wk TRH, cysto 6 WK POST OP Acute vaginitis Reason for Visit Abnormal uterine ble eding S/P Abnormal uterine bleeding Status post hysterectomy Status post hysterectomy Vaginitis Chief Complaint Yeast Infection? otc not working FLANK PAIN Reason for Visit STD exposure Monilial vaginitis Reason for Referral Specialty Diagnoses / Procedures Referred By Johanna marion Referred To Contact Dermatology Diagnoses Vitiligo Procedures CONSULT TO DERMATOLOGY Podlogar, BARON Nguyen.GRE INSTRUCTOR [address] [facility] [place] [address] Referral ID Status Reason Start Date Expiration Date Visits Requested Visits Authorized [id number] Ref Not Required PCP Requested Referral 04/09/2024 04/09/2025 1 1 Additional Source Comments INFORMATION SOURCE (unrecogn ized section and content) DATE CREATED AUTHOR 09/15/2018 [facility] DATE CREATED AUTHOR AUTHOR'S ORGANIZ ATION 09/30/2018 [facility] DATE CREATED AUTHOR AUTHOR'S ORGANIZ ATION 07/21/2025 [facility] DATE CREATED AUTHOR AUTHOR'S ORGANIZ ATION 08/14/2025 [facility] Source Comments (unrecognize d section and content) In the event this informatio n is protected by the Federal Confidentiality of Alcohol and Drug Abuse Patient Records regulations: The Federal rules restrict any use of the information to criminally investigate or prosecute any alcohol or drug abuse patient.[facility] the event this information is protected by the Federal Confidentiality of Alcohol and Drug Abuse Patient Records regulations: The Federal rules restrict any use of the information to criminally investigate or prosecute any alcohol or drug abuse patient.[facility] Center[facility] the event this information is protected by the Federal Confidentiality of Alcohol and Drug Abuse Patient Records regulations: The Federal rules restrict any use of the information to criminally investigate or prosecute any alcohol or drug abuse patient.[facility] Center[facility] the event this information is protected by the Federal Confidentiality of Alcohol and Drug Abuse Patient Records regulations: The Federal rules restrict any use of the information to criminally investigate or prosecute any alcohol or drug abuse patient.[facility] Center[facility] the event this information is protected by the Federal Confidentiality of Alcohol and Drug Abuse Patient Records regulations: The Federal rules restrict any use of the information to criminally investigate or prosecute any alcohol or drug abuse patient.[facility] Center[facility] the event this information is protected by the Federal Confidentiality of Alcohol and Drug Abuse Patient Records regulations: The Federal rules restrict any use of the information to criminally investigate or prosecute any alcohol or drug abuse patient.[facility] Center[facility] the event this information is protected by the Federal Confidentiality of Alcohol and Drug Abuse Patient Records regulations: The Federal rules restrict any use of the information to criminally investigate or prosecute any alcohol or drug abuse patient.[facility] CenterIn the event this information is protected by the Federal Confidentiality of Alcohol and Drug Abuse Patient Records regulations: The Federal rules restrict any use of the information to criminally investigate or prosecute any alcohol or drug abuse patient.[facility] CenterIn the event this information is protected by the Federal Confidentiality of Alcohol and Drug Abuse Patient Records regulations: The Federal rules restrict any use of the information to criminally investigate or prosecute any alcohol or drug abuse patient.[facility] CenterIn the event this information is protected by the Federal Confidentiality of Alcohol and Drug Abuse Patient Records regulations: The Federal rules restrict any use of the information to criminally investigate or prosecute any alcohol or drug abuse patient.[facility] CenterIn the event this information is protected by the Federal Confidentiality of Alcohol and Drug Abuse Patient Records regulations: The Federal rules restrict any use of the information to criminally investigate or prosecute any alcohol or drug abuse patient.[facility] CenterIn the event this information is protected by the Federal Confidentiality of Alcohol and Drug Abuse Patient Records regulations: The Federal rules restrict any use of the information to criminally investigate or prosecute any alcohol or drug abuse patient.[facility] CenterIn the event this information is protected by the Federal Confidentiality of Alcohol and Drug Abuse Patient Records regulations: The Federal rules restrict any use of the information to criminally investigate or prosecute any alcohol or drug abuse patient.[facility] CenterIn the event this information is protected by the Federal Confidentiality of Alcohol and Drug Abuse Patient Records regulations: The Federal rules restrict any use of the information to criminally investigate or prosecute any alcohol or drug abuse patient.[facility] CenterIn the event this information is protected by the Federal Confidentiality of Alcohol and Drug Abuse Patient Records regulations: The Federal rules restrict any use of the information to criminally investigate or prosecute any alcohol or drug abuse patient.[facility] CenterIn the event this information is protected by the Federal Confidentiality of Alcohol and Drug Abuse Patient Records regulations: The Federal rules restrict any use of the information to criminally investigate or prosecute any alcohol or drug abuse patient.[facility] Reason for Visit (unrecogniz ed section and content) Reason Comments Urinary Problem burning and pain wit h urination x 3 days Reason Comments Vaginal Problem Pt reported vaginal irritation, redness x5 days, denied discharge. Reason Comments Results Reason Comments Derm Problem circular, red area o n left side x 1 week Reason Comments Diarrhea Nausea, dry mouth, f ever x 1 week Reason Comments Refill Request Antiacid medication request Derm Problem Losing pigment for t he last few years Specialty Diagnoses / Procedures Referred By Johanna t Referred To Contact Family Medicine / FAMILY MEDICINE Diagnoses My meds and to find out what this skin problem is Procedures MYC OFFICE VISIT Self PodlogWendy hirsch APRN.GRE INSTRUCTOR [address] [place] [address] Referral ID Status Reason Start Date Expiration Date V isits Requested Visits Authorized [id number] Waiting for Response 04/09/2024 07/08/2024 1 1 Reason Comments Physical Reason Comments Nasal Congestion drainage, cough and headache x 2 weeks Reason Comments Ear Problem Right ear piercing p ain and swelling x 2 weeks Reason Comments Follow [facility] for ear piercing on right ear Reason Comments Insect Bite R forearm bee sting x9 days, arm still red and swollen Care Teams (unrecognized sec tion and content) 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 Motor 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 Relationship Specialty Start Date End Date Jennifer Taylor MD [address], [place] [id number] PCP - General Family Medicine 04/23/21 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 Motor Assembler Relationship Specialty Start Date End Date Jennifer Taylor MD [address] [place], [place] [id number] PCP - General Family Medicine 04/23/21 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 Motor Assembler Relationship Specialty Start Date End Date Jennifer Taylor MD [address], [place] [id number] PCP - General Family Medicine 04/23/21 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 Motor Assembler Relationship Specialty Start Date End Date Jeninfer Taylor MD [address] [place], [place] [address] PCP - General Family Medicine 04/23/21 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 Motor Assembler Relationship Specialty Start Date End Date Jennifer Taylor MD [address] [place], [place] [id number] PCP - General Family Medicine 04/23/21 Team Status: Active Member Role Status Dates Dr. Miriam Reis III, MD Family Provider Active Dr. Bright Taylor MD Primary Care Provider Acti ve Team Status: Inactive Member Role Status Dates Dr. Bright Taylor MD Primary Care Provider, Ref erring Provider Active Dr. Anay Leach DO Attending Provider Activ e Team Status: Inactive Member Role Status Dates Dr. Bright Taylor MD Primary Care Provider Acti ve Dr. Anay Leach , Attending Provider Activ e Team Status: Inactive Member Role Status Dates Dr. Bright Taylor MD Primary Care Provider Acti ve Dr. Anay Leach , Attending Provider, Refe rring Provider Active Team Status: Inactive Member Role Status Dates Dr. Bright Taylor MD Primary Care Provider Acti ve Dr. Khushi Marcial MD Attending Provider, Referring P rovider Active Team Status: Active Member Role Status Dates Dr. Bright Taylor MD Primary Care Provider Acti ve Dr. Anay Leach DO Attending Provider, Referring Provider, Other Provider Active 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 Motor Assembler Relationship Specialty Start Date End Date Jennifer Taylor MD [address], [place] [address] PCP - General Family Medicine 04/23/21 Team Status: Inactive Member Role Status Dates Dr. Bright Taylor MD Primary Care Provider, Ref erring Provider Active Coby Batista TEST AND TURN UP TECHNICIAN, TEST AND TURN UP TECHNICIAN-C Attending Provider Active Team Status: Inactive Member Role Status Dates Dr. Bright Taylor MD Primary Care Provider Acti ve Coby Batista TEST AND TURN UP TECHNICIAN, TEST AND TURN UP TECHNICIAN-C Attending Provider, Referring Provider Active Team Status: Inactive Member Role Status Dates Dr. Bright Taylor MD Primary Care Provider Acti ve Dr. Jon Jaimes , Emergency Provider Active 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 Motor Assembler Relationship Specialty Start Date End Date Jennifer Taylor MD [address] [place], [place] [id number] PCP - General Family Medicine 04/23/21 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 Motor Assembler Relationship Specialty Start Date End Date Jennifer Taylor MD [address], [place] [id number] PCP - General Family Medicine 04/23/21 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 Motor Assembler Relationship Specialty Start Date End Date Jennifer Taylor MD [address] [place], [place] [address] PCP - General Family Medicine 04/23/21 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 Motor Assembler Relationship Specialty Start Date End Date Jennifer Taylor MD [address], [place] [address] PCP - General Family Medicine 04/23/21 PodlogarWendy APRN.GRE INSTRUCTOR [address] [place] [address] [employer] Family Medicine 09/13/24 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 Motor Assembler Relationship Specialty Start Date End Date Jennifer Taylor MD [address] [place] [address] PCP - General Family Medicine 04/23/21 PodlogarWendy APRN.GRE INSTRUCTOR [address] [place] [address] [employer] Family Medicine 09/13/24 Yvonne Thomas APRN.GRE INSTRUCTOR [address] [place] [address] [facility] 12/29/24 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 Motor Assembler Relationship Specialty Start Date End Date Jennifer Taylor MD [address] [place] [address] PCP - General Family Medicine 04/23/21 Podlogar, Wendy, INVENTORY TRANSCRIBER.GRE INSTRUCTOR [address] [place] [address] [employer] Family Medicine 09/13/24 Yvonne Thomas APRN.GRE INSTRUCTOR [address] [place] [address] [facility] 12/29/24 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 Motor Assembler Relationship Specialty Start Date End Date Jennifer Taylor MD [address], [place] [address] PCP - General Family Medicine 04/23/21 PodlogarWendy APRN.GRE INSTRUCTOR [address] [place], [place] [address] [facility] 09/13/24 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 Motor Assembler Relationship Specialty Start Date End Date Jennifer Taylor MD [address], [place] [address] [phone] PCP - General Family Medicine 04/23/21 PodlogarWendy APRN.GRE INSTRUCTOR [address] [place] [address] [facility] Medicine 09/13/24 Yvonne Thomas APRN.GRE INSTRUCTOR [address] [place], [place] [address] [phone] [facility] 03/19/25 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 Motor Assembler Relationship Specialty Start Date End Date Jennifer Taylor MD [address] [place] [address] PCP - General Family Medicine 04/23/21 PodlogarWendy APRN.GRE INSTRUCTOR [address] [place] [address] [facility] Medicine 09/13/24 Yvonne Thomas APRN.GRE INSTRUCTOR [address] [place] [address] [facility] 03/19/25 Goals (unrecognized section and content) Goals may be documented in a n alternate sectionGoals may be documented in an alternate sectionGoals may be documented in an alternate section FOR RECORDS PERTAINING TO PATIENTS WHO ARE OR HAVE BEEN ENROLLED IN A CHEMICAL DEPENDENCY/SUBSTANCEABUSE PROGRAM, SOME INFORMATION MAY BE OMITTED. This clinical summary was aggregated from multiple sources. Caution should be exercised in using it in the provision of clinical care. This summary normalizes information from multiple sources, and as a consequence, information in this document may materially change the coding, format and clinical context of patient data. In addition, data may be omitted in some cases. CLINICAL DECISIONS SHOULD BE BASED ON THE PRIMARY CLINICAL RECORDS. [facility] [employer] [facility]. provides no warranty or guarantee of the accuracy or completeness of information in this document.
--- NOTE | 2025-08-15 08:11 | MRI_ITS ---
PROCEDURE: LOWER EXT JOINT ONLY (ROUTINE) 08/15/2025 REASON FOR EXAM: PLANTAR FASCIAL FIBROMATOSIS TECHNIQUE: Procedure Code: MRILEJ Modality: MR Procedure: LOWER EXT JOINT ONLY (ROUTINE) Multiplanar and multisequence images were obtained without IV contrast administration. COMPARISON: none FINDINGS: A small bony planter calcaneal spur is noted. Thickened proximal segment of the planter fascia showing edema signal with partial fibers interruption. Related miley-fascial intramuscular as well as heel fat pad soft tissue edema noted.. The Achilles tendon appears intact with insertional calcification. Minimal fluid signal is seen distending the retro-calcaneal bursa. Thickened tibialis posterior tendon showing increased signal with surrounding fluid. Intact flexor hallucis longus, flexor digitorum longus and peroneus tendons. The extensor tendons appear intact. The talofibular and tibio-fibular ligaments appear normal. The deltoid ligament appears intact. The interosseous ligament between the talus and calcaneus is intact. Mild tibiotalar, tibio-fibular, sub-talar and to less extent inter-tarsal joints effusion seen with no synovial thickening. No marrow infiltrative lesions The neurovascular tissue appears normal. MRI/Lower Ext Joint Only (Routine) IMPRESSION: Bony planter calcaneal spur with planter fasciitis showing partial thickness te ar. Tibialis posterior tendonitis and mild tenosynovitis. Mild tibiotalar, tibio-fibular, sub-talar and to less extent inter-tarsal joint s effusion. Reading [facility]
== END | disposition home or self-care (01) ==
LOC: MRI 08:07
PROVIDERS: PCP Family Medicine; Referring Provider Podiatrist; Visit Provider Podiatrist
DX: M72.2 Plantar fascial fibromatosis (principal)
CPT/HCPCS: 73721